=== PATIENT | male | born 1965 | race Caucasian/White ===

== ENCOUNTER 2019-08-15 11:52 | Outpatient (NON) | payer OTHER, SELFPAY ==
[2019-08-16 13:21] LABS: SARS-CoV-2 RNA PCR Negative
== END 2019-08-15 11:53 ==
PROVIDERS: PCP Family Medicine; Visit Provider Family Medicine
DX: R50.9 Fever, unspecified (principal); R51 Headache; M79.10 Myalgia, unspecified site; Z20.828 Contact with and (suspected) exposure to other viral communicable diseases
CPT/HCPCS: 87635; C9803; U0003

== ENCOUNTER 2019-08-19 12:10 | Outpatient (CLI) | payer OTHER, SELFPAY ==
--- NOTE | ~2019-08-19 | XR_ITS ---
EXAMINATION: XR chest 2V DATE: 08/19/2019 12:32 INDICATION: Shortness of breath TECHNIQUE: Frontal and lateral views of the chest are obtained COMPARISON: None available FINDINGS: The lungs are free of acute opacities. There is no pleural effusion or pneumothorax. The ca rdiomediastinal silhouette is normal. There is mild thoracic spondylosis. IMPRESSION: 1. No acute cardiopulmonary abnormality. Reviewed, dictated and finalized at location A.
== END 2019-08-19 12:11 | disposition home or self-care (01) ==
PROVIDERS: PCP Family Medicine; Visit Provider Physician Assistant
DX: R06.02 Shortness of breath (principal)
CPT/HCPCS: 71046

== ENCOUNTER 2019-08-25 03:40 | Emergency (ER) | payer OTHER, SELFPAY ==
--- NOTE | ~2019-08-25 | CT_ITS ---
EXAMINATION: CT abdomen pelvis w con DATE: 08/25/2019 05:29 INDICATION: Right upper quadrant abdominal pain TECHNIQUE: Computed tomography (CT) of the abdomen and pelvis was performed with 100 mL Omnipaque-350 intravenous contrast. Automated exposure control and iterative reconstruction technique were employe d. The dose-length product was 391.67 mGy-cm. COMPARISON: None FINDINGS: Minimal dependent atelectasis in the bilateral lower lobes. Heart size is normal. Atherosclerotic cor onary artery calcifications. No pericardial or pleural effusion. Minimal bilateral gynecomastia. Diff use hepatic steatosis with focal sparing along the gallbladder fossa. Gallbladder, spleen, bilateral adrenal glands and kidneys are normal. 1 cm cystic lesion at the head of the pancreas which appears o therwise normal. Bowels appear normal with large amount of colonic stool. The appendix is not visuali zed. No pericecal inflammatory change to suggest acute appendicitis. No free intraperitoneal gas or f luid. No pathologically enlarged abdominal or pelvic lymphadenopathy. There is calcified atherosclero sis of the aorta and many of the other arteries. Small bilateral fat-containing inguinal hernias. Min imal to mild scattered degenerative skeletal changes. IMPRESSION: 1. No acute intra-abdominal/pelvic process. 2. Diffuse hepatic steatosis. 3. 1 cm cystic lesion at the head of the pancreas. The differential diagnosis includes pseudocyst, in traductal papillary mucinous neoplasm (IPMN), mucinous cystic neoplasm (MCN), and the less common ser ous cystadenoma and neuroendocrine tumor. Correlate for history of pancreatitis. Recommend one-year f ollow-up dressed enhanced CT or more preferably MRI. Reviewed, dictated and finalized at location A. IMPRESSION: 1. No acute intra-abdominal/pelvic process. 2. Diffuse hepatic steatosis. 3. 1 cm cystic lesion at the head of the pancreas. The differential diagnosis i ncludes pseudocyst, intraductal papillary mucinous neoplasm (IPMN), mucinous cy stic neoplasm (MCN), and the less common serous cystadenoma and neuroendocrine tumor. Correlate for history of pancreatitis. Recommend one-year follow-up dres sed enhanced CT or more preferably MRI.
[2019-08-25 03:43] VITALS: BP 167/109; PULSE 92; RESP 20; TEMP 36.3; O2SAT 99
[2019-08-25 04:21] LABS: Add Urine Microscopic? NO; Appearance Urine Clear (Clear); Bilirubin Urine Negative (Negative); Blood Urine Negative (Negative); Color Urine Straw (Yellow); Glucose Urine UA Negative (Negative); Ketones Urine Negative (Negative); Leukocyte Esterase Ur Negative LEU/UL (Negative); Nitrate Urine Negative (Negative); Protein Urine Negative (Negative); Specific Grav Ur 1.013 (1.001-1.035); Urobilinogen Urine Negative mg/dL (<2.0)
[2019-08-25 04:22] LABS: Basophils Absolute Auto 0.1 K/mm3 (0.0-0.1); Basophils Percent Auto 1.2 % (0.2-1.2); Eosinophils Absolute Auto 0.4 K/mm3 (0-0.3); Eosinophils Percent Auto 4.8 % (0-4.4); Hematocrit 43.8 % (42.0-52.0); Hemoglobin 15.8 g/dL (14.0-18.0); Immature Granulocyte Absolute 0.13 K/mm3 (0.00-0.031); Immature Granulocyte Percent A 1.6 % (0-0.5); Lymphocytes Absolute Auto 1.96 K/mm3 (0.9-3.2); Lymphocytes Percent Auto 24.1 % (18.3-44.2); Mean Corpuscular HGB Conc 36.1 g/dl (32-36); Mean Corpuscular Hemoglobin 31.9 pg (26-34); Mean Corpuscular Volume 88.5 fl (80-100); Mean Platelet Volume 9.4 fl (7.4-10.4); Monocytes Absolute Auto 0.7 K/mm3 (0.1-0.6); Monocytes Percent Auto 8.7 % (2.6-8.5); Neutrophils Absolute Auto 4.9 K/mm3 (1.3-6.7); Neutrophils Percent Auto 59.6 % (45.5-73.1); Platelet Count Result 312 k/mm3 (150-375); Red Blood Count 4.95 M/mm3 (4.6-6.20); Red Cell Distribution Width 12.1 % (11.5-14.5); White Blood Count 8.1 K/mm3 (4.5-10.0)
[2019-08-25] MEDS: ONDANSETRON INJ 4 MG/2 ML VIAL IV PUSH (04:23)
[2019-08-25] MEDS: MORPHINE SULFATE 4 MG/ML INJ IV PUSH (04:23)
[2019-08-25 04:39] LABS: Alanine Aminotransferase 55 U/L (4-50); Albumin Level 4.5 g/dL (3.5-5.1); Alkaline Phosphatase 65 U/L (38-126); Aspartate Amino Transferase 29 U/L (17-59); Bilirubin,Total 0.4 mg/dL (0.2-1.3); Blood Urea Nitrogen 19 mg/dL (9-20); Calcium 8.8 mg/dL (8.4-10.2); Carbon Dioxide 29 mmol/L (22-30); Chloride 100 mmol/L (98-107); Estimated Glomerular Filt Rate > 60; Glucose 99 mg/dL (75-110); Lipase 156 U/L (23-300); Potassium 4.2 mmol/L (3.4-5.0); Sodium 136 mmol/L (137-145)
--- NOTE | 2019-08-25 05:11 | ED.ABDPAIN ---
HPI - Abdominal Pain General Chief Complaint: Abdominal Pain Stated Complaint: abd pain Time Seen by Provider: 08/25/19 04:01 History of Present Illness HPI narrative: Patient is a 53-year-old male who presents the ER with right upper quadrant abdominal pain. Patient reports intermittent symptoms over the last couple of weeks. He has been in to see his primary care physician. They did COVID testing which was negative. They then did a x-ray of the thoracic spine which showed some degenerative changes. He reports that the pain radiates into his back under his right scapula. There is mild nausea but no vomiting. No fevers or chills or sweats. It is associated with eating and drinking. No known cholelithiasis. No history of pancreatitis. Related Data Allergies Allergy/AdvReac Type Severity Reaction Status Date / Time carrot Allergy Severe HIVES Verified 08/25/19 03:45 celery Allergy Severe HIVES Verified 08/25/19 03:45 Penicillins Allergy Unknown Unknown Verified 08/25/19 03:45 Pistachio Allergy Severe HIVES Uncoded 08/25/19 03:45 Review of Systems Review of Systems: All systems reviewed & are unremarkable except as noted in HPI and below Constitutional: Constitutional: Denies chills, Denies fever(s) and Denies weakness ENT: Denies nasal congestion and Denies sore throat Cardiovascular: Cardiovascular: Denies chest pain and Denies radiating jaw, neck or arm pain Respiratory: Respiratory: Denies cough and Denies dyspnea Gastrointestinal: Gastrointestinal: Reports abdominal pain, Reports nausea and Denies vomiting Genitourinary: Genitourinary: Denies dysuria and Denies urinary frequency PMFSH Past Medical History Medical History (Updated 08/25/19 @ 06:36 by Braden Rios MD) Anxiety HLD (hyperlipidemia) Hypothyroidism Normal colonoscopy (~2016) Surgical History Surgical History (Updated 08/25/19 @ 05:12 by Braden Rios MD) No pertinent past surgical history Social History Social History Smoking status: Never smoker Second hand tobacco smoke exposure: No Alcohol intake: never Gender identity (if verbalized by the patient): Male Exam Narrative: Exam Narrative: GENERAL: Uncomfortable-appearing, well-nourished, and in mild distress. HEAD: Normocephalic, atraumatic. ENT: Mucous membranes moist. CHEST: Clear to auscultation. No respiratory distress. HEART: Regular rate and rhythm. Normal peripheral pulses. ABDOMEN: Soft, moderate tenderness palpation right upper quadrant with positive Roman's, nondistended. EXTREMITIES: Normal range of motion. No edema. SKIN: Warm, dry, no rash. NEURO: Alert and oriented x3. PSYCH: Normal mood and affect. Course Course Emergency Course: Patient informed of results. Will start on PPI twice daily. Needs follow-up with PCP. Vital Signs Vital signs: Vital Signs Temperature 97.3 F L 08/25/19 03:43 Pulse Rate 92 08/25/19 03:43 Respiratory Rate 20 08/25/19 03:43 Blood Pressure 167/109 H 08/25/19 03:43 Pulse Oximetry 99 08/25/19 03:43 Temperature 97.3 F L 08/25/19 03:43 Pulse Rate 92 08/25/19 03:43 Respiratory Rate 20 08/25/19 03:43 Blood Pressure 167/109 H 08/25/19 03:43 Pulse Oximetry 99 08/25/19 03:43 MDM - Abdominal Pain Lab Data Result diagrams: 08/25/19 04:03 08/25/19 04:03 Labs: Lab Results 08/25/19 08/25/19 08/25/19 Range/Units 04:03 04:03 04:03 WBC 8.1 (4.5-10.0) K/mm3 RBC 4.95 (4.6-6.20) M/mm3 Hgb 15.8 (14.0-18.0) g/dL Hct 43.8 (42.0-52.0) % MCV 88.5 (80-100) fl MCH 31.9 (26-34) pg MCHC 36.1 H (32-36) g/dl RDW 12.1 (11.5-14.5) % Plt Count 312 (150-375) k/mm3 MPV 9.4 (7.4-10.4) fl Immature Gran % (Auto) 1.6 H (0-0.5) % Neut % (Auto) 59.6 (45.5-73.1) % Lymph % (Auto) 24.1 (18.3-44.2) % [place] % (Auto) 8.7 H (2.6-8.5) % Eos % (Auto) 4.8
[2019-08-25 07:10] VITALS: BP 152/98; PULSE 82; RESP 18; O2SAT 98
== END 2019-08-25 07:11 | disposition home or self-care (01) ==
PROVIDERS: Emergency Provider Emergency Medicine; PCP Family Medicine
DX: K27.9 Peptic ulcer, site unspecified, unspecified as acute or chronic, without hemorrhage or perforation (principal); F41.9 Anxiety disorder, unspecified; E78.5 Hyperlipidemia, unspecified
CPT/HCPCS: 36415; 74177; 80053; 81003; 83690; 85025; 96374; 96375; 99284; J2270; J2405; Q9967

== ENCOUNTER 2019-10-25 15:57 | Emergency (ER) | payer OTHER, SELFPAY ==
[2019-10-25 16:09] VITALS: BP 153/92; PULSE 72; RESP 16; TEMP 36.4; O2SAT 99
--- NOTE | 2019-10-25 16:17 | ED.EAR ---
HPI - Ear Problem General Chief complaint: Ear Stated complaint: ear pain Time Seen by Provider: 10/25/19 16:17 Source: RN notes reviewed Mode of arrival: ambulatory Limitations: no limitations History of Present Illness HPI Narrative: 53 year old male who presents to [facility] with complaint of sharp throbbing pain to his right ear for the past 2 days,Patient denies any fevers, sore throat, sinus congestion or drainage, or cough. Patient states that he has been swimming a lot lately and thinks ear pain may be related. He states no pain behind his ear or any noted drainage, some tragal tenderness noted. Patient states that he has not applied any ear drops in his ear or taken any OTC medications. MD Complaint: ear pain Location: right ear Duration: constant Severity: moderate Relieving factors: nothing Exacerbating factors: nothing Context: Reports recent swimming Discharge from ear: Reports no Associated symptoms ear: other (ear pain) Treatment prior to arrival: none Related Data Allergies Allergy/AdvReac Type Severity Reaction Status Date / Time carrot Allergy Severe HIVES Verified 10/25/19 15:59 celery Allergy Severe HIVES Verified 10/25/19 15:59 Penicillins Allergy Unknown Unknown Verified 10/25/19 15:59 Pistachio Allergy Severe HIVES Uncoded 10/25/19 15:59 Review of Systems Review of Systems: Narrative: CONSTITUTIONAL: Denies fever, chills, or sweats. EYES: Denies visual changes, redness, or discharge. ENT: Denies rhinorrhea, congestion, sore throat, positive for right ear pain CARDIOVASCULAR: Denies chest pain, palpitations, or edema. RESPIRATORY: Denies cough or dyspnea. GASTROINTESTINAL: Denies abdominal pain, nausea, vomiting, or diarrhea. GENITOURINARY: Denies dysuria or hematuria. SKIN: Denies rash or itching. MUSCULOSKELETAL: Denies back pain, joint pain, or myalgia. NEUROLOGIC: Denies headache, numbness, or weakness. PSYCHIATRIC: Denies anxiety or depression. All systems reviewed & are unremarkable except as noted in HPI and below PMFSH Past Medical History Medical History (Updated 10/28/19 @ 10:50 by Kady Hoyos NP) Anxiety Cystic mass of pancreas Fracture of right ankle HLD (hyperlipidemia) Hypothyroidism Normal colonoscopy (~2015) Surgical History Surgical History (Updated 10/28/19 @ 10:50 by Kady Hoyos NP) H/O vasectomy History of appendectomy History of surgery on right wrist Social History Social History (Updated 10/28/19 @ 10:50 by Kady Hoyos NP) Smoking status: Never smoker Second hand tobacco smoke exposure: No Alcohol intake: former Living arrangements: with family Gender identity (if verbalized by the patient): Male Comments At time of signature, agree with nursing past medical, surgical, social history. There is no relevant family history pertinent to the presenting complaint Exam Narrative: Exam Narrative: GENERAL: Well-appearing, well-nourished, and in no acute distress. HEAD: Normocephalic, atraumatic. EYES: PERRLA and EOMI. ENT: Nares clear, no rhinorrhea or epistaxis. Mucous membranes moist.Right TM red and bulging with ear canal red and excoriated, tragal tenderness noted. Left TM normal with good light reflex, throat pink with no redness or swelling NECK: Supple.no lymphadenopathy CHEST: Clear to auscultation. No respiratory distress.SAO2 99% on room air. HEART: Regular rate and rhythm. No murmur heard. Normal peripheral pulses. ABDOMEN: Soft, nontender, nondistended, normal active bowel sounds. EXTREMITIES: Normal range of motion. No edema. SKIN: Warm, dry, no rash. NEURO: No focal deficits. Alert and oriented x3. Course Vital Signs Vital signs: Vital Signs Temperature 36.4 C 10/25/19 16:09 Pulse Rate 72 10/25/19 16:09 Respiratory Rate 16 10/25/19 16:09 Blood Pressure 153/92 H 10/25/19 16:09 Pulse Oximetry 99 10/25/19 16:09 Temperature 36.4 C 10/25/19 16:09 Pulse Rate 72 10/25/19 16:09 Respiratory Rate 16
== END 2019-10-25 16:37 | disposition home or self-care (01) ==
PROVIDERS: Emergency Provider Registered Nurse; PCP Family Medicine
DX: H66.91 Otitis media, unspecified, right ear (principal); H60.91 Unspecified otitis externa, right ear; F41.9 Anxiety disorder, unspecified; E78.5 Hyperlipidemia, unspecified; E03.9 Hypothyroidism, unspecified; Z98.52 Vasectomy status
CPT/HCPCS: 99213; G0463

== ENCOUNTER 2022-02-13 12:52 | Observation (INO) | payer BC, SELFPAY ==
[2022-02-13] VITALS (15 sets, daily range): BP systolic 124–213; BP diastolic 77–120; PULSE 60–119; RESP 12–18; TEMP 36.3–36.4; O2SAT 96–99; BMI 23.5
--- NOTE | ~2022-02-13 | CT_ITS ---
EXAMINATION: CT brain wo con DATE: 02/13/2022 15:05 INDICATION: ams . TECHNIQUE: Computed tomography (CT) of the head was performed without intravenous contrast. The mA wa s adjusted according to patient size. Iterative reconstruction technique was employed. The dose-lengt h product was 681.00 mGy-cm. COMPARISON: None FINDINGS: No acute intracranial hemorrhage or extra-axial fluid collection. No hydrocephalus, mass, or herniation. No acute ischemic infarct. Unremarkable dural venous sinus attenuation. No acute osseous abnormality. The aerated spaces are clear. IMPRESSION: No acute intracranial process. Reviewed, dictated and finalized at location K. ISTRY TECHNICAL OFFICER
--- NOTE | ~2022-02-13 | XR_ITS ---
EXAMINATION: XR chest 1V portable Exam Date/Time: 02/13/2022 14:35 SENIOR ABAP DEVELOPER HISTORY: midsternal chest pain, radiates to right arm Comparison: 08/19/2019. RESULT: Lines, tubes, and devices: None. Lungs and pleura: Clear. Cardiomediastinal silhouette: Stable. Other: No acute osseous or upper abdominal finding. IMPRESSION: No acute cardiopulmonary process. Reviewed, dictated and finalized at location K. OR ABAP DEVELOPER
--- NOTE | 2022-02-13 12:54 | ECG_ITS ---
Measurements Intervals [place] Rate: 116 P: 33 WA: 171 QRS: 43 QRSD: 108 T: 18 QT: 339 QTc: 473 Interpretive Statements SINUS TACHYCARDIA POSSIBLE LEFT ATRIAL ENLARGEMENT INCOMPLETE RIGHT BUNDLE BRANCH BLOCK DELAYED PRECORDIAL R/S TRANSITION BASELINE ARTIFACT- I, II, III, AVR ABNORMAL ECG NO PREVIOUS ECG AVAILABLE FOR COMPARISON Electronically Signed On 02-13-2022 14:03:44 [employer] by Tam Loya D.O.
[2022-02-13 13:16] LABS: Basophils Absolute Auto 0.1 K/mm3 (0.0-0.1); Basophils Percent Auto 0.8 % (0.2-1.2); Eosinophils Absolute Auto 0.1 K/mm3 (0-0.3); Eosinophils Percent Auto 0.4 % (0-4.4); Hematocrit 42.1 % (42.0-52.0); Hemoglobin 14.6 g/dL (14.0-18.0); Immature Granulocyte Absolute 0.09 K/mm3 (0.00-0.031); Immature Granulocyte Percent A 0.7 % (0-0.5); Lymphocytes Absolute Auto 1.78 K/mm3 (0.9-3.2); Lymphocytes Percent Auto 14.1 % (18.3-44.2); Mean Corpuscular HGB Conc 34.7 g/dl (32-36); Mean Corpuscular Hemoglobin 31.9 pg (26-34); Mean Corpuscular Volume 91.9 fl (80-100); Mean Platelet Volume 9.6 fl (7.4-10.4); Monocytes Absolute Auto 0.5 K/mm3 (0.1-0.6); Monocytes Percent Auto 4.1 % (2.6-8.5); Neutrophils Absolute Auto 10.1 K/mm3 (1.3-6.7); Neutrophils Percent Auto 79.9 % (45.5-73.1); Platelet Count Result 358 k/mm3 (150-375); Red Blood Count 4.58 M/mm3 (4.6-6.20); Red Cell Distribution Width 12.1 % (11.5-14.5); White Blood Count 12.6 K/mm3 (4.5-10.0)
[2022-02-13 13:26] LABS: Alanine Aminotransferase 30 U/L (6-50); Albumin Level 5.2 g/dL (3.5-5.1); Alkaline Phosphatase 43 U/L (38-126); Anion Gap 17 mmol/L (8-16); Aspartate Amino Transferase 31 U/L (17-59); Bilirubin,Total 0.5 mg/dL (0.2-1.3); Blood Urea Nitrogen 19 mg/dL (9-20); Calcium 8.4 mg/dL (8.4-10.2); Carbon Dioxide 23 mmol/L (22-30); Chloride 95 mmol/L (98-107); Estimated CRCL calculation 95 ml/min; Estimated Glomerular Filt Rate > 60; Ethanol < 10 mg/dL (<10); Glucose 123 mg/dL (65-110); Potassium 3.6 mmol/L (3.4-5.0); Sodium 135 mmol/L (137-145)
[2022-02-13 13:38] LABS: Prothrombin Time 12.7 Seconds (11.1-14.7)
[2022-02-13 13:39] LABS: Partial Thromboplastin Time 27.3 SECONDS (22.3-36.8)
[2022-02-13 13:45] LABS: Appearance Urine Clear (Clear); Bilirubin Urine Negative (Negative); Blood Urine Negative (Negative); Color Urine Yellow (Yellow); Glucose Urine UA Negative (Negative); Ketones Urine Trace mg/dL (Negative); Leukocyte Esterase Ur Negative LEU/UL (Negative); Nitrate Urine Negative (Negative); Protein Urine Trace mg/dL (Negative); Urobilinogen Urine 0.2 mg/dL (<2.0); pH Urine 6.5 (5.0-9.0)
[2022-02-13 13:52] LABS: Mucus Urine Rare /lpf; RBC Urine 0-2 /hpf (0-2); WBC Urine 0-3 /hpf
[2022-02-13 13:55] LABS: Add Urine Microscopic? YES
[2022-02-13 14:05] LABS: Amphetamine Screen Urine Negative (Negative); Barbiturate Screen Urine Negative (Negative); Benzodiazepines Screen Urine Negative (Negative); Cannabinoid Screen Urine Negative (Negative); Cocaine Screen Urine Negative (Negative); Methadone Screen Urine Negative (Negative); Opiate Screen Urine Negative (Negative); Phencyclidine Screen Urine Negative (Negative)
--- NOTE | 2022-02-13 14:22 | ED.GENADULT ---
HPI - General Adult General Chief complaint: Altered Mental Status Stated complaint: chest is hurting, AMS Time Seen by Provider: 02/13/22 14:06 History of Present Illness HPI narrative: Patient is a 56-year-old male with a history of familial hypercholesterolemia, hypertension presenting with confusion and chest pain. Patient was at a football game yesterday with his family and admits that he was drinking for most of the day. On the drive home this morning, he felt increasingly nauseous as well as confused. Patient's states that he was quieter than normal. When they arrived home, patient stated that he felt ill enough that he thought he needed an ambulance which frightened his . Patient complains of severe nausea as well as chest pressure and shortness of breath. States that he is starting to feel better now but he continues to feel nauseated. He denies fevers, headaches, cough, abdominal pain, leg swelling, dysuria, back pain. Related Data Allergies Allergy/AdvReac Type Severity Reaction Status Date / Time carrot Allergy Severe HIVES Verified 02/13/22 13:19 celery Allergy Severe HIVES Verified 02/13/22 13:19 cigarette smoke Allergy Mild Unknown Verified 02/13/22 13:19 mold Allergy Mild Unknown Verified 02/13/22 13:19 Penicillins Allergy Unknown Unknown Verified 02/13/22 13:19 Pistachio Allergy Severe HIVES Uncoded 11/11/20 09:13 fire smoke Allergy Mild Unknown Uncoded 11/11/20 09:13 Review of Systems Review of Systems: All systems reviewed & are unremarkable except as noted in HPI and below PMFSH Past Medical History Medical History (Updated 02/24/22 @ 16:22 by Lisa Nelson MD) Anxiety Cystic mass of pancreas Followed by hepatobiliary at [facility]. Mass not appreciated on most recent MRI. Essential hypertension Familial hypercholesterolemia Fracture of right ankle Hypothyroidism Normal colonoscopy (~2015) Surgical History Surgical History (Updated 02/13/22 @ 23:46 by Darcy Colon PA-C) History of appendectomy History of surgery on right wrist History of vasectomy Family History Family History (Updated 02/13/22 @ 23:46 by Darcy Colon PA-C) Other Heart disease Hypertension Social History Social History (Updated 02/13/22 @ 23:47 by Darcy Colon PA-C) Social History: Surrogate medical decision maker: Nicole Ibrahim, . Code status: Full code. Smoking status: Never smoker Second hand tobacco smoke exposure: No Alcohol intake: current Drinks per week: 8 Substance use: never Substance use type: does not use Lack of Transportation: No Lack of Food: Never True Current Housing: I Have Housing Concerned About Future Housing: No Difficulty Paying Gas/Electric Bills: No Difficulty Paying for Meds: No Currently Unemployed: No Education: Bachelor's Degree Difficulty w/ Childcare or Family Care: No Additional living arrangements comments: The patient lives with his and son in [place]. 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 Spiritual care concerns: No Exam Narrative: GENERAL: Well-appearing, well-nourished, and in no acute distress. HEAD: Normocephalic, atraumatic. EYES: PERRLA and EOMI. ENT: Nares clear, no rhinorrhea or epistaxis. Mucous membranes moist. NECK: Supple. CHEST: Clear to auscultation. No respiratory distress. HEART: Tachycardic, regular rhythm. No murmur heard. Normal peripheral pulses. ABDOMEN: Soft, nontender, nondistended, normal active bowel sounds. EXTREMITIES: Normal range of motion. No edema. SKIN: Warm, dry, no rash. NEURO: No focal deficits. Alert and oriented x3. PSYCH: Normal mood and affect. Course Vital Signs Vital signs: Vital Signs Pulse Rate 119 H 02/13/22 13:02 Respiratory Rate 17 02/13/22 13:02 Blood Pressure 213/119 H 02/13/22 13:02 Pulse Oximetry 99 02/13/22 13:02 Temperature 97.3 F L 02/14/22 11:47 Pulse Rate 71 02/14/22 14:
[2022-02-13] MEDS: ONDANSETRON INJ 4 MG/2 ML VIAL IV PUSH (14:39)
[2022-02-13] MEDS: SODIUM CHLORIDE 0.9% IV 1,000 ML 999 ML IV CONT (14:39)
[2022-02-13] MEDS: FAMOTIDINE 20 MG/2 ML VIAL IV PUSH (14:39)
[2022-02-13 15:14] LABS: Troponin I < 0.012 ng/mL (0.000-0.034)
[2022-02-13 15:31] LABS: Influenza A QL RT-PCR Negative (Negative); Influenza B QL RT-PCR Negative (Negative); SARS-CoV-2 RNA PCR Negative
[2022-02-13] MEDS: METOPROLOL TARTRATE INJ 5 MG/5 ML VIAL IV PUSH (15:40)
[2022-02-13 16:19] LABS: Troponin I < 0.012 ng/mL (0.000-0.034)
--- NOTE | 2022-02-13 19:00 | PM.IMHP ---
H&P: HPI History of Present Illness Date/Time: 02/13/22 19:00 Chief Complaint: Chest pain and confusion. Narrative: This is a very pleasant 56-year-old male with hypertension, familial hypercholesterolemia, and hypertension who presented to the emergency department from home for evaluation of chest pain and confusion. He and his family went to the [employer] [facility] football game yesterday and he admits that he drank more beer than usual as they tail gated for many hours prior to the game. This morning he did not have much of an appetite and he felt generally unwell which he attributed to a mild hangover. His drove them home and throughout the drive he started to feel a bit nauseated and confused though he has difficulties pinpointing exactly how he felt ?it just felt that something was not right.? When they got a bit closer to home he developed nonradiating, mid chest pressure associated with mild shortness of breath in addition to the nausea and he felt it would be best to come in for evaluation. On arrival to the ER he was in sinus tachycardia with rate of 119 and his blood pressure was 213/119. He was given 5 milligrams IV Lopressor x1 with improvement in both. Brain CT and chest x-ray were both unremarkable. His EKG showed sinus tachycardia with delayed precordial R/S transition and an incomplete right bundle branch block. His initial troponin was negative. Pertinent labs include white blood cell count of 12.6, sodium 135, chloride 95. He was given a bolus of IV fluids and famotidine 20 milligrams and he is feeling a bit better at this time. Given his risk factors, he is being admitted for close monitoring and to rule out acute coronary syndrome. At the time my evaluation he is not having any chest discomfort, nausea, or shortness of breath. He does not have any current confusion and denies vertigo, auditory and visual changes, focal weakness, paresthesias, facial droop, dysarthria, and dysphagia. He also denies syncope and near syncope. No pleuritic pain, palpitations, lower extremity edema, or history of venous thromboembolism. He has no known history of cardiac disease. No history of cardiac workup. Review of Systems Review of Systems: Twelve systems were reviewed and are negative except for as per HPI. [facility] Past Medical History Medical History (Updated 02/13/22 @ 23:49 by Darcy Cloon PA-C) Anxiety Cystic mass of pancreas Followed by hepatobiliary at [facility]. Mass not appreciated on most recent MRI. Essential hypertension Familial hypercholesterolemia Fracture of right ankle Hypothyroidism Normal colonoscopy (~2016) Surgical History Surgical History (Updated 02/13/22 @ 23:46 by Darcy Colon PA-C) History of appendectomy History of surgery on right wrist History of vasectomy Family History Family History (Updated 02/13/22 @ 23:46 by Darcy Colon PA-C) Other Heart disease Hypertension Social History Social History (Updated 02/13/22 @ 23:47 by Darcy Colon PA-C) Social History: Surrogate medical decision maker: Nicole Ibrahim, . Code status: Full code. Smoking status: Never smoker Second hand tobacco smoke exposure: No Alcohol intake: current Drinks per week: 8 Substance use: never Substance use type: does not use Has the Lack of Transportation Kept You From Medical Appointments or From Getting Medications?: No Within the Past 12 Months, Were You Worried Whether Your Food Would Run Out Before You Got Money to Buy More?: Never True What is Your Housing Situation Today?: I Have Housing Are You Worried That in the Next 2 Months, You May Not Have Your Own Housing to Live In?: No Do You Have Trouble Paying Your Heating Or Electricity Bill?: No Do You Have Trouble Paying For Medicines?: No Are You Currently Unemployed and Looking for Work?: No Highest Level of Education Completed: Bachelor's Degree Do You Have Trouble With Childcare or the Care of a Fam
--- NOTE | 2022-02-13 21:08 | ADMGEN ---
This patient, Nikolay Ibrahim, was admitted to IMU Room 200-01. Patient/family oriented to hospital policies and general routines including ID bracelet, bed and alarms, visiting hours, pain management, procedures, bathroom and other care routines, personal items, smoking policy, room service/diet, and visiting hours. Information on how to activate the Rapid Response Team has been discussed. Patient/Family are encouraged to report perceived risks to care and to ask questions if they do not understand what they are told or what they should do.
[2022-02-14] VITALS (10 sets, daily range): BP systolic 119–155; BP diastolic 69–89; PULSE 59–78; RESP 12–16; TEMP 36.2–36.6; O2SAT 99–100
[2022-02-14] MEDS: ACETAMINOPHEN 500 MG TABLET 1000 MG PO (04:38)
[2022-02-14 04:54] LABS: Hematocrit 38.5 % (42.0-52.0); Hemoglobin 13.1 g/dL (14.0-18.0); Mean Corpuscular Hemoglobin 31.2 pg (26-34); Mean Corpuscular Volume 91.7 fl (80-100); Mean Platelet Volume 9.8 fl (7.4-10.4); Platelet Count Result 269 k/mm3 (150-375); Red Cell Distribution Width 12.2 % (11.5-14.5); White Blood Count 7.4 K/mm3 (4.5-10.0)
[2022-02-14 05:07] LABS: Anion Gap 11 mmol/L (8-16); Blood Urea Nitrogen 17 mg/dL (9-20); Calcium 8.3 mg/dL (8.4-10.2); Carbon Dioxide 28 mmol/L (22-30); Chloride 101 mmol/L (98-107); Estimated CRCL calculation 87 ml/min; Estimated Glomerular Filt Rate > 60; Glucose 98 mg/dL (65-110); Magnesium 2.1 mg/dL (1.6-2.3); Sodium 140 mmol/L (137-145)
[2022-02-14] MEDS: LEVOTHYROXINE SODIUM 25 MCG TABLET PO (06:02)
[2022-02-14 06:44] LABS: Free T4 Free Thyroxine Reflex 0.76 ng/dL (0.78-2.19)
[2022-02-14] MEDS: lisinopriL 10 MG TABLET PO (08:45)
[2022-02-14] MEDS: ACETAMINOPHEN 325 MG TABLET 650 MG PO (10:45)
--- NOTE | 2022-02-14 14:06 | PM.CNCAR ---
Assessment and Plan Assessment and plan (1) Chest pain: Code(s): R07.9 - Chest pain, unspecified Status: Acute Plan This is a 56-year-old man who was feeling poorly on Monday yesterday following a day of significant detailed a alliance party and alcohol drinking for a good deal of Monday. He he was having a variety of symptoms including some chest pain as mentioned above. He has ruled out for evidence of acute coronary syndrome. Normally this gentleman is active fit and he exercises regularly with no symptoms that are suspicious for angina. I believe he is stable enough to be discharged acute coronary syndrome has been ruled out. Due to his lack of other symptomatology at this point I do not think he needs to stay in the hospital for an ischemia workup. Luis Garcia MD [facility] History of Present Illness History of Present Illness Consult date/time: 02/14/22 14:06 Consult reason: chest pain Reason For Visit: chest pain Narrative: This is a 56-year-old man I am seeing this afternoon at the request of the hospitalist he was admitted yesterday with a variety of complaints Um on which was some chest pain. The patient is not known to have any cardiac problems before this. He says that he is an active gentleman that exercises regularly 3 or 4 times per week on stair stepper machines and other types of aerobic activity like this for his fitness. He does not have any history of exertional anginal-type chest pain. He began to feel unwell yesterday at his home. He was describing the sense of almost feeling like he had a hangover from drinking heavily the day before and noticed that his blood pressure was rather high in excess of 200 mmHg. He states for a couple of times he is found to be disoriented I he was having some dull central chest discomfort that was nonradiating and not associated with any diaphoresis or dyspnea. Because of the symptoms and the very high blood pressure he came to the emergency room for evaluation. His electrocardiogram shows sinus tachycardia but with no ST segment deviation of ischemia. His troponin levels were normal x3 sets. This gentleman as mentioned above is in a very good state of aerobic fitness he exercises regularly as a matter of his habit and does not describe anything that sounds like angina. On Monday of this past weekend before he was admitted he was attending the [employer] football game on Monday and was meeting with a lot of friends and admits to drinking beer much more than is his usual habit for most of the day at a large detailed a alliance party/reunion. He was attributing his symptoms initially to recovering from that unusually heavy alcohol intake on Monday. He feels fine now and does not have any complaints. Review of Systems Constitutional: Constitutional: Reports no additional constitutional complaints Eyes: Eyes: Reports no additional eye complaints ENT: Reports system reviewed and no additional complaints, except as documented Cardiovascular: Cardiovascular: Reports no additional cardiovascular complaints Respiratory: Respiratory: Reports no additional respiratory complaints Gastrointestinal: Gastrointestinal: Reports no additional gastrointestinal complaints Musculoskeletal: Musculoskeletal: Reports no additional musculoskeletal complaints Integumentary/Breasts: Skin/Breast: Reports system reviewed and no additional complaints, except as docu Neurologic: Reports system reviewed and no additional complaints, except as documented Endocrine: Endocrine: Reports no additional endocrine complaints Hematologic/Lymphatic: Hematologic/Lymphatic: Reports no additional hematologic/lymphatic complaints Allergic/Immunologic: Allergic/Immunologic: Reports no additional allergic/immunologic complaints [facility] Past Medical History Medical History (Updated 02/13/22 @ 23:49 by Darcy Colon PA-C) Anxiety Cystic mass of pancreas Followed by hepatobiliary at [facility].
--- NOTE | 2022-02-14 15:17 | PM.DS ---
DS: Admitting Diagnosis Discharge Date 02/14/2022 Admitting Diagnosis chest pain DS: Summary Hospital Course Reason for hospitalization: chest pain Hospital Course: This is a 56-year-old man who was admitted yesterday with chest pain.? The patient is not known to have any cardiac problems before this.? He says that he is an active gentleman that exercises regularly 3 or 4 times per week on stair stepper machines and other types of aerobic activity like this for his fitness.? He does not have any history of exertional anginal-type chest pain.? He began to feel unwell yesterday at his home.? He was describing the sense of almost feeling like he had a hangover from drinking heavily the day before and noticed that his blood pressure was rather high in excess of 200 mmHg.? He states for a couple of times he is found to be disoriented. he was having some dull central chest discomfort that was nonradiating and not associated with any diaphoresis or dyspnea.? Because of the symptoms and the very high blood pressure he came to the emergency room for evaluation.? His electrocardiogram shows sinus tachycardia but with no ST segment deviation of ischemia.? His troponin levels were normal x3 sets.? He feels fine now and does not have any complaints. cardiology was consulted. per their evaluation patient is stable to be discharged home without any further cardiac intervention at this time. patient is being discharged home Time Spent with Patient Time attestation: Total time spent providing and/or coordinating discharge services: Exam Const: General: comfortable and no acute distress Other: Well-developed well-nourished healthy-looking gentleman in no distress of any kind HENMT: Mouth: Yes moist mucous membranes Eyes: Sclera: sclerae normal Pupils: Equal, round and reactive pupils present Neck: Neck: supple and no JVD Other: Normal carotid pulses bilaterally no audible bruits Resp: Effort & Inspection: normal respiratory effort Auscultation: clear to auscultation bilaterally Cardio: Rate: regular rate Rhythm: regular rhythm Other: PMI is of normal location and activity first and second heart sounds normal no gallop no murmur GI: GI Palp: Yes Soft to palpation Auscultation: normal bowel sounds Skin: General skin exam: normal color Neuro: Other: Alert and oriented, normal cognition Extrem: Other: No edema, excellent distal pulses DS: Data Data Completed and Pending Labs on day of discharge: Labs from last 24 hours 02/14/22 02/14/22 02/14/22 04:14 04:14 04:14 WBC RBC Hgb Hct MCV MCH MCHC RDW Plt Count MPV Sodium 140 Potassium 4.0 Chloride 101 Carbon Dioxide 28 Anion Gap 11 BUN 17 Creatinine 0.80 Estim Creat Clear Calc 87 Estimated GFR > 60 Glucose 98 Calcium 8.3 L Magnesium 2.1 Troponin I TSH (Reflex) 4.310 Free T4 0.76 L Influenza A (RT-PCR) Influenza B (RT-PCR) SARS-CoV-2 RNA (RT-PCR) 02/14/22 02/13/22 02/13/22 04:14 15:54 14:41 WBC 7.4 RBC 4.20 L Hgb 13.1 L Hct 38.5 L MCV 91.7 MCH 31.2 MCHC 34.0 RDW 12.2 Plt Count 269 MPV 9.8 Sodium Potassium Chloride Carbon Dioxide Anion Gap BUN Creatinine Estim Creat Clear Calc Estimated GFR Glucose Calcium Magnesium Troponin I < 0.012 TSH (Reflex) Free T4 Influenza A (RT-PCR) Negative Influenza B (RT-PCR) Negative SARS-CoV-2 RNA (RT-PCR) Negative Discharge Plan Discharge Consulting providers: Edi Bullock Discharging Clinician: Juan Carlos Quispe Anticipated Discharge Date/Time: 02/14/22 15:20 Patient Disposition: Home, Self-Care Activity: august shower Diet: heart healthy Patient Instructions: Antibiotic Form, Chest Pain (DC) Stand Alone Forms: General Discharge Information Follow-up/Referrals: Dedra Doty MD [Primary Care [facility]
--- NOTE | 2022-02-14 23:56 | ECHO_ITS ---
Patient Info Name: Nikolay Ibrahim Age: 56 years : 1965 Gender: Male Ht: 68 in Wt: 154 lbs BSA: 1.84 m2 HR: 64 bpm BP: 155 / 89 mmHg Heart Rhythm: Sinus Rhythm Technical Quality: Fair Exam Date: 02/14/2022 9:55 AM Exam Location: [facility] Pulmonary Patient Status: Outpatient Admit Date: 02/13/2022 Staff Ordering Physician: Darcy Colon PA-C Fabrication Welder: Cori Haywood RDCS Attending Provider: Juan Carlos Quispe MD Referring Physician: Isaiah COFFMAN; Exam Type: CA echo doppler color flow Study Info Indications - HTN, HLD R07.9 - Chest pain, unspecified Complete two-dimensional, color flow and Doppler transthoracic echocardiogram is performed. Summary 1. Complete two-dimensional, color flow and Doppler transthoracic echocardiogram is performed. 2. Normal left ventricular size and systolic function, no ischemic wall motion abnormalities. 3. Left atrial size at the upper limits of normal. 4. Mild sclerosis of the aortic valve with no functional stenosis. Left Ventricle Left ventricular chamber dimension is normal. Left ventricular systolic function is hyperdynamic, estimated at >70%. The left ventricular diastolic function is normal. Right Ventricle Right ventricular chamber dimension is normal. Left Atria Left atrial chamber dimension is mildly enlarged. Right Atria Right atrial chamber dimension is normal. Aortic Valve The aortic valve is trileaflet. There is mild aortic valve sclerosis. Pulmonic Valve The pulmonic valve is normal. Mitral Valve The mitral valve has normal leaflets. Tricuspid Valve The tricuspid valve leaflets are normal. Pericardium/Pleural The pericardium appears normal. Aorta The aortic root size at the sinus of Valsalva is normal. Left Ventricular Outflow Tract Name Value Normal LVOT 2D LVOT Diameter 2.0 cm LVOT Doppler LVOT Peak Gradient 8 mmHg LVOT Mean Gradient 4 mmHg LVOT VTI 29 cm LVOT VTI/AV VTI Ratio 0.9 LVOT Stroke Volume 88 ml LVOT CO 5.5 l/min LVOT CI 3.0 l/min/m2 Pulmonic Valve Name Value Normal RVOT Doppler RVOT Peak Gradient 1 mmHg PV Doppler PV Peak Gradient 5 mmHg Mitral Valve Name Value Normal MV Doppler MV Decel [place] 617 cm/s2 MV PHT
== END 2022-02-14 15:56 | disposition home or self-care (01) ==
LOC: ANHED 14:06 → ANHIMU 19:48
PROVIDERS: Emergency Medicine; Physician Assistant; Admitting Provider Internal Medicine; Emergency Provider Emergency Medicine; PCP Family Medicine; Visit Provider Hospitalist
DX: R07.9 Chest pain, unspecified (principal); R41.0 Disorientation, unspecified; E78.01 Familial hypercholesterolemia; I10 Essential (primary) hypertension; E03.9 Hypothyroidism, unspecified; R11.0 Nausea; R06.02 Shortness of breath; F41.9 Anxiety disorder, unspecified; E78.5 Hyperlipidemia, unspecified; R94.31 Abnormal electrocardiogram [ECG] [EKG]; Z20.822 Contact with and (suspected) exposure to COVID-19; R00.0 Tachycardia, unspecified; Z79.899 Other long term (current) drug therapy
CPT/HCPCS: 36415; 70450; 71045; 80048; 80053; 80307; 81001; 83735; 84439; 84443; 84484; 85025; 85027; 85610; 85730; 87636; 93005; 93306; 96361; 96374; 96375; 99285; A9270; G0378; J2405; J7030

== ENCOUNTER 2022-07-18 14:08 | Outpatient (CLI) | payer BC, SELFPAY ==
--- NOTE | ~2022-07-18 | XR_ITS ---
EXAM: XR foot RT min 3V DATE: 07/18/2022 14:24 HISTORY: M79.671 - Pain in right foot . COMPARISON: None available. FINDINGS: Normal mineralization. No fracture or dislocation. No lytic or blastic lesion. Mild hallux valgus. Mild joint space narrowing at the first MTP joint. Well marginated erosion at the medial cor ner of the proximal aspect of the right first proximal phalanx. Soft tissue swelling about the first MTP joint. IMPRESSION: Radiographic findings at the first MTP joint may represent gout, in the appropriate clini jeanne and laboratory context. Septic arthritis should also be considered in the differential of monoart icular arthritis. Reviewed, dictated and finalized at [facility]. IMPRESSION: Radiographic findings at the first MTP joint may represent gout, in the appropriate clinical and laboratory context. Septic arthritis should also be considered in the differential of monoarticular arthritis.
== END 2022-07-18 14:09 ==
LOC: MICIMG 14:10
PROVIDERS: PCP Family Medicine; Visit Provider Family Medicine
DX: M79.671 Pain in right foot (principal)
CPT/HCPCS: 73630

== ENCOUNTER 2023-05-07 09:19 | Observation (INO) | payer BC, SELFPAY ==
[2023-05-07] VITALS (16 sets, daily range): BP systolic 124–156; BP diastolic 77–97; PULSE 58–85; RESP 12–17; TEMP 36.2–36.8; O2SAT 92–100
--- NOTE | ~2023-05-07 | MR_ITS ---
EXAMINATION: MR brain/brain stem wo/w con DATE: 05/07/2023 15:13 INDICATION: dizziness, vertigo TECHNIQUE: Magnetic resonance imaging (MRI) of the brain and brainstem was performed without and with 15 mL MultiHance intravenous contrast. Sequences included sagittal and axial T1-weighted SE, axial d iffusion-weighted FS EPI ASSET, axial T2*-weighted GRE, axial T2-weighted FLAIR Propeller, and axial T2-weighted Propeller. Postcontrast axial and coronal T1-weighted SE was obtained. Apparent diffusion coefficient (ADC) maps were created. COMPARISON: CT brain 04/29/2023 FINDINGS: No abnormal restricted diffusion to suggest acute ischemic infarct. No MRI evidence of hemorrhage or extra-axial collection. No suspicious foci of susceptibility to suggest prior intraparenchymal hemorr trino. Scattered foci of white matter hyperintensity, likely representing mild small vessel ischemic d isease. No evidence of advanced or lobar predominant parenchymal volume loss. The basilar cisterns ar e patent. Flow voids are preserved. Minimal mucosal thickening in the bilateral inferior maxillary an d ethmoid sinuses, the remaining paranasal sinuses and mastoids are within normal limits. Globes and orbital contents are within normal limits. IMPRESSION: No acute intracranial process. Reviewed, dictated and finalized at location K. ING FACILITATOR
--- NOTE | ~2023-05-07 | CT_ITS ---
EXAMINATION: CTA brain carotid DATE: 05/08/2023 10:46 INDICATION: Vertigo. TECHNIQUE: Computed tomographic angiography (CTA) of the head was performed without and with 100 mL O mnipaque-350 intravenous contrast. CTA of the neck was performed with intravenous contrast. Automated exposure control and iterative reconstruction technique were employed. The dose-length product was 1 905.95 mGy-cm. Maximum intensity projection and volume rendered 3D-reconstructions were created by evelin yang technologist on a separate workstation. COMPARISON: Head CT 05/07/2023, brain MRI 05/07/2023 FINDINGS: HEAD CTA: There is no intracranial hemorrhage, acute infarction, or abnormal intracranial mass lesion . The ventricles are normal in size. The orbits are normal. There is mild mucosal thickening in the p aranasal sinuses. The mastoid air cells are normal. The vertebral arteries are codominant. There is n o significant stenosis of basilar artery or the posterior cerebral arteries. Right posterior communic ating artery and is normal. A left posterior communicating artery is not identified. There is no sign ificant stenosis of the intracranial internal carotid arteries or anterior or middle cerebral arterie s. Anterior communicating artery is normal. There is no aneurysm. NECK CTA: There are no pathologically enlarged lymph nodes. The vertebral arteries are codominant. Th ere is plaque in the proximal internal carotid arteries. There is 13% stenosis of the proximal right internal carotid artery relative to normal distal artery lumen diameter (NASCET criteria). There is 0 % stenosis of the proximal left internal carotid artery relative to normal distal artery lumen diamet er. There is mild cervical spondylosis. IMPRESSION: 1. Normal brain. No aneurysm or significant intracranial arterial stenosis. 2. 13% stenosis of the proximal right internal carotid artery relative to normal distal artery lumen diameter (NASCET criteria). 3. 0% stenosis of the proximal left internal carotid artery relative to normal distal artery lumen di ameter. Reviewed, dictated and finalized at location A. AINABLE LANDSCAPE ARCHITECT IMPRESSION: 1. Normal brain. No aneurysm or significant intracranial arterial stenosis. 2. 13% stenosis of the proximal right internal carotid artery relative to karen l distal artery lumen diameter (NASCET criteria). 3. 0% stenosis of the proximal left internal carotid artery relative to normal distal artery lumen diameter.
--- NOTE | ~2023-05-07 | CT_ITS ---
EXAMINATION: CT BRAIN W/O DATE: 05/07/2023 10:24 INDICATION: Vertigo TECHNIQUE: Computed tomography (CT) of the head was performed without intravenous contrast. The dose- length product was 605.33 mGy-cm. Automated exposure control and iterative reconstruction technique w ere employed. COMPARISON: CT dated 02/13/2022 FINDINGS: Normal brain parenchymal volume for age. Normal starr-white differentiation. No acute intrac ranial hemorrhage, infarction, mass or mass effect. There are scattered mild periventricular and subc ortical white matter changes, most likely related to small vessel ischemic disease (microangiopathy). No ventriculomegaly or midline shift. Midline sagittal images demonstrate a normal corpus callosum, c raniovertebral junction and sella turcica. Basilar cisterns are patent. Paranasal sinuses and mastoids are pneumatized. No depressed skull fractures. IMPRESSION: 1. No acute intracranial abnormality. Reviewed, dictated and finalized at location A. ATCHER CLERK
--- NOTE | 2023-05-07 09:28 | ECG_ITS ---
Measurements Intervals [place] Rate: 58 P: 35 [place]: 186 QRS: 55 QRSD: 110 T: 56 QT: 439 QTc: 432 Interpretive Statements SINUS BRADYCARDIA BORDERLINE ECG COMPARED TO ECG 02/13/2022 13:02:10 SINUS BRADYCARDIA NOW PRESENT Electronically Signed On 05-07-2023 11:30:04 PRIMER POWDER BLENDER WET by Tam Loya D.O.
[2023-05-07] MEDS: METOCLOPRAMIDE HCL INJ 10 MG/2 ML VIAL IV PUSH (09:29)
--- NOTE | 2023-05-07 09:58 | ED.DIZZY ---
HPI - Dizziness General Chief Complaint: Dizziness Stated Complaint: dizzy, n/v, headache, lightheadedness Time Seen by Provider: 05/07/23 09:43 History of Present Illness HPI Narrative: 57-year-old male presents to the emergency department for evaluation of acute onset vertigo this morning. Patient states when he woke up this morning he did not have dizziness but the dizziness worsened throughout the course of the morning. Patient describes dizziness with a spinning sensation. Patient does have associated nausea and vomiting. Patient denies any associated chest pain or shortness of breath. Related Data Allergies Allergy/AdvReac Type Severity Reaction Status Date / Time carrot Allergy Severe HIVES Verified 08/12/22 09:35 celery Allergy Severe HIVES Verified 08/12/22 09:35 cigarette smoke Allergy Mild Unknown Verified 08/12/22 09:35 mold Allergy Mild Unknown Verified 08/12/22 09:35 Penicillins Allergy Unknown Unknown Verified 08/12/22 09:35 Pistachio Allergy Severe HIVES Uncoded 07/18/22 13:30 fire smoke Allergy Mild Unknown Uncoded 07/18/22 13:30 Review of Systems Review of Systems: All systems reviewed & are unremarkable except as noted in HPI and below PMFSH Past Medical History Medical History Anxiety Cystic mass of pancreas Followed by hepatobiliary at [facility]. Mass not appreciated on most recent MRI. Essential hypertension Familial hypercholesterolemia Fracture of right ankle Hypothyroidism Normal colonoscopy (~2015) Surgical History Surgical History History of appendectomy History of surgery on right wrist History of vasectomy Family History Family History Other Heart disease Hypertension Social History Social History Social History: Surrogate medical decision maker: Nicole Ibrahim, . Code status: Full code. Smoking status: Never smoker Second hand tobacco smoke exposure: No Alcohol intake: current Drinks per week: 8 Substance use: never Substance use type: does not use Lack of Transportation: No Lack of Food: Never True Current Housing: I Have Housing Concerned About Future Housing: No Difficulty Paying Gas/Electric Bills: No Difficulty Paying for Meds: No Currently Unemployed: No Education: Bachelor's Degree Difficulty w/ Childcare or Family Care: No Living arrangements: with family Additional living arrangements comments: The patient lives with his and son in [place]. 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 Gender identity (if verbalized by the patient): Male Spiritual care concerns: No Exam Narrative: APPEARANCE: Well appearing, no pain, no distress, well-nourished. HEAD: normocephalic, atraumatic. EYES: Left-sided nystagmus NOSE: Normal no drainage EARS:TMS clear with good light reflex. THROAT: Pharynx clear, no exudate. NECK: Supple. No adenopathy, no masses. RESPIRATORY: Airway patent, respirations nonlabored. Clear to auscultation bilaterally, no rales, rhonchi, wheezing. CARDIOVASCULAR: Regular rate and rhythm without murmurs rubs or gallops. ABDOMINAL: Soft, nontender, nondistended, normal bowel sounds MUSCULOSKELETAL: Moves all extremities. Strength/ROM intact, No edema, No calf tenderness. NEURO: Alert. Cranial nerves II through XII intact. Grossly SKIN: Warm, dry. Normal Color Course Course Emergency Course: 57-year-old male presented to the ED for evaluation of vertigo. Patient did feel improved with meclizine treatment in the ED. patient is afebrile with no leukocytosis and a stable hemoglobin no significant abnormalities on his CMP head CT was negative. While patient did feel improved lying in the bed he did not ambulate due to
[2023-05-07] MEDS: ONDANSETRON INJ 4 MG/2 ML VIAL IV PUSH (10:06)
[2023-05-07] MEDS: SODIUM CHLORIDE 0.9% IV 1,000 ML 999 ML IV CONT (10:06)
[2023-05-07] MEDS: MECLIZINE HCL 25 MG TABLET PO (10:06)
[2023-05-07 10:20] LABS: Basophils Absolute Auto 0.1 K/mm3 (0.0-0.1); Eosinophils Absolute Auto 0.2 K/mm3 (0-0.3); Eosinophils Percent Auto 2.8 % (0-4.4); Hematocrit 37.9 % (42.0-52.0); Immature Granulocyte Absolute 0.06 K/mm3 (0.00-0.031); Immature Granulocyte Percent A 0.8 % (0-0.5); Lymphocytes Absolute Auto 1.25 K/mm3 (0.9-3.2); Lymphocytes Percent Auto 17.4 % (18.3-44.2); Mean Corpuscular HGB Conc 34.3 g/dl (32-36); Mean Corpuscular Hemoglobin 31.7 pg (26-34); Mean Corpuscular Volume 92.4 fl (80-100); Mean Platelet Volume 9.5 fl (7.4-10.4); Monocytes Absolute Auto 0.4 K/mm3 (0.1-0.6); Monocytes Percent Auto 5.7 % (2.6-8.5); Neutrophils Absolute Auto 5.2 K/mm3 (1.3-6.7); Neutrophils Percent Auto 72.3 % (45.5-73.1); Platelet Count Result 234 k/mm3 (150-375); Red Cell Distribution Width 12.2 % (11.5-14.5); White Blood Count 7.2 K/mm3 (4.5-10.0)
[2023-05-07 10:33] LABS: Alanine Aminotransferase 37 U/L (6-50); Albumin Level 4.1 g/dL (3.5-5.1); Alkaline Phosphatase 36 U/L (38-126); Anion Gap 10 mmol/L (8-16); Aspartate Amino Transferase 27 U/L (17-59); Bilirubin,Total 0.3 mg/dL (0.2-1.3); Blood Urea Nitrogen 21 mg/dL (9-20); Calcium 9.1 mg/dL (8.4-10.2); Carbon Dioxide 22 mmol/L (22-30); Chloride 105 mmol/L (98-107); Estimated Glomerular Filt Rate > 60; Glucose 145 mg/dL (65-110); Potassium 3.7 mmol/L (3.4-5.0); Sodium 137 mmol/L (137-145)
[2023-05-07] MEDS: diazePAM (*CRX) 5 MG TABLET PO (11:53)
--- NOTE | 2023-05-07 13:14 | PM.IMHP ---
H&P: HPI History of Present Illness Date/Time: 05/07/23 13:14 Chief Complaint: dizziness Narrative: This is a 57-year-old male patient who reports he was at home drinking a cup of coffee about an hour after waking up when he suddenly had sensation of dizziness with the room spinning worsened when he ambulates or opens his eyes. Also worsens when he turns his head. No prior episode of similar sensation. He reports that once he got to the hospital and settled he vomited several times. Patient has a past history of hypertension hyperlipidemia and hypothyroidism. He takes lisinopril metoprolol levothyroxine and fenofibrate at home. Patient denies any past history of stroke. He does not have any lower extremity ataxia but he does have a slightly positive Romberg on evaluation. Patient admitted for MRI and CVA workup with the likelihood vertigo as his final diagnosis. Review of Systems Review of Systems: All systems reviewed & are unremarkable except as noted in HPI and below PMFSH Past Medical History Medical History Anxiety Cystic mass of pancreas Followed by hepatobiliary at [facility]. Mass not appreciated on most recent MRI. Essential hypertension Familial hypercholesterolemia Fracture of right ankle Hypothyroidism Normal colonoscopy (~2015) Surgical History Surgical History History of appendectomy History of surgery on right wrist History of vasectomy Family History Family History Other Heart disease Hypertension Social History Social History Social History: Surrogate medical decision maker: Nicole Ibrahim, . Code status: Full code. Smoking status: Never smoker Second hand tobacco smoke exposure: No Alcohol intake: current Drinks per week: 8 Substance use: never Substance use type: does not use Lack of Transportation: No Lack of Food: Never True Current Housing: I Have Housing Concerned About Future Housing: No Difficulty Paying Gas/Electric Bills: No Difficulty Paying for Meds: No Currently Unemployed: No Education: Bachelor's Degree Difficulty w/ Childcare or Family Care: No Living arrangements: with family Additional living arrangements comments: The patient lives with his and son in [place]. 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 Gender identity (if verbalized by the patient): Male Spiritual care concerns: No Meds Home Medications and Allergies Home Medications Medication Instructions Recorded Confirmed Type alprazolam 0.25 mg tablet 0.25 mg PO BID PRN anxiety during 12/23/21 07/18/22 Rx flying #30 tabs sildenafil (pulm.hypertension) 20 20 mg PO .COMPLEX #60 tabs 07/24/22 Rx mg tablet colchicine 0.6 mg tablet 0.6 mg PO BID #20 tabs 08/31/22 Rx diclofenac sodium 50 mg 50 mg PO BID #40 tabs 08/31/22 Rx tablet,delayed release metoprolol succinate 25 mg 25 mg PO DAILY #30 tabs 10/17/22 Rx tablet,extended release 24 hr levothyroxine 25 mcg tablet 25 mcg PO DAILY #90 tabs 12/14/22 Rx fenofibrate micronized 200 mg 200 mg PO DAILY #30 caps 04/07/23 Rx capsule lisinopril 10 mg tablet 10 mg PO DAILY #30 tabs 04/27/23 Rx Allergies Allergy/AdvReac Type Severity Reaction Status Date / Time carrot Allergy Severe HIVES Verified 08/12/22 09:35 celery Allergy Severe HIVES Verified 08/12/22 09:35 cigarette smoke Allergy Mild Unknown Verified 08/12/22 09:35 mold Allergy Mild Unknown Verified 08/12/22 09:35 Penicillins Allergy Unknown Unknown Verified 08/12/22 09:35 Pistachio Allergy Severe HIVES Uncoded 07/18/22 13:30 fire smoke Allergy Mild Unknown Uncoded 07/18/22 13:30 Vital Signs Vital Signs - 24 hr 05/07/23 09:35 05/07/23 0
[2023-05-07] MEDS: ASPIRIN 81 MG CHEWABLE TABLET 324 MG PO (17:55)
[2023-05-07] MEDS: MECLIZINE HCL 12.5 MG TABLET PO (17:55)
[2023-05-07] MEDS: METOPROLOL SUCCINATE EXT REL 25 MG TABCR PO (20:21)
[2023-05-08] VITALS: PULSE 76
--- NOTE | 2023-05-08 | ECHO_ITS ---
Patient Info Name: Nikolay Ibrahim Age: 57 years : 1965 Gender: Male Ht: 68 in Wt: 165 lbs BSA: 1.90 m2 HR: 78 bpm BP: 134 / 90 mmHg Technical Quality: Fair Exam Date: 05/08/2023 11:37 AM Exam Location: Echo Lab Exam Room: [facility] Patient Status: Inpatient Admit Date: 05/07/2023 Staff Ordering Physician: William Ayon APRN Chore Tender: Guera Conley RDCS Attending Provider: Milla Ling Referring Physician: Gabo FOOTE; Exam Type: CA echo doppler w bubble study Study Info Indications - vertigo possible cva Complete two-dimensional, color flow and Doppler transthoracic echocardiogram is performed with agitated saline. Contrast/Agitated Saline Contrast/Ag. Saline: Agitated Saline Amount: 20.00 ml Administered By: Clau Merrill RDCS Existing IV Access: Yes IV Access Condition: patent with no signs of infiltration Summary 1. Left ventricular chamber dimension is normal. 2. Left ventricular systolic function is normal, estimated at 65-70%. 3. The left ventricular diastolic function is normal. 4. Left atrial chamber dimension is mildly enlarged. 5. There is moderate aortic valve sclerosis. 6. There is trace tricuspid valve regurgitation. 7. No pulmonary hypertension, estimated pulmonary arterial systolic pressure is 21 mmHg. Left Ventricle Tissue doppler E/e' is not performed. Left ventricular chamber dimension is normal. Left ventricular systolic function is normal, estimated at 65-70%. The left ventricular diastolic function is normal. Right Ventricle Right ventricular chamber dimension is normal. Right ventricular systolic function is normal. Left Atria Left atrial chamber dimension is mildly enlarged. Right Atria Right atrial chamber dimension is normal. Atrial Septum Agitated saline injection with and without valsalva maneuver opacified right side cardiac chambers without shunt to left kit cardiac chambers. Intact interatrial septum visualized by 2D and agitated saline imaging. Aortic Valve The aortic valve is trileaflet. There is moderate aortic valve sclerosis. There is no aortic valve stenosis. There is no aortic valve regurgitation. Pulmonic Valve There is no pulmonic regurgitation. Mitral Valve There is no mitral valve stenosis. There is no mitral valve regurgitation. Tricuspid Valve There is trace tricuspid valve regurgitation. No pulmonary hypertension, estimated pulmonary arterial systolic pressure is 21 mmHg. Pericardium/Pleural There is no pericardial effusion. Inferior Vena Cava Normal inferior vena cava with >50% collapse upon inspiration consistent with normal right atrial pressure, 5 mmHg. Aorta The aortic root size at the sinus of Valsalva is normal. Left Ventricular Outflow Tract Name Value Normal LVOT 2D LVOT Diameter 2.0 cm LVOT Doppler LVOT Peak Gradient 6 mmHg LVOT Mean Gradient 4 mmHg LVOT VTI 27 cm LVOT VTI/AV VTI Ratio 0.9 LVOT Stroke Volume 83 ml LVOT CO 17.9 l/min
[2023-05-08] MEDS: MECLIZINE HCL 12.5 MG TABLET PO (00:03)
[2023-05-08 04:00] VITALS: PULSE 62
[2023-05-08 05:29] VITALS: BP 134/90; PULSE 72; RESP 16; TEMP 36.2; O2SAT 97
[2023-05-08] MEDS: LEVOTHYROXINE SODIUM 25 MCG TABLET PO (05:36)
[2023-05-08 06:45] LABS: Basophils Absolute Auto 0.1 K/mm3 (0.0-0.1); Eosinophils Absolute Auto 0.3 K/mm3 (0-0.3); Eosinophils Percent Auto 3.3 % (0-4.4); Hematocrit 36.7 % (42.0-52.0); Hemoglobin 12.6 g/dL (14.0-18.0); Immature Granulocyte Absolute 0.04 K/mm3 (0.00-0.031); Immature Granulocyte Percent A 0.5 % (0-0.5); Lymphocytes Absolute Auto 1.86 K/mm3 (0.9-3.2); Lymphocytes Percent Auto 24.2 % (18.3-44.2); Mean Corpuscular HGB Conc 34.3 g/dl (32-36); Mean Corpuscular Hemoglobin 31.5 pg (26-34); Mean Corpuscular Volume 91.8 fl (80-100); Mean Platelet Volume 9.9 fl (7.4-10.4); Monocytes Absolute Auto 0.5 K/mm3 (0.1-0.6); Monocytes Percent Auto 6.5 % (2.6-8.5); Neutrophils Percent Auto 64.5 % (45.5-73.1); Platelet Count Result 254 k/mm3 (150-375); Red Cell Distribution Width 12.2 % (11.5-14.5); White Blood Count 7.7 K/mm3 (4.5-10.0)
[2023-05-08 06:55] LABS: Blood Urea Nitrogen 15 mg/dL (9-20)
[2023-05-08 06:56] LABS: Alanine Aminotransferase 31 U/L (6-50); Albumin Level 3.9 g/dL (3.5-5.1); Alkaline Phosphatase 32 U/L (38-126); Anion Gap 8 mmol/L (8-16); Aspartate Amino Transferase 23 U/L (17-59); Bilirubin,Total 0.4 mg/dL (0.2-1.3); Calcium 8.9 mg/dL (8.4-10.2); Carbon Dioxide 25 mmol/L (22-30); Chloride 106 mmol/L (98-107); Cholesterol 189 mg/dL (0-200); Estimated Glomerular Filt Rate > 60; Glucose 102 mg/dL (65-110); Potassium 3.9 mmol/L (3.4-5.0); Sodium 139 mmol/L (137-145)
[2023-05-08 07:06] LABS: LDL Cholesterol Direct 67 mg/dL
[2023-05-08 07:35] LABS: Triglycerides 621 mg/dL (<150)
[2023-05-08 08:01] VITALS: PULSE 65; RESP 16; O2SAT 97
[2023-05-08] MEDS: FENOFIBRATE 160 MG TABLET PO (08:53)
[2023-05-08] MEDS: ROSUVASTATIN 20 MG TABLET PO (08:53)
[2023-05-08] MEDS: ASPIRIN 81 MG ENTERIC TABLET PO (08:53)
[2023-05-08] MEDS: lisinopriL 10 MG TABLET PO (08:54)
[2023-05-08 12:03] VITALS: PULSE 76
--- NOTE | 2023-05-08 12:25 | PM.IMPN ---
Progress Note: A&P Assessment and Plan (1) Dizziness: Code(s): R42 - Dizziness and giddiness Status: Acute Assessment and Plan: MRI normal CT normal CTA brain and neck normal ECHO pending PT eval for BPV exercises pending Monitor labs and VS NIH 0. Suspicion Vertigo and no neuro deficit. Continue meclizine (2) Essential hypertension: Code(s): I10 - Essential (primary) hypertension Status: Chronic Assessment and Plan: Continue home meds Montior (3) Hypothyroidism: Qualifiers: Hypothyroidism type: unspecified Qualified Code(s): E03.9 - Hypothyroidism, unspecified Code(s): E03.9 - Hypothyroidism, unspecified Status: Chronic Assessment and Plan: Continue home meds (4) HLD (hyperlipidemia): Code(s): E78.5 - Hyperlipidemia, unspecified Status: Chronic Assessment and Plan: Total cholesterol is 189 with LDL of 67, HDL not performed secondary to Triglycerides of 621. Heart healthy diet Continue Fenofibrate and Crestor. Time Spent With Patient Time with patient: 15 - 25 minutes Subjective Date/time seen: 05/08/23 1130 Interval history: THis 57 year old male pt is examined at the bedside after being admitted to the hospital with Vertigo. His CT in ER is normal as is his MRI. He was admitted for further evaluation. He reports that his vertigo this AM is improved, but still present. He had CTA Head and neck that showed normal brain and no significant Internal artery stenosis. He is awaiting PT eval for BPV treatments and an ECHO to be performed today. He will be cleared for Discharge after his ECHO returns. Review of Systems Review of Systems: All systems reviewed & are unremarkable except as noted in HPI and below Exam Narrative: APPEARANCE: Well appearing, no pain, no distress, well-nourished. HEAD: normocephalic, atraumatic. EYES: Left-sided nystagmus NOSE: Normal no drainage THROAT: Pharynx clear, no exudate. NECK: Supple. No adenopathy, no masses. RESPIRATORY: Airway patent, respirations nonlabored. Clear to auscultation bilaterally, no rales, rhonchi, wheezing. CARDIOVASCULAR: Regular rate and rhythm without murmurs rubs or gallops. ABDOMINAL: Soft, nontender, nondistended, normal bowel sounds MUSCULOSKELETAL: Moves all extremities. Strength/ROM intact, No edema, No calf tenderness. NEURO: Awake alert and oriented, NIH stroke scale 0 but slightly positive Romberg SKIN: Warm, dry. Normal Color Objective Data Vital Signs Vital Signs: Vital Signs - 24 hr 05/07/23 12:31 05/07/23 13:00 05/07/23 13:31 Temperature 97.8 F 98.0 F Pulse Rate 76 73 73 Respiratory Rate 14 12 14 Blood Pressure 134/87 138/77 124/77 Pulse Oximetry 98 99 99 Oxygen Delivery 05/07/23 14:00 05/07/23 16:50 05/07/23 17:01 Temperature 97.8 F Pulse Rate 72 72 74 Respiratory Rate 12 14 13 Blood Pressure 156/95 H 137/87 141/97 H Pulse Oximetry 97 95 97 Oxygen Delivery 05/07/23 17:31 05/07/23 18:00 05/07/23 19:12 Temperature 97.8 F 97.8 F 97.2 F L Pulse Rate 71 81 85 Respiratory Rate 13 14 16 Blood Pressure 140/78 151/85 H 139/83 Pulse Oximetry 96 97 99 Oxygen Delivery 05/07/23 20:21 05/07/23 20:26 05/08/23 05:29 Temperature 97.2 F L 97.1 F L Pulse Rate 84 77 72 Respiratory Rate 17 16 Blood Pressure 144/85 H 134/90 Pulse Oximetry 98 97 Oxygen Delivery 05/08/23 00:00 05/08/23 04:00 05/08/23 08:01 Temperature Pulse Rate 76 62 65 Respiratory Rate Blood Pressure Pulse Oximetry Oxygen Delivery 05/08/23 08:01 Temperature Pulse Rate 65 Respiratory Rate 16 Blood Pressure Pulse Oximetry 97 Oxygen Delivery Room Air Intake/Output Intake/Output: Intake & Output 05/05/23 05/06/23 05/07/23 05/08/23 23:59 23:59 23:59 23:59 Intake Total 1000 240 Balance 1000 240 Meds/Results Medications: Active Medications Generic Name Dose Route Start Last Admin
[2023-05-08 14:00] VITALS: BP 129/69; PULSE 73; RESP 16; TEMP 35.8; O2SAT 98
--- NOTE | 2023-05-08 14:06 | PM.DS ---
DS: Admitting Diagnosis Discharge Date 05/08/23 Admitting Diagnosis Dizziness DS: Discharge Diagnosis Discharge Diagnosis (1) Dizziness: Code(s): R42 - Dizziness and giddiness Status: Acute Assessment and Plan: MRI normal CT normal CTA brain and neck normal ECHO pending PT eval for BPV exercises pending Monitor labs and VS NIH 0. Suspicion Vertigo and no neuro deficit. Continue meclizine 05/08/23: Normal MRI, CT, CTA, and ECHO. Suspect BPV. Will treat with Meclizine at home and have follow up with PCP. (2) Essential hypertension: Code(s): I10 - Essential (primary) hypertension Status: Chronic Assessment and Plan: Continue home meds Montior (3) Hypothyroidism: Qualifiers: Hypothyroidism type: unspecified Qualified Code(s): E03.9 - Hypothyroidism, unspecified Code(s): E03.9 - Hypothyroidism, unspecified Status: Chronic Assessment and Plan: Continue home meds (4) HLD (hyperlipidemia): Code(s): E78.5 - Hyperlipidemia, unspecified Status: Chronic Assessment and Plan: Total cholesterol is 189 with LDL of 67, HDL not performed secondary to Triglycerides of 621. Heart healthy diet Continue Fenofibrate and Crestor. DS: Summary Hospital Course Reason for hospitalization: Dizziness Hospital Course: This is a 57-year-old male patient who reports he was at home drinking a cup of coffee about an hour after waking up yesterday when he suddenly had sensation of dizziness with the room spinning worsened when he ambulates or opens his eyes.? Also worsened when he turns his head.? No prior episode of similar sensation.? He reports that once he got to the hospital and settled he vomited several times.? Patient has a past history of hypertension hyperlipidemia and hypothyroidism.? He takes lisinopril metoprolol levothyroxine and fenofibrate at home.? Patient denies any past history of stroke.? He does not have any lower extremity ataxia but he does have a slightly positive Romberg on evaluation.? MRI, CT brain, CTA Brain and neck and ECHO are all without acute findings. Pt has improvement of his sx's overall and will be continued on Meclizine at home. His Triglycerides are noted to be very high and he will follow up with his PCP about this. Status at Discharge Cognitive/behavioral status at discharge: At baseline Functional status at discharge: independent ambulation Overall status at discharge: patient is back to baseline Time Spent with Patient Time attestation: Total time spent providing and/or coordinating discharge services: Time spent: Greater than 30 minutes Specific discharge activities: Discharge and follow up. Exam Narrative: APPEARANCE: Well appearing, no pain, no distress, well-nourished. HEAD: normocephalic, atraumatic. EYES: Left-sided nystagmus NOSE: Normal no drainage THROAT: Pharynx clear, no exudate. NECK: Supple. No adenopathy, no masses. RESPIRATORY: Airway patent, respirations nonlabored. Clear to auscultation bilaterally, no rales, rhonchi, wheezing. CARDIOVASCULAR: Regular rate and rhythm without murmurs rubs or gallops. ABDOMINAL: Soft, nontender, nondistended, normal bowel sounds MUSCULOSKELETAL: Moves all extremities. Strength/ROM intact, No edema, No calf tenderness. NEURO: Awake alert and oriented, NIH stroke scale 0 but slightly positive Romberg SKIN: Warm, dry. Normal Color DS: Data Data Completed and Pending Completed studies during hospitalization: ITS Impressions Head CT 05/07/23 10:28 IMPRESSION: 1. No acute intracranial abnormality. Brain MRI 05/07/23 16:19 IMPRESSION: No acute intracranial process. Head/Neck CTA 05/08/23 11:21 IMPRESSION: 1. Normal brain. No aneurysm or significant intracranial arterial stenosis. 2. 13% stenosis of the proximal right internal carotid artery relative to normal distal artery lumen diameter (NASCET criteria). 3. 0% stenosis of the
== END 2023-05-08 15:15 | disposition home or self-care (01) ==
LOC: ANHED 09:43 → ANH3MEDSUR 14:33
PROVIDERS: Nurse Practitioner; Admitting Provider General Practice; Emergency Provider Emergency Medicine; PCP Family Medicine; Visit Provider Nurse Practitioner Adult Health
DX: R42 Dizziness and giddiness (principal); I10 Essential (primary) hypertension; E03.9 Hypothyroidism, unspecified; R00.1 Bradycardia, unspecified; E78.5 Hyperlipidemia, unspecified; F41.9 Anxiety disorder, unspecified; I35.8 Other nonrheumatic aortic valve disorders; F10.90 Alcohol use, unspecified, uncomplicated; Z79.899 Other long term (current) drug therapy; Z82.49 Family history of ischemic heart disease and other diseases of the circulatory system
CPT/HCPCS: 36415; 70450; 70496; 70498; 70553; 80053; 80061; 83735; 84443; 85025; 93005; 93306; 96361; 96374; 96375; 97161; 99285; A9270; A9577; G0378; J2405; J2765; J7030; Q9967

== ENCOUNTER 2023-09-06 10:36 | Outpatient (CLI) | payer BC, SELFPAY ==
--- NOTE | ~2023-09-06 | US_ITS ---
Abdominal Sonogram: Real-time sonographic imaging of the abdomen was performed. Clinical History: Abdominal pain Findings: The liver appears echogenic, with no evidence of mass lesion or bile duct dilatation. Main portal vein demonstrates normal direction of flow. The spleen is normal in size without evidence of focal lesion. The gallbladder is well distended, and appears normal with no evidence of gallstone or wall thickening. The common bile duct measures 5 mm. The visualized pancreas, aorta, and IVC are un remarkable. The right kidney measures 11.8 cm in length and the left kidney measures 11.2 cm. There is no hydronephrosis or renal calculus. Impression: Diffuse fatty infiltration of liver. Reviewed, dictated and finalized at location M. Impression: Diffuse fatty infiltration of liver.
== END 2023-09-06 10:37 ==
PROVIDERS: PCP Family Medicine; Visit Provider Family Medicine
DX: K76.0 Fatty (change of) liver, not elsewhere classified (principal)
CPT/HCPCS: 76700

== ENCOUNTER 2024-04-11 09:08 | Inpatient (IN) | payer BC, SELFPAY ==
[2024-04-11] VITALS (8 sets, daily range): BP systolic 136–156; BP diastolic 72–93; PULSE 81–104; RESP 16–20; TEMP 36.6–37.7; O2SAT 95–99; BMI 26.6
--- NOTE | ~2024-04-11 | US_ITS ---
Limited ABDOMINAL ULTRASOUND (Doppler ultrasound interrogation techniques used as needed for this exa m.) Ordering provider: Jenelle Rose MD History: . acute pancreatitis; eval gallbladder . Comparison: None. FINDINGS: PANCREAS: Not well demonstrated. PORTAL VEIN: Hepatopedal flow demonstrated. LIVER: Normal size and increased echotexture suggestive of fat infiltration. No focal hepatic lesions or perihepatic fluid collections are identified. BILIARY DUCTS: No intra or extrahepatic biliary dilation. Common bile duct measures 4 mm in diameter which is normal for patient's age. GALLBLADDER: Normal. No stones, sludge, gallbladder wall thickening or pericholecystic fluid. Negati ve sonographic Roman's sign. Aorta: Normal. Proximal aorta measures 2.1 cm. IVC: Normal. FREE FLUID: None visualized within the upper abdomen. IMPRESSION: Fat infiltration of the liver. Otherwise, limited abdominal ultrasound. Reviewed, dictated and finalized at location A. [employer]
--- NOTE | ~2024-04-11 | CT_ITS ---
CT abdomen wo/w con Ordering provider: Theodore Barrios History: 58 years Male with . necrotizing pancreatitis. pancreatic protocol . Comparison: April 11, 2024 Technique: CT abdomen with and without IV and without oral contrast. Automated exposure control and i terative reconstruction technique were employed. The dose-length product was 1095.72 mGy-cm. 100 mL O mnipaque 350 was given IV. Findings: VISUALIZED LOWER CHEST: Left basilar atelectasis versus pneumonia with minimal pleural effusion. Depe ndent atelectatic changes in the right lung base with subsegmental atelectasis. UPPER ABDOMINAL ORGANS: Liver: Fat infiltration. Hepatomegaly. Gallbladder: Normal. Spleen: Normal. Stomach/duodenum: Normal. Pancreas: Hypodensity is seen in the tail of the pancreas with no enhancement suggestive of necrotizi ng pancreatitis. Surrounding fat stranding with fluid anterior to the Gerota fascia is noted. Nonopac ification of the splenic vein is noted with filling defect seen in the portal vein possibility of thr ombus is highly suggestive. Adrenals: Normal. Kidneys: Normal. BOWEL AND MESENTERY: Colon: No evidence of diverticulitis. Small Bowel: Normal. No obstruction. Peritoneum/mesentery: No free air or free fluid. No mesenteric lymphadenopathy. RETROPERITONEUM: Mild atheromatous disease of the abdominal aorta. No retroperitoneal lymphadenopat hy. MUSCULOSKELETAL: Superficial soft tissues: The superficial soft tissues are normal. Bones: Age appropriate degenerative changes of the spine. IMPRESSION: 1. Necrotizing pancreatitis involving the tail of the pancreas. 2. 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 3. Fat infiltration of the liver with hepatomegaly. 4. Left basilar atelectasis versus pneumonia with minimal effusion. Reviewed, dictated and finalized at location A. [employer]
--- NOTE | ~2024-04-11 | MR_ITS ---
EXAMINATION: MR MRCP wo/w con/w 3D wo ind DATE: 04/12/2024 13:17 INDICATION: Pancreatic mass. TECHNIQUE: Magnetic resonance imaging (MRI) of the abdomen was performed without and with 17 mL Multi Shawn intravenous contrast. Sequences included coronal T2-weighted FS FSE, coronal T2-weighted FSE, a xial T1-weighted LAVA, coronal FS FIESTA, axial dual-echo T1-weighted SPGR, coronal lava-FLEX, sagitt al T2-weighted FSE, axial T2-weighted FSE, and axial DWI. Thick-slab T2-weighted FSE images were obta ined for magnetic resonance cholangiopancreatography (MRCP). Maximum intensity projection 3-D reconst ructions of the volumetric data were created by the technologist. Postcontrast sequences included cor onal LAVA-flex and time course of axial T1-weighted LAVA. COMPARISON: CT abdomen and pelvis 04/11/2024 FINDINGS: ABDOMEN MRI: There is a small left pleural effusion. There is dependent atelectasis bilaterally. Ther e is diffuse hepatic steatosis. The gallbladder and spleen are normal. There is hypoenhancement in th e tail of the pancreas with surrounding fat stranding, consistent with acute necrotic pancreatitis. T he adrenal glands and kidneys are normal. There is trace ascites. ABDOMEN MRCP: The common duct is normal and measures 3 mm. No choledocholithiasis. IMPRESSION: 1. Acute necrotic pancreatitis. 2. Diffuse hepatic steatosis. 3. Small left pleural effusion. Reviewed, dictated and finalized at location A. [employer] ENGINE[employer]
--- NOTE | ~2024-04-11 | CT_ITS ---
CLINICAL INDICATION: Constipation with diffuse abdominal pain COMPARISON: 08/25/2019. TECHNIQUE: Multiple contiguous axial images of the abdomen and pelvis were performed following the ad ministration of with 100 mL Omnipaque-350 intravenous contrast The dose-length product (DLP) was 458.16 mGy-cm. Automated exposure control and iterative reconstruction technique were employed. FINDINGS/OBSERVATIONS: Visualized lower thorax: Bibasilar atelectasis, left greater than right. The heart is of normal size, without pericardial effusion. Small hiatal hernia is present. Liver: The liver demonstrates diffuse fatty infiltration and is enlarged measuring 23 cm in longitudinal dim ension. Gallbladder and biliary system: The gallbladder is only minimally distended, and otherwise unremarkable. Pancreas: An indeterminate focus of decreased attenuation is identified within the tail of the pancreas measuri ng 25 x 29 x 32 mm. Peripancreatic fluid is also noted extending into the lesser sac as well as withi n a perihepatic splenic position. The free fluid extends to the splenic flexure of the colon as well as in the retrogastric position. The previously described 1 cm focus of decreased attenuation within the head of the pancreas is not a ppreciated on today's examination. Spleen: The spleen enhances homogeneously and is not enlarged measuring 10 cm in longitudinal dimension. Kidneys: The bilateral kidneys enhance symmetrically without hydronephrosis or renal calculi. Adrenal glands: Unremarkable. Gastrointestinal tract: Fecal stasis within the colon. Appendix: Surgically absent. Vasculature: Unremarkable. No aneurysmal dilatation or significant stenosis. Lymph nodes: No pathologically enlarged or morphologically suspicious lymph nodes within the retroperitoneum or at the root of the mesentery. Pelvic structures: The bladder is distended, and otherwise unremarkable. The prostate gland is not enlarged. Free fluid within the pelvis, never a normal finding in a male patient. Body wall and musculoskeletal: No significant degenerative disease within the lower thoracic or lumbosacral spine. IMPRESSION: Findings which in the appropriate clinical scenario suggest the presence of acute pancreatitis for wh ich follow-up to resolution is recommended as a malignancy may have a similar appearance. Fatty infiltration of an enlarged liver Trace free fluid within the pelvis, never a normal finding in a male patient. Reviewed, dictated and finalized at location A. [employer] IMPRESSION: Findings which in the appropriate clinical scenario suggest the presence of acu te pancreatitis for which follow-up to resolution is recommended as a malignanc y may have a similar appearance. Fatty infiltration of an enlarged liver Trace free fluid within the pelvis, never a normal finding in a male patient.
--- NOTE | 2024-04-11 12:35 | ED.ABDPAIN ---
HPI - Abdominal Pain General Chief Complaint: Abdominal Pain <Korin Morrison PA-C - Last Filed: 04/12/24 18:46> Stated Complaint: ABD PAIN, NO BM, FEVER LAST NIGHT <Korin Morrison PA-C - Last Filed: 04/12/24 18:46> Time Seen by Provider: 04/11/24 13:21 <Korin Morrison PA-C - Last Filed: 04/12/24 18:46> Focused HPI: 58 y/o M presents to the emergency department for diffuse abdominal pain for the past 2 days. Patient has not had a bowel movement in 5 days. Denies history of similar events. No prior abdominal surgeries. Reports nausea, no vomiting. States he had a fever of 100 this morning. He went to urgent care and was advised to come to the ED. Denies cough or congestion. States his abdomen is more distended than normal. GENERAL: Well-appearing, well-nourished, and in no acute distress. HEAD: Normocephalic, atraumatic. CHEST: Clear to auscultation. ?No respiratory distress. HEART: Regular rate and rhythm.? NEURO: ?Alert and oriented x3. Patient screened in triage and initial orders placed.? ?Additional care and disposition to be based upon?diagnostic testing and treatment. <Korin Morrison PA-C - Last Filed: 04/12/24 18:46> History of Present Illness HPI narrative: Agree with the above with the following additions/corrections: There had been an issue with his gallbladder/liver in 2019 for which he was referred to Dr Messina, hepatobiliary specialist at [facility]. He had testing done including 2 f/u MRIs and was released. No BM for 5 days. Temp 100. Took ibuprofen at home. Drinks approximately 3-4 glasses of wine/week. No nausea; some dry heaving. <Jenelle Rose MD - Last Filed: 04/14/24 17:45> Related Data Allergies/Adverse Reactions: Allergies Allergy/AdvReac Type Severity Reaction Status Date / Time carrot Allergy Severe HIVES Verified 04/11/24 09:10 celery Allergy Severe HIVES Verified 04/11/24 09:10 cigarette smoke Allergy Mild Unknown Verified 04/11/24 09:10 mold Allergy Mild Unknown Verified 04/11/24 09:10 Penicillins Allergy Unknown Unknown Verified 04/11/24 09:10 Pistachio Allergy Severe HIVES Uncoded 04/11/24 09:10 fire smoke Allergy Mild Unknown Uncoded 04/11/24 09:10 <Korin Morrison PA-C - Last Filed: 04/12/24 18:46> FORMERLY [facility] Past Medical History Medical History: Medical History Familial hypercholesterolemia Essential hypertension Fracture of right ankle Cystic mass of pancreas Followed by hepatobiliary at [facility]. Mass not appreciated on most recent MRI. Normal colonoscopy (~2015) Hypothyroidism Anxiety <AMEYA Chisholm Last Filed: 04/12/24 18:46> Surgical History Surgical History: Surgical History History of vasectomy History of surgery on right wrist History of appendectomy <Korin Morrison PA-C - Last Filed: 04/12/24 18:46> Family History Family History: Family History Other Heart disease Hypertension <Korin Morrison PA-C - Last Filed: 04/12/24 18:46> Social History Social History: Social History Social History: Surrogate medical decision maker: Nicole Ibrahim, . Code status: Full code. Smoking status: Never smoker Second hand tobacco smoke exposure: No Alcohol intake: current Drinks per week: 1 Substance use: never Substance use type: does not use Do You Feel Safe in your Home?: Yes Lack of Transportation: No Lack of Food: Never True Current Housing: I Have Housing Concerned About Future Housing: No Difficulty Paying Gas/Electric Bills: No Difficulty Paying for Meds: No Currently Unemployed: No Education: Bachelor's Degree Difficulty w/ Childcare or Family Care: No Living arrangements: with family Additional living arrangements comments: The patient lives with his and son in [place]. 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 Gender identity (if verbalized by the patient): Male Spiritual care concerns: No <Korin Morrison PA-C - Last Filed: 04/12/24 18:46> Exam Narrative: GENERAL: Well-appearing, well-nourished, and in no acute distress. HEAD: Normocephalic, atraumatic. EYES: Non injected, non icteric ENT: Nares clear, no rhinorrhea or epistaxis. NECK: Supple. CHEST: Speaking in full sentences. No respiratory distress. HEART: Regular rate and rhythm. . ABDOMEN: Distended but soft. Diffusely tender. EXTREMITIES: Normal range of motion. No lower extremity edema. SKIN: Warm, dry, no rash. NEURO: No focal deficits. Alert and oriented x3. PSYCH: Normal mood and affect. <Jenelle Rose MD - Last Filed: 04/14/24 17:45> Course Vital Signs Vital signs: Vital Signs Temperature 97.9 F 04/11/24 10:01 Pulse Rate 81 04/11/24 10:01 Respiratory Rate 16 04/11/24 10:01 Blood Pressure 142/81 H 04/11/24 10:01 Pulse Oximetry 99 04/11/24 10:01 Oxygen Delivery Room Air 04/11/24 10:01 Temperature 98.4 F 04/14/24 14:00 Pulse Rate 78 04/14/24 14:00 Respiratory Rate 18 04/14/24 14:00 Blood Pressure 148/74 H 04/14/24 14:00 Pulse Oximetry 98 04/14/24 14:00 Oxygen Delivery Room Air 04/14/24 08:00 <Korin Morrison PA-C - Last Filed: 04/12/24 18:46> Vital Signs Temperature 97.9 F 04/11/24 10:01 Pulse Rate 81 04/11/24 10:01 Respiratory Rate 16 04/11/24 10:01 Blood Pressure 142/81 H 04/11/24 10:01 Pulse Oximetry 99 04/11/24 10:01 Oxygen Delivery Room Air 04/11/24 10:01 Temperature 98.4 F 04/14/24 14:00 Pulse Rate 78 04/14/24 14:00 Respiratory Rate 18 04/14/24 14:00 Blood Pressure 148/74 H 04/14/24 14:00 Pulse Oximetry 98 04/14/24 14:00 Oxygen Delivery Room Air 04/14/24 08:00 <Jenelle Rose MD - Last Filed: 04/14/24 17:45> MDM - Abdominal Pain MDM Narrative Medical decision making narrative: Mike presents with no BM x5 days and generalized abdominal pain. In the emergency department he is afebrile with acceptable vital signs. He is distended and with tenderness of exam. Leukocytosis, ALT elevation, and hyponatremia. Lipase is just slightly greater than 3 times the upper limit of normal and CT imaging is concerning for acute pancreatitis (versus other etiologies as documented) . Discussed with radiologist Dr Kraus and we reviewed the images and discussed the unusual features. Location of inflammation is not typically where expected and the free fluid is not ascites. Not necrotizing pancreatitis. Will admit for pain control and IV fluids as well as bowel rest. Discussed with investigation division captain hospitalist CELIA that his presentation is not classic/straight forward pancreatitis , or at least has the potential to not be, although reasonable to treat as such at present. <Jenelle Rose MD - Last Filed: 04/14/24 17:45> Lab Data Result diagrams: 04/14/24 07:52 04/14/24 07:52 <Korin Morrison PA-C - Last Filed: 04/12/24 18:46> Labs: Lab Results 04/11/24 04/11/24 04/11/24 Range/Units 13:06 14:19 16:15 WBC 14.8 H (4.5-10.0) K/mm3 RBC 4.34 L (4.6-6.20) M/mm3 Hgb 14.1 (14.0-18.0) g/dL Hct 39.6 L (42.0-52.0) % MCV 91.2 (80-100) fl MCH 32.5 (26-34) pg MCHC 35.6 (32-36) g/dl RDW 12.8 (11.5-14.5) % Plt Count 190 (150-375) k/mm3 MPV 9.4 (7.4-10.4) fl Immature Gran % (Auto) 0.3 (0-0.5) % Neut % (Auto) 87.7 H (45.5-73.1) % Lymph % (Auto) 4.8 L (18.3-44.2) % [place] % (Auto) 6.8 (2.6-8.5) % Eos % (Auto) 0.1 (0-4.4) % Baso % (Auto) 0.3 (0.2-1.2) % Lymph # (Auto) 0.71 L (0.9-3.2) K/mm3 [place] # (Auto) 1.0 H (0.1-0.6) K/mm3 Eos # (Auto) 0.0 (0-0.3) K/mm3 Baso # (Auto) 0.0 (0.0-0.1) K/mm3 Abs Immat Gran (auto) 0.05 H (0.00-0.031) K/mm3 Absolute Neuts (auto) 13.0 H (1.3-6.7) K/mm3 Absolute Nucleated RBC 0.000 (0.0-0.012) K/mm3 Nucleated RBC % 0.0 (0.0-0.2) % ESR 51 H (0-20) mm/hr Sodium 131 L (137-145) mmol/L Potassium 3.8 (3.4-5.0) mmol/L Chloride 98 (98-107) mmol/L Carbon Dioxide 26 (22-30) mmol/L Anion Gap 7 (4-12) mmol/L BUN 12 (9-20) mg/dL Creatinine 0.90 (0.7-1.3) mg/dL Estim Creat Clear Calc 76 ml/min Estimated GFR > 60 (59 - ) Glucose 123 H (65-110) mg/dL Calcium 8.8 (8.4-10.2) mg/dL Magnesium (1.6-2.3) mg/dL Total Bilirubin 1.0 (0.2-1.3) mg/dL AST 37 (17-59) U/L ALT 60 H (6-50) U/L Alkaline Phosphatase 42 (38-126) U/L Lactate Dehydrogenase (120-246) U/L C-Reactive Protein 24.5 H (<1.0) mg/dL Total Protein 8.0 (6.3-8.2) g/dL Albumin 4.2 (3.5-5.1) g/dL Lipase 971 H (23-300) U/L TSH 3.200 (0.465-4.680) uIU/mL Urine Color Yellow (Yellow) Urine Appearance Clear (Clear) Urine pH 6.0 (5.0-9.0) Ur Specific [place] 1.040 H (1.001-1.035) Urine Protein Trace (Negative) mg/dL Urine Glucose (UA) Negative (Negative) mg/dL Urine Ketones Negative (Negative) mg/dL Ur Blood (Man) Negative (Negative) Urine Nitrate Negative (Negative) Urine Bilirubin Negative (Negative) Urine Urobilinogen 1.0 (<2.0) mg/dL Leukocyte Esterase Rfl Negative (Negative) ANA/UL Urine RBC 0-2 (0-2) /hpf Urine WBC 0-5 (0-3) /hpf Ur Squamous Epith Cells None seen (Few) /hpf Urine Bacteria None seen /hpf Urine Casts 0-2 04/12/24 04/12/24 04/12/24 Range/Units 07:40 07:44 07:45 WBC 11.9 H (4.5-10.0) K/mm3 RBC 3.88 L (4.6-6.20) M/mm3 Hgb 12.5 L (14.0-18.0) g/dL Hct 36.3 L (42.0-52.0) % MCV 93.6 (80-100) fl MCH 32.2 (26-34) pg MCHC 34.4 (32-36) g/dl RDW 13.2 (11.5-14.5) % Plt Count 165 (150-375) k/mm3 MPV 9.5 (7.4-10.4) fl Immature Gran % (Auto) 0.8 H (0-0.5) % Neut % (Auto) 85.8 H (45.5-73.1) % Lymph % (Auto) 4.6 L (18.3-44.2) % [place] % (Auto) 8.3 (2.6-8.5) % Eos % (Auto) 0.2 (0-4.4) % Baso % (Auto) 0.3 (0.2-1.2) % Lymph # (Auto) 0.54 L (0.9-3.2) K/mm3 [place] # (Auto) 1.0 H (0.1-0.6) K/mm3 Eos # (Auto) 0.0 (0-0.3) K/mm3 Baso # (Auto) 0.0 (0.0-0.1) K/mm3 Abs Immat Gran (auto) 0.10 H (0.00-0.031) K/mm3 Absolute Neuts (auto) 10.2 H (1.3-6.7) K/mm3 Absolute Nucleated RBC 0.000 (0.0-0.012) K/mm3 Nucleated RBC % 0.0 (0.0-0.2) % ESR (0-20) mm/hr Sodium 137 (137-145) mmol/L Potassium 3.4 (3.4-5.0) mmol/L Chloride 105 (98-107) mmol/L Carbon Dioxide 24 (22-30) mmol/L Anion Gap 8 (4-12) mmol/L BUN 11 (9-20) mg/dL Creatinine 0.90 (0.7-1.3) mg/dL Estim Creat Clear Calc 76 ml/min Estimated GFR > 60 (59 - ) Glucose 101 (65-110) mg/dL Calcium 8.4 (8.4-10.2) mg/dL Magnesium 1.7 (1.6-2.3) mg/dL Total Bilirubin 0.7 (0.2-1.3) mg/dL AST 25 (17-59) U/L ALT 39 (6-50) U/L Alkaline Phosphatase 43 (38-126) U/L Lactate Dehydrogenase 188 (120-246) U/L C-Reactive Protein (<1.0) mg/dL Total Protein 7.0 (6.3-8.2) g/dL Albumin 3.7 (3.5-5.1) g/dL Lipase (23-300) U/L TSH (0.465-4.680) uIU/mL Urine Color (Yellow) Urine Appearance (Clear) Urine pH (5.0-9.0) Ur Specific [place] (1.001-1.035) Urine Protein (Negative) mg/dL Urine Glucose (UA) (Negative) mg/dL Urine Ketones (Negative) mg/dL Ur Blood (Man) (Negative) Urine Nitrate (Negative) Urine Bilirubin (Negative) Urine Urobilinogen (<2.0) mg/dL Leukocyte Esterase Rfl (Negative) ANA/UL Urine RBC (0-2) /hpf Urine WBC (0-3) /hpf Ur Squamous Epith Cells (Few) /hpf Urine Bacteria /hpf Urine Casts <Korin Morrison PA-C - Last Filed: 04/12/24 18:46> Lab Results 04/11/24 04/11/24 04/11/24 Range/Units 13:06 14:19 16:15 WBC 14.8 H (4.5-10.0) K/mm3 RBC 4.34 L (4.6-6.20) M/mm3 Hgb 14.1 (14.0-18.0) g/dL Hct 39.6 L (42.0-52.0) % MCV 91.2 (80-100) fl MCH 32.5 (26-34) pg MCHC 35.6 (32-36) g/dl RDW 12.8 (11.5-14.5) % Plt Count 190 (150-375) k/mm3 MPV 9.4 (7.4-10.4) fl Immature Gran % (Auto) 0.3 (0-0.5) % Neut % (Auto) 87.7 H (45.5-73.1) % Lymph % (Auto) 4.8 L (18.3-44.2) % [place] % (Auto) 6.8 (2.6-8.5) % Eos % (Auto) 0.1 (0-4.4) % Baso % (Auto) 0.3 (0.2-1.2) % Lymph # (Auto) 0.71 L (0.9-3.2) K/mm3 [place] # (Auto) 1.0 H (0.1-0.6) K/mm3 Eos # (Auto) 0.0 (0-0.3) K/mm3 Baso # (Auto) 0.0 (0.0-0.1) K/mm3 Abs Immat Gran (auto) 0.05 H (0.00-0.031) K/mm3 Absolute Neuts (auto) 13.0 H (1.3-6.7) K/mm3 Absolute Nucleated RBC 0.000 (0.0-0.012) K/mm3 Nucleated RBC % 0.0 (0.0-0.2) % ESR 51 H (0-20) mm/hr Sodium 131 L (137-145) mmol/L Potassium 3.8 (3.4-5.0) mmol/L Chloride 98 (98-107) mmol/L Carbon Dioxide 26 (22-30) mmol/L Anion Gap 7 (4-12) mmol/L BUN 12 (9-20) mg/dL Creatinine 0.90 (0.7-1.3) mg/dL Estim Creat Clear Calc 76 ml/min Estimated GFR > 60 (59 - ) Glucose 123 H (65-110) mg/dL Calcium 8.8 (8.4-10.2) mg/dL Magnesium (1.6-2.3) mg/dL Total Bilirubin 1.0 (0.2-1.3) mg/dL AST 37 (17-59) U/L ALT 60 H (6-50) U/L Alkaline Phosphatase 42 (38-126) U/L Lactate Dehydrogenase (120-246) U/L C-Reactive Protein 24.5 H (<1.0) mg/dL Total Protein 8.0 (6.3-8.2) g/dL Albumin 4.2 (3.5-5.1) g/dL Lipase 971 H (23-300) U/L TSH 3.200 (0.465-4.680) uIU/mL Urine Color Yellow (Yellow) Urine Appearance Clear (Clear) Urine pH 6.0 (5.0-9.0) Ur Specific [place] 1.040 H (1.001-1.035) Urine Protein Trace (Negative) mg/dL Urine Glucose (UA) Negative (Negative) mg/dL Urine Ketones Negative (Negative) mg/dL Ur Blood (Man) Negative (Negative) Urine Nitrate Negative (Negative) Urine Bilirubin Negative (Negative) Urine Urobilinogen 1.0 (<2.0) mg/dL Leukocyte Esterase Rfl Negative (Negative) ANA/UL Urine RBC 0-2 (0-2) /hpf Urine WBC 0-5 (0-3) /hpf Ur Squamous Epith Cells None seen (Few) /hpf Urine Bacteria None seen /hpf Urine Casts 0-2 04/12/24 04/12/24 04/12/24 Range/Units 07:40 07:44 07:45 WBC 11.9 H (4.5-10.0) K/mm3 RBC 3.88 L (4.6-6.20) M/mm3 Hgb 12.5 L (14.0-18.0) g/dL Hct 36.3 L (42.0-52.0) % MCV 93.6 (80-100) fl MCH 32.2 (26-34) pg MCHC 34.4 (32-36) g/dl RDW 13.2 (11.5-14.5) % Plt Count 165 (150-375) k/mm3 MPV 9.5 (7.4-10.4) fl Immature Gran % (Auto) 0.8 H (0-0.5) % Neut % (Auto) 85.8 H (45.5-73.1) % Lymph % (Auto) 4.6 L (18.3-44.2) % [place] % (Auto) 8.3 (2.6-8.5) % Eos % (Auto) 0.2 (0-4.4) % Baso % (Auto) 0.3 (0.2-1.2) % Lymph # (Auto) 0.54 L (0.9-3.2) K/mm3 [place] # (Auto) 1.0 H (0.1-0.6) K/mm3 Eos # (Auto) 0.0 (0-0.3) K/mm3 Baso # (Auto) 0.0 (0.0-0.1) K/mm3 Abs Immat Gran (auto) 0.10 H (0.00-0.031) K/mm3 Absolute Neuts (auto) 10.2 H (1.3-6.7) K/mm3 Absolute Nucleated RBC 0.000 (0.0-0.012) K/mm3 Nucleated RBC % 0.0 (0.0-0.2) % ESR (0-20) mm/hr Sodium 137 (137-145) mmol/L Potassium 3.4 (3.4-5.0) mmol/L Chloride 105 (98-107) mmol/L Carbon Dioxide 24 (22-30) mmol/L Anion Gap 8 (4-12) mmol/L BUN 11 (9-20) mg/dL Creatinine 0.90 (0.7-1.3) mg/dL Estim Creat Clear Calc 76 ml/min Estimated GFR > 60 (59 - ) Glucose 101 (65-110) mg/dL Calcium 8.4 (8.4-10.2) mg/dL Magnesium 1.7 (1.6-2.3) mg/dL Total Bilirubin 0.7 (0.2-1.3) mg/dL AST 25 (17-59) U/L ALT 39 (6-50) U/L Alkaline Phosphatase 43 (38-126) U/L Lactate Dehydrogenase 188 (120-246) U/L C-Reactive Protein (<1.0) mg/dL Total Protein 7.0 (6.3-8.2) g/dL Albumin 3.7 (3.5-5.1) g/dL Lipase (23-300) U/L TSH (0.465-4.680) uIU/mL Urine Color (Yellow) Urine Appearance (Clear) Urine pH (5.0-9.0) Ur Specific [place] (1.001-1.035) Urine Protein (Negative) mg/dL Urine Glucose (UA) (Negative) mg/dL Urine Ketones (Negative) mg/dL Ur Blood (Man) (Negative) Urine Nitrate (Negative) Urine Bilirubin (Negative) Urine Urobilinogen (<2.0) mg/dL Leukocyte Esterase Rfl (Negative) ANA/UL Urine RBC (0-2) /hpf Urine WBC (0-3) /hpf Ur Squamous Epith Cells (Few) /hpf Urine Bacteria /hpf Urine Casts <Jenelle Rose MD - Last Filed: 04/14/24 17:45> Imaging Data Radiologist's impression: ITS Impressions Abdomen/Pelvis CT 04/11/24 13:41 IMPRESSION: Findings which in the appropriate clinical scenario suggest the presence of acute pancreatitis for which follow-up to resolution is recommended as a malignancy may have a similar appearance. Fatty infiltration of an enlarged liver Trace free fluid within the pelvis, never a normal finding in a male patient. Abdomen Ultrasound 04/11/24 16:45 IMPRESSION: Fat infiltration of the liver. Otherwise, limited abdominal ultrasound. MRCP 04/12/24 13:24 IMPRESSION: 1. Acute necrotic pancreatitis. 2. Diffuse hepatic steatosis. 3. Small left pleural effusion. <Korin Morrison PA-C - Last Filed: 04/12/24 18:46> ITS Impressions Abdomen/Pelvis CT 04/11/24 13:41 IMPRESSION: Findings which in the appropriate clinical scenario suggest the presence of acute pancreatitis for which follow-up to resolution is recommended as a malignancy may have a similar appearance. Fatty infiltration of an enlarged liver Trace free fluid within the pelvis, never a normal finding in a male patient. Abdomen Ultrasound 04/11/24 16:45 IMPRESSION: Fat infiltration of the liver. Otherwise, limited abdominal ultrasound. MRCP 04/12/24 13:24 IMPRESSION: 1. Acute necrotic pancreatitis. 2. Diffuse hepatic steatosis. 3. Small left pleural effusion. <Jenelle Rose MD - Last Filed: 04/14/24 17:45> Discharge Plan Discharge Clinical Impression: Leukocytosis, ALT (SGPT) level raised, Acute hyponatremia, Fatty liver, Enlarged liver Abdominal pain Qualifiers: Abdominal location: generalized Qualified Code(s): R10.84 - Generalized abdominal pain Acute pancreatitis Qualifiers: Pancreatitis type: idiopathic Acute pancreatitis complication: unspecified Qualified Code(s): K85.00 - Idiopathic acute pancreatitis without necrosis or infection <Korin Morrison PA-C - Last Filed: 04/12/24 18:46> Patient Disposition: Still a Patient <Korin Morrison PA-C - Last Filed: 04/12/24 18:46> Condition: Stable <Korin Morrison PA-C - Last Filed: 04/12/24 18:46>
[2024-04-11 13:12] LABS: Basophils Percent Auto 0.3 % (0.2-1.2); Eosinophils Percent Auto 0.1 % (0-4.4); Hematocrit 39.6 % (42.0-52.0); Hemoglobin 14.1 g/dL (14.0-18.0); Immature Granulocyte Absolute 0.05 K/mm3 (0.00-0.031); Immature Granulocyte Percent A 0.3 % (0-0.5); Lymphocytes Absolute Auto 0.71 K/mm3 (0.9-3.2); Lymphocytes Percent Auto 4.8 % (18.3-44.2); Mean Corpuscular HGB Conc 35.6 g/dl (32-36); Mean Corpuscular Hemoglobin 32.5 pg (26-34); Mean Corpuscular Volume 91.2 fl (80-100); Mean Platelet Volume 9.4 fl (7.4-10.4); Monocytes Percent Auto 6.8 % (2.6-8.5); Neutrophils Percent Auto 87.7 % (45.5-73.1); Platelet Count Result 190 k/mm3 (150-375); Red Blood Count 4.34 M/mm3 (4.6-6.20); Red Cell Distribution Width 12.8 % (11.5-14.5); White Blood Count 14.8 K/mm3 (4.5-10.0)
[2024-04-11 13:22] LABS: Alanine Aminotransferase 60 U/L (6-50); Albumin Level 4.2 g/dL (3.5-5.1); Alkaline Phosphatase 42 U/L (38-126); Anion Gap 7 mmol/L (4-12); Aspartate Amino Transferase 37 U/L (17-59); Blood Urea Nitrogen 12 mg/dL (9-20); Calcium 8.8 mg/dL (8.4-10.2); Carbon Dioxide 26 mmol/L (22-30); Chloride 98 mmol/L (98-107); Estimated CRCL calculation 76 ml/min; Estimated Glomerular Filt Rate > 60; Glucose 123 mg/dL (65-110); Lipase 971 U/L (23-300); Potassium 3.8 mmol/L (3.4-5.0); Sodium 131 mmol/L (137-145)
[2024-04-11] MEDS: SODIUM CHLORIDE 0.9% IV 1,000 ML 999 ML IV CONT (14:15)
[2024-04-11] MEDS: MORPHINE SULFATE (*CRX) 4 MG/ML INJ IV PUSH ×3 (14:16→20:55)
[2024-04-11 14:28] LABS: Add Urine Microscopic? YES; Appearance Urine Clear (Clear); Bacteria Urine None Seen /hpf; Bilirubin Urine Negative (Negative); Blood Urine Negative (Negative); Color Urine Yellow (Yellow); Glucose Urine UA Negative (Negative); Ketones Urine Negative (Negative); Leukocyte Esterase Ur Negative LEU/UL (Negative); Nitrate Urine Negative (Negative); Non Pathogenic Casts 0-2; Protein Urine Trace mg/dL (Negative); RBC Urine 0-2 /hpf (0-2); Squamous Epithelial Cell Urine None Seen /hpf (Few); WBC Urine 0-5 /hpf (0-3)
[2024-04-11] MEDS: ONDANSETRON INJ 4 MG/2 ML VIAL IV PUSH (14:28)
--- NOTE | 2024-04-11 15:39 | PM.IMHP ---
H&P: HPI History of Present Illness Date/Time: 04/11/24 15:39 Chief Complaint: abdominal pain Narrative: This is a 58-year-old male with a significant past medical history of high cholesterol, hypertension, peptic ulcer, hypothyroidism, pancreatic mass, anxiety who presented to the hospital today with complaints of abdominal pain and constipation. Patient reports that back in August of [address] of his abdomen pelvis which showed a 1 cm cystic lesion at the head of the pancreas which was not seen on today's films. He had workup at [facility] with Dr. Messina for this cystic lesion. He had 2 MRIs done and was given a clean bill of health as well last MRI did not show the mass. He denies any chills, diarrhea, chest pain, or shortness of breath. He endorses low grade temp, nausea, vomiting/ dry heaving, abdominal pain, constipation x5 days. Workup in the hospital included an abdomen/pelvis CT which shown acute pancreatitis with indeterminate focus of decreased attenuation in the tail of the pancreas measuring 25 x 29 x 32 mm with germaine pancreatic fluid extending into the lesser sac as well as within of perihepatic splenic position and extends into the splenic flexure of the colon, fatty infiltration of the liver, trace free fluid within the pelvis. Initial labs showed a white blood cell count of 14.8, sodium 131, ALT 60, lipase 971. UA was obtained and showed and urine specific gravity of 1.040, otherwise negative. Patient was given 1 L of normal saline, Zofran, and morphine while in the ED. He is being admitted in the setting for further treatment of his symptoms. Review of Systems Review of Systems: All systems reviewed & are unremarkable except as noted in HPI and below Constitutional: Constitutional: Reports as per HPI and Reports no additional constitutional complaints Eyes: Eyes: Reports as per HPI and Reports no additional eye complaints ENT: Reports system reviewed and no additional complaints, except as documented and Reports as per HPI Cardiovascular: Cardiovascular: Reports as per HPI and Reports no additional cardiovascular complaints Respiratory: Respiratory: Reports as per HPI and Reports no additional respiratory complaints Gastrointestinal: Gastrointestinal: Reports as per HPI and Reports no additional gastrointestinal complaints Genitourinary: Genitourinary: Reports no additional male genitourinary complaints and Reports as per HPI Musculoskeletal: Musculoskeletal: Reports no additional musculoskeletal complaints and Reports as per HPI Integumentary/Breasts: Skin/Breast: Reports system reviewed and no additional complaints, except as docu and Reports as per HPI Neurologic: Reports system reviewed and no additional complaints, except as documented and Reports as per HPI Psychiatric: Psychiatric: Reports no additional psychiatric complaints and Reports as per HPI [facility] Past Medical History Medical History Familial hypercholesterolemia Essential hypertension Fracture of right ankle Cystic mass of pancreas Followed by hepatobiliary at [facility]. Mass not appreciated on most recent MRI. Normal colonoscopy (~2015) Hypothyroidism Anxiety Surgical History Surgical History History of vasectomy History of surgery on right wrist History of appendectomy Family History Family History Other Heart disease Hypertension Social History Social History Social History: Surrogate medical decision maker: Nicole Ibrahim, . Code status: Full code. Smoking status: Never smoker Second hand tobacco smoke exposure: No Alcohol intake: current Drinks per week: 1 Substance use: never Substance use type: does not use Do You Feel Safe in your Home?: Yes Lack of Transportation: No Lack of Food: Never True Current Housing: I Have Housing Concerned About Future Housing: No Difficulty Paying Gas/Electric Bills: No Difficulty Paying for Meds: No Currently Unemployed: No Education: Bachelor's Degree Difficulty w/ Childcare or Family Care: No Living arrangements: with family Additional living arrangements comments: The patient lives with his and son in [place]. 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 Gender identity (if verbalized by the patient): Male Spiritual care concerns: No Meds Home Medications and Allergies Home Medications ?Medication ?Instructions ?Recorded ?Confirmed ?Type alprazolam 0.25 mg tablet 0.25 mg PO BID PRN anxiety during 12/23/21 04/11/24 Rx flying #30 tabs sildenafil (pulm.hypertension) 20 20 mg PO .COMPLEX #60 tabs 06/28/23 04/11/24 Rx mg tablet lisinopril 10 mg tablet 10 mg PO DAILY #30 tabs 11/13/23 04/11/24 Rx metoprolol succinate 25 mg 25 mg PO DAILY #30 tabs 01/09/24 04/11/24 Rx tablet,extended release 24 hr albuterol sulfate 90 mcg/actuation 1 inh inhalation Q4H PRN shortness 02/29/24 04/11/24 Rx aerosol inhaler of breath or wheezing #8.5 grams tamsulosin 0.4 mg capsule (Flomax) 0.4 mg PO QHS #30 caps 02/29/24 04/11/24 Rx allopurinol 300 mg tablet 300 mg PO DAILY #90 tabs 03/05/24 04/11/24 Rx colchicine 0.6 mg tablet 0.6 mg PO BID #20 tabs 03/05/24 04/11/24 Rx diclofenac sodium 50 mg 50 mg PO BID #40 tabs 03/05/24 04/11/24 Rx tablet,delayed release fenofibrate micronized 200 mg 200 mg PO DAILY #30 caps 04/06/24 04/11/24 Rx capsule levothyroxine 25 mcg tablet 25 mcg PO DAILY #90 tabs 04/08/24 04/11/24 Rx Allergies Allergy/AdvReac Type Severity Reaction Status Date / Time carrot Allergy Severe HIVES Verified 04/11/24 09:10 celery Allergy Severe HIVES Verified 04/11/24 09:10 cigarette smoke Allergy Mild Unknown Verified 04/11/24 09:10 mold Allergy Mild Unknown Verified 04/11/24 09:10 Penicillins Allergy Unknown Unknown Verified 04/11/24 09:10 Pistachio Allergy Severe HIVES Uncoded 04/11/24 09:10 fire smoke Allergy Mild Unknown Uncoded 04/11/24 09:10 Vital Signs Vital Signs - 24 hr 04/11/24 10:01 04/11/24 14:13 Temperature 97.9 F Pulse Rate 81 99 Respiratory Rate 16 16 Blood Pressure 142/81 H 156/93 H Pulse Oximetry 99 99 Oxygen Delivery Room Air Exam Narrative: General: In no acute distress, well nourished Head: atraumatic, no encephalopathy Eyes: PERRLA, sclera clear ENT: moist mucous membranes, nasal passages clear Neck: supple, no JVD, no adenopathy, trachea midline Cardiac: Normal S1 and S2. RRR, No murmur, gallops or friction rubs, peripheral pulses intact. Respiratory: Lungs clear to auscultation, no adventitious lung sounds, currently on room air Gastrointestinal:taunt,distended, tender, hypoactive bowel sounds. Reported nausea and dry heaving overnight, reports abdominal spasms/cramping with sharp pain that is intermittent in nature. :voiding without difficulty. Extremities: moves all extremities well, no edema, good ROM, strength 5/5 Skin: clean, dry, intact. No wounds or lesions. Neuro: Alert and oriented x4, cranial nerves intact, no neuro deficits. Psych: normal mood, normal affect, interactive H&P: Results Labs Labs: Short CBC 04/11/24 Range/Units 13:06 WBC 14.8 H (4.5-10.0) K/mm3 Hgb 14.1 (14.0-18.0) g/dL Hct 39.6 L (42.0-52.0) % Plt Count 190 (150-375) k/mm3 BMP 04/11/24 13:06 Sodium 131 L Potassium 3.8 Chloride 98 Carbon Dioxide 26 BUN 12 Creatinine 0.90 Glucose 123 H Calcium 8.8 Liver Function 04/11/24 Range/Units 13:06 Total Bilirubin 1.0 (0.2-1.3) mg/dL AST 37 (17-59) U/L ALT 60 H (6-50) U/L Alkaline Phosphatase 42 (38-126) U/L Albumin 4.2 (3.5-5.1) g/dL Urine 04/11/24 Range/Units 14:19 Urine Color Yellow (Yellow) Urine Appearance Clear (Clear) Urine pH 6.0 (5.0-9.0) Ur Specific [place] 1.040 H (1.001-1.035) Urine Protein Trace (Negative) mg/dL Urine Glucose (UA) Negative (Negative) mg/dL Imaging Abdomen/ pelvis CT: Radiologist's impression: CLINICAL INDICATION: Constipation with diffuse abdominal pain COMPARISON: 08/25/2019. TECHNIQUE: Multiple contiguous axial images of the abdomen and pelvis were performed following the administration of with 100 mL Omnipaque-350 intravenous contrast The dose-length product (DLP) was 458.16 mGy-cm. Automated exposure control and iterative reconstruction technique were employed. FINDINGS/OBSERVATIONS: Visualized lower thorax: Bibasilar atelectasis, left greater than right. The heart is of normal size, without pericardial effusion. Small hiatal hernia is present. Liver: The liver demonstrates diffuse fatty infiltration and is enlarged measuring 23 cm in longitudinal dimension. Gallbladder and biliary system: The gallbladder is only minimally distended, and otherwise unremarkable. Pancreas: An indeterminate focus of decreased attenuation is identified within the tail of the pancreas measuring 25 x 29 x 32 mm. Peripancreatic fluid is also noted extending into the lesser sac as well as within a perihepatic splenic position. The free fluid extends to the splenic flexure of the colon as well as in the retrogastric position. The previously described 1 cm focus of decreased attenuation within the head of the pancreas is not appreciated on today's examination. Spleen: The spleen enhances homogeneously and is not enlarged measuring 10 cm in longitudinal dimension. Kidneys: The bilateral kidneys enhance symmetrically without hydronephrosis or renal calculi. Adrenal glands: Unremarkable. Gastrointestinal tract: Fecal stasis within the colon. Appendix: Surgically absent. Vasculature: Unremarkable. No aneurysmal dilatation or significant stenosis. Lymph nodes: No pathologically enlarged or morphologically suspicious lymph nodes within the retroperitoneum or at the root of the mesentery. Pelvic structures: The bladder is distended, and otherwise unremarkable. The prostate gland is not enlarged. Free fluid within the pelvis, never a normal finding in a male patient. Body wall and musculoskeletal: No significant degenerative disease within the lower thoracic or lumbosacral spine. IMPRESSION: Findings which in the appropriate clinical scenario suggest the presence of acute pancreatitis for which follow-up to resolution is recommended as a malignancy may have a similar appearance. Fatty infiltration of an enlarged liver Trace free fluid within the pelvis, never a normal finding in a male patient. Reviewed, dictated and finalized at location A. [facility] Please be advised this is a medical document. It is intended for [id number] communication. It is written in medical language and may contain unfamiliar abbreviations or verbiage. Medical documents are intended to carry relevant information, facts as evident, and the clinical opinion of the practitioner at the time of the encounter. This report may have been done utilizing a voice recognition system. Attempts have been made to correct errors. However, there may be uncorrected grammatical, spelling, and recognition errors present. The file time of this note does not necessarily represent the time the patient was seen. Dictated By: Itzel Kraus MD 04/11/24 1341 Signed By: <Electronically signed by Itzel Kraus MD in OV> 04/11/24 1358 Assessment and Plan Assessment and plan (1) Acute pancreatitis: Code(s): K85.90 - Acute pancreatitis without necrosis or infection, unspecified Status: Acute Assessment and Plan: CT of the abdomen and pelvis showed acute pancreatitis and indeterminate focus of decreased attenuation identified within the [place] pancreas measuring 25 x 29 x 32 mm with peripancreatic fluid noted extending in the lesser sac as well as within a perihepatic splenic position extending into the splenic flexure. Previous history 1 cm cystic lesion on the head of the pancreas which was not fluid on today's CT of the abdomen and pelvis was worked up at [facility] by Hepatobiliary service. He had 2 MRI's with the last MRI negative for mass. Continue pain control Continue nausea control NPO for bowel rest tonight, then advance to Clear liquids Lipase 971, white blood cell count 14.8, reported low grade temp at home Will cover with Cipro and Flagyl for now for possibility of necrotizing pancreatitis however this was extensively reviewed by the ER physician and radiologist who feel it is less likely Blood cultures ordered US of the abdomen shown fat infiltration of the liver otherwise normal ultrasound. MRI of the abdomen with and without contrast to assess pancreas for abscess versus mass/malignancy (2) Fatty liver: Code(s): K76.0 - Fatty (change of) liver, not elsewhere classified Status: Acute Assessment and Plan: CT of the abdomen and pelvis showing fatty liver disease (3) Hypothyroidism: Qualifiers: Hypothyroidism type: unspecified Qualified Code(s): E03.9 - Hypothyroidism, unspecified Code(s): E03.9 - Hypothyroidism, unspecified Status: Chronic Assessment and Plan: Continue Synthroid Will check TSH (4) Essential hypertension: Code(s): I10 - Essential (primary) hypertension Status: Chronic Assessment and Plan: Blood pressures ranging 132/82 to 156/93 Continue lisinopril and metoprolol (5) Anxiety: Code(s): F41.9 - Anxiety disorder, unspecified Status: Acute Assessment and Plan: Continue alprazolam (6) Constipation: Code(s): K59.00 - Constipation, unspecified Status: Acute Assessment and Plan: Patient states he has not had a bowel movement in 5 days and presents with 2 days worth of abdominal pain and distension. Will give do clock suppository now Start Colace 100 mg b.i.d. Dulcolax tablet 5 mg daily p.r.n. Milk of Mag p.r.n. Quality VTE Prophylaxis VTE prophylaxis: pharmacologic ordered Hospitalist [facility] Advance Care Plan I have confirmed that the patient's Advanced Care Plan is present, code status is documented, or surrogate decision maker is listed in patient medical record.: Yes Medication Reconciliation I have utilized all available resources to obtain, update and review the patients current medications (includes all prescriptions, OTC, herbals, cannabis, and nutritional supplements).: Yes
[2024-04-11 16:49] LABS: CRP 24.5 mg/dL (<1.0)
[2024-04-11 17:03] LABS: Erythrocyte Sedimentation Rate 51 mm/hr (0-20)
[2024-04-11] MEDS: SODIUM CHLORIDE 0.9% IV 1,000 ML 100 ML IV CONT (17:04)
[2024-04-11] MEDS: metroNIDAZOLE 500 MG/ISO 100ML 500 MG/100 ML BAG 100 MG IVPB (17:04)
--- NOTE | 2024-04-11 17:23 | PC.NURSE ---
Report attempted to room 322-2.
[2024-04-11] MEDS: DOCUSATE SODIUM 100 MG CAPSULE PO (17:59)
[2024-04-11] MEDS: BISACODYL 10 MG SUPPOSITORY RECTAL (17:59)
[2024-04-11] MEDS: CIPROFLOXACIN 400 MG/D5W 200ML 200 ML 200 MG IVPB (18:04)
--- NOTE | 2024-04-11 18:12 | PC.NURSE ---
received pt at 1755. in JUN pt had cipro due at 1615. this nurse called to ed to inquire if med was given and previous nurse stated she did not give this med. med was administered by this rn late due to it not being administered in ED when it was ordered for. this rn called to pharmacy to verify if it was ok and pharmacy instructed this nurse to give med late as it was not given in ED.
--- NOTE | 2024-04-11 18:29 | ADMGEN ---
This patient, Nikolay Ibrahim, was admitted to [facility] Surg Room 322-02. Patient/family oriented to hospital policies and general routines including ID bracelet, bed and alarms, visiting hours, pain management, procedures, bathroom and other care routines, personal items, smoking policy, room service/diet, and visiting hours. Information on how to activate the Rapid Response Team has been discussed. Patient/Family are encouraged to report perceived risks to care and to ask questions if they do not understand what they are told or what they should do.
[2024-04-11] MEDS: ACETAMINOPHEN 325 MG TABLET 650 MG PO (21:52)
[2024-04-12] MEDS: CIPROFLOXACIN 400 MG/D5W 200ML 200 ML 200 MG IVPB ×3 (01:20→18:34)
[2024-04-12] MEDS: MORPHINE SULFATE (*CRX) 4 MG/ML INJ IV PUSH (01:28)
[2024-04-12] MEDS: SODIUM CHLORIDE 0.9% IV 1,000 ML 100 ML IV CONT ×2 (05:37→18:34)
[2024-04-12 06:00] VITALS: BP 153/80; PULSE 110; RESP 16; TEMP 37.5; O2SAT 97
[2024-04-12 07:51] LABS: Basophils Percent Auto 0.3 % (0.2-1.2); Eosinophils Percent Auto 0.2 % (0-4.4); Hematocrit 36.3 % (42.0-52.0); Hemoglobin 12.5 g/dL (14.0-18.0); Immature Granulocyte Percent A 0.8 % (0-0.5); Lymphocytes Absolute Auto 0.54 K/mm3 (0.9-3.2); Lymphocytes Percent Auto 4.6 % (18.3-44.2); Mean Corpuscular HGB Conc 34.4 g/dl (32-36); Mean Corpuscular Hemoglobin 32.2 pg (26-34); Mean Corpuscular Volume 93.6 fl (80-100); Mean Platelet Volume 9.5 fl (7.4-10.4); Monocytes Percent Auto 8.3 % (2.6-8.5); Neutrophils Absolute Auto 10.2 K/mm3 (1.3-6.7); Neutrophils Percent Auto 85.8 % (45.5-73.1); Platelet Count Result 165 k/mm3 (150-375); Red Blood Count 3.88 M/mm3 (4.6-6.20); Red Cell Distribution Width 13.2 % (11.5-14.5); White Blood Count 11.9 K/mm3 (4.5-10.0)
[2024-04-12 08:51] LABS: Alanine Aminotransferase 39 U/L (6-50); Albumin Level 3.7 g/dL (3.5-5.1); Alkaline Phosphatase 43 U/L (38-126); Anion Gap 8 mmol/L (4-12); Aspartate Amino Transferase 25 U/L (17-59); Bilirubin,Total 0.7 mg/dL (0.2-1.3); Blood Urea Nitrogen 11 mg/dL (9-20); Calcium 8.4 mg/dL (8.4-10.2); Carbon Dioxide 24 mmol/L (22-30); Chloride 105 mmol/L (98-107); Estimated CRCL calculation 76 ml/min; Estimated Glomerular Filt Rate > 60; Glucose 101 mg/dL (65-110); Magnesium 1.7 mg/dL (1.6-2.3); Potassium 3.4 mmol/L (3.4-5.0); Sodium 137 mmol/L (137-145)
[2024-04-12] MEDS: allopurinoL 300 MG TABLET PO (10:26)
[2024-04-12] MEDS: lisinopriL 10 MG TABLET PO (10:26)
[2024-04-12] MEDS: DOCUSATE SODIUM 100 MG CAPSULE PO ×2 (10:28→16:48)
[2024-04-12] MEDS: COLCHICINE 0.6 MG TABLET PO ×2 (10:29→17:18)
[2024-04-12] MEDS: FENOFIBRATE NANOCRYSTALLIZED 145 MG TABLET PO (10:30)
[2024-04-12] MEDS: ENOXAPARIN 40 MG/0.4 ML SYRINGE SUB-Q (10:30)
[2024-04-12] MEDS: HYDROcodone/acetaminophen (*CRX) 5-325 MG TABLET 1 TAB PO ×3 (10:36→20:35)
[2024-04-12 11:19] VITALS: PULSE 100
[2024-04-12] MEDS: METOPROLOL SUCCINATE EXT REL 25 MG TABCR PO (11:19)
[2024-04-12] MEDS: LEVOTHYROXINE SODIUM 25 MCG TABLET PO (11:19)
--- NOTE | 2024-04-12 11:23 | P.PNIM_ITS ---
Progress Note: A&P Assessment and Plan (1) Acute pancreatitis: Code(s): K85.90 - Acute pancreatitis without necrosis or infection, unspecified Status: Acute Assessment and Plan: Likely secondary to alcohol use * CT of the abdomen and pelvis showed acute pancreatitis and indeterminate focus of decreased attenuation identified within the [place] pancreas measuring 25 x 29 x 32 mm with peripancreatic fluid noted extending in the lesser sac as well as within a perihepatic splenic position extending into the splenic flexure. * Previous history 1 cm cystic lesion on the head of the pancreas which was not fluid on today's CT of the abdomen and pelvis was worked up at [facility] by Hepatobiliary service. He had 2 MRI's with the last MRI negative for mass. * Continue pain control * Continue nausea control * NPO for bowel rest tonight, then advance to Clear liquids * Lipase 971, white blood cell count 14.8, reported low grade temp at home * Will cover with Cipro and Flagyl for now for possibility of necrotizing pancreatitis however this was extensively reviewed by the ER physician and radiologist who feel it is less likely * Blood cultures ordered * US of the abdomen shown fat infiltration of the liver otherwise normal ultrasound. * MRI of the abdomen with and without contrast to assess pancreas for abscess versus mass/malignancy 1/3 * Advance to clear liquid diet as tolerated * MRCP acute necrotic pancreatitis, diffuse steatosis, small left pleural effusion * Continue Cipro and Flagyl * Blood cultures showing no growth to date * GI consulted * Spoke with Radiologist and Dr. Hargrove who both feel it is safe to keep here and continue to treat with antibiotics. * He will need hepatobiliary follow up at discharge. (2) Fatty liver: Code(s): K76.0 - Fatty (change of) liver, not elsewhere classified Status: Acute Assessment and Plan: * CT of the abdomen and pelvis showing fatty liver disease * MRCP shown diffuse hepatic steatosis (3) Hypothyroidism: Qualifiers: Hypothyroidism type: unspecified Qualified Code(s): E03.9 - Hypothyroidism, unspecified Code(s): E03.9 - Hypothyroidism, unspecified Status: Chronic Assessment and Plan: * Continue Synthroid * Will check TSH 1/3 * TSH 3.20 (4) Essential hypertension: Code(s): I10 - Essential (primary) hypertension Status: Chronic Assessment and Plan: * Blood pressures ranging 132/82 to 156/93 * Continue lisinopril and metoprolol (5) Anxiety: Code(s): F41.9 - Anxiety disorder, unspecified Status: Acute Assessment and Plan: * Continue alprazolam (6) Constipation: Code(s): K59.00 - Constipation, unspecified Status: Acute Assessment and Plan: Patient states he has not had a bowel movement in 5 days and presents with 2 days worth of abdominal pain and distension. * Will give Dulcolax suppository now * Start Colace 100 mg b.i.d. * Dulcolax tablet 5 mg daily p.r.n. * Milk of Mag p.r.n. 04/12 * Will give dose of Mag citrate today * Slightly distended, passing gas now, 6 days without BM Time Spent With Patient Time with patient: Greater than 35 minutes Subjective Date/time seen: 04/12/24 11:23 Interval history: Interval history: This is a 58-year-old male with a significant past medical history of high cholesterol, hypertension, peptic ulcer, hypothyroidism, pancreatic mass, anxiety who presented to the hospital today with complaints of abdominal pain and constipation. Patient reports that back in August of [address] of his abdomen pelvis which showed a 1 cm cystic lesion at the head of the pancreas which was not seen on today's films. He had workup at [facility] with Dr. Messina for this cystic lesion. He had 2 MRIs done and was given a clean bill of health as well last MRI did not show the mass. He denies any chills, diarrhea, chest pain, or shortness of breath. He endorses low grade temp, nausea, vomiting/ dry heaving, abdominal pain, constipation x5 days. Workup in the hospital included an abdomen/pelvis CT which shown acute pancreatitis with indeterminate focus of decreased attenuation in the tail of the pancreas measuring 25 x 29 x 32 mm with germaine pancreatic fluid extending into the lesser sac as well as within of perihepatic splenic position and extends into the splenic flexure of the colon, fatty infiltration of the liver, trace free fluid within the pelvis. Initial labs showed a white blood cell count of 14.8, sodium 131, ALT 60, lipase 971. UA was obtained and showed and urine specific gravity of 1.040, otherwise negative. Patient was given 1 L of normal saline, Zofran, and morphine while in the ED. He is being admitted in the setting for further treatment of his symptoms. 04/12: MRCP acute necrotic pancreatitis, diffuse hepatic steatosis, small left pleural effusion. Subjective: Patient denies any new complaints today. Labs and imaging reviewed. Review of Systems Review of Systems: All systems reviewed & are unremarkable except as noted in HPI and below Constitutional: Constitutional: Reports as per HPI and Reports no additional constitutional complaints Eyes: Eyes: Reports as per HPI and Reports no additional eye complaints ENT: Reports system reviewed and no additional complaints, except as documented and Reports as per HPI Cardiovascular: Cardiovascular: Reports as per HPI and Reports no additional cardiovascular complaints Respiratory: Respiratory: Reports as per HPI and Reports no additional respiratory complaints Gastrointestinal: Gastrointestinal: Reports as per HPI and Reports no additional gastrointestinal complaints Genitourinary: Genitourinary: Reports no additional male genitourinary complaints and Reports as per HPI Musculoskeletal: Musculoskeletal: Reports no additional musculoskeletal complaints and Reports as per HPI Integumentary/Breasts: Skin/Breast: Reports system reviewed and no additional complaints, except as docu and Reports as per HPI Neurologic: Reports system reviewed and no additional complaints, except as documented and Reports as per HPI Psychiatric: Psychiatric: Reports no additional psychiatric complaints and Reports as per HPI Exam Narrative: General: In no acute distress, well nourished Cardiac: Normal S1 and S2. RRR, No murmur, gallops or friction rubs, peripheral pulses intact. Respiratory: Lungs clear to auscultation, no adventitious lung sounds, currently on room air Gastrointestinal:taunt,distended, tender, hypoactive bowel sounds. Denies nausea and vomiting, reports abdominal spasms/cramping :voiding without difficulty. Neuro: Alert and oriented x4 Objective Data Vital Signs Vital Signs: Vital Signs - 24 hr 04/11/24 14:13 04/11/24 15:50 04/11/24 16:54 Temperature Pulse Rate 99 86 99 Respiratory Rate 16 16 16 Blood Pressure 156/93 H 148/82 H 136/72 Pulse Oximetry 99 95 98 Oxygen Delivery 04/11/24 18:00 04/11/24 18:36 04/11/24 21:37 Temperature 98.4 F 99.8 F H Pulse Rate 104 H 103 H Respiratory Rate 18 20 Blood Pressure 151/84 H 146/79 H Pulse Oximetry 97 96 Oxygen Delivery Room Air 04/11/24 21:52 04/11/24 22:50 04/12/24 06:00 Temperature 99.8 F H 99.5 F 99.5 F Pulse Rate 110 H Respiratory Rate 16 Blood Pressure 153/80 H Pulse Oximetry 97 Oxygen Delivery 04/12/24 11:19 Temperature Pulse Rate 100 Respiratory Rate Blood Pressure Pulse Oximetry Oxygen Delivery Intake/Output Intake/Output: Intake & Output 04/09/24 04/10/24 04/11/24 04/12/24 23:59 23:59 23:59 23:59 Intake Total 1000 1200 Output Total 1000 Balance 0 1200 Meds/Results Medications: Active Medications Generic Name Dose Route Start Last Admin Trade Name Freq PRN Reason Stop Dose Admin Acetaminophen 650 mg 04/11/24 15:59 04/11/24 21:52 Acetaminophen 325 Mg Tablet PO 650 mg Q4H PRN Administration Mild Pain (1-3) or Fever Hydrocodone Bitart/Acetaminophen 1 tab 04/11/24 15:53 04/12/24 10:36 Hydrocodone/Acetaminophen (*Crx) 5-325 Mg Tablet PO 1 tab Q4H PRN Administration Moderate Pain (4-6) Albuterol 1 puff 04/11/24 22:43 Albuterol Sulfate (*Sp) Aerosol 1 Puff INHALATION Q4HRT PRN shortness of breath or wheezing Allopurinol 300 mg 04/12/24 09:00 04/12/24 10:26 Allopurinol 300 Mg Tablet PO 300 mg DAILY GENNARO Administration Alprazolam 0.25 mg 04/11/24 15:59 Alprazolam (*Crx) 0.25 Mg Tablet PO BID PRN Anxiety Bisacodyl 5 mg 04/11/24 15:53 Bisacodyl 5 Mg Tablet Ec PO DAILY PRN Constipation Colchicine 0.6 mg 04/12/24 09:00 04/12/24 10:29 Colchicine 0.6 Mg Tablet PO 0.6 mg BID GENNARO Administration Docusate Sodium 100 mg 04/11/24 17:00 04/12/24 10:28 Docusate Sodium 100 Mg Capsule PO 100 mg BID GENNARO Administration Enoxaparin Sodium 40 mg 04/12/24 09:00 04/12/24 10:30 Enoxaparin 40 Mg/0.4 Ml Syringe SUB-Q 40 mg DAILY GENNARO Administration Fenofibrate 145 mg 04/12/24 09:00 04/12/24 10:30 Fenofibrate Nanocrystallized 145 Mg Tablet PO 05/12/24 08:59 145 mg DAILY GENNARO Administration Sodium Chloride 1,000 mls @ 100 mls/hr 04/11/24 15:55 04/12/24 05:37 Normal Saline Iv IV CONT 100 mls/hr .Q10H GENNARO Administration Ciprofloxacin/Dextrose 200 mls @ 200 mls/hr 04/12/24 02:00 04/12/24 10:22 Cipro 400 Mg/D5w 200 Ml IVPB 200 mls/hr Q8H GENNARO Administration Levothyroxine Sodium 25 mcg 04/12/24 06:30 04/12/24 11:19 Levothyroxine Sodium 25 Mcg Tablet PO 25 mcg DAILY@0630 GENNARO Administration Lisinopril 10 mg 04/12/24 09:00 04/12/24 10:26 Lisinopril 10 Mg Tablet PO 10 mg DAILY GENNARO Administration Magnesium Hydroxide 30 ml 04/11/24 15:53 Magnesium Hydroxide Susp 30 Ml Udc PO DAILY PRN Constipation Metoprolol Succinate 25 mg 04/12/24 09:00 04/12/24 11:19 Metoprolol Succinate Ext Rel 25 Mg Tabcr PO 25 mg QAM GENNARO Administration Metoprolol Succinate 25 mg 04/12/24 09:00 Metoprolol Succinate Ext Rel 25 Mg Tabcr PO HS GENNARO Morphine Sulfate 2 mg 04/11/24 15:53 Morphine Sulfate (*Crx) 2 Mg/Ml Inj IV PUSH Q4H PRN Pain Rated 7-10 Morphine Sulfate 4 mg 04/11/24 15:59 04/12/24 01:28 Morphine Sulfate (*Crx) 4 Mg/Ml Inj IV PUSH 4 mg Q2H PRN Administration Pain Rated 7-10 Ondansetron HCl 4 mg 04/11/24 15:59 Ondansetron Inj 4 Mg/2 Ml Vial IV PUSH Q4H PRN Nausea Radiology Results: ITS Impressions Abdomen/Pelvis CT 04/11/24 13:41 IMPRESSION: Findings which in the appropriate clinical scenario suggest the presence of acute pancreatitis for which follow-up to resolution is recommended as a malignancy may have a similar appearance. Fatty infiltration of an enlarged liver Trace free fluid within the pelvis, never a normal finding in a male patient. Abdomen Ultrasound 04/11/24 16:45 IMPRESSION: Fat infiltration of the liver. Otherwise, limited abdominal ultrasound. Labs Labs: Laboratory Results - last 24 hr 04/11/24 04/11/24 04/11/24 13:06 14:19 16:15 WBC 14.8 H RBC 4.34 L Hgb 14.1 Hct 39.6 L MCV 91.2 MCH 32.5 MCHC 35.6 RDW 12.8 Plt Count 190 MPV 9.4 Immature Gran % (Auto) 0.3 Neut % (Auto) 87.7 H Lymph % (Auto) 4.8 L [place] % (Auto) 6.8 Eos % (Auto) 0.1 Baso % (Auto) 0.3 Lymph # (Auto) 0.71 L [place] # (Auto) 1.0 H Eos # (Auto) 0.0 Baso # (Auto) 0.0 Abs Immat Gran (auto) 0.05 H Absolute Neuts (auto) 13.0 H Absolute Nucleated RBC 0.000 Nucleated RBC % 0.0 ESR 51 H Sodium 131 L Potassium 3.8 Chloride 98 Carbon Dioxide 26 Anion Gap 7 BUN 12 Creatinine 0.90 Estim Creat Clear Calc 76 Estimated GFR > 60 Glucose 123 H Calcium 8.8 Magnesium Total Bilirubin 1.0 AST 37 ALT 60 H Alkaline Phosphatase 42 C-Reactive Protein 24.5 H Total Protein 8.0 Albumin 4.2 Lipase 971 H TSH 3.200 Urine Color Yellow Urine Appearance Clear Urine pH 6.0 Ur Specific [place] 1.040 H Urine Protein Trace Urine Glucose (UA) Negative Urine Ketones Negative Ur Blood (Man) Negative Urine Nitrate Negative Urine Bilirubin Negative Urine Urobilinogen 1.0 Leukocyte Esterase Rfl Negative Urine RBC 0-2 Urine WBC 0-5 Ur Squamous Epith Cells None seen Urine Bacteria None seen Urine Casts 0-2 04/12/24 04/12/24 07:44 07:45 WBC 11.9 H RBC 3.88 L Hgb 12.5 L Hct 36.3 L MCV 93.6 MCH 32.2 MCHC 34.4 RDW 13.2 Plt Count 165 MPV 9.5 Immature Gran % (Auto) 0.8 H Neut % (Auto) 85.8 H Lymph % (Auto) 4.6 L [place] % (Auto) 8.3 Eos % (Auto) 0.2 Baso % (Auto) 0.3 Lymph # (Auto) 0.54 L [place] # (Auto) 1.0 H Eos # (Auto) 0.0 Baso # (Auto) 0.0 Abs Immat Gran (auto) 0.10 H Absolute Neuts (auto) 10.2 H Absolute Nucleated RBC 0.000 Nucleated RBC % 0.0 ESR Sodium 137 Potassium 3.4 Chloride 105 Carbon Dioxide 24 Anion Gap 8 BUN 11 Creatinine 0.90 Estim Creat Clear Calc 76 Estimated GFR > 60 Glucose 101 Calcium 8.4 Magnesium 1.7 Total Bilirubin 0.7 AST 25 ALT 39 Alkaline Phosphatase 43 C-Reactive Protein Total Protein 7.0 Albumin 3.7 Lipase TSH Urine Color Urine Appearance Urine pH Ur Specific [place] Urine Protein Urine Glucose (UA) Urine Ketones Ur Blood (Man) Urine Nitrate Urine Bilirubin Urine Urobilinogen Leukocyte Esterase Rfl Urine RBC Urine WBC Ur Squamous Epith Cells Urine Bacteria Urine Casts Quality VTE Prophylaxis VTE prophylaxis: pharmacologic ordered
[2024-04-12 14:00] VITALS: BP 138/73; PULSE 96; RESP 20; TEMP 37.7; O2SAT 97
--- NOTE | 2024-04-12 15:57 | P.CONGI_ITS ---
Assessment and Plan Assessment and plan (1) Cystic mass of pancreas: Code(s): K86.2 - Cyst of pancreas <Vani Dumont APRN - Last Filed: 04/12/24 17:06> Status: Acute <Vani Dumont APRN - Last Filed: 04/12/24 17:06> (2) Acute pancreatitis: Qualifiers: Acute pancreatitis complication: unspecified Pancreatitis type: idiopathic Qualified Code(s): K85.00 - Idiopathic acute pancreatitis without necrosis or infection <Vani Dumont [employer] - Last Filed: 04/12/24 17:06> Code(s): K85.90 - Acute pancreatitis without necrosis or infection, unspecified <Vani Dumont [employer] - Last Filed: 04/12/24 17:06> Status: Acute <Vani Dumont APRN - Last Filed: 04/12/24 17:06> (3) Abdominal pain: Qualifiers: Abdominal location: generalized Qualified Code(s): R10.84 - Generalized abdominal pain <Vani Dumont APRN - Last Filed: 04/12/24 17:06> Code(s): R10.9 - Unspecified abdominal pain <Vani Dumont APRN - Last Filed: 04/12/24 17:06> Status: Acute <Vani Dumont APRN - Last Filed: 04/12/24 17:06> Assessment and Plan: 1. Acute necrotic pancreatitis/elevate lipase /generalized abdominal pain /bloating: Patient presented with complaints of abdominal pain and constipation. CT showed an indeterminate focus of decreased attenuation is identified within the tail of the pancreas measuring 25 x 29 x 32 mm. Peripancreatic fluid is also noted extending into the lesser sac as well as within a perihepatic splenic position. The free fluid extends to the splenic flexure of the colon as well as in the retrogastric position.The previously described 1 cm focus of decreased attenuation within the head of the pancreas is not appreciated on today's examination. Ultrasound showed Fat infiltration of the liver. Otherwise, limited abdominal ultrasound. MRCP showed that there is hypoenhancement in the tail of the pancreas with surrounding fat stranding, consistent with acute necrotic pancreatitis.Previous history 1 cm cystic lesion on the head of the pancreas which was not fluid on today's CT of the abdomen and pelvis was worked up at [facility] by Hepatobiliary service. He had 2 MRI's with the last MRI negative for mass. patient admits to a history of heavy alcohol use in his 30s and 40s but states that over the past 5 years he only has a glass of wine a few times nightly. He states that he had a half a bottle of wine on [place] prior to onset of symptoms. Lipase on admission 971, CRP 24.5, normal LFT's, WBC's 12, Hgb 13, Hct 40, platelets 165, BUN 11, creatinine 0.90. patient states that he had his initial episode of pancreatitis in 2019. patient admits to generalized abdominal pain since April 10 that he describes as a bloating or tightness in his abdomen that is not confined to his upper abdomen. Over the past few months he has been having more frequent reflux and has been taking Prilosec 4-5 times per week which he states helps. He had been experiencing dry heaves prior to admission but denies any nausea, vomiting or dry heaves since admission. He complains of abdominal bloating /distention and has not had a bowel movement in a few days since he has been restricting his p.o. intake. Patients temperature has been between 99.5-99.9 since admission. * recommend transfer where Hepatobiliary /pancreatic surgeon is available, if plan is to keep patient here then consult general surgery to have them onboard (request per Dr. Barrios) * Strict intake and output monitoring * Patient was already on clear liquid diet when seen and tolerating well * Aggressive hydration, LR 1.5 ml/kg/hr * Check lactate * consider repeat imaging/CT in 48 hours * patient on Cipro/Flagyl, ok to continue * continue supportive care with pain management and antiemetics * Patient will need to follow up with hepatobiliary outpatient Thank you very much for allowing me to share in the care of this patient. This report may have been done utilizing a voice recognition system. Attempts have been made to correct errors. However, there may be uncorrected grammatical, spelling, and recognition errors present. <Vani Dumont, MARGO - Last Filed: 04/12/24 17:06> GI Consult Note Consult date/time: 04/12/24 15:57 <Vani Dumont APRN - Last Filed: 04/12/24 17:06> Reason for consult: Acute necrotic pancreatitis <Vani Dumont APRN - Last Filed: 04/12/24 17:06> HPI: This is a 58-year-old male with history of HTN, HLD, pancreatic cyst cyst, appendectomy, vasectomy, hypothyroidism, and history of peptic ulcer. He presented to the emergency room yesterday with complaints of abdominal pain and constipation. GI has been consulted for acute necrotic pancreatitis. Patient admits to acute onset of generalized abdominal pain since April 10. Patient states that on April 11 the pain had gotten worse so he went to a [facility] Urgent Care and [facility] and was advised to proceed to the hospital for evaluation. prior history of pancreatic cyst /mass and pancreatitis in 2019 and had previously seen hepatobiliary at [facility] (Dr. Messina ). Per patient he had an EUS performed by Dr. Tomas and was cleared after repeat imaging at 2 year follow-up showed no pancreatic mass. Patient complains of generalized abdominal bloating and a tightness sensation that has been occurring for the past few days. Over the past few months he has been having more frequent episodes of reflux and taking Prilosec as needed 4-5 times per week which he states does help with reflux. Patient typically has a formed non urgent bowel movement once daily but has went a couple days without a bowel movement due to decreased p.o. intake. Admits to dry heaves on Monday night but denies any nausea or vomiting since admission. Denies odynophagia, dysphagia, regurgitation, early satiety, unexplained weight loss, appetite loss, diarrhea, hematochezia, or melena. Patient uses ibuprofen as needed a few times weekly. Patient will have 1 glass of wine a few times per month but states that he was a heavier drinker in his 30s and 40s. He denies any tobacco or marijuana use. Family history negative for CRC or IBD. ENDOSCOPY HISTORY: EGD: Bx results: COLONOSCOPY: Bx results: LABS AND STOOL STUDIES: Labs 04/12/2023: WBC 12, Hgb 13, Hct 36, MCV 94, platelets 165. Sodium 137, potassium 3.4, BUN 11, creatinine 0.90, GFR > 60, calcium 8.4, magnesium 1.7. Total bilirubin 0.7, AST 25, ALT 39, alkaline phosphatase 43 , albumin 3.7. CRP 24.5, lipase 971, TSH 3.200 IMAGING: MRCP 04/12/2024 FINDINGS: ABDOMEN MRI: There is a small left pleural effusion. There is dependent atelectasis bilaterally. There is diffuse hepatic steatosis. The gallbladder and spleen are normal. There is hypoenhancement in the tail of the pancreas with surrounding fat stranding, consistent with acute necrotic pancreatitis. The adrenal glands and kidneys are normal. There is trace ascites. ABDOMEN MRCP: The common duct is normal and measures 3 mm. No choledocholithiasis. IMPRESSION: 1. Acute necrotic pancreatitis. 2. Diffuse hepatic steatosis. 3. Small left pleural effusion. Abdominal Ultrasound 04/11/2023 FINDINGS: PANCREAS: Not well demonstrated. PORTAL VEIN: Hepatopedal flow demonstrated. LIVER: Normal size and increased echotexture suggestive of fat infiltration. No focal hepatic lesions or perihepatic fluid collections are identified. BILIARY DUCTS: No intra or extrahepatic biliary dilation. Common bile duct measures 4 mm in diameter which is normal for patient's age. GALLBLADDER: Normal. No stones, sludge, gallbladder wall thickening or pericholecystic fluid. Negative sonographic Roman's sign. Aorta: Normal. Proximal aorta measures 2.1 cm. IVC: Normal. FREE FLUID: None visualized within the upper abdomen. IMPRESSION: Fat infiltration of the liver. Otherwise, limited abdominal ultrasound. CT abd/pelvis w/contrast 04/11/2023 IMPRESSION: Findings which in the appropriate clinical scenario suggest the presence of acute pancreatitis for which follow-up to resolution is recommended as a malignancy may have a similar appearance. Fatty infiltration of an enlarged liver Trace free fluid within the pelvis, never a normal finding in a male patient. Abdominal ultrasound 09/06/2023 Impression: Diffuse fatty infiltration of liver. CT abd/pelvis 08/25/2019 IMPRESSION: 1. No acute intra-abdominal/pelvic process. 2. Diffuse hepatic steatosis. 3. 1 cm cystic lesion at the head of the pancreas. The differential diagnosis includes pseudocyst, intraductal papillary mucinous neoplasm (IPMN), mucinous cystic neoplasm (MCN), and the less common serous cystadenoma and neuroendocrine tumor. Correlate for history of pancreatitis. Recommend one-year follow-up dressed enhanced CT or more preferably MRI. <Vani Dumont APRN - Last Filed: 04/12/24 17:06> Review of Systems 2 Constitutional: Constitutional: Reports as per HPI <Vani Dumont APRN - Last Filed: 04/12/24 17:06> ENT: Reports as per HPI <Vani Dumont APRN - Last Filed: 04/12/24 17:06> Cardiovascular: Cardiovascular: Reports as per HPI, Denies chest pain and Denies dyspnea <Vani Dumont APRN - Last Filed: 04/12/24 17:06> Respiratory: Respiratory: Denies cough and Denies dyspnea <Vani Dumont APRN - Last Filed: 04/12/24 17:06> Gastrointestinal: Gastrointestinal: Reports as per HPI <Vani Dumont APRN - Last Filed: 04/12/24 17:06> Musculoskeletal: Musculoskeletal: Reports as per HPI <Vani Dumont APRN - Last Filed: 04/12/24 17:06> Integumentary/Breasts: Skin/Breast: Reports as per HPI <Vani Dumont APRN - Last Filed: 04/12/24 17:06> Psychiatric: Psychiatric: Reports as per HPI <Vani Dumont APRN - Last Filed: 04/12/24 17:06> Endocrine: Endocrine: Reports no additional endocrine complaints <Vani Dumont APRN - Last Filed: 04/12/24 17:06> Hematologic/Lymphatic: Hematologic/Lymphatic: Reports no additional hematologic/lymphatic complaints <Vani Dumont APRN - Last Filed: 04/12/24 17:06> [facility] Past Medical History Medical History: Medical History Familial hypercholesterolemia Essential hypertension Fracture of right ankle Cystic mass of pancreas Followed by hepatobiliary at [facility]. Mass not appreciated on most recent MRI. Normal colonoscopy (~2016) Hypothyroidism Anxiety <Vani Dumont APRN - Last Filed: 04/12/24 17:06> Surgical History Surgical History: Surgical History History of vasectomy History of surgery on right wrist History of appendectomy <Vani Dumont APRN - Last Filed: 04/12/24 17:06> Family History Family History: Family History Other Heart disease Hypertension <Vani Dumont APRN - Last Filed: 04/12/24 17:06> Social History Social History: Social History Social History: Surrogate medical decision maker: Nicole Ibrahim, . Code status: Full code. Smoking status: Never smoker Second hand tobacco smoke exposure: No Alcohol intake: current Drinks per week: 1 Substance use: never Substance use type: does not use Do You Feel Safe in your Home?: Yes Lack of Transportation: No Lack of Food: Never True Current Housing: I Have Housing Concerned About Future Housing: No Difficulty Paying Gas/Electric Bills: No Difficulty Paying for Meds: No Currently Unemployed: No Education: Bachelor's Degree Difficulty w/ Childcare or Family Care: No Living arrangements: with family Additional living arrangements comments: The patient lives with his and son in [place]. 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 Gender identity (if verbalized by the patient): Male Spiritual care concerns: No <Vani Dumont APRN - Last Filed: 04/12/24 17:06> Meds Home Medications and Allergies Home medications: Home Medications ?Medication ?Instructions ?Recorded ?Confirmed ?Type alprazolam 0.25 mg tablet 0.25 mg PO BID PRN anxiety during 12/23/21 04/11/24 Rx flying #30 tabs sildenafil (pulm.hypertension) 20 20 mg PO .COMPLEX #60 tabs 06/28/23 04/11/24 Rx mg tablet lisinopril 10 mg tablet 10 mg PO DAILY #30 tabs 11/13/23 04/11/24 Rx metoprolol succinate 25 mg 25 mg PO DAILY #30 tabs 01/09/24 04/11/24 Rx tablet,extended release 24 hr albuterol sulfate 90 mcg/actuation 1 inh inhalation Q4H PRN shortness 02/29/24 04/11/24 Rx aerosol inhaler of breath or wheezing #8.5 grams tamsulosin 0.4 mg capsule (Flomax) 0.4 mg PO QHS #30 caps 02/29/24 04/11/24 Rx allopurinol 300 mg tablet 300 mg PO DAILY #90 tabs 03/05/24 04/11/24 Rx colchicine 0.6 mg tablet 0.6 mg PO BID #20 tabs 03/05/24 04/11/24 Rx diclofenac sodium 50 mg 50 mg PO BID #40 tabs 03/05/24 04/11/24 Rx tablet,delayed release fenofibrate micronized 200 mg 200 mg PO DAILY #30 caps 04/06/24 04/11/24 Rx capsule levothyroxine 25 mcg tablet 25 mcg PO DAILY #90 tabs 04/08/24 04/11/24 Rx <Vani Dumont, [employer] - Last Filed: 04/12/24 17:06> Allergies/Adverse reactions: Allergies Allergy/AdvReac Type Severity Reaction Status Date / Time carrot Allergy Severe HIVES Verified 04/11/24 09:10 celery Allergy Severe HIVES Verified 04/11/24 09:10 cigarette smoke Allergy Mild Unknown Verified 04/11/24 09:10 mold Allergy Mild Unknown Verified 04/11/24 09:10 Penicillins Allergy Unknown Unknown Verified 04/11/24 09:10 Pistachio Allergy Severe HIVES Uncoded 04/11/24 09:10 fire smoke Allergy Mild Unknown Uncoded 04/11/24 09:10 <Vani Dumont, [employer] - Last Filed: 04/12/24 17:06> Vital Signs Vital Signs - 24 hr 04/11/24 16:54 04/11/24 18:00 04/11/24 18:36 Temperature 98.4 F Pulse Rate 99 104 H Respiratory Rate 16 18 Blood Pressure 136/72 151/84 H Pulse Oximetry 98 97 Oxygen Delivery Room Air 04/11/24 21:37 04/11/24 21:52 04/11/24 22:50 Temperature 99.8 F H 99.8 F H 99.5 F Pulse Rate 103 H Respiratory Rate 20 Blood Pressure 146/79 H Pulse Oximetry 96 Oxygen Delivery 04/12/24 06:00 04/12/24 10:28 04/12/24 11:19 Temperature 99.5 F Pulse Rate 110 H 100 Respiratory Rate 16 Blood Pressure 153/80 H Pulse Oximetry 97 Oxygen Delivery Room Air <Vani Dumont APRN - Last Filed: 04/12/24 17:06> Exam 2 Const: General: cooperative, healthy appearing, comfortable, no acute distress and well developed <Vani Dumont APRN - Last Filed: 04/12/24 17:06> Orientation/consciousness: oriented to person, oriented to place, oriented to time and patient oriented x3 <Vani Dumont APRN - Last Filed: 04/12/24 17:06> HENMT: Head: normal to inspection, normocephalic and atraumatic <Vani Dumont APRN - Last Filed: 04/12/24 17:06> Mouth: Yes Normal oral and palatal mucosa present and Yes moist mucous membranes <Vani Dumont APRN - Last Filed: 04/12/24 17:06> Eyes: General: appearance normal, both eyes and all related structures < Vani Dumont APRN - Last Filed: 04/12/24 17:06> Conjunctivae: conjunctivae normal <Vani Dumont APRN - Last Filed: 04/12/24 17:06> Sclera: sclerae normal <Vani Dumont APRN - Last Filed: 04/12/24 17:06> Pupils: Equal, round and reactive pupils present <Vani Dumont APRN - Last Filed: 04/12/24 17:06> Neck: Neck: normal visual inspection <Vani Dumont APRN - Last Filed: 04/12/24 17:06> Chest: Chest palpation & inspection: normal inspection of the chest < Vani Dumont APRN - Last Filed: 04/12/24 17:06> Resp: Effort & Inspection: normal respiratory effort and able to speak in complete sentences <Vani Dumont APRN - Last Filed: 04/12/24 17:06> Auscultation: clear to auscultation bilaterally <Vani Villarrealankita [employer] - Last Filed: 04/12/24 17:06> Cardio: Jugular venous distension: no JVD <Vani Villarrealelizabethjignesh [facility] Last Filed: 04/12/24 17:06> Rate: regular rate <Vani Villarrealankita [employer] - Last Filed: 04/12/24 17:06> Rhythm: regular rhythm <Vani Dumont [employer] - Last Filed: 04/12/24 17:06> Heart sounds: S1 normal heart sound present and S2 normal heart sound present <Vani Villarrealankita [employer] - Last Filed: 04/12/24 17:06> GI: Inspection: normal to inspection <Vani Gonzalezjignesh [facility] Last Filed: 04/12/24 17:06> GI Palp: Yes Firmness to palpation present (GI), Yes Tenderness to palpation present (GI), No Guarding due to palpation present (GI) and Yes No hepatosplenomegaly present <Vani Villarrealankita [facility] Last Filed: 04/12/24 17:06> Auscultation: normal bowel sounds <Vani Villarrealankita [employer] - Last Filed: 04/12/24 17:06> Rectal Exam: deferred <Vani Villarrealankita [facility] Last Filed: 04/12/24 17:06> Other: large firm abdomen <Vani Villarrealankita [facility] Last Filed: 04/12/24 17:06> Skin: General skin exam: normal color and no rashes or lesions noted < Vani Villarrealankita [facility] Last Filed: 04/12/24 17:06> Neuro: General: oriented to person, oriented to place, oriented to time and patient oriented x3 <Vani VillarrealRONNY lucianoN - Last Filed: 04/12/24 17:06> Cranial nerves: Yes Equal, round and reactive pupils present <Vani Fountain RONNY DumontN - Last Filed: 04/12/24 17:06> Speech: normal speech <Vani Dumont APRN - Last Filed: 04/12/24 17:06> Extrem: General: normal to inspection and no clubbing, cyanosis or edema < Vani Dumont APRN - Last Filed: 04/12/24 17:06> Psych: Appearance: grossly normal and well kempt <Vaniloni Dumont APRN - Last Filed: 04/12/24 17:06> Affect: normal affect <Vani Dumont APRN - Last Filed: 04/12/24 17:06> Results Labs CBC & Chem 7: 04/12/24 07:45 04/12/24 07:44 <Vaniloni Dumont APRN - Last Filed: 04/12/24 17:06> Labs: Short CBC 04/12/24 Range/Units 07:45 WBC 11.9 H (4.5-10.0) K/mm3 Hgb 12.5 L (14.0-18.0) g/dL Hct 36.3 L (42.0-52.0) % Plt Count 165 (150-375) k/mm3 BMP 04/12/24 07:44 Sodium 137 Potassium 3.4 Chloride 105 Carbon Dioxide 24 BUN 11 Creatinine 0.90 Glucose 101 Calcium 8.4 Liver Function 04/12/24 Range/Units 07:44 Total Bilirubin 0.7 (0.2-1.3) mg/dL AST 25 (17-59) U/L ALT 39 (6-50) U/L Alkaline Phosphatase 43 (38-126) U/L Albumin 3.7 (3.5-5.1) g/dL <Vaniloni Dumont APRN - Last Filed: 04/12/24 17:06> Attestation Supervising Provider Attestation Patient seen and examined patient does not appear to be toxic. 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 Patient was also given the option of Whipple surgery at that time. Then afterwards he did not follow-up with that patient is still drinking alcohol according to him he drank little more on April 05. They imaging here does not show any clear-cut lesion in the head of the pancreas I advised the patient to continue with the strict NPO status for now, IV hydration. Continue with complete pancreatic rest. Patient's abdomen is mildly distended with hypoactive bowel sounds. Closely monitor intake and output pancreatic necrosis has been discussed in detail with the patient advised the patient that there is a risk of damage to the pancreas including pancreatic atrophy. Option of transferring the patient to the pancreatic Center was also given. Will recheck the labs in the morning I would also advise patient to have repeat imaging in 48 to 72 hours. Advised the patient that he needs to stop drinking totally. Patient does understand that we do not have a pancreatic surgery facility in this hospital. I also advised the patient that he needs to follow with the oncologists to keep an eye on the neuroendocrine tumor which was noted in the head of the pancreas. Of Advised the patient that he will need a repeat endoscopic ultrasound in 2 months to evaluate the head of the pancreas and he needs to establish his care back with the [facility] Continue with the conservative management <Theodore Barrios MD - Last Filed: 04/12/24 19:55>
[2024-04-12] MEDS: MAGNESIUM CITRATE 300 ML BTL 150 ML PO (16:47)
[2024-04-12 16:49] LABS: Lactate Dehydrogenase 188 U/L (120-246)
[2024-04-12 18:38] VITALS: TEMP 37.2
[2024-04-12 22:00] VITALS: BP 159/84; PULSE 90; RESP 16; TEMP 37.9; O2SAT 98
[2024-04-13] MEDS: CIPROFLOXACIN 400 MG/D5W 200ML 200 ML 200 MG IVPB ×3 (01:47→19:40)
[2024-04-13] MEDS: HYDROcodone/acetaminophen (*CRX) 5-325 MG TABLET 1 TAB PO ×3 (01:59→17:43)
[2024-04-13] MEDS: LEVOTHYROXINE SODIUM 25 MCG TABLET PO (05:31)
[2024-04-13] MEDS: SODIUM CHLORIDE 0.9% IV 1,000 ML 100 ML IV CONT ×2 (05:31→21:59)
[2024-04-13 06:00] VITALS: BP 155/91; PULSE 82; RESP 18; TEMP 36.9; O2SAT 98
[2024-04-13 07:56] LABS: Basophils Absolute Auto 0.1 K/mm3 (0.0-0.1); Basophils Percent Auto 0.6 % (0.2-1.2); Eosinophils Absolute Auto 0.2 K/mm3 (0-0.3); Eosinophils Percent Auto 2.1 % (0-4.4); Hematocrit 31.2 % (42.0-52.0); Hemoglobin 10.8 g/dL (14.0-18.0); Immature Granulocyte Absolute 0.06 K/mm3 (0.00-0.031); Immature Granulocyte Percent A 0.7 % (0-0.5); Lymphocytes Absolute Auto 0.89 K/mm3 (0.9-3.2); Lymphocytes Percent Auto 11.1 % (18.3-44.2); Mean Corpuscular HGB Conc 34.6 g/dl (32-36); Mean Corpuscular Hemoglobin 32.6 pg (26-34); Mean Corpuscular Volume 94.3 fl (80-100); Mean Platelet Volume 10.2 fl (7.4-10.4); Monocytes Absolute Auto 0.7 K/mm3 (0.1-0.6); Monocytes Percent Auto 8.7 % (2.6-8.5); Neutrophils Absolute Auto 6.2 K/mm3 (1.3-6.7); Neutrophils Percent Auto 76.8 % (45.5-73.1); Platelet Count Result 162 k/mm3 (150-375); Red Blood Count 3.31 M/mm3 (4.6-6.20); Red Cell Distribution Width 12.9 % (11.5-14.5)
[2024-04-13 08:07] LABS: Alanine Aminotransferase 42 U/L (6-50); Albumin Level 3.2 g/dL (3.5-5.1); Alkaline Phosphatase 52 U/L (38-126); Anion Gap 3 mmol/L (4-12); Aspartate Amino Transferase 28 U/L (17-59); Bilirubin,Total 0.5 mg/dL (0.2-1.3); Blood Urea Nitrogen 11 mg/dL (9-20); Carbon Dioxide 26 mmol/L (22-30); Chloride 105 mmol/L (98-107); Estimated CRCL calculation 85 ml/min; Estimated Glomerular Filt Rate > 60; Glucose 97 mg/dL (65-110); Potassium 3.1 mmol/L (3.4-5.0); Sodium 134 mmol/L (137-145)
[2024-04-13] MEDS: COLCHICINE 0.6 MG TABLET PO ×2 (10:38→17:43)
[2024-04-13] MEDS: FENOFIBRATE NANOCRYSTALLIZED 145 MG TABLET PO (10:38)
[2024-04-13] MEDS: lisinopriL 10 MG TABLET PO (10:38)
[2024-04-13 10:39] VITALS: PULSE 82
[2024-04-13] MEDS: DOCUSATE SODIUM 100 MG CAPSULE PO (10:39)
[2024-04-13] MEDS: METOPROLOL SUCCINATE EXT REL 25 MG TABCR PO (10:39)
[2024-04-13] MEDS: allopurinoL 300 MG TABLET PO (10:39)
[2024-04-13] MEDS: ENOXAPARIN 40 MG/0.4 ML SYRINGE SUB-Q (10:40)
--- NOTE | 2024-04-13 11:05 | P.CONGS_ITS ---
Assessment and Plan Assessment and plan (1) Acute necrotizing pancreatitis: Code(s): K85.91 - Acute pancreatitis with uninfected necrosis, unspecified Status: Acute Assessment and Plan: clinically seems to be improving, continue serial exams and labs, plan for repeat imaging early next week, if any deterioration or signs of worsening will need transfer to hepatobiliary surgeon at a tertiary care center History of Present Illness Consult details Consult date: 04/13/24 Reason for consult: abdominal pain Requesting physician: Theodore Barrios MD Narrative: The patient is a 58-year-old male that presented to the hospital complaining of upper abdominal pain, abdominal distension, nausea. Workup, including imaging, significant for acute necrotizing pancreatitis. The patient reports that he did some drinking on [place] and subsequently had this episode the following day. The patient reports she had a severe episode of pancreatitis back in 2019. Currently the patient has been admitted and reports that he is feeling better. He reports that his pain is improved and the distention seems to be resolving. He is tolerating a clear liquid diet at this time. Review of Systems 2 Review of Systems: All systems reviewed & are unremarkable except as noted in HPI and below PMFSH Past Medical History Medical History Familial hypercholesterolemia Essential hypertension Fracture of right ankle Cystic mass of pancreas Followed by hepatobiliary at [facility]. Mass not appreciated on most recent MRI. Normal colonoscopy (~2015) Hypothyroidism Anxiety Surgical History Surgical History History of vasectomy History of surgery on right wrist History of appendectomy Family History Family History Other Heart disease Hypertension Social History Social History Social History: Surrogate medical decision maker: Nicole Ibrahim, . Code status: Full code. Smoking status: Never smoker Second hand tobacco smoke exposure: No Alcohol intake: current Drinks per week: 1 Substance use: never Substance use type: does not use Do You Feel Safe in your Home?: Yes Lack of Transportation: No Lack of Food: Never True Current Housing: I Have Housing Concerned About Future Housing: No Difficulty Paying Gas/Electric Bills: No Difficulty Paying for Meds: No Currently Unemployed: No Education: Bachelor's Degree Difficulty w/ Childcare or Family Care: No Living arrangements: with family Additional living arrangements comments: The patient lives with his and son in [place]. 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 Gender identity (if verbalized by the patient): Male Spiritual care concerns: No Meds Home Medications and Allergies Home Medications ?Medication ?Instructions ?Recorded ?Confirmed ?Type alprazolam 0.25 mg tablet 0.25 mg PO BID PRN anxiety during 12/23/21 04/11/24 Rx flying #30 tabs sildenafil (pulm.hypertension) 20 20 mg PO .COMPLEX #60 tabs 06/28/23 04/11/24 Rx mg tablet lisinopril 10 mg tablet 10 mg PO DAILY #30 tabs 11/13/23 04/11/24 Rx metoprolol succinate 25 mg 25 mg PO DAILY #30 tabs 01/09/24 04/11/24 Rx tablet,extended release 24 hr albuterol sulfate 90 mcg/actuation 1 inh inhalation Q4H PRN shortness 02/29/24 04/11/24 Rx aerosol inhaler of breath or wheezing #8.5 grams tamsulosin 0.4 mg capsule (Flomax) 0.4 mg PO QHS #30 caps 02/29/24 04/11/24 Rx allopurinol 300 mg tablet 300 mg PO DAILY #90 tabs 03/05/24 04/11/24 Rx colchicine 0.6 mg tablet 0.6 mg PO BID #20 tabs 03/05/24 04/11/24 Rx diclofenac sodium 50 mg 50 mg PO BID #40 tabs 03/05/24 04/11/24 Rx tablet,delayed release fenofibrate micronized 200 mg 200 mg PO DAILY #30 caps 04/06/24 04/11/24 Rx capsule levothyroxine 25 mcg tablet 25 mcg PO DAILY #90 tabs 04/08/24 04/11/24 Rx Allergies Allergy/AdvReac Type Severity Reaction Status Date / Time carrot Allergy Severe HIVES Verified 04/11/24 09:10 celery Allergy Severe HIVES Verified 04/11/24 09:10 cigarette smoke Allergy Mild Unknown Verified 04/11/24 09:10 mold Allergy Mild Unknown Verified 04/11/24 09:10 Penicillins Allergy Unknown Unknown Verified 04/11/24 09:10 Pistachio Allergy Severe HIVES Uncoded 04/11/24 09:10 fire smoke Allergy Mild Unknown Uncoded 04/11/24 09:10 Vital Signs Vital Signs - 24 hr 04/12/24 11:19 04/12/24 14:00 04/12/24 18:38 Temperature 37.7 C H 37.2 C Pulse Rate 100 96 Respiratory Rate 20 Blood Pressure 138/73 Pulse Oximetry 97 04/12/24 22:00 04/13/24 06:00 04/13/24 10:39 Temperature 37.9 C H 36.9 C Pulse Rate 90 82 82 Respiratory Rate 16 18 Blood Pressure 159/84 H 155/91 H Pulse Oximetry 98 98 Exam 2 Const: General: cooperative, comfortable and no acute distress HENMT: Head: normal to inspection, normocephalic and atraumatic Eyes: General: appearance normal, both eyes and all related structures Neck: Neck: normal visual inspection Resp: Auscultation: clear to auscultation bilaterally Cardio: Rate: regular rate Rhythm: regular rhythm GI: Inspection: normal to inspection and distended GI Palp: Yes abdominal tenderness, Yes Soft to palpation, Yes Tenderness to palpation present (GI), No Guarding due to palpation present (GI) and No Rigid due to palpation Skin: General skin exam: normal color and no rashes or lesions noted Neuro: General: patient oriented x3 and CN's II-XI intact bilaterally Extrem: General: normal to inspection and full ROM Results Labs 04/13/24 07:10 04/13/24 07:10 Labs: Abnormal lab results 04/13/24 Range/Units 07:10 RBC 3.31 L (4.6-6.20) M/mm3 Hgb 10.8 L (14.0-18.0) g/dL Hct 31.2 L (42.0-52.0) % Immature Gran % (Auto) 0.7 H (0-0.5) % Neut % (Auto) 76.8 H (45.5-73.1) % Lymph % (Auto) 11.1 L (18.3-44.2) % [place] % (Auto) 8.7 H (2.6-8.5) % Lymph # (Auto) 0.89 L (0.9-3.2) K/mm3 [place] # (Auto) 0.7 H (0.1-0.6) K/mm3 Abs Immat Gran (auto) 0.06 H (0.00-0.031) K/mm3 Sodium 134 L (137-145) mmol/L Potassium 3.1 L (3.4-5.0) mmol/L Anion Gap 3 L (4-12) mmol/L Calcium 8.0 L (8.4-10.2) mg/dL Total Protein 6.0 L (6.3-8.2) g/dL Albumin 3.2 L (3.5-5.1) g/dL Diabetes panel 04/13/24 Range/Units 07:10 Sodium 134 L (137-145) mmol/L Potassium 3.1 L (3.4-5.0) mmol/L Chloride 105 (98-107) mmol/L Carbon Dioxide 26 (22-30) mmol/L BUN 11 (9-20) mg/dL Creatinine 0.80 (0.7-1.3) mg/dL Glucose 97 (65-110) mg/dL Calcium 8.0 L (8.4-10.2) mg/dL AST 28 (17-59) U/L ALT 42 (6-50) U/L Alkaline Phosphatase 52 (38-126) U/L Total Protein 6.0 L (6.3-8.2) g/dL Albumin 3.2 L (3.5-5.1) g/dL Calcium panel 04/13/24 Range/Units 07:10 Calcium 8.0 L (8.4-10.2) mg/dL Albumin 3.2 L (3.5-5.1) g/dL Pituitary panel 04/13/24 Range/Units 07:10 Sodium 134 L (137-145) mmol/L Potassium 3.1 L (3.4-5.0) mmol/L Chloride 105 (98-107) mmol/L Carbon Dioxide 26 (22-30) mmol/L BUN 11 (9-20) mg/dL Creatinine 0.80 (0.7-1.3) mg/dL Glucose 97 (65-110) mg/dL Calcium 8.0 L (8.4-10.2) mg/dL Adrenal panel 04/13/24 Range/Units 07:10 Sodium 134 L (137-145) mmol/L Potassium 3.1 L (3.4-5.0) mmol/L Chloride 105 (98-107) mmol/L Carbon Dioxide 26 (22-30) mmol/L BUN 11 (9-20) mg/dL Creatinine 0.80 (0.7-1.3) mg/dL Glucose 97 (65-110) mg/dL Calcium 8.0 L (8.4-10.2) mg/dL Total Bilirubin 0.5 (0.2-1.3) mg/dL AST 28 (17-59) U/L ALT 42 (6-50) U/L Alkaline Phosphatase 52 (38-126) U/L Total Protein 6.0 L (6.3-8.2) g/dL Albumin 3.2 L (3.5-5.1) g/dL All other labs normal. Imaging Abdomen CT scan report/results: report reviewed and image reviewed Abdominal ultrasound report/results: report reviewed Additional studies: MRCP reviewed
--- NOTE | 2024-04-13 11:19 | P.PNIM_ITS ---
Progress Note: A&P Assessment and Plan (1) Acute pancreatitis: Qualifiers: Acute pancreatitis complication: unspecified Pancreatitis type: idiopathic Qualified Code(s): K85.00 - Idiopathic acute pancreatitis without necrosis or infection Code(s): K85.90 - Acute pancreatitis without necrosis or infection, unspecified Status: Acute Assessment and Plan: Likely secondary to alcohol use * CT of the abdomen and pelvis showed acute pancreatitis and indeterminate focus of decreased attenuation identified within the [place] pancreas measuring 25 x 29 x 32 mm with peripancreatic fluid noted extending in the lesser sac as well as within a perihepatic splenic position extending into the splenic flexure. * Previous history 1 cm cystic lesion on the head of the pancreas which was not fluid on today's CT of the abdomen and pelvis was worked up at [facility] by Hepatobiliary service. He had 2 MRI's with the last MRI negative for mass. * Continue pain control * Continue nausea control * NPO for bowel rest tonight, then advance to Clear liquids * Lipase 971, white blood cell count 14.8, reported low grade temp at home * Will cover with Cipro and Flagyl for now for possibility of necrotizing pancreatitis however this was extensively reviewed by the ER physician and radiologist who feel it is less likely * Blood cultures ordered * US of the abdomen shown fat infiltration of the liver otherwise normal ultrasound. * MRI of the abdomen with and without contrast to assess pancreas for abscess versus mass/malignancy 04/12 * Advance to clear liquid diet as tolerated * MRCP acute necrotic pancreatitis, diffuse steatosis, small left pleural effusion * Continue Cipro and Flagyl * Blood cultures showing no growth to date * GI consulted * Spoke with Radiologist and Dr. Hargrove who both feel it is safe to keep here and continue to treat with antibiotics. * He will need hepatobiliary follow up at discharge. 04/13/24: * clear liquid diet * plan for CT abdomen on Monday per GI * overall improving continue with IV hydration * patient will need to follow up with his hepatic biliary at [facility] post discharge * encouraged immediate alcohol cessation * will continue to replenish electrolyte (2) Fatty liver: Code(s): K76.0 - Fatty (change of) liver, not elsewhere classified Status: Acute Assessment and Plan: * CT of the abdomen and pelvis showing fatty liver disease * MRCP shown diffuse hepatic steatosis (3) Hypothyroidism: Qualifiers: Hypothyroidism type: unspecified Qualified Code(s): E03.9 - Hypothyroidism, unspecified Code(s): E03.9 - Hypothyroidism, unspecified Status: Chronic Assessment and Plan: * Continue Synthroid * Will check TSH 04/12 * TSH 3.20 (4) Essential hypertension: Code(s): I10 - Essential (primary) hypertension Status: Chronic Assessment and Plan: * Blood pressures ranging 132/82 to 156/93 * Continue lisinopril and metoprolol (5) Anxiety: Code(s): F41.9 - Anxiety disorder, unspecified Status: Acute Assessment and Plan: * Continue alprazolam (6) Constipation: Code(s): K59.00 - Constipation, unspecified Status: Acute Assessment and Plan: Patient states he has not had a bowel movement in 5 days and presents with 2 days worth of abdominal pain and distension. * Will give Dulcolax suppository now * Start Colace 100 mg b.i.d. * Dulcolax tablet 5 mg daily p.r.n. * Milk of Mag p.r.n. 04/12 * Will give dose of Mag citrate today * Slightly distended, passing gas now, 6 days without BM 04/13/24 * added lactulose Plan Code status: Full code per patient DVT prophylaxis: Lovenox Stress ulcer prophylaxis: PT/OT notes: ambulatory Disposition: patient continues admission for necrotizing pancreatitis improving with IV antibiotics patient is ambulatory and plan will be to return home medically stable previous provider has spoken with General surgery, radiology patient improving likely does not need a transfer unless he worsens plan can be for follow-up outpatient with hepatobiliary currently wait list is over 10 days For a transfer. will continue with clear liquid diet and plan for CT scan on Monday for improvement Time Spent With Patient Time with patient: 15 - 25 minutes Subjective Date/time seen: 04/13/24 11:19 Interval history: Patient is a 50-year-old male who is admitted for treatment of necrotizing pancreatitis currently responding well to IV antibiotics and IV fluids on a clear liquid diet surgery and GI are following 04/13/2024: Assumed Care patient with no new complaints reports small bowel movements x2 last night, ABD still sore with some cramping but improved. Patient was able to tolerate liquids will continue with this diet until follow-up CT scan on Monday. Review of Systems Review of Systems: All systems reviewed & are unremarkable except as noted in HPI and below Exam Narrative: General: In no acute distress, well nourished Cardiac: Normal S1 and S2. RRR, No murmur, gallops or friction rubs, peripheral pulses intact. Respiratory: Lungs clear to auscultation, no adventitious lung sounds, currently on room air Gastrointestinal:taunt,distended, tender, hypoactive bowel sounds. Denies nausea and vomiting, reports abdominal spasms/cramping :voiding without difficulty. Neuro: Alert and oriented x4 Objective Data Vital Signs Vital Signs: Vital Signs - 24 hr 04/12/24 14:00 04/12/24 18:38 04/12/24 22:00 Temperature 99.9 F H 99.0 F 100.3 F H Pulse Rate 96 90 Respiratory Rate 20 16 Blood Pressure 138/73 159/84 H Pulse Oximetry 97 98 04/13/24 06:00 04/13/24 10:39 Temperature 98.4 F Pulse Rate 82 82 Respiratory Rate 18 Blood Pressure 155/91 H Pulse Oximetry 98 Intake/Output Intake/Output: Intake & Output 04/10/24 04/11/24 04/12/24 04/13/24 23:59 23:59 23:59 23:59 Intake Total 1000 2600 1840 Output Total 1000 Balance 0 2600 1840 Meds/Results Medications: Active Medications Generic Name Dose Route Start Last Admin Trade Name Freq PRN Reason Stop Dose Admin Acetaminophen 650 mg 04/11/24 15:59 04/11/24 21:52 Acetaminophen 325 Mg Tablet PO 650 mg Q4H PRN Administration Mild Pain (1-3) or Fever Hydrocodone Bitart/Acetaminophen 1 tab 04/11/24 15:53 04/13/24 10:39 Hydrocodone/Acetaminophen (*Crx) 5-325 Mg Tablet PO 1 tab Q4H PRN Administration Moderate Pain (4-6) Albuterol 1 puff 04/11/24 22:43 Albuterol Sulfate (*Sp) Aerosol 1 Puff INHALATION Q4HRT PRN shortness of breath or wheezing Allopurinol 300 mg 04/12/24 09:00 04/13/24 10:39 Allopurinol 300 Mg Tablet PO 300 mg DAILY GENNARO Administration Alprazolam 0.25 mg 04/11/24 15:59 Alprazolam (*Crx) 0.25 Mg Tablet PO BID PRN Anxiety Bisacodyl 5 mg 04/11/24 15:53 Bisacodyl 5 Mg Tablet Ec PO DAILY PRN Constipation Colchicine 0.6 mg 04/12/24 09:00 04/13/24 10:38 Colchicine 0.6 Mg Tablet PO 0.6 mg BID GENNARO Administration Docusate Sodium 100 mg 04/11/24 17:00 04/13/24 10:39 Docusate Sodium 100 Mg Capsule PO 100 mg BID GENNARO Administration Enoxaparin Sodium 40 mg 04/12/24 09:00 04/13/24 10:40 Enoxaparin 40 Mg/0.4 Ml Syringe SUB-Q 40 mg DAILY GENNARO Administration Fenofibrate 145 mg 04/12/24 09:00 04/13/24 10:38 Fenofibrate Nanocrystallized 145 Mg Tablet PO 05/12/24 08:59 145 mg DAILY GENNARO Administration Sodium Chloride 1,000 mls @ 100 mls/hr 04/11/24 15:55 04/13/24 05:31 Normal Saline Iv IV CONT 100 mls/hr .Q10H GENNARO Administration Ciprofloxacin/Dextrose 200 mls @ 200 mls/hr 04/12/24 02:00 04/13/24 10:41 Cipro 400 Mg/D5w 200 Ml IVPB 200 mls/hr Q8H GENNARO Administration Potassium Chloride 40 meq/ 520 mls @ 130 mls/hr 04/13/24 11:18 Sodium Chloride IVPB 04/13/24 15:17 ONCE ONE Levothyroxine Sodium 25 mcg 04/12/24 06:30 04/13/24 05:31 Levothyroxine Sodium 25 Mcg Tablet PO 25 mcg DAILY@0630 GENNARO Administration Lisinopril 10 mg 04/12/24 09:00 04/13/24 10:38 Lisinopril 10 Mg Tablet PO 10 mg DAILY GENNARO Administration Magnesium Hydroxide 30 ml 04/11/24 15:53 Magnesium Hydroxide Susp 30 Ml Udc PO DAILY PRN Constipation Metoprolol Succinate 25 mg 04/12/24 09:00 04/13/24 10:39 Metoprolol Succinate Ext Rel 25 Mg Tabcr PO 25 mg QAM GENNARO Administration Morphine Sulfate 2 mg 04/11/24 15:53 Morphine Sulfate (*Crx) 2 Mg/Ml Inj IV PUSH Q4H PRN Pain Rated 7-10 Morphine Sulfate 4 mg 04/11/24 15:59 04/12/24 01:28 Morphine Sulfate (*Crx) 4 Mg/Ml Inj IV PUSH 4 mg Q2H PRN Administration Pain Rated 7-10 Ondansetron HCl 4 mg 04/11/24 15:59 Ondansetron Inj 4 Mg/2 Ml Vial IV PUSH Q4H PRN Nausea Radiology Results: ITS Impressions Abdomen/Pelvis CT 04/11/24 13:41 IMPRESSION: Findings which in the appropriate clinical scenario suggest the presence of acute pancreatitis for which follow-up to resolution is recommended as a malignancy may have a similar appearance. Fatty infiltration of an enlarged liver Trace free fluid within the pelvis, never a normal finding in a male patient. Abdomen Ultrasound 04/11/24 16:45 IMPRESSION: Fat infiltration of the liver. Otherwise, limited abdominal ultrasound. MRCP 04/12/24 13:24 IMPRESSION: 1. Acute necrotic pancreatitis. 2. Diffuse hepatic steatosis. 3. Small left pleural effusion. Labs Labs: Laboratory Results - last 24 hr 04/12/24 04/13/24 07:40 07:10 WBC 8.0 RBC 3.31 L Hgb 10.8 L Hct 31.2 L MCV 94.3 MCH 32.6 MCHC 34.6 RDW 12.9 Plt Count 162 MPV 10.2 Immature Gran % (Auto) 0.7 H Neut % (Auto) 76.8 H Lymph % (Auto) 11.1 L [place] % (Auto) 8.7 H Eos % (Auto) 2.1 Baso % (Auto) 0.6 Lymph # (Auto) 0.89 L [place] # (Auto) 0.7 H Eos # (Auto) 0.2 Baso # (Auto) 0.1 Abs Immat Gran (auto) 0.06 H Absolute Neuts (auto) 6.2 Absolute Nucleated RBC 0.000 Nucleated RBC % 0.0 Sodium 134 L Potassium 3.1 L Chloride 105 Carbon Dioxide 26 Anion Gap 3 L BUN 11 Creatinine 0.80 Estim Creat Clear Calc 85 Estimated GFR > 60 Glucose 97 Calcium 8.0 L Total Bilirubin 0.5 AST 28 ALT 42 Alkaline Phosphatase 52 Lactate Dehydrogenase 188 Total Protein 6.0 L Albumin 3.2 L Quality VTE Prophylaxis VTE prophylaxis: pharmacologic ordered -Patient's previous records reviewed on admission -ER notes reviewed in detail on admission -discussed all findings and current treatment plan with patient/Family/POA -Consultations reviewed for recommendations -Patient's disposition for safe discharge discussed with telehealth case manager Dictation performed by [employer] direct speech recognition software, therefore shot peening operator variants and typographical errors may occur. Hospitalist MIPS Advance Care Plan I have confirmed that the patient's Advanced Care Plan is present, code status is documented, or surrogate decision maker is listed in patient medical record.: Yes Medication Reconciliation I have utilized all available resources to obtain, update and review the patients current medications (includes all prescriptions, OTC, herbals, cannabis, and nutritional supplements).: Yes The patient is not eligible for med reconciliation; the patient is in a emergent medical situation where delaying treatment would jeopardize the patients health.: No
--- NOTE | 2024-04-13 13:39 | P.PNGI_ITS ---
Progress Note: A&P Assessment and Plan (1) Acute necrotizing pancreatitis: Code(s): K85.91 - Acute pancreatitis with uninfected necrosis, unspecified Status: Acute (2) Enlarged liver: Code(s): R16.0 - Hepatomegaly, not elsewhere classified Status: Acute (3) Acute pancreatitis: Qualifiers: Acute pancreatitis complication: unspecified Pancreatitis type: idiopathic Qualified Code(s): K85.00 - Idiopathic acute pancreatitis without necrosis or infection Code(s): K85.90 - Acute pancreatitis without necrosis or infection, unspecified Status: Acute (4) Hypokalemia: Code(s): E87.6 - Hypokalemia Status: Acute Plan overall patient is clinically improving continue with the IV fluids and hydration correction of electrolytes as per medicine team advised patient that he needs to stop alcohol as he can from alcoholic related complications pancreatic necrosis was discussed will repeat the CT scan with contrast on Monday patient appetite is still poor bowel sounds are slightly hypoactive would recommend patient to be either NPO but according to him he has been drinking some fluids I advised the patient that he should stay maximum on the clear liquids and give it some more time for the pancreatitis to get better will check a CRP tomorrow regular GI team will assume patient care morning encouraged patient to follow-up as outpatient for 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 patient has been followed by [facility] in the past Subjective Date/time seen: 04/13/24 13:39 Interval history: patient is being seen for necrotizing pancreatitis sec to alcohol use and 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 patient is feeling better according to him he had few bowel movements yesterday and his abdominal distention is improved are denies any fever or chills denies any nausea vomiting Review of Systems Constitutional: Constitutional: Denies chills, Denies fatigue, Denies fever(s), Denies headache(s), Denies malaise, Denies weight gain and Denies we ight loss Eyes: Eyes: Denies change in vision ENT: Denies dizziness, Denies headache(s) and Reports other (No change in hearing) Cardiovascular: Cardiovascular: Denies chest pain, Denies dyspnea and Reports other (denies palpitations, denies orthopnea) Respiratory: Respiratory: Denies cough, Denies dyspnea and Reports other (denies sputum production, denies hemoptysis) Gastrointestinal: Gastrointestinal: Reports as per HPI Genitourinary: Genitourinary: Denies hematuria, Denies dysuria and Denies urinary incontinence Musculoskeletal: Musculoskeletal: Reports other (denies extremity edema, denies myalgia) Integumentary/Breasts: Skin/Breast: Denies new lesions and Denies rash Neurologic: Denies dizziness, Denies headache(s) and Denies seizure-like activity Endocrine: Endocrine: Denies fatigue Hematologic/Lymphatic: Hematologic/Lymphatic: Denies easy bleeding and Denies easy bruising Exam Const: General: cooperative; No acute distress Orientation/consciousness: patient oriented x3 HENMT: Head: normal to inspection Neck: Neck: supple Resp: Auscultation: clear to auscultation bilaterally Cardio: Rate: regular rate Rhythm: regular rhythm GI: GI Palp: Yes Soft to palpation, No Tenderness to palpation present (GI) and No Palpable mass present Auscultation: normal bowel sounds Rectal Exam: deferred Other: abdomen is mildly distended but soft and nontender Skin: General skin exam: no rashes or lesions noted Neuro: General: patient oriented x3 Extrem: General: no edema Objective Data Vital Signs Vital Signs: Vital Signs - 24 hr 04/12/24 14:00 04/12/24 18:38 04/12/24 22:00 Temperature 99.9 F H 99.0 F 100.3 F H Pulse Rate 96 90 Respiratory Rate 20 16 Blood Pressure 138/73 159/84 H Pulse Oximetry 97 98 Oxygen Delivery 04/13/24 06:00 04/13/24 10:35 04/13/24 10:39 Temperature 98.4 F Pulse Rate 82 82 Respiratory Rate 18 Blood Pressure 155/91 H Pulse Oximetry 98 Oxygen Delivery Room Air Intake/Output Intake/Output: Intake & Output 04/10/24 04/11/24 04/12/24 04/13/24 23:59 23:59 23:59 23:59 Intake Total 1000 2600 1840 Output Total 1000 Balance 0 2600 1840 Meds/Results Medications: Active Medications Generic Name Dose Route Start Last Admin Trade Name Freq PRN Reason Stop Dose Admin Acetaminophen 650 mg 04/11/24 15:59 04/11/24 21:52 Acetaminophen 325 Mg Tablet PO 650 mg Q4H PRN Administration Mild Pain (1-3) or Fever Hydrocodone Bitart/Acetaminophen 1 tab 04/11/24 15:53 04/13/24 10:39 Hydrocodone/Acetaminophen (*Crx) 5-325 Mg Tablet PO 1 tab Q4H PRN Administration Moderate Pain (4-6) Albuterol 1 puff 04/11/24 22:43 Albuterol Sulfate (*Sp) Aerosol 1 Puff INHALATION Q4HRT PRN shortness of breath or wheezing Allopurinol 300 mg 04/12/24 09:00 04/13/24 10:39 Allopurinol 300 Mg Tablet PO 300 mg DAILY GENNARO Administration Alprazolam 0.25 mg 04/11/24 15:59 Alprazolam (*Crx) 0.25 Mg Tablet PO BID PRN Anxiety Bisacodyl 5 mg 04/11/24 15:53 Bisacodyl 5 Mg Tablet Ec PO DAILY PRN Constipation Colchicine 0.6 mg 04/12/24 09:00 04/13/24 10:38 Colchicine 0.6 Mg Tablet PO 0.6 mg BID GENNARO Administration Docusate Sodium 100 mg 04/11/24 17:00 04/13/24 10:39 Docusate Sodium 100 Mg Capsule PO 100 mg BID GENNARO Administration Enoxaparin Sodium 40 mg 04/12/24 09:00 04/13/24 10:40 Enoxaparin 40 Mg/0.4 Ml Syringe SUB-Q 40 mg DAILY GENNARO Administration Fenofibrate 145 mg 04/12/24 09:00 04/13/24 10:38 Fenofibrate Nanocrystallized 145 Mg Tablet PO 05/12/24 08:59 145 mg DAILY GENNARO Administration Sodium Chloride 1,000 mls @ 100 mls/hr 04/11/24 15:55 04/13/24 05:31 Normal Saline Iv IV CONT 100 mls/hr .Q10H GENNARO Administration Ciprofloxacin/Dextrose 200 mls @ 200 mls/hr 04/12/24 02:00 04/13/24 10:41 Cipro 400 Mg/D5w 200 Ml IVPB 200 mls/hr Q8H GENNARO Administration Potassium Chloride 40 meq/ 520 mls @ 130 mls/hr 04/13/24 11:18 Sodium Chloride IVPB 04/13/24 15:17 ONCE ONE Lactulose 20 gm 04/13/24 12:00 Lactulose 20 Gm/30 Ml Udc PO Q6HR GENNARO Levothyroxine Sodium 25 mcg 04/12/24 06:30 04/13/24 05:31 Levothyroxine Sodium 25 Mcg Tablet PO 25 mcg DAILY@0630 GENNARO Administration Lisinopril 10 mg 04/12/24 09:00 04/13/24 10:38 Lisinopril 10 Mg Tablet PO 10 mg DAILY GENNARO Administration Magnesium Hydroxide 30 ml 04/11/24 15:53 Magnesium Hydroxide Susp 30 Ml Udc PO DAILY PRN Constipation Metoprolol Succinate 25 mg 04/12/24 09:00 04/13/24 10:39 Metoprolol Succinate Ext Rel 25 Mg Tabcr PO 25 mg QAM GENNARO Administration Morphine Sulfate 2 mg 04/11/24 15:53 Morphine Sulfate (*Crx) 2 Mg/Ml Inj IV PUSH Q4H PRN Pain Rated 7-10 Morphine Sulfate 4 mg 04/11/24 15:59 04/12/24 01:28 Morphine Sulfate (*Crx) 4 Mg/Ml Inj IV PUSH 4 mg Q2H PRN Administration Pain Rated 7-10 Ondansetron HCl 4 mg 04/11/24 15:59 Ondansetron Inj 4 Mg/2 Ml Vial IV PUSH Q4H PRN Nausea Radiology Results: ITS Impressions Abdomen/Pelvis CT 04/11/24 13:41 IMPRESSION: Findings which in the appropriate clinical scenario suggest the presence of acute pancreatitis for which follow-up to resolution is recommended as a malignancy may have a similar appearance. Fatty infiltration of an enlarged liver Trace free fluid within the pelvis, never a normal finding in a male patient. Abdomen Ultrasound 04/11/24 16:45 IMPRESSION: Fat infiltration of the liver. Otherwise, limited abdominal ultrasound. MRCP 04/12/24 13:24 IMPRESSION: 1. Acute necrotic pancreatitis. 2. Diffuse hepatic steatosis. 3. Small left pleural effusion. Labs Labs: Laboratory Results - last 24 hr 04/12/24 04/13/24 07:40 07:10 WBC 8.0 RBC 3.31 L Hgb 10.8 L Hct 31.2 L MCV 94.3 MCH 32.6 MCHC 34.6 RDW 12.9 Plt Count 162 MPV 10.2 Immature Gran % (Auto) 0.7 H Neut % (Auto) 76.8 H Lymph % (Auto) 11.1 L [place] % (Auto) 8.7 H Eos % (Auto) 2.1 Baso % (Auto) 0.6 Lymph # (Auto) 0.89 L [place] # (Auto) 0.7 H Eos # (Auto) 0.2 Baso # (Auto) 0.1 Abs Immat Gran (auto) 0.06 H Absolute Neuts (auto) 6.2 Absolute Nucleated RBC 0.000 Nucleated RBC % 0.0 Sodium 134 L Potassium 3.1 L Chloride 105 Carbon Dioxide 26 Anion Gap 3 L BUN 11 Creatinine 0.80 Estim Creat Clear Calc 85 Estimated GFR > 60 Glucose 97 Calcium 8.0 L Total Bilirubin 0.5 AST 28 ALT 42 Alkaline Phosphatase 52 Lactate Dehydrogenase 188 Total Protein 6.0 L Albumin 3.2 L
[2024-04-13 14:07] VITALS: BP 149/85; PULSE 78; RESP 17; TEMP 36.4; O2SAT 99
[2024-04-13] MEDS: POTASSIUM CHLORIDE INJ 40 MEQ in SODIUM CHLORIDE 0.9% IV 500 ML 130 MEQ IVPB (14:14)
[2024-04-13] MEDS: LACTULOSE 20 GM/30 ML UDC PO (14:15)
[2024-04-13 17:40] VITALS: TEMP 37.7
[2024-04-13 20:11] VITALS: BP 148/90; PULSE 79; RESP 16; TEMP 37.4; O2SAT 98
[2024-04-13 20:25] VITALS: PULSE 79; RESP 16; O2SAT 98
[2024-04-14] MEDS: ONDANSETRON INJ 4 MG/2 ML VIAL IV PUSH (01:48)
[2024-04-14] MEDS: MORPHINE SULFATE (*CRX) 4 MG/ML INJ IV PUSH (01:48)
[2024-04-14] MEDS: CIPROFLOXACIN 400 MG/D5W 200ML 200 ML 200 MG IVPB (02:34)
[2024-04-14 05:20] VITALS: BP 160/87; PULSE 85; RESP 16; TEMP 36.6; O2SAT 98
[2024-04-14] MEDS: LEVOTHYROXINE SODIUM 25 MCG TABLET PO (06:00)
--- NOTE | 2024-04-14 08:27 | P.PNIM_ITS ---
Progress Note: A&P Assessment and Plan (1) Acute pancreatitis: Qualifiers: Acute pancreatitis complication: unspecified Pancreatitis type: idiopathic Qualified Code(s): K85.00 - Idiopathic acute pancreatitis without necrosis or infection Code(s): K85.90 - Acute pancreatitis without necrosis or infection, unspecified Status: Acute Assessment and Plan: Likely secondary to alcohol use * CT of the abdomen and pelvis showed acute pancreatitis and indeterminate focus of decreased attenuation identified within the [place] pancreas measuring 25 x 29 x 32 mm with peripancreatic fluid noted extending in the lesser sac as well as within a perihepatic splenic position extending into the splenic flexure. * Previous history 1 cm cystic lesion on the head of the pancreas which was not fluid on today's CT of the abdomen and pelvis was worked up at [facility] by Hepatobiliary service. He had 2 MRI's with the last MRI negative for mass. * Continue pain control * Continue nausea control * NPO for bowel rest tonight, then advance to Clear liquids * Lipase 971, white blood cell count 14.8, reported low grade temp at home * Will cover with Cipro and Flagyl for now for possibility of necrotizing pancreatitis however this was extensively reviewed by the ER physician and radiologist who feel it is less likely * Blood cultures ordered * US of the abdomen shown fat infiltration of the liver otherwise normal ultrasound. * MRI of the abdomen with and without contrast to assess pancreas for abscess versus mass/malignancy 04/12 * Advance to clear liquid diet as tolerated * MRCP acute necrotic pancreatitis, diffuse steatosis, small left pleural effusion * Continue Cipro and Flagyl * Blood cultures showing no growth to date * GI consulted * Spoke with Radiologist and Dr. Hargrove who both feel it is safe to keep here and continue to treat with antibiotics. * He will need hepatobiliary follow up at discharge. 04/13/24: * clear liquid diet * plan for CT abdomen on Monday per GI * overall improving continue with IV hydration * patient will need to follow up with his hepatic biliary at [facility] post discharge * encouraged immediate alcohol cessation * will continue to replenish electrolyte 04/14/24: * Continue with current treatment CT Monday * Strict Clear liquid (2) Fatty liver: Code(s): K76.0 - Fatty (change of) liver, not elsewhere classified Status: Acute Assessment and Plan: * CT of the abdomen and pelvis showing fatty liver disease * MRCP shown diffuse hepatic steatosis (3) Hypothyroidism: Qualifiers: Hypothyroidism type: unspecified Qualified Code(s): E03.9 - Hypothyroidism, unspecified Code(s): E03.9 - Hypothyroidism, unspecified Status: Chronic Assessment and Plan: * Continue Synthroid * Will check TSH 04/12 * TSH 3.20 (4) Essential hypertension: Code(s): I10 - Essential (primary) hypertension Status: Chronic Assessment and Plan: * Blood pressures ranging 132/82 to 156/93 * Continue lisinopril and metoprolol (5) Anxiety: Code(s): F41.9 - Anxiety disorder, unspecified Status: Acute Assessment and Plan: * Continue alprazolam (6) Constipation: Code(s): K59.00 - Constipation, unspecified Status: Acute Assessment and Plan: Patient states he has not had a bowel movement in 5 days and presents with 2 days worth of abdominal pain and distension. * Will give Dulcolax suppository now * Start Colace 100 mg b.i.d. * Dulcolax tablet 5 mg daily p.r.n. * Milk of Mag p.r.n. 04/12 * Will give dose of Mag citrate today * Slightly distended, passing gas now, 6 days without BM 04/13/24 * added lactulose 04/14/2024: * BM 04/13 Plan Code status: Full code per patient DVT prophylaxis: Lovenox Stress ulcer prophylaxis: PT/OT notes: ambulatory Disposition: patient continues admission for necrotizing pancreatitis improving with IV antibiotics patient is ambulatory and plan will be to return home medically stable previous provider has spoken with General surgery, radiology patient improving likely does not need a transfer unless he worsens plan can be for follow-up outpatient with hepatobiliary currently wait list is over 10 days For a transfer. will continue with clear liquid diet and plan for CT scan on Monday for improvement Time Spent With Patient Time with patient: 15 - 25 minutes Subjective Date/time seen: 04/14/24 08:27 Interval history: Patient is a 50-year-old male who is admitted for treatment of necrotizing pancreatitis currently responding well to IV antibiotics and IV fluids on a clear liquid diet surgery and GI are following 04/14/2024: Assumed Care Patient reported difficulty sleeping last night secondary to to anxiety about his diagnosis and situation. HE is aware he will need to stop drinking recommended AA support groups. Patient with mild tenderness to ABD but overall benign ABD exam. States he is tolerating clears. Denies any CP, SOB, N/V and is having BM's. Review of Systems Review of Systems: All systems reviewed & are unremarkable except as noted in HPI and below Exam Narrative: General: In no acute distress, well nourished Cardiac: Normal S1 and S2. RRR, No murmur, gallops or friction rubs, peripheral pulses intact. Respiratory: Lungs clear to auscultation, no adventitious lung sounds, currently on room air Gastrointestinal:taunt,distended, tender, hypoactive bowel sounds. Denies nausea and vomiting, reports abdominal spasms/cramping :voiding without difficulty. Neuro: Alert and oriented x4 Objective Data Vital Signs Vital Signs: Vital Signs - 24 hr 04/13/24 10:35 04/13/24 10:39 04/13/24 14:07 Temperature 97.5 F L Pulse Rate 82 78 Respiratory Rate 17 Blood Pressure 149/85 H Pulse Oximetry 99 Oxygen Delivery Room Air 04/13/24 17:40 04/13/24 20:11 04/13/24 20:25 Temperature 99.9 F H 99.3 F Pulse Rate 79 79 Respiratory Rate 16 16 Blood Pressure 148/90 H Pulse Oximetry 98 98 Oxygen Delivery Room Air 04/14/24 05:20 Temperature 97.9 F Pulse Rate 85 Respiratory Rate 16 Blood Pressure 160/87 H Pulse Oximetry 98 Oxygen Delivery Intake/Output Intake/Output: Intake & Output 04/11/24 04/12/24 04/13/24 04/14/24 23:59 23:59 23:59 23:59 Intake Total 1000 2600 3760 750 Output Total 1000 1500 Balance 0 2600 3760 -750 Meds/Results Medications: Active Medications Generic Name Dose Route Start Last Admin Trade Name Freq PRN Reason Stop Dose Admin Acetaminophen 650 mg 04/11/24 15:59 04/11/24 21:52 Acetaminophen 325 Mg Tablet PO 650 mg Q4H PRN Administration Mild Pain (1-3) or Fever Hydrocodone Bitart/Acetaminophen 1 tab 04/11/24 15:53 04/13/24 17:43 Hydrocodone/Acetaminophen (*Crx) 5-325 Mg Tablet PO 1 tab Q4H PRN Administration Moderate Pain (4-6) Albuterol 1 puff 04/11/24 22:43 Albuterol Sulfate (*Sp) Aerosol 1 Puff INHALATION Q4HRT PRN shortness of breath or wheezing Allopurinol 300 mg 04/12/24 09:00 04/13/24 10:39 Allopurinol 300 Mg Tablet PO 300 mg DAILY GENNARO Administration Alprazolam 0.25 mg 04/11/24 15:59 Alprazolam (*Crx) 0.25 Mg Tablet PO BID PRN Anxiety Bisacodyl 5 mg 04/11/24 15:53 Bisacodyl 5 Mg Tablet Ec PO DAILY PRN Constipation Colchicine 0.6 mg 04/12/24 09:00 04/13/24 17:43 Colchicine 0.6 Mg Tablet PO 0.6 mg BID GENNARO Administration Docusate Sodium 100 mg 04/11/24 17:00 04/13/24 17:44 Docusate Sodium 100 Mg Capsule PO Not Given BID GENNARO Enoxaparin Sodium 40 mg 04/12/24 09:00 04/13/24 10:40 Enoxaparin 40 Mg/0.4 Ml Syringe SUB-Q 40 mg DAILY GENNARO Administration Fenofibrate 145 mg 04/12/24 09:00 04/13/24 10:38 Fenofibrate Nanocrystallized 145 Mg Tablet PO 05/12/24 08:59 145 mg DAILY GENNARO Administration Sodium Chloride 1,000 mls @ 100 mls/hr 04/11/24 15:55 04/13/24 21:59 Normal Saline Iv IV CONT 100 mls/hr .Q10H GENNARO Administration Ciprofloxacin/Dextrose 200 mls @ 200 mls/hr 04/12/24 02:00 04/14/24 03:34 Cipro 400 Mg/D5w 200 Ml IVPB Infused Q8H GENNARO Infusion Lactulose 20 gm 04/13/24 12:00 04/14/24 06:00 Lactulose 20 Gm/30 Ml Udc PO Not Given Q6HR GENNARO Levothyroxine Sodium 25 mcg 04/12/24 06:30 04/14/24 06:00 Levothyroxine Sodium 25 Mcg Tablet PO 25 mcg DAILY@0630 GENNARO Administration Lisinopril 10 mg 04/12/24 09:00 04/13/24 10:38 Lisinopril 10 Mg Tablet PO 10 mg DAILY GENNARO Administration Magnesium Hydroxide 30 ml 04/11/24 15:53 Magnesium Hydroxide Susp 30 Ml Udc PO DAILY PRN Constipation Metoprolol Succinate 25 mg 04/12/24 09:00 04/13/24 10:39 Metoprolol Succinate Ext Rel 25 Mg Tabcr PO 25 mg QAM GENNARO Administration Morphine Sulfate 2 mg 04/11/24 15:53 Morphine Sulfate (*Crx) 2 Mg/Ml Inj IV PUSH Q4H PRN Pain Rated 7-10 Morphine Sulfate 4 mg 04/11/24 15:59 04/14/24 01:48 Morphine Sulfate (*Crx) 4 Mg/Ml Inj IV PUSH 4 mg Q2H PRN Administration Pain Rated 7-10 Ondansetron HCl 4 mg 04/11/24 15:59 04/14/24 01:48 Ondansetron Inj 4 Mg/2 Ml Vial IV PUSH 4 mg Q4H PRN Administration Nausea Radiology Results: ITS Impressions Abdomen/Pelvis CT 04/11/24 13:41 IMPRESSION: Findings which in the appropriate clinical scenario suggest the presence of acute pancreatitis for which follow-up to resolution is recommended as a malignancy may have a similar appearance. Fatty infiltration of an enlarged liver Trace free fluid within the pelvis, never a normal finding in a male patient. Abdomen Ultrasound 04/11/24 16:45 IMPRESSION: Fat infiltration of the liver. Otherwise, limited abdominal ultrasound. MRCP 04/12/24 13:24 IMPRESSION: 1. Acute necrotic pancreatitis. 2. Diffuse hepatic steatosis. 3. Small left pleural effusion. Quality VTE Prophylaxis VTE prophylaxis: pharmacologic ordered -Patient's previous records reviewed on admission -ER notes reviewed in detail on admission -discussed all findings and current treatment plan with patient/Family/POA -Consultations reviewed for recommendations -Patient's disposition for safe discharge discussed with manager of case management Dictation performed by [employer] direct speech recognition software, therefore neurological surgeon variants and typographical errors may occur. Hospitalist MIPS Advance Care Plan I have confirmed that the patient's Advanced Care Plan is present, code status is documented, or surrogate decision maker is listed in patient medical record.: Yes Medication Reconciliation I have utilized all available resources to obtain, update and review the patients current medications (includes all prescriptions, OTC, herbals, cannabis, and nutritional supplements).: Yes The patient is not eligible for med reconciliation; the patient is in a emergent medical situation where delaying treatment would jeopardize the patients health.: No
[2024-04-14 08:30] LABS: Basophils Absolute Auto 0.1 K/mm3 (0.0-0.1); Basophils Percent Auto 0.7 % (0.2-1.2); Eosinophils Absolute Auto 0.3 K/mm3 (0-0.3); Eosinophils Percent Auto 3.7 % (0-4.4); Hematocrit 33.8 % (42.0-52.0); Hemoglobin 11.7 g/dL (14.0-18.0); Immature Granulocyte Absolute 0.06 K/mm3 (0.00-0.031); Immature Granulocyte Percent A 0.8 % (0-0.5); Lymphocytes Absolute Auto 0.88 K/mm3 (0.9-3.2); Lymphocytes Percent Auto 11.8 % (18.3-44.2); Mean Corpuscular HGB Conc 34.6 g/dl (32-36); Mean Corpuscular Hemoglobin 32.1 pg (26-34); Mean Corpuscular Volume 92.9 fl (80-100); Mean Platelet Volume 9.9 fl (7.4-10.4); Monocytes Absolute Auto 0.8 K/mm3 (0.1-0.6); Neutrophils Absolute Auto 5.5 K/mm3 (1.3-6.7); Platelet Count Result 224 k/mm3 (150-375); Red Blood Count 3.64 M/mm3 (4.6-6.20); Red Cell Distribution Width 12.6 % (11.5-14.5); White Blood Count 7.5 K/mm3 (4.5-10.0)
[2024-04-14 08:47] LABS: Alanine Aminotransferase 38 U/L (6-50); Albumin Level 3.4 g/dL (3.5-5.1); Alkaline Phosphatase 59 U/L (38-126); Anion Gap 4 mmol/L (4-12); Aspartate Amino Transferase 22 U/L (17-59); Bilirubin,Total 0.4 mg/dL (0.2-1.3); Blood Urea Nitrogen 11 mg/dL (9-20); Calcium 8.5 mg/dL (8.4-10.2); Carbon Dioxide 26 mmol/L (22-30); Chloride 105 mmol/L (98-107); Estimated CRCL calculation 85 ml/min; Estimated Glomerular Filt Rate > 60; Glucose 99 mg/dL (65-110); Potassium 3.6 mmol/L (3.4-5.0); Sodium 135 mmol/L (137-145)
[2024-04-14] MEDS: SODIUM CHLORIDE 0.9% IV 1,000 ML 100 ML IV CONT ×2 (09:24→22:52)
[2024-04-14 09:25] VITALS: PULSE 75
[2024-04-14] MEDS: DOCUSATE SODIUM 100 MG CAPSULE PO ×2 (09:25→16:57)
[2024-04-14] MEDS: ENOXAPARIN 40 MG/0.4 ML SYRINGE SUB-Q (09:25)
[2024-04-14] MEDS: lisinopriL 10 MG TABLET PO (09:25)
[2024-04-14] MEDS: FENOFIBRATE NANOCRYSTALLIZED 145 MG TABLET PO (09:25)
[2024-04-14] MEDS: METOPROLOL SUCCINATE EXT REL 25 MG TABCR PO (09:25)
[2024-04-14] MEDS: COLCHICINE 0.6 MG TABLET PO ×2 (09:25→16:56)
[2024-04-14] MEDS: allopurinoL 300 MG TABLET PO (09:25)
[2024-04-14] MEDS: CIPROFLOXACIN 400 MG/D5W 200ML 200 ML 100 MG IVPB ×2 (09:28→16:56)
[2024-04-14 09:49] LABS: CRP 15.8 mg/dL (<1.0)
--- NOTE | 2024-04-14 12:11 | PM.PNGS ---
Progress Note: A&P Assessment and Plan (1) Acute necrotizing pancreatitis: Code(s): K85.91 - Acute pancreatitis with uninfected necrosis, unspecified Status: Acute Assessment and Plan: exam benign, labs largely unremarkable, bryn clears, will repeat imaging tomorrow to assess pancreas Subjective Subjective Date/Time Seen: 04/14/24 12:11 Interval history: feels good this am, had episode of pain and nausea overnight, bryn clears Review of Systems Review of Systems: All systems reviewed & are unremarkable except as noted in HPI and below Exam Const: General: cooperative, comfortable and no acute distress Cardio: Rate: regular rate Rhythm: regular rhythm GI: Inspection: normal to inspection and non-distended GI Palp: No abdominal tenderness and Yes Soft to palpation Objective Data Vital Signs Vital Signs: Vital Signs - 24 hr 04/13/24 14:07 04/13/24 17:40 04/13/24 20:11 Temperature 36.4 C L 37.7 C H 37.4 C Pulse Rate 78 79 Respiratory Rate 17 16 Blood Pressure 149/85 H 148/90 H Pulse Oximetry 99 98 Oxygen Delivery 04/13/24 20:25 04/14/24 05:20 04/14/24 09:25 Temperature 36.6 C Pulse Rate 79 85 75 Respiratory Rate 16 16 Blood Pressure 160/87 H Pulse Oximetry 98 98 Oxygen Delivery Room Air Intake/Output Intake/Output: Intake & Output 04/11/24 04/12/24 04/13/24 04/14/24 23:59 23:59 23:59 23:59 Intake Total 1000 2600 3760 1750 Output Total 1000 1500 Balance 0 2600 3760 250 Meds/Results Medications: Active Medications Generic Name Dose Route Start Last Admin Trade Name Freq PRN Reason Stop Dose Admin Acetaminophen 650 mg 04/11/24 15:59 04/11/24 21:52 Acetaminophen 325 Mg Tablet PO 650 mg Q4H PRN Administration Mild Pain (1-3) or Fever Hydrocodone Bitart/Acetaminophen 1 tab 04/11/24 15:53 04/13/24 17:43 Hydrocodone/Acetaminophen (*Crx) 5-325 Mg Tablet PO 1 tab Q4H PRN Administration Moderate Pain (4-6) Albuterol 1 puff 04/11/24 22:43 Albuterol Sulfate (*Sp) Aerosol 1 Puff INHALATION Q4HRT PRN shortness of breath or wheezing Allopurinol 300 mg 04/12/24 09:00 04/14/24 09:25 Allopurinol 300 Mg Tablet PO 300 mg DAILY GENNARO Administration Alprazolam 0.25 mg 04/11/24 15:59 Alprazolam (*Crx) 0.25 Mg Tablet PO BID PRN Anxiety Bisacodyl 5 mg 04/11/24 15:53 Bisacodyl 5 Mg Tablet Ec PO DAILY PRN Constipation Colchicine 0.6 mg 04/12/24 09:00 04/14/24 09:25 Colchicine 0.6 Mg Tablet PO 0.6 mg BID GENNARO Administration Docusate Sodium 100 mg 04/11/24 17:00 04/14/24 09:25 Docusate Sodium 100 Mg Capsule PO 100 mg BID GENNARO Administration Enoxaparin Sodium 40 mg 04/12/24 09:00 04/14/24 09:25 Enoxaparin 40 Mg/0.4 Ml Syringe SUB-Q 40 mg DAILY GENNARO Administration Fenofibrate 145 mg 04/12/24 09:00 04/14/24 09:25 Fenofibrate Nanocrystallized 145 Mg Tablet PO 05/12/24 08:59 145 mg DAILY EGNNARO Administration Sodium Chloride 1,000 mls @ 100 mls/hr 04/11/24 15:55 04/14/24 09:24 Normal Saline Iv IV CONT 100 mls/hr .Q10H GENNARO Administration Ciprofloxacin/Dextrose 200 mls @ 200 mls/hr 04/12/24 02:00 04/14/24 09:28 Cipro 400 Mg/D5w 200 Ml IVPB 100 mls/hr Q8H GENNARO Administration Lactulose 20 gm 04/13/24 12:00 04/14/24 06:00 Lactulose 20 Gm/30 Ml Udc PO Not Given Q6HR GENNARO Levothyroxine Sodium 25 mcg 04/12/24 06:30 04/14/24 06:00 Levothyroxine Sodium 25 Mcg Tablet PO 25 mcg DAILY@0630 GENNARO Administration Lisinopril 10 mg 04/12/24 09:00 04/14/24 09:25 Lisinopril 10 Mg Tablet PO 10 mg DAILY GENNARO Administration Magnesium Hydroxide 30 ml 04/11/24 15:53 Magnesium Hydroxide Susp 30 Ml Udc PO DAILY PRN Constipation Metoprolol Succinate 25 mg 04/12/24 09:00 04/14/24 09:25 Metoprolol Succinate Ext Rel 25 Mg Tabcr PO 25 mg QAM GENNARO Administration Morphine Sulfate 2 mg 04/11/24 15:53 Morphine Sulfate (*Crx) 2 Mg/Ml Inj IV PUSH Q4H PRN Pain Rated 7-10 Morphine Sulfate 4 mg 04/11/24 15:59 04/14/24 01:48 Morphine Sulfate (*Crx) 4 Mg/Ml Inj IV PUSH 4 mg Q2H PRN Administration Pain Rated 7-10 Ondansetron HCl 4 mg 04/11/24 15:59 04/14/24 01:48 Ondansetron Inj 4 Mg/2 Ml Vial IV PUSH 4 mg Q4H PRN Administration Nausea Radiology Results: ITS Impressions Abdomen/Pelvis CT 04/11/24 13:41 IMPRESSION: Findings which in the appropriate clinical scenario suggest the presence of acute pancreatitis for which follow-up to resolution is recommended as a malignancy may have a similar appearance. Fatty infiltration of an enlarged liver Trace free fluid within the pelvis, never a normal finding in a male patient. Abdomen Ultrasound 04/11/24 16:45 IMPRESSION: Fat infiltration of the liver. Otherwise, limited abdominal ultrasound. MRCP 04/12/24 13:24 IMPRESSION: 1. Acute necrotic pancreatitis. 2. Diffuse hepatic steatosis. 3. Small left pleural effusion. Labs Labs: Laboratory Results - last 24 hr 04/14/24 07:52 WBC 7.5 RBC 3.64 L Hgb 11.7 L Hct 33.8 L MCV 92.9 MCH 32.1 MCHC 34.6 RDW 12.6 Plt Count 224 MPV 9.9 Immature Gran % (Auto) 0.8 H Neut % (Auto) 73.0 Lymph % (Auto) 11.8 L [place] % (Auto) 10.0 H Eos % (Auto) 3.7 Baso % (Auto) 0.7 Lymph # (Auto) 0.88 L [place] # (Auto) 0.8 H Eos # (Auto) 0.3 Baso # (Auto) 0.1 Abs Immat Gran (auto) 0.06 H Absolute Neuts (auto) 5.5 Absolute Nucleated RBC 0.000 Nucleated RBC % 0.0 Sodium 135 L Potassium 3.6 Chloride 105 Carbon Dioxide 26 Anion Gap 4 BUN 11 Creatinine 0.80 Estim Creat Clear Calc 85 Estimated GFR > 60 Glucose 99 Calcium 8.5 Total Bilirubin 0.4 AST 22 ALT 38 Alkaline Phosphatase 59 C-Reactive Protein 15.8 H Total Protein 7.0 Albumin 3.4 L
[2024-04-14 14:00] VITALS: BP 148/74; PULSE 78; RESP 18; TEMP 36.9; O2SAT 98
--- NOTE | 2024-04-14 14:43 | WPDGIPROGNO ---
Progress Note: A&P Assessment and Plan (1) Acute necrotizing pancreatitis: Code(s): K85.91 - Acute pancreatitis with uninfected necrosis, unspecified Status: Acute (2) Acute pancreatitis: Qualifiers: Acute pancreatitis complication: unspecified Pancreatitis type: idiopathic Qualified Code(s): K85.00 - Idiopathic acute pancreatitis without necrosis or infection Code(s): K85.90 - Acute pancreatitis without necrosis or infection, unspecified Status: Acute (3) Abdominal pain: Qualifiers: Abdominal location: generalized Qualified Code(s): R10.84 - Generalized abdominal pain Code(s): R10.9 - Unspecified abdominal pain Status: Acute Plan Patient has been seen for pancreatitis secondary to alcohol use MRI showed pancreatic necrosis leukocytosis getting better CRP is improving patient's abdomen is more benign on examination patient is also having some bowel movements. Encourage patient to stop alcohol Advise the patient that filled with CT pancreatic protocol tomorrow for evaluation I also advised the patient to follow with [facility] as outpatient for his neuroendocrine tumor of the pancreas Regular GI team will assume patient care tomorrow Patient is tolerating the clear liquids Subjective Date/time seen: 04/14/24 14:43 Interval history: Patient is doing well feeling better last night had some abdominal pain and nausea but according to him after taking the nausea medicine got better lab workup from today was reviewed patient also having some bowel movements Review of Systems Constitutional: Constitutional: Denies chills, Denies fatigue, Denies fever(s), Denies headache(s), Denies malaise, Denies weight gain and Denies weight loss Eyes: Eyes: Denies change in vision ENT: Denies dizziness, Denies headache(s) and Reports other (No change in hearing) Cardiovascular: Cardiovascular: Denies chest pain, Denies dyspnea and Reports other (denies palpitations, denies orthopnea) Respiratory: Respiratory: Denies cough, Denies dyspnea and Reports other (denies sputum production, denies hemoptysis) Gastrointestinal: Gastrointestinal: Reports as per HPI Genitourinary: Genitourinary: Denies hematuria, Denies dysuria and Denies urinary incontinence Musculoskeletal: Musculoskeletal: Reports other (denies extremity edema, denies myalgia) Integumentary/Breasts: Skin/Breast: Denies new lesions and Denies rash Neurologic: Denies dizziness, Denies headache(s) and Denies seizure-like activity Endocrine: Endocrine: Denies fatigue Hematologic/Lymphatic: Hematologic/Lymphatic: Denies easy bleeding and Denies easy bruising Exam Const: General: cooperative; No acute distress Orientation/consciousness: patient oriented x3 HENMT: Head: normal to inspection Neck: Neck: supple Resp: Auscultation: clear to auscultation bilaterally Cardio: Rate: regular rate Rhythm: regular rhythm GI: Inspection: non-distended GI Palp: Yes Soft to palpation, No Tenderness to palpation present (GI) and No Palpable mass present Auscultation: normal bowel sounds Rectal Exam: deferred Skin: General skin exam: no rashes or lesions noted Neuro: General: patient oriented x3 Extrem: General: no edema Objective Data Vital Signs Vital Signs: Vital Signs - 24 hr 04/13/24 17:40 04/13/24 20:11 04/13/24 20:25 Temperature 99.9 F H 99.3 F Pulse Rate 79 79 Respiratory Rate 16 16 Blood Pressure 148/90 H Pulse Oximetry 98 98 Oxygen Delivery Room Air 04/14/24 05:20 04/14/24 08:00 04/14/24 09:25 Temperature 97.9 F Pulse Rate 85 75 Respiratory Rate 16 Blood Pressure 160/87 H Pulse Oximetry 98 Oxygen Delivery Room Air 04/14/24 14:00 Temperature 98.4 F Pulse Rate 78 Respiratory Rate 18 Blood Pressure 148/74 H Pulse Oximetry 98 Oxygen Delivery Intake/Output Intake/Output: Intake & Output 04/11/24 04/12/24 04/13/24 04/14/24 23:59 23:59 23:59 23:59 Intake Total 1000 2600 3760 2540 Output Total 1000 1500 Balance 0 2600 3760 1040 Meds/Results Medications: Active Medications Generic Name Dose Route Start Last Admin Trade Name Freq PRN Reason Stop Dose Admin Acetaminophen 650 mg 04/11/24 15:59 04/11/24 21:52 Acetaminophen 325 Mg Tablet PO 650 mg Q4H PRN Administration Mild Pain (1-3) or Fever Hydrocodone Bitart/Acetaminophen 1 tab 04/11/24 15:53 04/13/24 17:43 Hydrocodone/Acetaminophen (*Crx) 5-325 Mg Tablet PO 1 tab Q4H PRN Administration Moderate Pain (4-6) Albuterol 1 puff 04/11/24 22:43 Albuterol Sulfate (*Sp) Aerosol 1 Puff INHALATION Q4HRT PRN shortness of breath or wheezing Allopurinol 300 mg 04/12/24 09:00 04/14/24 09:25 Allopurinol 300 Mg Tablet PO 300 mg DAILY GENNARO Administration Alprazolam 0.25 mg 04/11/24 15:59 Alprazolam (*Crx) 0.25 Mg Tablet PO BID PRN Anxiety Bisacodyl 5 mg 04/11/24 15:53 Bisacodyl 5 Mg Tablet Ec PO DAILY PRN Constipation Colchicine 0.6 mg 04/12/24 09:00 04/14/24 09:25 Colchicine 0.6 Mg Tablet PO 0.6 mg BID GENNARO Administration Docusate Sodium 100 mg 04/11/24 17:00 04/14/24 09:25 Docusate Sodium 100 Mg Capsule PO 100 mg BID GENNARO Administration Enoxaparin Sodium 40 mg 04/12/24 09:00 04/14/24 09:25 Enoxaparin 40 Mg/0.4 Ml Syringe SUB-Q 40 mg DAILY GENNARO Administration Fenofibrate 145 mg 04/12/24 09:00 04/14/24 09:25 Fenofibrate Nanocrystallized 145 Mg Tablet PO 05/12/24 08:59 145 mg DAILY GENNARO Administration Sodium Chloride 1,000 mls @ 100 mls/hr 04/11/24 15:55 04/14/24 09:24 Normal Saline Iv IV CONT 100 mls/hr .Q10H GENNARO Administration Ciprofloxacin/Dextrose 200 mls @ 200 mls/hr 04/12/24 02:00 04/14/24 09:28 Cipro 400 Mg/D5w 200 Ml IVPB 100 mls/hr Q8H GENNARO Administration Lactulose 20 gm 04/13/24 12:00 04/14/24 06:00 Lactulose 20 Gm/30 Ml Udc PO Not Given Q6HR GENNARO Levothyroxine Sodium 25 mcg 04/12/24 06:30 04/14/24 06:00 Levothyroxine Sodium 25 Mcg Tablet PO 25 mcg DAILY@0630 GENNARO Administration Lisinopril 10 mg 04/12/24 09:00 04/14/24 09:25 Lisinopril 10 Mg Tablet PO 10 mg DAILY GENNARO Administration Magnesium Hydroxide 30 ml 04/11/24 15:53 Magnesium Hydroxide Susp 30 Ml Udc PO DAILY PRN Constipation Metoprolol Succinate 25 mg 04/12/24 09:00 04/14/24 09:25 Metoprolol Succinate Ext Rel 25 Mg Tabcr PO 25 mg QAM GENNARO Administration Morphine Sulfate 2 mg 04/11/24 15:53 Morphine Sulfate (*Crx) 2 Mg/Ml Inj IV PUSH Q4H PRN Pain Rated 7-10 Morphine Sulfate 4 mg 04/11/24 15:59 04/14/24 01:48 Morphine Sulfate (*Crx) 4 Mg/Ml Inj IV PUSH 4 mg Q2H PRN Administration Pain Rated 7-10 Ondansetron HCl 4 mg 04/11/24 15:59 04/14/24 01:48 Ondansetron Inj 4 Mg/2 Ml Vial IV PUSH 4 mg Q4H PRN Administration Nausea Radiology Results: ITS Impressions Abdomen/Pelvis CT 04/11/24 13:41 IMPRESSION: Findings which in the appropriate clinical scenario suggest the presence of acute pancreatitis for which follow-up to resolution is recommended as a malignancy may have a similar appearance. Fatty infiltration of an enlarged liver Trace free fluid within the pelvis, never a normal finding in a male patient. Abdomen Ultrasound 04/11/24 16:45 IMPRESSION: Fat infiltration of the liver. Otherwise, limited abdominal ultrasound. MRCP 04/12/24 13:24 IMPRESSION: 1. Acute necrotic pancreatitis. 2. Diffuse hepatic steatosis. 3. Small left pleural effusion. Labs Labs: Laboratory Results - last 24 hr 04/14/24 07:52 WBC 7.5 RBC 3.64 L Hgb 11.7 L Hct 33.8 L MCV 92.9 MCH 32.1 MCHC 34.6 RDW 12.6 Plt Count 224 MPV 9.9 Immature Gran % (Auto) 0.8 H Neut % (Auto) 73.0 Lymph % (Auto) 11.8 L [place] % (Auto) 10.0 H Eos % (Auto) 3.7 Baso % (Auto) 0.7 Lymph # (Auto) 0.88 L [place] # (Auto) 0.8 H Eos # (Auto) 0.3 Baso # (Auto) 0.1 Abs Immat Gran (auto) 0.06 H Absolute Neuts (auto) 5.5 Absolute Nucleated RBC 0.000 Nucleated RBC % 0.0 Sodium 135 L Potassium 3.6 Chloride 105 Carbon Dioxide 26 Anion Gap 4 BUN 11 Creatinine 0.80 Estim Creat Clear Calc 85 Estimated GFR > 60 Glucose 99 Calcium 8.5 Total Bilirubin 0.4 AST 22 ALT 38 Alkaline Phosphatase 59 C-Reactive Protein 15.8 H Total Protein 7.0 Albumin 3.4 L
[2024-04-14 20:05] VITALS: PULSE 78; RESP 18; O2SAT 98
[2024-04-14 22:00] VITALS: BP 158/93; PULSE 77; RESP 20; TEMP 36.4; O2SAT 98
[2024-04-15] MEDS: CIPROFLOXACIN 400 MG/D5W 200ML 200 ML 100 MG IVPB (02:03)
[2024-04-15 06:00] VITALS: BP 156/91; PULSE 73; RESP 20; TEMP 36.6; O2SAT 98
[2024-04-15] MEDS: LEVOTHYROXINE SODIUM 25 MCG TABLET PO (06:00)
--- NOTE | 2024-04-15 09:00 | PM.PNGS ---
Progress Note: A&P Assessment and Plan (1) Acute necrotizing pancreatitis: Code(s): K85.91 - Acute pancreatitis with uninfected necrosis, unspecified Status: Acute Assessment and Plan: exam benign, repeat CT today Subjective Subjective Date/Time Seen: 04/15/24 09:00 Interval history: feels better today, no c/o, bryn clears Review of Systems Review of Systems: All systems reviewed & are unremarkable except as noted in HPI and below Exam Const: General: cooperative, comfortable and no acute distress Resp: Auscultation: clear to auscultation bilaterally Cardio: Rate: regular rate Rhythm: regular rhythm GI: Inspection: normal to inspection and distended GI Palp: Yes abdominal tenderness and Yes Soft to palpation Objective Data Vital Signs Vital Signs: Vital Signs - 24 hr 04/14/24 09:25 04/14/24 14:00 04/14/24 20:05 Temperature 36.9 C Pulse Rate 75 78 78 Respiratory Rate 18 18 Blood Pressure 148/74 H Pulse Oximetry 98 98 Oxygen Delivery Room Air 04/14/24 22:00 04/15/24 06:00 Temperature 36.4 C 36.6 C Pulse Rate 77 73 Respiratory Rate 20 20 Blood Pressure 158/93 H 156/91 H Pulse Oximetry 98 98 Oxygen Delivery Intake/Output Intake/Output: Intake & Output 04/12/24 04/13/24 04/14/24 04/15/24 23:59 23:59 23:59 23:59 Intake Total 2600 3760 4240 0 Output Total 1500 2600 Balance 2600 3760 2740 -2600 Meds/Results Medications: Active Medications Generic Name Dose Route Start Last Admin Trade Name Freq PRN Reason Stop Dose Admin Acetaminophen 650 mg 04/11/24 15:59 04/11/24 21:52 Acetaminophen 325 Mg Tablet PO 650 mg Q4H PRN Administration Mild Pain (1-3) or Fever Hydrocodone Bitart/Acetaminophen 1 tab 04/11/24 15:53 04/13/24 17:43 Hydrocodone/Acetaminophen (*Crx) 5-325 Mg Tablet PO 1 tab Q4H PRN Administration Moderate Pain (4-6) Albuterol 1 puff 04/11/24 22:43 Albuterol Sulfate (*Sp) Aerosol 1 Puff INHALATION Q4HRT PRN shortness of breath or wheezing Allopurinol 300 mg 04/12/24 09:00 04/14/24 09:25 Allopurinol 300 Mg Tablet PO 300 mg DAILY GENNARO Administration Alprazolam 0.25 mg 04/11/24 15:59 Alprazolam (*Crx) 0.25 Mg Tablet PO BID PRN Anxiety Bisacodyl 5 mg 04/11/24 15:53 Bisacodyl 5 Mg Tablet Ec PO DAILY PRN Constipation Colchicine 0.6 mg 04/12/24 09:00 04/14/24 16:56 Colchicine 0.6 Mg Tablet PO 0.6 mg BID GENNARO Administration Docusate Sodium 100 mg 04/11/24 17:00 04/14/24 16:57 Docusate Sodium 100 Mg Capsule PO 100 mg BID GENNARO Administration Enoxaparin Sodium 40 mg 04/12/24 09:00 04/14/24 09:25 Enoxaparin 40 Mg/0.4 Ml Syringe SUB-Q 40 mg DAILY GENNRAO Administration Fenofibrate 145 mg 04/12/24 09:00 04/14/24 09:25 Fenofibrate Nanocrystallized 145 Mg Tablet PO 05/12/24 08:59 145 mg DAILY GENNARO Administration Sodium Chloride 1,000 mls @ 100 mls/hr 04/11/24 15:55 04/14/24 22:52 Normal Saline Iv IV CONT 100 mls/hr .Q10H GENNARO Administration Ciprofloxacin/Dextrose 200 mls @ 200 mls/hr 04/12/24 02:00 04/15/24 02:03 Cipro 400 Mg/D5w 200 Ml IVPB 200 mls/hr Q8H GENNARO Infusion Levothyroxine Sodium 25 mcg 04/12/24 06:30 04/15/24 06:00 Levothyroxine Sodium 25 Mcg Tablet PO 25 mcg DAILY@0630 GENNARO Administration Lisinopril 10 mg 04/12/24 09:00 04/14/24 09:25 Lisinopril 10 Mg Tablet PO 10 mg DAILY GENNARO Administration Magnesium Hydroxide 30 ml 04/11/24 15:53 Magnesium Hydroxide Susp 30 Ml Udc PO DAILY PRN Constipation Metoprolol Succinate 25 mg 04/12/24 09:00 04/14/24 09:25 Metoprolol Succinate Ext Rel 25 Mg Tabcr PO 25 mg QAM GENNARO Administration Morphine Sulfate 2 mg 04/11/24 15:53 Morphine Sulfate (*Crx) 2 Mg/Ml Inj IV PUSH Q4H PRN Pain Rated 7-10 Morphine Sulfate 4 mg 04/11/24 15:59 04/14/24 01:48 Morphine Sulfate (*Crx) 4 Mg/Ml Inj IV PUSH 4 mg Q2H PRN Administration Pain Rated 7-10 Ondansetron HCl 4 mg 04/11/24 15:59 04/14/24 01:48 Ondansetron Inj 4 Mg/2 Ml Vial IV PUSH 4 mg Q4H PRN Administration Nausea Radiology Results: ITS Impressions Abdomen/Pelvis CT 04/11/24 13:41 IMPRESSION: Findings which in the appropriate clinical scenario suggest the presence of acute pancreatitis for which follow-up to resolution is recommended as a malignancy may have a similar appearance. Fatty infiltration of an enlarged liver Trace free fluid within the pelvis, never a normal finding in a male patient. Abdomen Ultrasound 04/11/24 16:45 IMPRESSION: Fat infiltration of the liver. Otherwise, limited abdominal ultrasound. MRCP 04/12/24 13:24 IMPRESSION: 1. Acute necrotic pancreatitis. 2. Diffuse hepatic steatosis. 3. Small left pleural effusion. Labs Labs: Laboratory Results - last 24 hr 04/14/24 07:52 C-Reactive Protein 15.8 H
[2024-04-15] MEDS: FENOFIBRATE NANOCRYSTALLIZED 145 MG TABLET PO (10:19)
[2024-04-15] MEDS: COLCHICINE 0.6 MG TABLET PO ×2 (10:19→15:30)
[2024-04-15] MEDS: lisinopriL 10 MG TABLET PO (10:19)
[2024-04-15] MEDS: METOPROLOL SUCCINATE EXT REL 25 MG TABCR PO (10:19)
[2024-04-15] MEDS: ENOXAPARIN 40 MG/0.4 ML SYRINGE SUB-Q (10:20)
[2024-04-15] MEDS: allopurinoL 300 MG TABLET PO (10:20)
[2024-04-15] MEDS: CIPROFLOXACIN 400 MG/D5W 200ML 200 ML 200 MG IVPB (10:30)
[2024-04-15 10:48] LABS: Basophils Absolute Auto 0.1 K/mm3 (0.0-0.1); Basophils Percent Auto 0.9 % (0.2-1.2); Eosinophils Absolute Auto 0.3 K/mm3 (0-0.3); Eosinophils Percent Auto 3.6 % (0-4.4); Hematocrit 35.3 % (42.0-52.0); Hemoglobin 12.3 g/dL (14.0-18.0); Immature Granulocyte Absolute 0.12 K/mm3 (0.00-0.031); Immature Granulocyte Percent A 1.5 % (0-0.5); Lymphocytes Absolute Auto 1.07 K/mm3 (0.9-3.2); Lymphocytes Percent Auto 13.6 % (18.3-44.2); Mean Corpuscular HGB Conc 34.8 g/dl (32-36); Mean Corpuscular Hemoglobin 31.9 pg (26-34); Mean Corpuscular Volume 91.7 fl (80-100); Mean Platelet Volume 9.7 fl (7.4-10.4); Monocytes Absolute Auto 0.8 K/mm3 (0.1-0.6); Monocytes Percent Auto 9.8 % (2.6-8.5); Neutrophils Absolute Auto 5.6 K/mm3 (1.3-6.7); Neutrophils Percent Auto 70.6 % (45.5-73.1); Platelet Count Result 313 k/mm3 (150-375); Red Blood Count 3.85 M/mm3 (4.6-6.20); Red Cell Distribution Width 12.6 % (11.5-14.5); White Blood Count 7.9 K/mm3 (4.5-10.0)
[2024-04-15 11:06] LABS: Alanine Aminotransferase 49 U/L (6-50); Albumin Level 3.6 g/dL (3.5-5.1); Alkaline Phosphatase 69 U/L (38-126); Anion Gap 10 mmol/L (4-12); Aspartate Amino Transferase 46 U/L (17-59); Bilirubin,Total 0.5 mg/dL (0.2-1.3); Blood Urea Nitrogen 11 mg/dL (9-20); Calcium 8.8 mg/dL (8.4-10.2); Carbon Dioxide 22 mmol/L (22-30); Chloride 102 mmol/L (98-107); Estimated CRCL calculation 98 ml/min; Estimated Glomerular Filt Rate > 60; Glucose 116 mg/dL (65-110); Potassium 3.2 mmol/L (3.4-5.0); Sodium 134 mmol/L (137-145)
[2024-04-15 14:00] VITALS: BP 116/72; PULSE 67; RESP 18; TEMP 36.6; O2SAT 99
--- NOTE | 2024-04-15 14:40 | P.PNIM_ITS ---
Progress Note: A&P Assessment and Plan (1) Acute pancreatitis: Qualifiers: Acute pancreatitis complication: unspecified Pancreatitis type: idiopathic Qualified Code(s): K85.00 - Idiopathic acute pancreatitis without necrosis or infection Code(s): K85.90 - Acute pancreatitis without necrosis or infection, unspecified Status: Acute Assessment and Plan: Likely secondary to alcohol use * CT of the abdomen and pelvis showed acute pancreatitis and indeterminate focus of decreased attenuation identified within the [place] pancreas measuring 25 x 29 x 32 mm with peripancreatic fluid noted extending in the lesser sac as well as within a perihepatic splenic position extending into the splenic flexure. * Previous history 1 cm cystic lesion on the head of the pancreas which was not fluid on today's CT of the abdomen and pelvis was worked up at [facility] by Hepatobiliary service. He had 2 MRI's with the last MRI negative for mass. * Continue pain control * Continue nausea control * NPO for bowel rest tonight, then advance to Clear liquids * Lipase 971, white blood cell count 14.8, reported low grade temp at home * Will cover with Cipro and Flagyl for now for possibility of necrotizing pancreatitis however this was extensively reviewed by the ER physician and radiologist who feel it is less likely * Blood cultures ordered * US of the abdomen shown fat infiltration of the liver otherwise normal ultrasound. * MRI of the abdomen with and without contrast to assess pancreas for abscess versus mass/malignancy 04/12 * Advance to clear liquid diet as tolerated * MRCP acute necrotic pancreatitis, diffuse steatosis, small left pleural effusion * Continue Cipro and Flagyl * Blood cultures showing no growth to date * GI consulted * Spoke with Radiologist and Dr. Hargrove who both feel it is safe to keep here and continue to treat with antibiotics. * He will need hepatobiliary follow up at discharge. 04/13/24: * clear liquid diet * plan for CT abdomen on Monday per GI * overall improving continue with IV hydration * patient will need to follow up with his hepatic biliary at [facility] post discharge * encouraged immediate alcohol cessation * will continue to replenish electrolyte 04/14/24: * Continue with current treatment CT Monday * Strict Clear liquid 04/15/24: * Continue clears. * pt does have some mild upper pain residual * Will be following with Dr. Messina at [facility] upon discharge. * CT today re-demonstrates necrotic tail of pancreas. * Awaiting GI recommendations for diet advancement today. * Changing IV abx to oral Cipro. (2) Fatty liver: Code(s): K76.0 - Fatty (change of) liver, not elsewhere classified Status: Acute Assessment and Plan: * CT of the abdomen and pelvis showing fatty liver disease * MRCP shown diffuse hepatic steatosis 04/15/24: * See Above (3) Hypothyroidism: Qualifiers: Hypothyroidism type: unspecified Qualified Code(s): E03.9 - Hypothyroidism, unspecified Code(s): E03.9 - Hypothyroidism, unspecified Status: Chronic Assessment and Plan: * Continue Synthroid * Will check TSH 04/12 * TSH 3.20 (4) Essential hypertension: Code(s): I10 - Essential (primary) hypertension Status: Chronic Assessment and Plan: * Blood pressures ranging 132/82 to 156/93 * Continue lisinopril and metoprolol (5) Anxiety: Code(s): F41.9 - Anxiety disorder, unspecified Status: Acute Assessment and Plan: * Continue alprazolam (6) Constipation: Code(s): K59.00 - Constipation, unspecified Status: Acute Assessment and Plan: Patient states he has not had a bowel movement in 5 days and presents with 2 days worth of abdominal pain and distension. * Will give Dulcolax suppository now * Start Colace 100 mg b.i.d. * Dulcolax tablet 5 mg daily p.r.n. * Milk of Mag p.r.n. 04/12 * Will give dose of Mag citrate today * Slightly distended, passing gas now, 6 days without BM 04/13/24 * added lactulose 04/14/2024: * BM 04/13 Plan Code status: Full code per patient DVT prophylaxis: Lovenox Stress ulcer prophylaxis: PT/OT notes: ambulatory Disposition: patient continues admission for necrotizing pancreatitis improving with IV antibiotics patient is ambulatory and plan will be to return home medically stable previous provider has spoken with General surgery, radiology patient improving likely does not need a transfer unless he worsens plan can be for follow-up outpatient with hepatobiliary currently wait list is over 10 days For a transfer. Awaiting further GI recommendations. Time Spent With Patient Time with patient: 15 - 25 minutes Subjective Date/time seen: 04/15/24 14:40 Interval history: Pt examined at the bedside. 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 He indicates that he will be following up with Dr. Messina, Hepatobiliary specialist at [facility] upon discharge for continued management as pt has hx of neuroendocrine tumor on Pancreas. He continues to endorse some mild upper abdominal pain but has been tolerating clear liquid diet. He is being followed by both General Surgery as well as GI services. We are awaiting GI to see him for today. Pt will likely need his diet advanced prior to discharge. Review of Systems Review of Systems: All systems reviewed & are unremarkable except as noted in HPI and below Exam Narrative: General: In no acute distress, well nourished Cardiac: Normal S1 and S2. RRR, No murmur, gallops or friction rubs, peripheral pulses intact. Respiratory: Lungs clear to auscultation, no adventitious lung sounds, currently on room air Gastrointestinal:taunt,distended, tender, hypoactive bowel sounds. Denies nausea and vomiting, reports abdominal spasms/cramping :voiding without difficulty. Neuro: Alert and oriented x4 Objective Data Vital Signs Vital Signs: Vital Signs - 24 hr 04/14/24 20:05 04/14/24 22:00 04/15/24 06:00 Temperature 97.6 F 97.8 F Pulse Rate 78 77 73 Respiratory Rate 18 20 20 Blood Pressure 158/93 H 156/91 H Pulse Oximetry 98 98 98 Oxygen Delivery Room Air Intake/Output Intake/Output: Intake & Output 04/12/24 04/13/24 04/14/24 04/15/24 23:59 23:59 23:59 23:59 Intake Total 2600 3760 4240 200 Output Total 1500 2600 Balance 2600 3760 2740 -2400 Meds/Results Medications: Active Medications Generic Name Dose Route Start Last Admin Trade Name Freq PRN Reason Stop Dose Admin Acetaminophen 650 mg 04/11/24 15:59 04/11/24 21:52 Acetaminophen 325 Mg Tablet PO 650 mg Q4H PRN Administration Mild Pain (1-3) or Fever Hydrocodone Bitart/Acetaminophen 1 tab 04/11/24 15:53 04/13/24 17:43 Hydrocodone/Acetaminophen (*Crx) 5-325 Mg Tablet PO 1 tab Q4H PRN Administration Moderate Pain (4-6) Albuterol 1 puff 04/11/24 22:43 Albuterol Sulfate (*Sp) Aerosol 1 Puff INHALATION Q4HRT PRN shortness of breath or wheezing Allopurinol 300 mg 04/12/24 09:00 04/15/24 10:20 Allopurinol 300 Mg Tablet PO 300 mg DAILY GENNARO Administration Alprazolam 0.25 mg 04/11/24 15:59 Alprazolam (*Crx) 0.25 Mg Tablet PO BID PRN Anxiety Bisacodyl 5 mg 04/11/24 15:53 Bisacodyl 5 Mg Tablet Ec PO DAILY PRN Constipation Ciprofloxacin 750 mg 04/15/24 21:00 Ciprofloxacin 250 Mg Tablet PO Q12HR GENNARO Colchicine 0.6 mg 04/12/24 09:00 04/15/24 10:19 Colchicine 0.6 Mg Tablet PO 0.6 mg BID GENNARO Administration Docusate Sodium 100 mg 04/11/24 17:00 04/15/24 10:40 Docusate Sodium 100 Mg Capsule PO Not Given BID GENNARO Enoxaparin Sodium 40 mg 04/12/24 09:00 04/15/24 10:20 Enoxaparin 40 Mg/0.4 Ml Syringe SUB-Q 40 mg DAILY GENNARO Administration Fenofibrate 145 mg 04/12/24 09:00 04/15/24 10:19 Fenofibrate Nanocrystallized 145 Mg Tablet PO 05/12/24 08:59 145 mg DAILY GENNARO Administration Sodium Chloride 1,000 mls @ 100 mls/hr 04/11/24 15:55 04/14/24 22:52 Normal Saline Iv IV CONT 100 mls/hr .Q10H GENNARO Administration Levothyroxine Sodium 25 mcg 04/12/24 06:30 04/15/24 06:00 Levothyroxine Sodium 25 Mcg Tablet PO 25 mcg DAILY@0630 GENNARO Administration Lisinopril 10 mg 04/12/24 09:00 04/15/24 10:19 Lisinopril 10 Mg Tablet PO 10 mg DAILY GENNARO Administration Magnesium Hydroxide 30 ml 04/11/24 15:53 Magnesium Hydroxide Susp 30 Ml Udc PO DAILY PRN Constipation Metoprolol Succinate 25 mg 04/12/24 09:00 04/15/24 10:19 Metoprolol Succinate Ext Rel 25 Mg Tabcr PO 25 mg QAM GENNARO Administration Morphine Sulfate 2 mg 04/11/24 15:53 Morphine Sulfate (*Crx) 2 Mg/Ml Inj IV PUSH Q4H PRN Pain Rated 7-10 Morphine Sulfate 4 mg 04/11/24 15:59 04/14/24 01:48 Morphine Sulfate (*Crx) 4 Mg/Ml Inj IV PUSH 4 mg Q2H PRN Administration Pain Rated 7-10 Ondansetron HCl 4 mg 04/11/24 15:59 04/14/24 01:48 Ondansetron Inj 4 Mg/2 Ml Vial IV PUSH 4 mg Q4H PRN Administration Nausea Radiology Results: ITS Impressions Abdomen/Pelvis CT 04/11/24 13:41 IMPRESSION: Findings which in the appropriate clinical scenario suggest the presence of acute pancreatitis for which follow-up to resolution is recommended as a malignancy may have a similar appearance. Fatty infiltration of an enlarged liver Trace free fluid within the pelvis, never a normal finding in a male patient. Abdomen Ultrasound 04/11/24 16:45 IMPRESSION: Fat infiltration of the liver. Otherwise, limited abdominal ultrasound. MRCP 04/12/24 13:24 IMPRESSION: 1. Acute necrotic pancreatitis. 2. Diffuse hepatic steatosis. 3. Small left pleural effusion. Abdomen CT 04/15/24 09:20 IMPRESSION: 1. Necrotizing pancreatitis involving the tail of the pancreas. 2. 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 3. Fat infiltration of the liver with hepatomegaly. 4. Left basilar atelectasis versus pneumonia with minimal effusion. Labs Labs: Laboratory Results - last 24 hr 04/15/24 10:02 WBC 7.9 RBC 3.85 L Hgb 12.3 L Hct 35.3 L MCV 91.7 MCH 31.9 MCHC 34.8 RDW 12.6 Plt Count 313 MPV 9.7 Immature Gran % (Auto) 1.5 H Neut % (Auto) 70.6 Lymph % (Auto) 13.6 L [place] % (Auto) 9.8 H Eos % (Auto) 3.6 Baso % (Auto) 0.9 Lymph # (Auto) 1.07 [place] # (Auto) 0.8 H Eos # (Auto) 0.3 Baso # (Auto) 0.1 Abs Immat Gran (auto) 0.12 H Absolute Neuts (auto) 5.6 Absolute Nucleated RBC 0.000 Nucleated RBC % 0.0 Sodium 134 L Potassium 3.2 L Chloride 102 Carbon Dioxide 22 Anion Gap 10 BUN 11 Creatinine 0.68 L Estim Creat Clear Calc 98 Estimated GFR > 60 Glucose 116 H Calcium 8.8 Total Bilirubin 0.5 AST 46 ALT 49 Alkaline Phosphatase 69 Total Protein 7.0 Albumin 3.6 Quality VTE Prophylaxis VTE prophylaxis: pharmacologic ordered
[2024-04-15] MEDS: ALPRAZolam (*CRX) 0.25 MG TABLET PO (15:30)
[2024-04-15] MEDS: SODIUM CHLORIDE 0.9% IV 1,000 ML 100 ML IV CONT (15:30)
[2024-04-15] MEDS: HYDROcodone/acetaminophen (*CRX) 5-325 MG TABLET 1 TAB PO (15:34)
[2024-04-15 21:24] VITALS: BP 147/74; PULSE 71; RESP 14; TEMP 36.5; O2SAT 99
[2024-04-15] MEDS: CIPROFLOXACIN 250 MG TABLET 750 MG PO (21:50)
[2024-04-15] MEDS: ACETAMINOPHEN 325 MG TABLET 650 MG PO (21:55)
[2024-04-16] MEDS: SODIUM CHLORIDE 0.9% IV 1,000 ML 100 ML IV CONT ×2 (04:13→15:38)
[2024-04-16] MEDS: HYDROcodone/acetaminophen (*CRX) 5-325 MG TABLET 1 TAB PO ×2 (04:52→20:16)
[2024-04-16] MEDS: LEVOTHYROXINE SODIUM 25 MCG TABLET PO (05:47)
[2024-04-16 06:00] VITALS: BP 152/79; PULSE 67; RESP 14; TEMP 36.8; O2SAT 97
[2024-04-16 07:03] LABS: Basophils Absolute Auto 0.1 K/mm3 (0.0-0.1); Basophils Percent Auto 1.3 % (0.2-1.2); Eosinophils Absolute Auto 0.3 K/mm3 (0-0.3); Eosinophils Percent Auto 5.2 % (0-4.4); Hematocrit 32.3 % (42.0-52.0); Hemoglobin 11.3 g/dL (14.0-18.0); Immature Granulocyte Percent A 3.2 % (0-0.5); Lymphocytes Absolute Auto 1.03 K/mm3 (0.9-3.2); Lymphocytes Percent Auto 16.3 % (18.3-44.2); Mean Corpuscular Hemoglobin 31.8 pg (26-34); Mean Platelet Volume 9.5 fl (7.4-10.4); Monocytes Absolute Auto 0.7 K/mm3 (0.1-0.6); Monocytes Percent Auto 11.6 % (2.6-8.5); Neutrophils Absolute Auto 3.9 K/mm3 (1.3-6.7); Neutrophils Percent Auto 62.4 % (45.5-73.1); Platelet Count Result 253 k/mm3 (150-375); Red Blood Count 3.55 M/mm3 (4.6-6.20); Red Cell Distribution Width 12.4 % (11.5-14.5); White Blood Count 6.3 K/mm3 (4.5-10.0)
[2024-04-16 07:12] LABS: Alanine Aminotransferase 60 U/L (6-50); Albumin Level 3.1 g/dL (3.5-5.1); Alkaline Phosphatase 66 U/L (38-126); Anion Gap 5 mmol/L (4-12); Aspartate Amino Transferase 52 U/L (17-59); Bilirubin,Total 0.4 mg/dL (0.2-1.3); Blood Urea Nitrogen 11 mg/dL (9-20); Calcium 8.2 mg/dL (8.4-10.2); Carbon Dioxide 25 mmol/L (22-30); Chloride 107 mmol/L (98-107); Estimated CRCL calculation 106 ml/min; Estimated Glomerular Filt Rate > 60; Glucose 100 mg/dL (65-110); Potassium 3.4 mmol/L (3.4-5.0); Sodium 137 mmol/L (137-145)
[2024-04-16 07:16] LABS: CRP 5.5 mg/dL (<1.0); Lipase 115 U/L (23-300)
[2024-04-16 08:27] VITALS: PULSE 71
[2024-04-16] MEDS: allopurinoL 300 MG TABLET PO (08:27)
[2024-04-16] MEDS: METOPROLOL SUCCINATE EXT REL 25 MG TABCR PO (08:27)
[2024-04-16] MEDS: lisinopriL 10 MG TABLET PO (08:27)
[2024-04-16] MEDS: CIPROFLOXACIN 250 MG TABLET 750 MG PO ×2 (08:27→20:15)
[2024-04-16] MEDS: COLCHICINE 0.6 MG TABLET PO ×2 (08:27→16:45)
[2024-04-16] MEDS: FENOFIBRATE NANOCRYSTALLIZED 145 MG TABLET PO (08:28)
[2024-04-16] MEDS: ENOXAPARIN 40 MG/0.4 ML SYRINGE SUB-Q (08:28)
--- NOTE | 2024-04-16 10:43 | P.PNIM_ITS ---
Progress Note: A&P Assessment and Plan (1) Acute pancreatitis: Qualifiers: Acute pancreatitis complication: unspecified Pancreatitis type: idiopathic Qualified Code(s): K85.00 - Idiopathic acute pancreatitis without necrosis or infection Code(s): K85.90 - Acute pancreatitis without necrosis or infection, unspecified Status: Acute Assessment and Plan: Likely secondary to alcohol use * CT of the abdomen and pelvis showed acute pancreatitis and indeterminate focus of decreased attenuation identified within the [place] pancreas measuring 25 x 29 x 32 mm with peripancreatic fluid noted extending in the lesser sac as well as within a perihepatic splenic position extending into the splenic flexure. * Previous history 1 cm cystic lesion on the head of the pancreas which was not fluid on today's CT of the abdomen and pelvis was worked up at [facility] by Hepatobiliary service. He had 2 MRI's with the last MRI negative for mass. * Continue pain control * Continue nausea control * NPO for bowel rest tonight, then advance to Clear liquids * Lipase 971, white blood cell count 14.8, reported low grade temp at home * Will cover with Cipro and Flagyl for now for possibility of necrotizing pancreatitis however this was extensively reviewed by the ER physician and radiologist who feel it is less likely * Blood cultures ordered * US of the abdomen shown fat infiltration of the liver otherwise normal ultrasound. * MRI of the abdomen with and without contrast to assess pancreas for abscess versus mass/malignancy 04/12 * Advance to clear liquid diet as tolerated * MRCP acute necrotic pancreatitis, diffuse steatosis, small left pleural effusion * Continue Cipro and Flagyl * Blood cultures showing no growth to date * GI consulted * Spoke with Radiologist and Dr. Hargrove who both feel it is safe to keep here and continue to treat with antibiotics. * He will need hepatobiliary follow up at discharge. 04/13/24: * clear liquid diet * plan for CT abdomen on Monday per GI * overall improving continue with IV hydration * patient will need to follow up with his hepatic biliary at [facility] post discharge * encouraged immediate alcohol cessation * will continue to replenish electrolyte 04/14/24: * Continue with current treatment CT Monday * Strict Clear liquid 04/15/24: * Continue clears. * pt does have some mild upper pain residual * Will be following with Dr. Messina at [facility] upon discharge. * CT today re-demonstrates necrotic tail of pancreas. * Awaiting GI recommendations for diet advancement today. * Changing IV abx to oral Cipro. 04/16/24: * repeat CT of the abdomen and pelvis showed necrotizing pancreatitis involving the tail of the pancreas, thrombosis in the portal vein and splenic vein, fat infiltration of the liver with hepatomegaly, left basilar atelectasis versus pneumonia * Eliquis started per DVT protocol * Lipase 115 * WBC 6.3 * General surgery and GI following * Diet advanced to regular diet today, if doing well...could likely discharge tomorrow morning. (2) Fatty liver: Code(s): K76.0 - Fatty (change of) liver, not elsewhere classified Status: Acute Assessment and Plan: * CT of the abdomen and pelvis showing fatty liver disease * MRCP shown diffuse hepatic steatosis 04/15/24: * See Above (3) Hypothyroidism: Qualifiers: Hypothyroidism type: unspecified Qualified Code(s): E03.9 - Hypothyroidism, unspecified Code(s): E03.9 - Hypothyroidism, unspecified Status: Chronic Assessment and Plan: * Continue Synthroid * Will check TSH 04/12 * TSH 3.20 (4) Essential hypertension: Code(s): I10 - Essential (primary) hypertension Status: Chronic Assessment and Plan: * Blood pressures ranging 132/82 to 156/93 * Continue lisinopril and metoprolol (5) Anxiety: Code(s): F41.9 - Anxiety disorder, unspecified Status: Acute Assessment and Plan: * Continue alprazolam (6) Constipation: Code(s): K59.00 - Constipation, unspecified Status: Acute Assessment and Plan: Patient states he has not had a bowel movement in 5 days and presents with 2 days worth of abdominal pain and distension. * Will give Dulcolax suppository now * Start Colace 100 mg b.i.d. * Dulcolax tablet 5 mg daily p.r.n. * Milk of Mag p.r.n. 04/12 * Will give dose of Mag citrate today * Slightly distended, passing gas now, 6 days without BM 04/13/24 * added lactulose 04/14/2024: * BM 04/1304/16/24: * Noted BM today Plan Code status: Full code per patient DVT prophylaxis: Lovenox Stress ulcer prophylaxis: PT/OT notes: ambulatory Disposition: patient continues admission for necrotizing pancreatitis improving with IV antibiotics patient is ambulatory and plan will be to return home medically stable previous provider has spoken with General surgery, radiology patient improving likely does not need a transfer unless he worsens plan can be for follow-up outpatient with hepatobiliary currently wait list is over 10 days For a transfer. Awaiting further GI recommendations. Subjective Date/time seen: 04/16/24 10:43 Interval history: Interval history: This is a 58-year-old male with a significant past medical history of high cholesterol, hypertension, peptic ulcer, hypothyroidism, pancreatic mass, anxiety who presented to the hospital today with complaints of abdominal pain and constipation. Patient reports that back in August of [address] of his abdomen pelvis which showed a 1 cm cystic lesion at the head of the pancreas which was not seen on today's films. He had workup at [facility] with Dr. Messina for this cystic lesion. He had 2 MRIs done and was given a clean bill of health as well last MRI did not show the mass. He denies any chills, diarrhea, chest pain, or shortness of breath. He endorses low grade temp, nausea, vomiting/ dry heaving, abdominal pain, constipation x5 days. Workup in the hospital included an abdomen/pelvis CT which shown acute pancre atitis with indeterminate focus of decreased attenuation in the tail of the pancreas measuring 25 x 29 x 32 mm with germaine pancreatic fluid extending into the lesser sac as well as within of perihepatic splenic position and extends into the splenic flexure of the colon, fatty infiltration of the liver, trace free fluid within the pelvis. Initial labs showed a white blood cell count of 14.8, sodium 131, ALT 60, lipase 971. UA was obtained and showed and urine specific gravity of 1.040, otherwise negative. Patient was given 1 L of normal saline, Zofran, and morphine while in the ED. He is being admitted in the setting for further treatment of his symptoms. 1/3: MRCP acute necrotic pancreatitis, diffuse hepatic steatosis, small left pleural effusion. Subjective: Patient denies any new complaints today. He states this morning he was feeling weak but now states that he feels better since starting regular food. He states that his abdomen is less distended and that he continues to have bowel movements. He also states that his pain is well controlled. Labs and imaging reviewed. Review of Systems Review of Systems: All systems reviewed & are unremarkable except as noted in HPI and below Constitutional: Constitutional: Reports as per HPI and Reports no additional constitutional complaints Eyes: Eyes: Reports as per HPI and Reports no additional eye complaints ENT: Reports system reviewed and no additional complaints, except as documented and Reports as per HPI Cardiovascular: Cardiovascular: Reports as per HPI and Reports no additional cardiovascular complaints Respiratory: Respiratory: Reports as per HPI and Reports no additional respiratory complaints Gastrointestinal: Gastrointestinal: Reports as per HPI and Reports no additional gastrointestinal complaints Genitourinary: Genitourinary: Reports no additional male genitourinary complaints and Reports as per HPI Musculoskeletal: Musculoskeletal: Reports no additional musculoskeletal complaints and Reports as per HPI Integumentary/Breasts: Skin/Breast: Reports system reviewed and no additional complaints, except as docu and Reports as per HPI Neurologic: Reports system reviewed and no additional complaints, except as documented and Reports as per HPI Psychiatric: Psychiatric: Reports no additional psychiatric complaints and Reports as per HPI Exam Narrative: General: In no acute distress, well nourished Cardiac: Normal S1 and S2. RRR, No murmur, gallops or friction rubs, peripheral pulses intact. Respiratory: Lungs clear to auscultation, no adventitious lung sounds, currently on room air Gastrointestinal:non distended, soft, non tender, normoactive bowel sounds. Reporting BM today :voiding without difficulty. Neuro: Alert and oriented x4 Objective Data Vital Signs Vital Signs: Vital Signs - 24 hr 04/15/24 14:00 04/15/24 20:00 04/15/24 21:24 Temperature 97.8 F 97.7 F Pulse Rate 67 71 Respiratory Rate 18 14 Blood Pressure 116/72 147/74 H Pulse Oximetry 99 99 Oxygen Delivery Room Air 04/16/24 06:00 04/16/24 08:27 Temperature 98.3 F Pulse Rate 67 71 Respiratory Rate 14 Blood Pressure 152/79 H Pulse Oximetry 97 Oxygen Delivery Intake/Output Intake/Output: Intake & Output 04/13/24 04/14/24 04/15/24 04/16/24 23:59 23:59 23:59 23:59 Intake Total 3760 4240 1440 2350 Output Total 1500 2600 1150 Balance 3760 2740 -1160 1200 Meds/Results Medications: Active Medications Generic Name Dose Route Start Last Admin Trade Name Freq PRN Reason Stop Dose Admin Acetaminophen 650 mg 04/11/24 15:59 04/15/24 21:55 Acetaminophen 325 Mg Tablet PO 650 mg Q4H PRN Administration Mild Pain (1-3) or Fever Hydrocodone Bitart/Acetaminophen 1 tab 04/11/24 15:53 04/16/24 04:52 Hydrocodone/Acetaminophen (*Crx) 5-325 Mg Tablet PO 1 tab Q4H PRN Administration Moderate Pain (4-6) Albuterol 1 puff 04/11/24 22:43 Albuterol Sulfate (*Sp) Aerosol 1 Puff INHALATION Q4HRT PRN shortness of breath or wheezing Allopurinol 300 mg 04/12/24 09:00 04/16/24 08:27 Allopurinol 300 Mg Tablet PO 300 mg DAILY GENNARO Administration Alprazolam 0.25 mg 04/11/24 15:59 04/15/24 15:30 Alprazolam (*Crx) 0.25 Mg Tablet PO 0.25 mg BID PRN Administration Anxiety Bisacodyl 5 mg 04/11/24 15:53 Bisacodyl 5 Mg Tablet Ec PO DAILY PRN Constipation Ciprofloxacin 750 mg 04/15/24 21:00 04/16/24 08:27 Ciprofloxacin 250 Mg Tablet PO 750 mg Q12HR GENNARO Administration Colchicine 0.6 mg 04/12/24 09:00 04/16/24 08:27 Colchicine 0.6 Mg Tablet PO 0.6 mg BID GENNARO Administration Docusate Sodium 100 mg 04/11/24 17:00 04/16/24 08:28 Docusate Sodium 100 Mg Capsule PO Not Given BID GENNARO Enoxaparin Sodium 40 mg 04/12/24 09:00 04/16/24 08:28 Enoxaparin 40 Mg/0.4 Ml Syringe SUB-Q 40 mg DAILY GENNARO Administration Fenofibrate 145 mg 04/12/24 09:00 04/16/24 08:28 Fenofibrate Nanocrystallized 145 Mg Tablet PO 05/12/24 08:59 145 mg DAILY GENNARO Administration Sodium Chloride 1,000 mls @ 100 mls/hr 04/11/24 15:55 04/16/24 04:13 Normal Saline Iv IV CONT 100 mls/hr .Q10H GENNARO Administration Levothyroxine Sodium 25 mcg 04/12/24 06:30 04/16/24 05:47 Levothyroxine Sodium 25 Mcg Tablet PO 25 mcg DAILY@0630 GENNARO Administration Lisinopril 10 mg 04/12/24 09:00 04/16/24 08:27 Lisinopril 10 Mg Tablet PO 10 mg DAILY GENNARO Administration Magnesium Hydroxide 30 ml 04/11/24 15:53 Magnesium Hydroxide Susp 30 Ml Udc PO DAILY PRN Constipation Metoprolol Succinate 25 mg 04/12/24 09:00 04/16/24 08:27 Metoprolol Succinate Ext Rel 25 Mg Tabcr PO 25 mg QAM GENNARO Administration Morphine Sulfate 2 mg 04/11/24 15:53 Morphine Sulfate (*Crx) 2 Mg/Ml Inj IV PUSH Q4H PRN Pain Rated 7-10 Morphine Sulfate 4 mg 04/11/24 15:59 04/14/24 01:48 Morphine Sulfate (*Crx) 4 Mg/Ml Inj IV PUSH 4 mg Q2H PRN Administration Pain Rated 7-10 Ondansetron HCl 4 mg 04/11/24 15:59 04/14/24 01:48 Ondansetron Inj 4 Mg/2 Ml Vial IV PUSH 4 mg Q4H PRN Administration Nausea Radiology Results: ITS Impressions Abdomen/Pelvis CT 04/11/24 13:41 IMPRESSION: Findings which in the appropriate clinical scenario suggest the presence of acute pancreatitis for which follow-up to resolution is recommended as a malignancy may have a similar appearance. Fatty infiltration of an enlarged liver Trace free fluid within the pelvis, never a normal finding in a male patient. Abdomen Ultrasound 04/11/24 16:45 IMPRESSION: Fat infiltration of the liver. Otherwise, limited abdominal ultrasound. MRCP 04/12/24 13:24 IMPRESSION: 1. Acute necrotic pancreatitis. 2. Diffuse hepatic steatosis. 3. Small left pleural effusion. Abdomen CT 04/15/24 09:20 IMPRESSION: 1. Necrotizing pancreatitis involving the tail of the pancreas. 2. 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 3. Fat infiltration of the liver with hepatomegaly. 4. Left basilar atelectasis versus pneumonia with minimal effusion. Labs Labs: Laboratory Results - last 24 hr 04/15/24 04/16/24 10:02 06:33 WBC 7.9 6.3 RBC 3.85 L 3.55 L Hgb 12.3 L 11.3 L Hct 35.3 L 32.3 L MCV 91.7 91.0 MCH 31.9 31.8 MCHC 34.8 35.0 RDW 12.6 12.4 Plt Count 313 253 MPV 9.7 9.5 Immature Gran % (Auto) 1.5 H 3.2 H Neut % (Auto) 70.6 62.4 Lymph % (Auto) 13.6 L 16.3 L [place] % (Auto) 9.8 H 11.6 H Eos % (Auto) 3.6 5.2 H Baso % (Auto) 0.9 1.3 H Lymph # (Auto) 1.07 1.03 [place] # (Auto) 0.8 H 0.7 H Eos # (Auto) 0.3 0.3 Baso # (Auto) 0.1 0.1 Abs Immat Gran (auto) 0.12 H 0.20 H Absolute Neuts (auto) 5.6 3.9 Absolute Nucleated RBC 0.000 0.000 Nucleated RBC % 0.0 0.0 Sodium 134 L 137 Potassium 3.2 L 3.4 Chloride 102 107 Carbon Dioxide 22 25 Anion Gap 10 5 BUN 11 11 Creatinine 0.68 L 0.63 L Estim Creat Clear Calc 98 106 Estimated GFR > 60 > 60 Glucose 116 H 100 Calcium 8.8 8.2 L Total Bilirubin 0.5 0.4 AST 46 52 ALT 49 60 H Alkaline Phosphatase 69 66 C-Reactive Protein 5.5 H Total Protein 7.0 6.0 L Albumin 3.6 3.1 L Lipase 115 Quality VTE Prophylaxis VTE prophylaxis: pharmacologic ordered
--- NOTE | 2024-04-16 11:48 | P.PNGS_ITS ---
Progress Note: A&P Assessment and Plan (1) Acute necrotizing pancreatitis: Code(s): K85.91 - Acute pancreatitis with uninfected necrosis, unspecified Status: Acute Assessment and Plan: Exam benign. Repeat CT without significant changes, showing necrotizing pancreatitis of tail. No new fluid collections. Okay to advance diet as tolerated. Will add supplements. Encouraged patient to get up and ambulate today. Recommended also f/u with Hepatobiliary eventually once discharged. (2) Splenic vein thrombosis: Code(s): I82.890 - Acute embolism and thrombosis of other specified veins Status: Acute Assessment and Plan: CT suggests probable splenic vein and portal vein thrombosis. Agree with anticoagulation, management per Hospitalist. F/u with Hepatobiliary after discharge. (3) Portal vein thrombosis: Code(s): I81 - Portal vein thrombosis Status: Acute Assessment and Plan: See plan above. Plan I have discussed the patient's case and plan of care with Dr. Marrufo. Subjective Subjective Date/Time Seen: 04/16/24 11:48 Patient reports: no new complaints, feels better, tolerating liquids well, flatus and bowel movement Interval history: Chart reviewed. Patient denies abdominal pain, nausea, or vomiting. He reports feeling much better over the past two days. He feels tired today with generalized weakness. No other complaints at this time. Exam Const: General: comfortable and no acute distress Orientation/consciousness: patient oriented x3 GI: Inspection: non-distended GI Palp: Yes Soft to palpation, No Tenderness to palpation present (GI), No Guarding due to palpation present (GI) and No Rebound tenderness present Auscultation: normal bowel sounds Objective Data Vital Signs Vital Signs: Vital Signs - 24 hr 04/15/24 14:00 04/15/24 20:00 04/15/24 21:24 Temperature 97.8 F 97.7 F Pulse Rate 67 71 Respiratory Rate 18 14 Blood Pressure 116/72 147/74 H Pulse Oximetry 99 99 Oxygen Delivery Room Air 04/16/24 06:00 04/16/24 08:00 04/16/24 08:27 Temperature 98.3 F Pulse Rate 67 71 Respiratory Rate 14 Blood Pressure 152/79 H Pulse Oximetry 97 Oxygen Delivery Room Air Intake/Output Intake/Output: Intake & Output 01/04/25 01/05/25 01/06/25 01/07/25 23:59 23:59 23:59 23:59 Intake Total 3760 4240 1440 2350 Output Total 1500 2600 1150 Balance 3760 2740 -1160 1200 Meds/Results Medications: Active Medications Generic Name Dose Route Start Last Admin Trade Name Freq PRN Reason Stop Dose Admin Acetaminophen 650 mg 04/11/24 15:59 04/15/24 21:55 Acetaminophen 325 Mg Tablet PO 650 mg Q4H PRN Administration Mild Pain (1-3) or Fever Hydrocodone Bitart/Acetaminophen 1 tab 04/11/24 15:53 04/16/24 04:52 Hydrocodone/Acetaminophen (*Crx) 5-325 Mg Tablet PO 1 tab Q4H PRN Administration Moderate Pain (4-6) Albuterol 1 puff 04/11/24 22:43 Albuterol Sulfate (*Sp) Aerosol 1 Puff INHALATION Q4HRT PRN shortness of breath or wheezing Allopurinol 300 mg 04/12/24 09:00 04/16/24 08:27 Allopurinol 300 Mg Tablet PO 300 mg DAILY GENNARO Administration Alprazolam 0.25 mg 04/11/24 15:59 04/15/24 15:30 Alprazolam (*Crx) 0.25 Mg Tablet PO 0.25 mg BID PRN Administration Anxiety Apixaban 10 mg 04/16/24 21:00 Apixaban 5 Mg Tablet PO 04/23/24 09:01 Q12HR GENNARO Apixaban 5 mg 04/23/24 21:00 Apixaban 5 Mg Tablet PO Q12HR GENNARO Bisacodyl 5 mg 04/11/24 15:53 Bisacodyl 5 Mg Tablet Ec PO DAILY PRN Constipation Ciprofloxacin 750 mg 04/15/24 21:00 04/16/24 08:27 Ciprofloxacin 250 Mg Tablet PO 750 mg Q12HR GENNARO Administration Colchicine 0.6 mg 04/12/24 09:00 04/16/24 08:27 Colchicine 0.6 Mg Tablet PO 0.6 mg BID GENNARO Administration Docusate Sodium 100 mg 04/11/24 17:00 04/16/24 08:28 Docusate Sodium 100 Mg Capsule PO Not Given BID GENNARO Fenofibrate 145 mg 04/12/24 09:00 04/16/24 08:28 Fenofibrate Nanocrystallized 145 Mg Tablet PO 05/12/24 08:59 145 mg DAILY GENNARO Administration Sodium Chloride 1,000 mls @ 100 mls/hr 04/11/24 15:55 04/16/24 04:13 Normal Saline Iv IV CONT 100 mls/hr .Q10H GENNARO Administration Levothyroxine Sodium 25 mcg 04/12/24 06:30 04/16/24 05:47 Levothyroxine Sodium 25 Mcg Tablet PO 25 mcg DAILY@0630 GENNARO Administration Lisinopril 10 mg 04/12/24 09:00 04/16/24 08:27 Lisinopril 10 Mg Tablet PO 10 mg DAILY GENNARO Administration Magnesium Hydroxide 30 ml 04/11/24 15:53 Magnesium Hydroxide Susp 30 Ml Udc PO DAILY PRN Constipation Metoprolol Succinate 25 mg 04/12/24 09:00 04/16/24 08:27 Metoprolol Succinate Ext Rel 25 Mg Tabcr PO 25 mg QAM GENNARO Administration Morphine Sulfate 2 mg 04/11/24 15:53 Morphine Sulfate (*Crx) 2 Mg/Ml Inj IV PUSH Q4H PRN Pain Rated 7-10 Morphine Sulfate 4 mg 04/11/24 15:59 04/14/24 01:48 Morphine Sulfate (*Crx) 4 Mg/Ml Inj IV PUSH 4 mg Q2H PRN Administration Pain Rated 7-10 Ondansetron HCl 4 mg 04/11/24 15:59 04/14/24 01:48 Ondansetron Inj 4 Mg/2 Ml Vial IV PUSH 4 mg Q4H PRN Administration Nausea Radiology Results: ITS Impressions Abdomen/Pelvis CT 04/11/24 13:41 IMPRESSION: Findings which in the appropriate clinical scenario suggest the presence of acute pancreatitis for which follow-up to resolution is recommended as a malignancy may have a similar appearance. Fatty infiltration of an enlarged liver Trace free fluid within the pelvis, never a normal finding in a male patient. Abdomen Ultrasound 04/11/24 16:45 IMPRESSION: Fat infiltration of the liver. Otherwise, limited abdominal ultrasound. MRCP 04/12/24 13:24 IMPRESSION: 1. Acute necrotic pancreatitis. 2. Diffuse hepatic steatosis. 3. Small left pleural effusion. Abdomen CT 04/15/24 09:20 IMPRESSION: 1. Necrotizing pancreatitis involving the tail of the pancreas. 2. 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 3. Fat infiltration of the liver with hepatomegaly. 4. Left basilar atelectasis versus pneumonia with minimal effusion. Labs Labs: Laboratory Results - last 24 hr 04/16/24 06:33 WBC 6.3 RBC 3.55 L Hgb 11.3 L Hct 32.3 L MCV 91.0 MCH 31.8 MCHC 35.0 RDW 12.4 Plt Count 253 MPV 9.5 Immature Gran % (Auto) 3.2 H Neut % (Auto) 62.4 Lymph % (Auto) 16.3 L [place] % (Auto) 11.6 H Eos % (Auto) 5.2 H Baso % (Auto) 1.3 H Lymph # (Auto) 1.03 [place] # (Auto) 0.7 H Eos # (Auto) 0.3 Baso # (Auto) 0.1 Abs Immat Gran (auto) 0.20 H Absolute Neuts (auto) 3.9 Absolute Nucleated RBC 0.000 Nucleated RBC % 0.0 Sodium 137 Potassium 3.4 Chloride 107 Carbon Dioxide 25 Anion Gap 5 BUN 11 Creatinine 0.63 L Estim Creat Clear Calc 106 Estimated GFR > 60 Glucose 100 Calcium 8.2 L Total Bilirubin 0.4 AST 52 ALT 60 H Alkaline Phosphatase 66 C-Reactive Protein 5.5 H Total Protein 6.0 L Albumin 3.1 L Lipase 115
[2024-04-16 14:00] VITALS: BP 147/91; PULSE 74; RESP 17; TEMP 36.3; O2SAT 100
[2024-04-16] MEDS: metroNIDAZOLE 500 MG TABLET PO ×2 (14:45→21:12)
[2024-04-16] MEDS: ACETAMINOPHEN 325 MG TABLET 650 MG PO (14:45)
--- NOTE | 2024-04-16 17:30 | WPDGIPROGNO ---
Progress Note: A&P Assessment and Plan (1) Acute necrotizing pancreatitis: Code(s): K85.91 - Acute pancreatitis with uninfected necrosis, unspecified Status: Acute Assessment and Plan: The patient has resolving acute necrotizing pancreatitis, and limited to the tail of the pancreas. His CRP came down from 15.8 on 04/14 to 5.5 today. The patient has been a binge drinker in the past, however over the [place] holidays he had some binge drinking episodes, probably triggering this attack. I sustained a long conversation regarding the importance of being completely abstinent from alcohol in his particular case and he is agreeable. In addition, he should eat a healthier diet, with minimal or no red meat or fried foods. Plan - He can safely be discharged tomorrow, ideally with an appointment set up with the dietitian. 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 He has already an incoming appointment at that institution for follow-up of this lesion and the current episode of pancreatitis as well. Time Spent With Patient Time with patient: 15 - 25 minutes Subjective Date/time seen: 04/16/24 17:30 Interval history: The patient feels well from a GI standpoint, has no abdominal pain and has been tolerating full liquid diet. About to have dinner with low-fat diet. Exam Const: General: comfortable and no acute distress Orientation/consciousness: patient oriented x3 GI: Inspection: non-distended GI Palp: Yes Soft to palpation, No Tenderness to palpation present (GI), No Guarding due to palpation present (GI) and No Rebound tenderness present Auscultation: normal bowel sounds Objective Data Vital Signs Vital Signs: Vital Signs - 24 hr 04/15/24 20:00 04/15/24 21:24 04/16/24 06:00 Temperature 97.7 F 98.3 F Pulse Rate 71 67 Respiratory Rate 14 14 Blood Pressure 147/74 H 152/79 H Pulse Oximetry 99 97 Oxygen Delivery Room Air 04/16/24 08:00 04/16/24 08:27 04/16/24 14:00 Temperature 97.4 F L Pulse Rate 71 74 Respiratory Rate 17 Blood Pressure 147/91 H Pulse Oximetry 100 Oxygen Delivery Room Air Intake/Output Intake/Output: Intake & Output 04/13/24 04/14/24 04/15/24/07/25 23:59 23:59 23:59 23:59 Intake Total 3760 4240 1440 3890 Output Total 1500 2600 1150 Balance 3760 2740 -1160 2740 Meds/Results Medications: Active Medications Generic Name Dose Route Start Last Admin Trade Name Freq PRN Reason Stop Dose Admin Acetaminophen 650 mg 04/11/24 15:59 04/16/24 14:45 Acetaminophen 325 Mg Tablet PO 650 mg Q4H PRN Administration Mild Pain (1-3) or Fever Hydrocodone Bitart/Acetaminophen 1 tab 04/11/24 15:53 04/16/24 04:52 Hydrocodone/Acetaminophen (*Crx) 5-325 Mg Tablet PO 1 tab Q4H PRN Administration Moderate Pain (4-6) Albuterol 1 puff 04/11/24 22:43 Albuterol Sulfate (*Sp) Aerosol 1 Puff INHALATION Q4HRT PRN shortness of breath or wheezing Allopurinol 300 mg 04/12/24 09:00 04/16/24 08:27 Allopurinol 300 Mg Tablet PO 300 mg DAILY GENNARO Administration Alprazolam 0.25 mg 04/11/24 15:59 04/15/24 15:30 Alprazolam (*Crx) 0.25 Mg Tablet PO 0.25 mg BID PRN Administration Anxiety Apixaban 10 mg 04/16/24 21:00 Apixaban 5 Mg Tablet PO 04/23/24 09:01 Q12HR GENNARO Apixaban 5 mg 04/23/24 21:00 Apixaban 5 Mg Tablet PO Q12HR GENNARO Bisacodyl 5 mg 04/11/24 15:53 Bisacodyl 5 Mg Tablet Ec PO DAILY PRN Constipation Ciprofloxacin 750 mg 04/15/24 21:00 04/16/24 08:27 Ciprofloxacin 250 Mg Tablet PO 04/21/24 23:59 750 mg Q12HR GENNARO Administration Colchicine 0.6 mg 04/12/24 09:00 04/16/24 16:45 Colchicine 0.6 Mg Tablet PO 0.6 mg BID GENNARO Administration Docusate Sodium 100 mg 04/11/24 17:00 04/16/24 16:45 Docusate Sodium 100 Mg Capsule PO Not Given BID GENNARO Fenofibrate 145 mg 04/12/24 09:00 04/16/24 08:28 Fenofibrate Nanocrystallized 145 Mg Tablet PO 05/12/24 08:59 145 mg DAILY GENNARO Administration Sodium Chloride 1,000 mls @ 100 mls/hr 04/11/24 15:55 04/16/24 15:38 Normal Saline Iv IV CONT 100 mls/hr .Q10H GENNARO Administration Levothyroxine Sodium 25 mcg 04/12/24 06:30 04/16/24 05:47 Levothyroxine Sodium 25 Mcg Tablet PO 25 mcg DAILY@0630 GENNARO Administration Lisinopril 10 mg 04/12/24 09:00 04/16/24 08:27 Lisinopril 10 Mg Tablet PO 10 mg DAILY GENNARO Administration Magnesium Hydroxide 30 ml 04/11/24 15:53 Magnesium Hydroxide Susp 30 Ml Udc PO DAILY PRN Constipation Metoprolol Succinate 25 mg 04/12/24 09:00 04/16/24 08:27 Metoprolol Succinate Ext Rel 25 Mg Tabcr PO 25 mg QAM GENNARO Administration Metronidazole 500 mg 04/16/24 14:00 04/16/24 14:45 Metronidazole 500 Mg Tablet PO 04/21/24 22:01 500 mg Q8HR GENNARO Administration Morphine Sulfate 2 mg 04/11/24 15:53 Morphine Sulfate (*Crx) 2 Mg/Ml Inj IV PUSH Q4H PRN Pain Rated 7-10 Morphine Sulfate 4 mg 04/11/24 15:59 04/14/24 01:48 Morphine Sulfate (*Crx) 4 Mg/Ml Inj IV PUSH 4 mg Q2H PRN Administration Pain Rated 7-10 Ondansetron HCl 4 mg 04/11/24 15:59 04/14/24 01:48 Ondansetron Inj 4 Mg/2 Ml Vial IV PUSH 4 mg Q4H PRN Administration Nausea Radiology Results: ITS Impressions Abdomen/Pelvis CT 04/11/24 13:41 IMPRESSION: Findings which in the appropriate clinical scenario suggest the presence of acute pancreatitis for which follow-up to resolution is recommended as a malignancy may have a similar appearance. Fatty infiltration of an enlarged liver Trace free fluid within the pelvis, never a normal finding in a male patient. Abdomen Ultrasound 04/11/24 16:45 IMPRESSION: Fat infiltration of the liver. Otherwise, limited abdominal ultrasound. MRCP 04/12/24 13:24 IMPRESSION: 1. Acute necrotic pancreatitis. 2. Diffuse hepatic steatosis. 3. Small left pleural effusion. Abdomen CT 04/15/24 09:20 IMPRESSION: 1. Necrotizing pancreatitis involving the tail of the pancreas. 2. 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 3. Fat infiltration of the liver with hepatomegaly. 4. Left basilar atelectasis versus pneumonia with minimal effusion. Labs Labs: Laboratory Results - last 24 hr 04/16/24 06:33 WBC 6.3 RBC 3.55 L Hgb 11.3 L Hct 32.3 L MCV 91.0 MCH 31.8 MCHC 35.0 RDW 12.4 Plt Count 253 MPV 9.5 Immature Gran % (Auto) 3.2 H Neut % (Auto) 62.4 Lymph % (Auto) 16.3 L [place] % (Auto) 11.6 H Eos % (Auto) 5.2 H Baso % (Auto) 1.3 H Lymph # (Auto) 1.03 [place] # (Auto) 0.7 H Eos # (Auto) 0.3 Baso # (Auto) 0.1 Abs Immat Gran (auto) 0.20 H Absolute Neuts (auto) 3.9 Absolute Nucleated RBC 0.000 Nucleated RBC % 0.0 Sodium 137 Potassium 3.4 Chloride 107 Carbon Dioxide 25 Anion Gap 5 BUN 11 Creatinine 0.63 L Estim Creat Clear Calc 106 Estimated GFR > 60 Glucose 100 Calcium 8.2 L Total Bilirubin 0.4 AST 52 ALT 60 H Alkaline Phosphatase 66 C-Reactive Protein 5.5 H Total Protein 6.0 L Albumin 3.1 L Lipase 115
[2024-04-16] MEDS: APIXABAN 5 MG TABLET 10 MG PO (20:15)
[2024-04-16 20:32] VITALS: BP 140/80; PULSE 70; RESP 16; TEMP 36.1; O2SAT 96
[2024-04-17] MEDS: HYDROcodone/acetaminophen (*CRX) 5-325 MG TABLET 1 TAB PO (02:35)
[2024-04-17] MEDS: SODIUM CHLORIDE 0.9% IV 1,000 ML 100 ML IV CONT (04:03)
[2024-04-17] MEDS: ACETAMINOPHEN 325 MG TABLET 650 MG PO (05:23)
[2024-04-17] MEDS: metroNIDAZOLE 500 MG TABLET PO (05:23)
[2024-04-17] MEDS: LEVOTHYROXINE SODIUM 25 MCG TABLET PO (05:23)
[2024-04-17 05:24] VITALS: BP 138/85; PULSE 71; RESP 16; TEMP 36.2; O2SAT 97
[2024-04-17 06:54] LABS: Basophils Absolute Auto 0.1 K/mm3 (0.0-0.1); Basophils Percent Auto 1.3 % (0.2-1.2); Eosinophils Absolute Auto 0.3 K/mm3 (0-0.3); Eosinophils Percent Auto 4.9 % (0-4.4); Hematocrit 32.6 % (42.0-52.0); Hemoglobin 11.2 g/dL (14.0-18.0); Immature Granulocyte Absolute 0.32 K/mm3 (0.00-0.031); Immature Granulocyte Percent A 4.7 % (0-0.5); Lymphocytes Absolute Auto 1.22 K/mm3 (0.9-3.2); Lymphocytes Percent Auto 18.1 % (18.3-44.2); Mean Corpuscular HGB Conc 34.4 g/dl (32-36); Mean Corpuscular Hemoglobin 31.8 pg (26-34); Mean Corpuscular Volume 92.6 fl (80-100); Mean Platelet Volume 9.6 fl (7.4-10.4); Monocytes Absolute Auto 0.6 K/mm3 (0.1-0.6); Neutrophils Absolute Auto 4.2 K/mm3 (1.3-6.7); Platelet Count Result 271 k/mm3 (150-375); Red Blood Count 3.52 M/mm3 (4.6-6.20); Red Cell Distribution Width 12.4 % (11.5-14.5); White Blood Count 6.8 K/mm3 (4.5-10.0)
[2024-04-17 07:07] LABS: Alanine Aminotransferase 57 U/L (6-50); Albumin Level 3.2 g/dL (3.5-5.1); Alkaline Phosphatase 68 U/L (38-126); Anion Gap 6 mmol/L (4-12); Aspartate Amino Transferase 32 U/L (17-59); Bilirubin,Total 0.4 mg/dL (0.2-1.3); Blood Urea Nitrogen 12 mg/dL (9-20); Calcium 8.1 mg/dL (8.4-10.2); Carbon Dioxide 22 mmol/L (22-30); Chloride 107 mmol/L (98-107); Estimated CRCL calculation 95 ml/min; Estimated Glomerular Filt Rate > 60; Glucose 99 mg/dL (65-110); Potassium 3.4 mmol/L (3.4-5.0); Sodium 135 mmol/L (137-145)
[2024-04-17 08:20] VITALS: PULSE 91
[2024-04-17] MEDS: COLCHICINE 0.6 MG TABLET PO (08:20)
[2024-04-17] MEDS: CIPROFLOXACIN 250 MG TABLET 750 MG PO (08:20)
[2024-04-17] MEDS: FENOFIBRATE NANOCRYSTALLIZED 145 MG TABLET PO (08:20)
[2024-04-17] MEDS: lisinopriL 10 MG TABLET PO (08:20)
[2024-04-17] MEDS: METOPROLOL SUCCINATE EXT REL 25 MG TABCR PO (08:20)
[2024-04-17] MEDS: APIXABAN 5 MG TABLET 10 MG PO (08:20)
[2024-04-17] MEDS: allopurinoL 300 MG TABLET PO (08:20)
--- NOTE | 2024-04-17 08:35 | P.DS_ITS ---
DS: Admitting Diagnosis Discharge Date 04/17/24 Admitting Diagnosis Acute pancreatitis Fatty liver disease hypothyroidism Hypertension Anxiety Constipation DS: Discharge Diagnosis Discharge Diagnosis (1) Acute pancreatitis: Qualifiers: Acute pancreatitis complication: unspecified Pancreatitis type: idiopathic Qualified Code(s): K85.00 - Idiopathic acute pancreatitis without necrosis or infection Code(s): K85.90 - Acute pancreatitis without necrosis or infection, unspecified Status: Acute (2) Fatty liver: Code(s): K76.0 - Fatty (change of) liver, not elsewhere classified Status: Acute (3) Hypothyroidism: Qualifiers: Hypothyroidism type: unspecified Qualified Code(s): E03.9 - Hypothyroidism, unspecified Code(s): E03.9 - Hypothyroidism, unspecified Status: Chronic (4) Essential hypertension: Code(s): I10 - Essential (primary) hypertension Status: Chronic (5) Anxiety: Code(s): F41.9 - Anxiety disorder, unspecified Status: Acute (6) Constipation: Code(s): K59.00 - Constipation, unspecified Status: Acute DS: Summary Hospital Course Reason for hospitalization: Acute pancreatitis Fatty liver disease hypothyroidism Hypertension Anxiety Constipation Hospital Course: This is a 58-year-old male with a significant past medical history of high cholesterol, hypertension, peptic ulcer, hypothyroidism, pancreatic mass, anxie ty who presented to the hospital today with complaints of abdominal pain and constipation. Patient reports that back in August of [address] of his abdomen pelvis which showed a 1 cm cystic lesion at the head of the pancreas which was not seen on today's films. He had workup at [facility] with Dr. Messina for this cystic lesion. He had 2 MRIs done and was given a clean bill of health as well last MRI did not show the mass. He denies any chills, diarrhea, chest pain, or shortness of breath. He endorses low grade temp, nausea, vomiting/ dry heaving, abdominal pain, constipation x5 days. Workup in the hospital included an abdomen/pelvis CT which shown acute pancreatitis with indeterminate focus of decreased attenuation in the tail of the pancreas measuring 25 x 29 x 32 mm with germaine pancreatic fluid extending into the lesser sac as well as within of perihepatic splenic position and extends into the splenic flexure of the colon, fatty infiltration of the liver, trace fr ee fluid within the pelvis. Initial labs showed a white blood cell count of 14.8, sodium 131, ALT 60, lipase 971. UA was obtained and showed and urine specific gravity of 1.040, otherwise negative. Patient was given 1 L of normal saline, Zofran, and morphine while in the ED. He is being admitted in the setting for further treatment of his symptoms. 04/12: MRCP acute necrotic pancreatitis, diffuse hepatic steatosis, small left pleural effusion. Patient tolerating increase in diet, pain is well controlled, he continues on Cipro, Flagyl, and Eliquis. He is stable for discharge today with follow up with [facility] for his acute necrotizing pancreatitis. Final diagnosis: Acute necrotizing pancreatitis, portal vein thrombosis, splenic thrombus, fatty liver disease Status at Discharge Cognitive/behavioral status at discharge: Alert and oriented x4 Functional status at discharge: independent ambulation Overall status at discharge: patient is progressing back to baseline Time Spent with Patient Time attestation: Total time spent providing and/or coordinating discharge services: Time spent: Greater than 30 minutes Exam Narrative: General: In no acute distress, well nourished Cardiac: Normal S1 and S2. RRR, No murmur, gallops or friction rubs, peripheral pulses intact. Respiratory: Lungs clear to auscultation, no adventitious lung sounds, currently on room air Gastrointestinal:non distended, soft, non tender, normoactive bowel sounds. Reporting BM today :voiding without difficulty. Neuro: Alert and oriented x4 DS: Data Data Completed and Pending Completed studies during hospitalization: Abdomen/pelvis CT Abdomen ultrasound MRCP Abdomen CT Pending studies at discharge: None Labs on day of discharge: Labs from last 24 hours 04/17/24 06:20 WBC 6.8 RBC 3.52 L Hgb 11.2 L Hct 32.6 L MCV 92.6 MCH 31.8 MCHC 34.4 RDW 12.4 Plt Count 271 MPV 9.6 Immature Gran % (Auto) 4.7 H Neut % (Auto) 62.0 Lymph % (Auto) 18.1 L [place] % (Auto) 9.0 H Eos % (Auto) 4.9 H Baso % (Auto) 1.3 H Lymph # (Auto) 1.22 [place] # (Auto) 0.6 Eos # (Auto) 0.3 Baso # (Auto) 0.1 Abs Immat Gran (auto) 0.32 H Absolute Neuts (auto) 4.2 Absolute Nucleated RBC 0.000 Nucleated RBC % 0.0 Sodium 135 L Potassium 3.4 Chloride 107 Carbon Dioxide 22 Anion Gap 6 BUN 12 Creatinine 0.71 Estim Creat Clear Calc 95 Estimated GFR > 60 Glucose 99 Calcium 8.1 L Total Bilirubin 0.4 AST 32 ALT 57 H Alkaline Phosphatase 68 Total Protein 6.0 L Albumin 3.2 L Procedures/Treatments: None Discharge Plan Discharge Attending physician on discharge: Tonio Coreas Consulting providers: Eun Marrufo; Rosy Jefferson Discharging Clinician: Rosy Jefferson Anticipated Discharge Date/Time: 04/17/24 08:18 Patient Disposition: Home, Self-Care Activity: as tolerated Diet: as tolerated and low fat Discharge Instructions: * Follow up with [facility] at [place] as soon as possible for your acute necrotizing pancreatitis * follow a low fat diet * Finish all of your antibiotics even if you are feeling better * Abstain from alcohol * You were started on Eliquis for your portal vein and splenic vein thrombus. You will need to take the 10mg dosing for the next 6 days then switch over to the 5 mg dosing. You will likely need another CT of the abdomen/pelvis in a few weeks. Let your hepatobiliary doctor know about your thrombosis. Patient Instructions: Antibiotic Form, Ciprofloxacin (By mouth), Metronidazole (By mouth), Apixaban (By mouth), Pancreatitis (DC), Low Fat Diet (DC), Venous Thromboembolism (DC) Patient Language: Mohawk Stand Alone Forms: General Discharge Information Follow-up/Referrals: Dedra Doty MD [Primary Care Provider] - 1 Week Discharge Medications: New hydrocodone-acetaminophen 5-325 mg Tablet 1 tablet PO Q4H PRN (Reason: Moderate Pain (4-6)) Qty: 20 0RF ciprofloxacin HCl 250 mg Tablet 750 mg PO Q12HR Qty: 12 0RF metronidazole 500 mg Tablet 500 mg PO Q8HR Qty: 14 0RF Eliquis 5 mg Tablet 10 mg PO Q12HR Qty: 12 0RF Eliquis 5 mg Tablet 5 mg PO Q12HR Qty: 30 0RF Continued colchicine 0.6 mg tablet 0.6 mg PO BID Qty: 20 3RF allopurinol 300 mg tablet 300 mg PO DAILY Qty: 90 1RF Rx Instructions: Start after acute gout episode has resolved. albuterol sulfate 90 mcg/actuation HFA aerosol inhaler 1 inh inhalation Q4H PRN (Reason: shortness of breath or wheezing) Qty: 8.5 1RF tamsulosin [Flomax] 0.4 mg capsule 0.4 mg PO QHS Qty: 30 6RF alprazolam 0.25 mg tablet 0.25 mg PO BID PRN (Reason: anxiety during flying ) Qty: 30 0RF sildenafil (pulm.hypertension) 20 mg tablet 20 mg PO .COMPLEX Qty: 60 6RF Rx Instructions: 20 mg orally; Take 5 tab 30 minutes before sexual activity. lisinopril 10 mg tablet 10 mg PO DAILY Qty: 30 5RF metoprolol succinate 25 mg tablet extended release 24 hr 25 mg PO DAILY Qty: 30 6RF Rx Instructions: at HS fenofibrate micronized 200 mg capsule 200 mg PO DAILY Qty: 30 5RF levothyroxine 25 mcg tablet 25 mcg PO DAILY Qty: 90 1RF Held diclofenac sodium 50 mg tablet,delayed release (DR/EC) 50 mg PO BID Qty: 40 3RF Hold Instructions: Resume on 05/15/24. Hold until your primary care doctor says it is safe to resume. This medication along with your Eliquis can increase the risk of gastrointestinal bleeding. Avoid NSAIDS. Rx Instructions: with food Date of admission: 04/12/24 11:02 Primary Care Provider: Dedra Doty Admitting Provider: David Hargrove Attending physician on admission: Milla Ling Condition: Improved Quality VTE Prophylaxis VTE prophylaxis: pharmacologic ordered
--- NOTE | 2024-04-17 10:07 | PM.PNGS ---
Progress Note: A&P Assessment and Plan (1) Acute necrotizing pancreatitis: Code(s): K85.91 - Acute pancreatitis with uninfected necrosis, unspecified Status: Acute Assessment and Plan: exam benign, cont ETOH abstinence, low fat diet, f/u c HBS, ok to dc home from surgery standpoint Subjective Subjective Date/Time Seen: 04/17/24 10:07 Interval history: feels much better, bryn low fat diet Review of Systems Review of Systems: All systems reviewed & are unremarkable except as noted in HPI and below Exam Const: General: cooperative, comfortable and no acute distress Resp: Auscultation: clear to auscultation bilaterally Cardio: Rate: regular rate Rhythm: regular rhythm GI: Inspection: normal to inspection and non-distended GI Palp: No abdominal tenderness, Yes Soft to palpation, No Tenderness to palpation present (GI), No Guarding due to palpation present (GI) and No Rigid due to palpation Objective Data Vital Signs Vital Signs: Vital Signs - 24 hr 04/16/24 14:00 04/16/24 20:00 04/16/24 20:32 Temperature 36.3 C L 36.1 C L Pulse Rate 74 70 Respiratory Rate 17 16 Blood Pressure 147/91 H 140/80 Pulse Oximetry 100 96 Oxygen Delivery Room Air 04/17/24 05:24 04/17/24 08:20 Temperature 36.2 C L Pulse Rate 71 91 Respiratory Rate 16 Blood Pressure 138/85 Pulse Oximetry 97 Oxygen Delivery Intake/Output Intake/Output: Intake & Output 04/14/24 04/15/24 04/16/24 04/17/24 23:59 23:59 23:59 23:59 Intake Total 4240 1440 4890 2300 Output Total 1500 2600 1850 Balance 2740 -1160 3040 2300 Meds/Results Medications: Active Medications Generic Name Dose Route Start Last Admin Trade Name Freq PRN Reason Stop Dose Admin Acetaminophen 650 mg 04/11/24 15:59 04/17/24 05:23 Acetaminophen 325 Mg Tablet PO 650 mg Q4H PRN Administration Mild Pain (1-3) or Fever Hydrocodone Bitart/Acetaminophen 1 tab 04/11/24 15:53 04/17/24 02:35 Hydrocodone/Acetaminophen (*Crx) 5-325 Mg Tablet PO 1 tab Q4H PRN Administration Moderate Pain (4-6) Albuterol 1 puff 04/11/24 22:43 Albuterol Sulfate (*Sp) Aerosol 1 Puff INHALATION Q4HRT PRN shortness of breath or wheezing Allopurinol 300 mg 04/12/24 09:00 04/17/24 08:20 Allopurinol 300 Mg Tablet PO 300 mg DAILY GENNARO Administration Alprazolam 0.25 mg 04/11/24 15:59 04/15/24 15:30 Alprazolam (*Crx) 0.25 Mg Tablet PO 0.25 mg BID PRN Administration Anxiety Apixaban 10 mg 04/16/24 21:00 04/17/24 08:20 Apixaban 5 Mg Tablet PO 04/23/24 09:01 10 mg Q12HR GENNARO Administration Apixaban 5 mg 04/23/24 21:00 Apixaban 5 Mg Tablet PO Q12HR GENNARO Bisacodyl 5 mg 04/11/24 15:53 Bisacodyl 5 Mg Tablet Ec PO DAILY PRN Constipation Ciprofloxacin 750 mg 04/15/24 21:00 04/17/24 08:20 Ciprofloxacin 250 Mg Tablet PO 04/21/24 23:59 750 mg Q12HR GENNARO Administration Colchicine 0.6 mg 04/12/24 09:00 04/17/24 08:20 Colchicine 0.6 Mg Tablet PO 0.6 mg BID GENNARO Administration Docusate Sodium 100 mg 04/11/24 17:00 04/17/24 08:21 Docusate Sodium 100 Mg Capsule PO Not Given BID GENNARO Fenofibrate 145 mg 04/12/24 09:00 04/17/24 08:20 Fenofibrate Nanocrystallized 145 Mg Tablet PO 05/12/24 08:59 145 mg DAILY GENNARO Administration Sodium Chloride 1,000 mls @ 100 mls/hr 04/11/24 15:55 04/17/24 04:03 Normal Saline Iv IV CONT 100 mls/hr .Q10H GENNARO Administration Levothyroxine Sodium 25 mcg 04/12/24 06:30 04/17/24 05:23 Levothyroxine Sodium 25 Mcg Tablet PO 25 mcg DAILY@0630 GENNARO Administration Lisinopril 10 mg 04/12/24 09:00 04/17/24 08:20 Lisinopril 10 Mg Tablet PO 10 mg DAILY GENNARO Administration Magnesium Hydroxide 30 ml 04/11/24 15:53 Magnesium Hydroxide Susp 30 Ml Udc PO DAILY PRN Constipation Metoprolol Succinate 25 mg 04/12/24 09:00 04/17/24 08:20 Metoprolol Succinate Ext Rel 25 Mg Tabcr PO 25 mg QAM GENNARO Administration Metronidazole 500 mg 04/16/24 14:00 04/17/24 05:23 Metronidazole 500 Mg Tablet PO 04/21/24 22:01 500 mg Q8HR GENNARO Administration Morphine Sulfate 2 mg 04/11/24 15:53 Morphine Sulfate (*Crx) 2 Mg/Ml Inj IV PUSH Q4H PRN Pain Rated 7-10 Morphine Sulfate 4 mg 04/11/24 15:59 04/14/24 01:48 Morphine Sulfate (*Crx) 4 Mg/Ml Inj IV PUSH 4 mg Q2H PRN Administration Pain Rated 7-10 Ondansetron HCl 4 mg 04/11/24 15:59 04/14/24 01:48 Ondansetron Inj 4 Mg/2 Ml Vial IV PUSH 4 mg Q4H PRN Administration Nausea Radiology Results: ITS Impressions Abdomen/Pelvis CT 04/11/24 13:41 IMPRESSION: Findings which in the appropriate clinical scenario suggest the presence of acute pancreatitis for which follow-up to resolution is recommended as a malignancy may have a similar appearance. Fatty infiltration of an enlarged liver Trace free fluid within the pelvis, never a normal finding in a male patient. Abdomen Ultrasound 04/11/24 16:45 IMPRESSION: Fat infiltration of the liver. Otherwise, limited abdominal ultrasound. MRCP 04/12/24 13:24 IMPRESSION: 1. Acute necrotic pancreatitis. 2. Diffuse hepatic steatosis. 3. Small left pleural effusion. Abdomen CT 04/15/24 09:20 IMPRESSION: 1. Necrotizing pancreatitis involving the tail of the pancreas. 2. 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 3. Fat infiltration of the liver with hepatomegaly. 4. Left basilar atelectasis versus pneumonia with minimal effusion. Labs Labs: Laboratory Results - last 24 hr 04/17/24 06:20 WBC 6.8 RBC 3.52 L Hgb 11.2 L Hct 32.6 L MCV 92.6 MCH 31.8 MCHC 34.4 RDW 12.4 Plt Count 271 MPV 9.6 Immature Gran % (Auto) 4.7 H Neut % (Auto) 62.0 Lymph % (Auto) 18.1 L [place] % (Auto) 9.0 H Eos % (Auto) 4.9 H Baso % (Auto) 1.3 H Lymph # (Auto) 1.22 [place] # (Auto) 0.6 Eos # (Auto) 0.3 Baso # (Auto) 0.1 Abs Immat Gran (auto) 0.32 H Absolute Neuts (auto) 4.2 Absolute Nucleated RBC 0.000 Nucleated RBC % 0.0 Sodium 135 L Potassium 3.4 Chloride 107 Carbon Dioxide 22 Anion Gap 6 BUN 12 Creatinine 0.71 Estim Creat Clear Calc 95 Estimated GFR > 60 Glucose 99 Calcium 8.1 L Total Bilirubin 0.4 AST 32 ALT 57 H Alkaline Phosphatase 68 Total Protein 6.0 L Albumin 3.2 L
[2024-04-17 10:59] LABS: Phosphorus 2.9 mg/dL (2.5-4.5)
[2024-04-17 11:25] LABS: Influenza A QL RT-PCR Negative (Negative); Influenza B QL RT-PCR Negative (Negative); RSV RNA, RT-PCR Negative (Negative); SARS-CoV-2 RNA PCR Negative (Negative)
--- OUTSIDE RECORDS SUMMARY | 2024-04-18 18:06 | XMS_ITS | Encounter Summary ---
Author Organization [facility] Address [address] [place] [id number] Care Team Providers Care Press Service Reader Name Role Phone Unavailable Primary Care Provider Unavailabl e Encounter Details Date Type Department Care Team (Late st Contact Info) Description 02/11/2020 Lab Requisition [facility] [address] [place] [address] [place] [address] [place] [address] Social History Tobacco Use Types Packs/Day Years Used Date Smoking Tobacco: Never Assessed Sex and Gender Information Value Date Recorded Sex Assigned at Not on file 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
--- OUTSIDE RECORDS SUMMARY | 2024-04-18 18:06 | XMS_ITS | Encounter Summary ---
Author Organization 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
--- OUTSIDE RECORDS SUMMARY | 2024-04-18 18:06 | XMS_ITS | Encounter Summary ---
Author Organization [facility] Address [address] [place] [id number] Care Team Providers Care Road Maker Name Role Phone Unavailable Primary Care Provider Unavailabl e Encounter Details Date Type Department Care Team (Late st Contact Info) Description 02/16/2020 Lab Requisition [facility] Community [facility] [address] [place] [address] [place] [address] [place] [address] Social History Tobacco Use Types Packs/Day Years Used Date Smoking Tobacco: Never Assessed Sex and Gender Information Value Date Recorded Sex Assigned at Not on file 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
--- OUTSIDE RECORDS SUMMARY | 2024-04-18 18:06 | XMS_ITS | Clinical Summary ---
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 Gender Identity Not on file Sexual Orientation Not on file Plan of Treatment Health Maintenance Due Date Last Done Comments Hepatitis C Virus (HCV) Screening 1965 TdaP Immunization 1965 Hepatitis B Immunization (1 of 3 - 19+ 3-dose series) 1984 Colonoscopy 2010 Colorectal Cancer Screening 2010 Cologuard 11/20/2015 Immunochemical Fecal Occult Blood 11/20/2015 Pneumococcal Immunization (5 0+ years) (1 of 1 - PCV) 11/20/2015 Zoster Immunization (1 of 2) 11/20/2015 PSA Discussion 2020 Influenza Immunization (#1) 2023 09/2 08/2019, 01/02/2015 SARS-COV-2 Immunization ( season) 2023 Respiratory Syncytial Virus (RSV) Immunization (Adult) (1 - 1-dose 75+ series) 2040 Meningococcal Immunization (ACWY) Aged Out No longer eligible b ased on patient's age to complete this topic Pneumococcal Immunization Combined Aged Out No longer eligible b ased on patient's age to complete this topic Rotavirus Immunization Aged Out No lo nger eligible based on patient's age to complete this topic
--- OUTSIDE RECORDS SUMMARY | 2024-04-18 18:06 | XMS_ITS | Encounter Summary ---
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
--- OUTSIDE RECORDS SUMMARY | 2024-04-18 18:07 | XMS_ITS | Encounter Summary ---
Author Organization [facility] Healthcare Address [address] [place] [address] Care Team Providers Care International Guest Coordinator Name Role Phone Dedra Doty MD Primary Care Provider Reason for Visit * Reason Comments URI Pt c/o nasal congest ion for several days, got dizzy today at lunch and headache since then. Encounter Details Date Type Department Care Team (Latest Contact Info) Description 03/08/2023 6:00 PM WEIGHT INSPECTOR Office Visit [facility] Medical Group Con[facility]ient Care at [address] [address] Bebe Farah, MARIANN [address] [place] [id number] Acute nasopharyngitis (Primary Dx) Social History Tobacco Use Types Packs/Day Years Used Date Smoking Tobacco: Never Smokeless Tobacco: Never Sex and Gender Information Value Date Recorded Sex Assigned at Not on file Legal Sex Male 8:25 PM WEIGHT INSPECTOR Gender Identity Not on file Sexual Orientation Not on file documented as of this encounter Last Filed Vital Signs Vital Sign Reading Time Taken Comments Blood Pressure 140/86 03/08/2023 5:53 PM WEIGHT INSPECTOR Pulse 72 03/08/2023 5:53 PM WEIGHT INSPECTOR Temperature 36.4 ??C (97.6 ??F) 03/08/2023 5:53 PM CS T Respiratory Rate 22 03/08/2023 5:53 PM WEIGHT INSPECTOR Oxygen Saturation 98% 03/08/2023 5:53 PM WEIGHT INSPECTOR Inhaled Oxygen Concentration - - Weight 75.3 kg (166 lb) 03/08/2023 5:53 PM WEIGHT INSPECTOR Height 172.7 cm (5' 8 ) 03/08/2023 5:53 PM WEIGHT INSPECTOR Body Mass Index 25.24 03/08/2023 5:53 PM WEIGHT INSPECTOR documented in this encounter Patient Instructions * Patient Instructions* Bebe Farah NP - 03/08/2023 6:00 PM WEIGHT INSPECTOR If you have no improvement or worsening of your symptoms, please follow up with your Primary Care Provider, Convenient Care and or Emergency Room. I strive to provide you with EXCELLENT service. You may receive a survey after your visit today. If you cannot rate your experience as EXCELLENT, please let us know how we can improve and better meet your needs. Thank you for choosing [facility]! It was my pleasure to see you today, I hope you feel better soon! Bebe Farah LEAD MACHINIST HT INSPECTOR * Attachments The following attachments cannot be sent through Care Everywhere. * Upper Respiratory Infection (Photo Checker) (Romanian) * Dizziness (AfterCare(R) Instructions(ER/ED)) (Romanian) documented in this encounter Progress Notes * Bebe Farah NP - 03/08/2023 6:00 PM CST Images from the original note were not included. Subjective/Objective Patient ID: Nikolay Ferro is a 57 y.o. male. Chief Complaint URI (Pt c/o nasal congestion for several days, got dizzy today at lunch and headache since then. ) Pt presents to [facility] Care URI This is a new problem. Episode onset: 2 days ago, monday. The problem has been unchanged. There hasbeen no fever. Associated symptoms include congestion and rhinorrhea. Pertinent negatives include no abdominal pain, chest pain, coughing, diarrhea, ear pain, headaches, nausea, neck pain, rash, shortness of breath, sinus pain, sneezing, sore throat, vomiting or wheezing. He has tried antihistaminefor the symptoms. The treatment provided no relief. tested positive for strep last week. Review of Systems Constitutional: Negative for appetite change, chills, diaphoresis, fatigue and fever. HENT: Positive for congestion, postnasal drip and rhinorrhea. Negative for ear discharge, ear pain,sinus pressure, sinus pain, sneezing, sore throat and trouble swallowing. Respiratory: Negative for cough, chest tightness, shortness of breath and wheezing. Cardiovascular: Negative for chest pain. Gastrointestinal: Negative for abdominal pain, diarrhea, nausea and vomiting. Musculoskeletal: Negative for myalgias, neck pain and neck stiffness. Skin: Negative for rash. Neurological: Positive for dizziness (Two episodes of dizziness while at work today, states he was standing in line waiting on his lunch and then once again when he was sitting down eating his lunch.). Negative for facial asymmetry and headaches. Hematological: Negative for adenopathy. Physical Exam Vitals and nursing note reviewed. Constitutional: General: He is awake. He is not in acute distress. Appearance: Normal appearance. HENT: Head: Normocephalic and atraumatic. Right Ear: Ear canal normal. A middle ear effusion is present. Tympanic membrane is not perforated,erythematous, retracted or bulging. Left Ear: Ear canal normal. A middle ear effusion is present. Tympanic membrane is not perforated, erythematous, retracted or bulging. Nose: Congestion and rhinorrhea present. Right Turbinates: Swollen. Left Turbinates: Swollen. Right Sinus: No maxillary sinus tenderness or frontal sinus tenderness. Left Sinus: No maxillary sinus tenderness or frontal sinus tenderness. Mouth/Throat: Lips: [place]. Mouth: Mucous membranes are moist. Tongue: Tongue does not deviate from midline. Pharynx: Uvula midline. No pharyngeal swelling, oropharyngeal exudate, posterior oropharyngeal erythema or uvula swelling. Tonsils: No tonsillar exudate or tonsillar abscesses. Eyes: General: Lids are normal. Pupils: Pupils are equal, round, and reactive to light. Cardiovascular: Rate and Rhythm: Normal rate and regular rhythm. Pulses: Normal pulses. Heart sounds: Normal heart sounds. Pulmonary: Effort: Pulmonary effort is normal. No respiratory distress. Breath sounds: Normal breath sounds. No decreased breath sounds, wheezing, rhonchi or rales. Musculoskeletal: Cervical back: Full passive range of motion without pain, normal range of motion and neck supple. Lymphadenopathy: Cervical: No cervical adenopathy. Skin: General: Skin is warm and dry. Neurological: Mental Status: He is alert and oriented to person, place, and time. Cranial Nerves: Cranial nerves 2-12 are intact. Sensory: Sensation is intact. Motor: Motor function is intact. Coordination: Coordination is intact. Gait: Gait normal. Psychiatric: Behavior: Behavior is cooperative. Vitals: 03/08/23 1753 BP: 140/86 Pulse: 72 Resp: 22 Temp: 36.4 ??C (97.6 ??F) SpO2: 98% Weight: 75.3 kg (166 lb) Height: 172.7 cm (5' 8 ) No results found. Past Medical History: Diagnosis Date Asthma environmental allergy induced Hyperlipidemia Hypertension Hypothyroidism Current Outpatient Medications: albuterol HFA (PROVENTIL HFA,VENTOLIN HFA,PROAIR HFA) 90 mcg/actuation inhaler, INL 1 PUFF PO Q 4 HPRF WHZ OR SOB, Disp: , Rfl: cetirizine (ZyrTEC) 10 mg tablet, , Disp: , Rfl: fenofibrate micronized (LOFIBRA) 200 mg capsule, Take 1 capsule (200 mg total) by mouth daily, Disp: , Rfl: levothyroxine (SYNTHROID) 25 mcg tablet, Take 1 tablet (25 mcg total) by mouth daily, Disp: , Rfl: lisinopriL (PRINIVIL,ZESTRIL) 10 mg tablet, Take 1 tablet (10 mg total) by mouth daily, Disp: , Rfl: metoprolol XL (TOPROL-XL) 25 mg extended release tablet, Take 1 tablet (25 mg total) by mouth nightly, Disp: , Rfl: sildenafiL, pulm.hypertension, (REVATIO) 20 mg tablet, TAKE FIVE TABLETS BY MOUTH 30 MINUTES BEFORESEXUAL ACTIVITY, Disp: , Rfl: Allergies Allergen Reactions Penicillins Social History Tobacco Use Smoking status: Never Smokeless tobacco: Never Substance and Sexual Activity Drug use: Yes Types: Marijuana Comment: gummies purchased this week Sexual activity: Not on file Alcohol Use: Not on file Past Surgical History: Procedure Laterality Date COLONOSCOPY UPPER GASTROINTESTINAL ENDOSCOPY WRIST SURGERY Right Assessment/Plan Diagnoses and all orders for this visit: Acute nasopharyngitis (Primary) - Influenza A/B, RSV, and COVID-19 PCR Nasopharyngeal; Future - POCT rapid strep A - Throat culture Throat; Future Recent Results (from the past 4 hour(s)) POCT rapid strep A Collection Time: 03/08/23 6:21 PM Result Value Ref Range Rapid Strep A, POC Negative Negative -if dizziness persist or worsens at any time or any new symptoms develop follow- up with PCP, or emergency room as needed. -discussed continuing Zyrtec, restarting his Flonase, and taking Coricidin per package directions Patient Education: The main treatment for respiratory infections of any kind is to rest, eat healthy, and drink plentyof fluids. Cold symptoms will likely last anywhere from 7-14 days with symptoms feeling much worse on days 3-5. Antibiotic medications do not cure a cold nor do antibiotic medications help to shortenthe symptoms of viral illness. -You may try: Nasal saline wash, either Neti Pot or Sinus Rinse DAILY or a saline nasal spray 3-4 times a day. Guaifenesin expectorants (Maximum Strength Mucinex, Robitussin, store brand) to loosen secretions. Warm salt water gargles as needed for sore throat. For cough you can use dextromethorphan (Delsym syrup, Robitussin cough capsules or store brand). Dextromethorphan is considered safe for and breast feeding women. You may try decongestants such as Sudafed (purchase at pharmacy) or Sudafed PE for congestion relief. Decongestants can keep you awake at night. Do not use decongestants if you have high blood pressure or if you are . If you have high blood pressure you can take otc Coricidin per package directions -Increase fluid intake: drink 2 liters (2 quarts) of non-caffeinated, non- alcoholic beverages daily, drinking alcohol causes nasal and sinus membranes to swell -Steam inhalation and warm compress to face often help relieve pressure -Avoid allergens and excessively dry heat -Sleep with head of bed elevated to encourage drainage. -Use of a humidifier if environment is heated by dry forced - air system -Avoid smoking, second-hand smoke and air pollutants. -If you are not improving within 2 weeks or worsening at anytime, follow up with your primary care provider, the [facility] Care and or the emergency room. Disposition Treatment plan including expectations, follow up, and return precautions discussed with patient/parent, verbalizes understanding. Medication dosage, use, and potential adverse reactions discussed with patient/parent. Advised to follow up with PCP if symptoms do not resolve as expected or sooner if condition worsens. Signs/symptoms warranting ER evaluation reviewed. Patient and/or guardian was given an opportunity to ask questions, questions answered. Bebe Farah NP This office note has been partially dictated using Socratic software, and as a result portions of the record may have been created with this software. Occasional wrong-word or '[id number]' substitutions may have occurred due to the inherent limitations of voice recognition software. Read the chartcarefully and recognize, using context, where substitutions have occurred. HT INSPECTOR documented in this encounter Plan of Treatment Upcoming Encounters Date Type Department Care Team (Late st Contact Info) Description 04/18/2024 6:04 PM WEIGHT INSPECTOR Hospital Encounter [facility] ([facility]) [address] [place] [address] Arrived 04/18/2024 6:05 PM WEIGHT INSPECTOR Hospital Encounter [facility] ([facility]) [address] [place] [address] Arrived 04/18/2024 6:07 PM WEIGHT INSPECTOR Hospital Encounter [facility] ([facility]) [address] [place] [address] Arrived documented as of this encounter Procedures Procedure Name Priority Date/Time Associated Diagnosis Comments POCT RAPID STREP Routine 03/08/2023 6:21 PM WEIGHT INSPECTOR Acute nasopharyngitis documented in this encounter Results * Throat culture Throat (03/08/2023 6:52 PM WEIGHT INSPECTOR) Report Final Report: No growth of pathogens. MICAH GRAHAM Comment:Testing performed by : [facility], [address] [place]., [address] Throat 03/08/2023 6:52 PM WEIGHT INSPECTOR 03/09/2023 12:35 PM WEIGHT INSPECTOR Narrative MICAH GRAHAM - 03/10/2023 8:09 AM WEIGHT INSPECTOR Testing performed by [facility] Microbiology Laboratory ([phone]). us Bebe Farah NP LAB MICROBIOLOGY - GENERAL MIGUEL HINOJOSA Final Result MICAH GRAHAM [address] Department [place] [address] * Influenza A/B, RSV, and COVID-19 PCR Nasopharyngeal (03/08/2023 6:52 PM WEIGHT INSPECTOR) [facility] COVID-19 RNA Negative Negative [facility] Influenza A RNA Negative Negative [facility] Influenza B RNA Negative Negative [facility] RSV RNA Negative Negative [facility] Comment: Interpretive data: This test is performed using the [employer] Xpert Xpress CoV-2/Flu/RSV plus assay. This is a multiplex, real-time reverse transcriptase PCR assay intended for the qualitative detection of nucleic acid from SARS-CoV-2, influenza A, influenza B, and respiratory syncytial virus. This assay has been reviewed by the FDA for Emergency Use Authorization (EUA). The performance characteristics have been verified by the performing laboratory. Results must be considered in the clinical context, and a negative result does not rule out infection. Interpretive Data last revised 2021. Nasopharyngeal 03/08/2023 6: 52 PM WEIGHT INSPECTOR 03/09/2023 9:39 AM WEIGHT INSPECTOR Narrative [facility] - 03/09/2023 10:41 AM WEIGHT INSPECTOR Is the Patient experiencing symptoms consistent with COVID?->Yes Date of Symptom Onset->03/05/23 Reason for testing?->Symptomatic Is the patient experiencing any symptoms consistent with COVID (eg. Fever, cough, shortness of breath)?->Yes What is the reason for testing?->Symptoms of COVID-19 in low-risk group (Batched) us Bebe Farah NP LAB MICROBIOLOGY - GENERAL [facility] Final Result MICAH GRAHAM [address] Department [place] [address] * POCT rapid strep A (03/08/2023 6:21 PM WEIGHT INSPECTOR) [facility] Rapid Strep A, POC Negative Negative Swab 03/08/2023 6:21 PM WEIGHT INSPECTOR us Ranita Farah CORPORATE INTERN POINT OF CARE TEST ORDERABLES F inal Result documented in this encounter Visit Diagnoses Diagnosis Acute nasopharyngitis- Primary Acute nasopharyngitis (common cold) Acute nasopharyngitis Acute nasopharyngitis (common cold) documented in this encounter Discontinued Medications Medication Sig Discontinue Reason Start Date End Da te levothyroxine (SYNTHROID) 175 mcg tablet daily 03/08/2023 predniSONE (DELTASONE) 10 mg tabletIndications:Poiso n lyssa dermatitis Take 3 tabs days 1 & 2, 2 tabs days 3 & 4, 1 tab days 5-7. 06/19/2022 03/08/2023 triamcinolone (KENALOG) 0.1 % creamIndications:skin rash Apply topically 2 (two) times a day for 7 days Not to face or private areas 06/19/2022 03/08/2023 documented as of this encounter Historical Medications * This list may reflect changes made after this encounter. levothyroxine (SYNTHROID) 25 mcg tablet Take 1 tablet (25 mcg total) by mouth daily 12/14/2022 sildenafiL, pulm.hypertension , (REVATIO) 20 mg tablet TAKE FIVE TABLETS BY MOUTH 30 MINUTES BEFORE SEXUAL ACTIVITY 03/06/2023 added in this encounter Additional Health Concerns Infection Onset Date Last Indicated Resolved Time COVID: Suspected 03/08/2023 03/08/2023 03/09/2023 3:05 AM WEIGHT INSPECTOR documented as of this encounter Care Teams International Guest Coordinator Relationship Specialty Start Date End Date Dedra Doty MD PCP - General 08/03/16 documented as of this encounter
--- OUTSIDE RECORDS SUMMARY | 2024-04-18 18:07 | XMS_ITS | Encounter Summary ---
Author Organization [facility] Healthcare Address [address] [place] [address] Care Team Providers Care Catalyst Unit Operator Name Role Phone Dedra Doty MD Primary Care Provider Reason for Visit * Reason Comments Abdominal Pain Extreme pain 9/10 pa in the whole abdominal pain and tightness, last bowl movement was maybe Monday Fever 100 last night Vomiting Dry heaving Encounter Details Date Type Department Care Team (Late st Contact Info) Description 04/11/2024 8:45 AM JIGMAN Office Visit [facility] Medical Group Convenient Care at [address] [address] Kendra Mendes NP [address] [place] [address] Diffuse abdominal pain (Primary Dx) Social History Tobacco Use Types Packs/Day Years Used Date Smoking Tobacco: Never Smokeless Tobacco: Never Sex and Gender Information Value Date Recorded Sex Assigned at Not on file Legal Sex Male 8:25 PM JIGMAN Gender Identity Not on file Sexual Orientation Not on file documented as of this encounter Last Filed Vital Signs Vital Sign Reading Time Taken Comments Blood Pressure 152/76 04/11/2024 8:26 AM JIGMAN Pulse 81 04/11/2024 8:26 AM JIGMAN Temperature 36.8 ??C (98.3 ??F) 04/11/2024 8:26 AM JIGMAN Respiratory Rate 18 04/11/2024 8:26 AM JIGMAN Oxygen Saturation 98% 04/11/2024 8:26 AM JIGMAN Inhaled Oxygen Concentration - - Weight 79.8 kg (175 lb 14.4 oz) 04/11/2024 8:26 AM JIGMAN Height 172.7 cm (5' 7.99 ) 04/11/2024 8:26 AM CS T Body Mass Index 26.75 04/11/2024 8:26 AM JIGMAN documented in this encounter Patient Instructions * Patient Instructions* Kendra Mendes NP - 04/11/2024 8:45 AM JIGMAN Patient presents patient presents today with complaints of abdominal pain beginning yesterday. Patient was experiencing fever last night. Reports abdominal bloating. Reports no BM x4 days. Patient reports nausea and dry heaving without vomiting. Reports he has urinating without burning however does not believe that he is urinating a normal amount. Denies any previous surgical history to his abdomen. 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 Hospital Encounter [facility] ([facility]) [facility] [place] [address] Arrived documented as of this encounter Visit Diagnoses Diagnosis Diffuse abdominal pain- Primary documented in this encounter Care Teams Catalyst Unit Operator Relationship Specialty Start Date End Date Dedra Doty MD PCP - General 08/03/16 documented as of this encounter
--- OUTSIDE RECORDS SUMMARY | 2024-04-18 18:07 | XMS_ITS | Encounter Summary ---
Author Organization [facility] Medical Group Address [address] [facility] [address] [place] [address] Care Team Providers Care Supplier Relationship Director Name Role Phone Dedra Doty MD Primary Care Provider Encounter Details Date Type Department Care Team (Late st Contact Info) Description 10/16/2022 Telephone [facility] Out[facility] [place] [address] [place] [address] Bebe Farah NP [address] [facility] [address] [place] [address] Social History Tobacco Use Types Packs/Day Years Used Date Smoking Tobacco: Never Smokeless Tobacco: Never Sex and Gender Information Value Date Recorded Sex Assigned at Not on file Legal Sex Male 8:25 PM DECORATOR LIGHTING FIXTURES Gender Identity Not on file Sexual Orientation Not on file documented as of this encounter Miscellaneous Notes * Telephone Encounter - Renetta Bowen - 10/16/2022 8:54 AM CDT PT stated they saw Bebe yesterday. He woke up at 2 am with extreme pain in ear. Took dose 3 of ear drops, wants to know if he can get oral RX for ear infection. And wants to know what he should usefor pain (taking large doses of Advil) documented in this encounter Plan of Treatment Upcoming Encounters Date Type Department Care Team (Late st Contact Info) Description 04/18/2024 6:04 PM DECORATOR LIGHTING FIXTURES Hospital Encounter [facility] ([facility]) [address] [place] [address] Arrived 04/18/2024 6:05 PM DECORATOR LIGHTING FIXTURES Hospital Encounter [facility] ([facility]) [address] [place] [address] Arrived 04/18/2024 6:07 PM [facility] Hospital Encounter [facility] ([facility]) [address] [place] [address] Arrived documented as of this encounter Visit Diagnoses Not on filedocumented in this encounter Care Teams Supplier Relationship Director Relationship Specialty Start Date End Date Dedra Doty MD PCP - General 08/03/16 documented as of this encounter
--- OUTSIDE RECORDS SUMMARY | 2024-04-18 18:07 | XMS_ITS | Referral Summary ---
Author Organization [facility] Address [address] [place] [address] Care Team Providers Care Sheet Sewer Name Role Phone Dedra Doty MD Primary Care Provider Encounters Date Type Department Care Team Description 04/18/2024 6:05 PM PUPIL PERSONNEL SERVICES DIRECTOR Hospital Encounter [facility] ([facility]) [address] [place] [address] Arrived 04/18/2024 6:04 PM PUPIL PERSONNEL SERVICES DIRECTOR Hospital Encounter [facility] ([facility]) [address] [place] [address] Arrived 04/18/2024 6:02 PM PUPIL PERSONNEL SERVICES DIRECTOR Hospital Encounter [facility] ([facility]) [address] [place] [address] Diagnosis unknown 04/18/2024 Telephone [facility] [address] [address] Jose Elias Messina MD Scheduling Appointments 04/16/2024 Telephone [facility] Floor [address] [place] [address] Jose Elias Messina MD 04/11/2024 8:45 AM PUPIL PERSONNEL SERVICES DIRECTOR Office Visit [facility] Care at [address] [address] Kendra Mendes, MARIANN Diffuse abdominal pain (Primary Dx) from Last 3 Months Allergies Active Allergy Reactions Criticality Noted Date Comments Penicillins Medications cetirizine (ZyrTEC) 10 mg tablet Active albuterol HFA (PROVENTIL HFA,VENTOLIN HFA,PROAIR HFA) 90 mcg/actuation inhaler INL 1 PUFF PO Q 4 H PRF WHZ OR SOB 08/19/2019 Active lisinopriL (PRINIVIL,ZESTR IL) 10 mg tablet Take 1 tablet (10 mg total) by mouth daily 02/25/2021 Active fenofibrate micronized (LOFIBRA) 200 mg capsule Take 1 capsule (200 mg total) by mouth daily 09/13/2021 Active metoprolol XL (TOPROL-XL) 25 mg extended release tablet Take 1 tablet (25 mg total) by mouth nightly Active sildenafiL, pulm.hypertensi on, (REVATIO) 20 mg tablet TAKE FIVE TABLETS BY MOUTH 30 MINUTES BEFORE SEXUAL ACTIVITY 03/06/2023 Active levothyroxine (SYNTHROID) 25 mcg tablet Take 1 tablet (25 mcg total) by mouth daily 12/14/2022 Active Active Problems Problem Noted Date Diagnosed Date Dyslipidemia 10/22/2021 Hepatic steatosis 09/27/2021 Assessment & Plan (09/27/2021 11:35 AM CDT): Patient with severe diffuse fatty liver disease noted on imaging (MRCP). Also with RUQ pain and history of pancreatitis with pancreas lesion. Liver tests from 03/18/21 were normal. He also has hypertriglyceridemia and his sister has high cholesterol, so there may be some genetic component for developing fatty when at normal weight/BMI. His RUQ pain may be explained by steatosis pathology but I will obtain a full set of labs to rule out other liver disease pathologies. I will also get a FibroScan to evaluate degree of steatosis and if any fibrosis is present. We have discussed the natural history of non-acoholic fatty liver disease, the risks of progression to cirrhosis, association with hepatocellular carcinoma and potential future need for liver transplantation. We have discussed that in patients with nonalcoholic fatty liver disease the main mortality risks are primarily due to cardiovascular diseases, non-hepatic malignancies or cancers and only thirdly, from complications of liver disease. We recommend weight loss through diet and exercise. We recommend weight loss of 10% of current body weight over a period of a year. However, weight loss is not applicable to him as he is of normal weight and BMI. He should exercise and eat healthy diet for overall good health. His symptoms may also be gallbladder related. RUQ pain worse with alcohol and fatty foods. However, his MRCP from 08/24/21 did not show any abnormality with gallbladder or bile ducts. If liver workup is unremarkable, then I will refer him to specialist who can evaluate as to whether this may be gallbladder related. Recommended he continue to minimize alcohol consumption, start on a low-fat, low-carb diet, and try to exercise in order to improve hepatic steatosis. He understands the plan and is in agreement. BP elevated to 160/103. He says his BP is normal at home. He will discuss with PCP if this occurs again. He is currently asymptomatic. He will return to clinic in 6 months. 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 Blister care discussed with patient. Sunscreen education provided. History of melanoma in situ 08/17/2015 Overview (07/20/2017): Description: NER Patient reassured. ABCDE's and photoprotection were reviewed. Recommend monthly self-skin checks. Recommend MD skin check every 1 years. Allergic contact dermatitis due to plants, excep t food 08/17/2015 Overview (07/20/2017): Description: Likely 2/2 poison lyssa Start Lidex cream, AAA neck and arms BID prn Avoid poison lyssa Skin benign neoplasm 08/17/2015 Overview (07/20/2017): Description: Nevi, Lentigines - Benign Patient reassured. ABCDE's and photoprotection were reviewed. Recommend monthly self-skin checks. Recommend MD skin check every 1 years. Social History Tobacco Use Types Packs/Day Years Used Date Smoking Tobacco: Never Smokeless Tobacco: Never Sex and Gender Information Value Date Recorded Sex Assigned at Not on file Legal Sex Male 8:25 PM PUPIL PERSONNEL SERVICES DIRECTOR Gender Identity Not on file Sexual Orientation Not on file Last Filed Vital Signs Vital Sign Reading Time Taken Comments Blood Pressure 152/76 04/11/2024 8:26 AM PUPIL PERSONNEL SERVICES DIRECTOR Pulse 81 04/11/2024 8:26 AM PUPIL PERSONNEL SERVICES DIRECTOR Temperature 36.8 ??C (98.3 ??F) 04/11/2024 8:26 AM CS T Respiratory Rate 18 04/11/2024 8:26 AM PUPIL PERSONNEL SERVICES DIRECTOR Oxygen Saturation 98% 04/11/2024 8:26 AM PUPIL PERSONNEL SERVICES DIRECTOR Inhaled Oxygen Concentration - - Weight 79.8 kg (175 lb 14.4 oz) 04/11/2024 8:26 AM PUPIL PERSONNEL SERVICES DIRECTOR Height 172.7 cm (5' 7.99 ) 04/11/2024 8:26 AM CS T Body Mass Index 26.75 04/11/2024 8:26 AM PUPIL PERSONNEL SERVICES DIRECTOR Plan of Treatment Upcoming Encounters Date Type Department Care Team (Late st Contact Info) Description 04/18/2024 6:04 PM PUPIL PERSONNEL SERVICES DIRECTOR Hospital Encounter [facility] ([facility]) [address] [place] [address] Arrived 04/18/2024 6:05 PM PUPIL PERSONNEL SERVICES DIRECTOR Hospital Encounter [facility] ([facility]) [address] [place] [address] Arrived Medical Devices Implanted Type Area Heel Attacher Wood Device Identifier Shelf Expiration Date Model / Serial / Lot Plate Plate Right: Wrist Procedures Procedure Name Priority Date/Time Associated Diagnosis Comments CT BODY OUTSIDE REFERENCE Routine 04/18/2024 6:05 PM PUPIL PERSONNEL SERVICES DIRECTOR CT BODY OUTSIDE REFERENCE Routine 04/18/2024 6:04 PM PUPIL PERSONNEL SERVICES DIRECTOR HEPATITIS C ANTIBODY Routine 09/28/2021 11:14 AM CDT Hepatic steatosis from Last 3 Months or Most Recently Relevant to Health Maintenance Results * CT Body Outside Reference (04/18/2024 6:05 PM PUPIL PERSONNEL SERVICES DIRECTOR) Impressions RAD_PACS_[facility]J - 04/18/2024 6:05 PM PUPIL PERSONNEL SERVICES DIRECTOR These images are for Reference purposes only and have not been reviewed by [facility]. ??There will be no report generated by a [facility] Radiologist. Narrative RAD_PACS_BJ - 04/18/2024 6:05 PM PUPIL PERSONNEL SERVICES DIRECTOR EXAMINATION: ??Images For Reference Purposes Only Jose Elias Messina MD IMG CT PROCEDURES Fi nal Result Performing Organization Address [facility] de Phone Number [facility] * CT Body Outside Reference (04/18/2024 6:04 PM PUPIL PERSONNEL SERVICES DIRECTOR) Impressions RAD_PACS_[facility]J - 04/18/2024 6:04 PM PUPIL PERSONNEL SERVICES DIRECTOR These images are for Reference purposes only and have not been reviewed by [facility]. ??There will be no report generated by a [facility] Radiologist. Narrative RAD_PACS_BJ - 04/18/2024 6:04 PM PUPIL PERSONNEL SERVICES DIRECTOR EXAMINATION: ??Images For Reference Purposes Only Jose Elias Messina MD IMG CT PROCEDURES Fi nal Result Performing Organization Address [facility] de Phone Number [facility] * Hepatitis C antibody (09/28/2021 11:14 AM CDT) Hep C Ab Nonreactive Nonreactive [facility] Comment:Antibodies to HCV no t detected. Does NOT exclude the possibility of recent exposure to HCV. Blood 09/28/2021 11:1 4 AM CDT 09/28/2021 11:34 AM CDT Reina Montenegro REMOTE CONTROL ASSEMBLER LAB MICROBIOLOGY - GENER AL ORDERABLES Edited Result - Final Performing Organization Address [facility] de Phone Number [facility] Department [place] [address] from Last 3 Months or Most Recently Relevant to Health Maintenance [place] Advance Directives For more information, please contact: [phone] * Full Code (Latest Code Status on File) Date Activated Date Inactivated Comments 11/07/2019 9:23 AM 11/07/2019 4:18 PM * Full Code Date Activated Date Inactivated Comments 09/09/2019 11:30 AM 09/09/2019 6:35 PM Care Teams Sheet Sewer Relationship Specialty Start Date End Date Dedra Doty MD PCP - General 08/03/16
--- OUTSIDE RECORDS SUMMARY | 2024-04-18 18:07 | XMS_ITS | Clinical Summary ---
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 Encounters Date Type Department Care Team Description 04/18/2024 6:05 PM [facility] Hospital Encounter [facility] ([facility]) [address] [place] [address] Arrived 04/18/2024 6:04 PM [facility] Hospital Encounter [facility] ([facility]) [address] [place] [address] Arrived 04/18/2024 6:02 PM [facility] Hospital Encounter [facility] ([facility]) [address] [place] [address] Diagnosis unknown 04/18/2024 Telephone [facility] Surgery [facility] Floor [address] [place] [address] Jose Elias Messina MD Scheduling Appointments 04/16/2024 Telephone [facility] Floor [address] [place] [address] Jose Elias Messina MD 04/11/2024 8:45 AM ELECTRONIC PREPRESS OPERATOR Office Visit [facility] Care at [address] [address] Kendra Mendes NP Diffuse abdominal pain (Primary Dx) from Last 3 Months Surgical History Surgery Date Site/Laterality Comments WRIST SURGERY Right COLONOSCOPY UPPER GASTROINTESTINAL ENDOSCOPY Medical History Medical History Date Comments Asthma environmental al lergy induced Hypothyroidism Hyperlipidemia Hypertension Family History Medical History Relation Name Comments No Known Problems Father No Known Problems Mother Relation Name Status Comments Father Mother Social History Tobacco Use Types Packs/Day Years Used Date Smoking Tobacco: Never Smokeless Tobacco: Never Sex and Gender Information Value Date Recorded Sex Assigned at Not on file Legal Sex Male 8:25 PM ELECTRONIC PREPRESS OPERATOR Gender Identity Not on file Sexual Orientation Not on file Obstetrics History Last Filed Vital Signs Vital Sign Reading Time Taken Comments Blood Pressure 152/76 04/11/2024 8:26 AM ELECTRONIC PREPRESS OPERATOR Pulse 81 04/11/2024 8:26 AM ELECTRONIC PREPRESS OPERATOR Temperature 36.8 ??C (98.3 ??F) 04/11/2024 8:26 AM CS T Respiratory Rate 18 04/11/2024 8:26 AM ELECTRONIC PREPRESS OPERATOR Oxygen Saturation 98% 04/11/2024 8:26 AM ELECTRONIC PREPRESS OPERATOR Inhaled Oxygen Concentration - - Weight 79.8 kg (175 lb 14.4 oz) 04/11/2024 8:26 AM ELECTRONIC PREPRESS OPERATOR Height 172.7 cm (5' 7.99 ) 04/11/2024 8:26 AM CS T Body Mass Index 26.75 04/11/2024 8:26 AM ELECTRONIC PREPRESS OPERATOR Plan of Treatment Upcoming Encounters Date Type Department Care Team (Late st Contact Info) Description 04/18/2024 6:04 PM ELECTRONIC PREPRESS OPERATOR Hospital Encounter [facility] [address] [place] [address] Arrived 04/18/2024 6:05 PM ELECTRONIC PREPRESS OPERATOR Hospital Encounter [facility]) [address] [place] [address] Arrived Health Maintenance Due Date Last Done Comments Colon Cancer Screening-Colonoscopy 1965 Depression Screening 1965 Prostate Cancer Screening-PSA 1965 Pneumococcal vaccine <65 (1 of 2 - PCV) 11/20/1971 DTaP/Tdap/Td Vaccine (1 - Tdap) 1976 Regular Well Visit/Exam 18-64 11/20/1983 Zoster Vaccine (1 of 2) 11/20/2015 Covid-19 Vaccine ( season) 2023 03/25/2021, 06/04/2020, 05/14/2020 Influenza Vaccine (#1) 2023 , 01/03/2020, 01/02/2015 Hepatitis B Screening Completed 09/28/2021 Hepatitis C Screening Completed 09/28/2021 Medical Devices Implanted Type Area Company Laundry Worker Device Identifier Shelf Expiration Date Model / Serial / Lot Plate Plate Right: Wrist Procedures Procedure Name Priority Date/Time Associated Diagnosis Comments CT BODY OUTSIDE REFERENCE Routine 04/18/2024 6:05 PM ELECTRONIC PREPRESS OPERATOR CT BODY OUTSIDE REFERENCE Routine 04/18/2024 6:04 PM ELECTRONIC PREPRESS OPERATOR HEPATITIS C ANTIBODY Routine 09/28/2021 11:14 AM CDT Hepatic steatosis from Last 3 Months or Most Recently Relevant to Health Maintenance Results * CT Body Outside Reference (04/18/2024 6:05 PM ELECTRONIC PREPRESS OPERATOR) Impressions RAD_PACS_[facility] - 04/18/2024 6:05 PM ELECTRONIC PREPRESS OPERATOR These images are for Reference purposes only and have not been reviewed by [facility] Radiology. ??There will be no report generated by a [facility] Radiologist. Narrative RAD_PACS_BJ - 04/18/2024 6:05 PM ELECTRONIC PREPRESS OPERATOR EXAMINATION: ??Images For Reference Purposes Only Jose Elias Messina MD IMG CT PROCEDURES Fi nal Result [facility] * CT Body Outside Reference (04/18/2024 6:04 PM ELECTRONIC PREPRESS OPERATOR) Impressions RAD_PACS_[facility] - 04/18/2024 6:04 PM ELECTRONIC PREPRESS OPERATOR These images are for Reference purposes only and have not been reviewed by [facility] Radiology. ??There will be no report generated by a [facility] Radiologist. Narrative RAD_PACS_[facility]J - 04/18/2024 6:04 PM ELECTRONIC PREPRESS OPERATOR EXAMINATION: ??Images For Reference Purposes Only Jose Elias Messina MD IMG CT PROCEDURES Fi nal Result [facility] * Hepatitis C antibody (09/28/2021 11:14 AM CDT) Hep C Ab Nonreactive Nonreactive [facility] Comment:Antibodies to HCV no t detected. Does NOT exclude the possibility of recent exposure to HCV. Blood 09/28/2021 11:1 4 AM CDT 09/28/2021 11:34 AM CDT Reina Montenegro NP LAB MICROBIOLOGY - GENER AL ORDERABLES Edited Result - Final [facility] Department [place] [address] from Last 3 Months or Most Recently Relevant to Health Maintenance [place] Advance Directives For more information, please contact: [phone] * Full Code (Latest Code Status on File) Date Activated Date Inactivated Comments 11/07/2019 9:23 AM 11/07/2019 4:18 PM * Full Code Date Activated Date Inactivated Comments 09/09/2019 11:30 AM 09/09/2019 6:35 PM Care Teams Audio Visual Director Relationship Specialty Start Date End Date Dedra Doty MD PCP - General 08/03/16
--- OUTSIDE RECORDS SUMMARY | 2024-04-18 18:07 | XMS_ITS | Encounter Summary ---
Author Organization [facility] Healthcare Address [address] [place] [address] Care Team Providers Care Travel Registered Nurse Icu Name Role Phone Dedra Doty MD Primary Care Provider [phone] Encounter Details Date Type Department Care Team (Latest Contact Info) Description 03/08/2023 6:52 PM ANODIZE MACHINE OPERATOR - 03/08/2023 11:59 PM ANODIZE MACHINE OPERATOR Hospital Encounter [address] [address] Acute nasopharyngitis Discharge Disposition: Discharge to home or self care Social History Tobacco Use Types Packs/Day Years Used Date Smoking Tobacco: Never Smokeless Tobacco: Never Sex and Gender Information Value Date Recorded Sex Assigned at Not on file Legal Sex Male 8:25 PM ANODIZE MACHINE OPERATOR Gender Identity Not on file Sexual Orientation Not on file documented as of this encounter Medications at Time of Discharge albuterol HFA (PROVENTIL HFA,VENTOLIN HFA,PROAIR HFA) 90 mcg/actuation inhaler INL 1 PUFF PO Q 4 H PRF WHZ OR SOB 08/19/2019 cetirizine (ZyrTEC) 10 mg tablet fenofibrate micronized (LOFIBRA) 200 mg capsule Take 1 capsule (200 mg total) by mouth daily 09/13/2021 levothyroxine (SYNTHROID) 25 mcg tablet Take 1 tablet (25 mcg total) by mouth daily 12/14/2022 lisinopriL (PRINIVIL,ZESTRIL ) 10 mg tablet Take 1 tablet (10 mg total) by mouth daily 02/25/2021 metoprolol XL (TOPROL-XL) 25 mg extended release tablet Take 1 tablet (25 mg total) by mouth nightly sildenafiL, pulm.hypertension , (REVATIO) 20 mg tablet TAKE FIVE TABLETS BY MOUTH 30 MINUTES BEFORE SEXUAL ACTIVITY 03/06/2023 documented as of this encounter Discharge Disposition Disposition Code Departure Means Destination Discharge to home or self care documented in this encounter Miscellaneous Notes * Result Encounter Note - Isatu Torres NP - 03/09/2023 10:44 AM ANODIZE MACHINE OPERATOR Please notify patient of negative COVID-19/RSV/FLU test. Patient should rest, stay hydrated, and take OTC medications as needed. Monitor symptoms and if they worsen follow up with primary care doctoror ER if needed. IZE MACHINE OPERATOR * Result Encounter Note - Cassi Acosta MA - 03/08/2023 11:59 PM ANODIZE MACHINE OPERATOR Called patient and informed them of their test negative test results. They had a good understanding. IZE MACHINE OPERATOR documented in this encounter Plan of Treatment Upcoming Encounters Date Type Department Care Team (Late st Contact Info) Description 04/18/2024 6:04 PM ANODIZE MACHINE OPERATOR Hospital Encounter [facility] ([facility]) [address] [place] [address] Arrived 04/18/2024 6:05 PM ANODIZE MACHINE OPERATOR Hospital Encounter [facility] ([facility]) [address] [place] [address] Arrived documented as of this encounter Procedures Procedure Name Priority Date/Time Associated Diagnosis Comments INFLUENZA A/B, RSV, AND COVID-19 PCR Routine 03/08/2023 6:52 PM ANODIZE MACHINE OPERATOR Acute nasopharyngitis THROAT CULTURE Routine 03/08/2023 6:52 PM ANODIZE MACHINE OPERATOR Acute nasopharyngitis documented in this encounter Results * Influenza A/B, RSV, and COVID-19 PCR Nasopharyngeal (03/08/2023 6:52 PM ANODIZE MACHINE OPERATOR) COVID-19 RNA Negative Negative [facility] Influenza A RNA Negative Negative [facility] Influenza B RNA Negative Negative [facility] RSV RNA Negative Negative [facility] Comment: Interpretive data: This test is performed using the [employer] Xpert Xpress CoV-2/Flu/RSV plus assay. This is [...] revised 2021. Nasopharyngeal 03/08/2023 6: 52 PM ANODIZE MACHINE OPERATOR 03/09/2023 9:39 AM ANODIZE MACHINE OPERATOR Narrative [facility] - 03/09/2023 10:41 AM ANODIZE MACHINE OPERATOR Is the Patient experiencing symptoms consistent with COVID?->Yes Date of Symptom Onset->03/05/23 Reason for testing?->Symptomatic Is the patient experiencing any symptoms consistent with COVID (eg. Fever, cough, shortness of breath)?->Yes What is the reason for testing?->Symptoms of COVID-19 in low-risk group (Batched) Bebe Farah NP LAB MICROBIOLOGY - [facility] Final Result [facility] [address] Department [place] [address] * Throat culture Throat (03/08/2023 6:52 PM ANODIZE MACHINE OPERATOR) Report Final Report: No growth of pathogens. [facility]AH Comment:Testing performed by : [facility], [address] [place] [address] Throat 03/08/2023 6:52 PM ANODIZE MACHINE OPERATOR 03/09/2023 12:35 PM ANODIZE MACHINE OPERATOR Narrative [facility] - 03/10/2023 8:09 AM ANODIZE MACHINE OPERATOR Testing performed by [facility] Microbiology Laboratory ([phone]). Bebe Farah NP LAB MICROBIOLOGY - GENERAL [facility] Final Result [facility] [address] Department of Laboratories [place], [place] [id number] documented in this encounter Visit Diagnoses Diagnosis Acute nasopharyngitis Acute nasopharyngitis (common cold) documented in this encounter Additional Health Concerns Infection Onset Date Last Indicated Resolved Time COVID: Suspected 03/08/2023 03/08/2023 03/09/2023 3:05 AM ANODIZE MACHINE OPERATOR documented as of this encounter Care Teams Travel Registered Nurse Icu Relationship Specialty Start Date End Date Dedra Doty MD PCP - General 08/03/16 documented as of this encounter
--- OUTSIDE RECORDS SUMMARY | 2024-04-18 18:07 | XMS_ITS | Encounter Summary ---
Author Organization [facility] Healthcare Address [address] [place] [id number] Care Team Providers Care Supervisor Fertilizer Name Role Phone Dedra Doty MD Primary Care Provider [phone] Reason for Visit * Reason Comments Sore Throat Symptoms started thi s morning Encounter Details Date Type Department Care Team (Late st Contact Info) Description 06/06/2023 6:[address] JUDGE Office Visit [facility] at [address] [phone] Bebe Farah NP [address] [place] [address] [address] [place] [address] COVID-19 (Primary Dx) Social History Tobacco Use Types Packs/Day Years Used Date Smoking Tobacco: Never Smokeless Tobacco: Never Sex and Gender Information Value Date Recorded Sex Assigned at Not on file Legal Sex Male 8:[address]GE Gender Identity Not on file Sexual Orientation Not on file documented as of this encounter Last Filed Vital Signs Vital Sign Reading Time Taken Comments Blood Pressure 115/77 06/06/2023 5:[address] JUDGE Pulse 94 06/06/2023 5:[address] JUDGE Temperature 36.9 ??C (98.5 ??F) 06/06/2023 5:38 PM CS T Respiratory Rate 20 06/06/2023 5:[address] JUDGE Oxygen Saturation 98% 06/06/2023 5:[address] JUDGE Inhaled Oxygen Concentration - - Weight 77.6 kg (171 lb) 06/06/2023 5:[address] JUDGE Height - - Body Mass Index 26 03/08/2023 5:[address] JUDGE documented in this encounter Patient Instructions * Patient Instructions* Bebe Farah, MARIANN - 06/06/2023 6:[address] JUDGE Hold sildenafil for the next 7 days If you have no improvement or worsening of your symptoms, please follow up with your Primary Care Provider, [facility] and or Emergency Room. I strive to provide you with EXCELLENT service. You may receive a survey after your visit today. If you cannot rate your experience as EXCELLENT, please let us know how we can improve and better meet your needs. Thank you for choosing [facility]! It was my pleasure to see you today, I hope you feel better soon! Bebe Farah AUTOMATIC SCREWMAKER Self-care: -You may try: Nasal saline wash, either [...] heated by dry forced - air system DO NOT smoke or vape. Nicotine and other chemicals in cigarettes and cigars can make your symptoms worse. Monitor your symptoms: Seek medical attention right away if your symptoms get worse, such as if you are having difficulty breathing, shortness of breath, new confusion or inability to arouse, or bluish lips or face. If you have a pulse ox monitor at home, monitor your oxygen saturations with this device. If you find your Oxygen Saturation is falling 92% or below please notify your PCP right away or seek medical attention. Or if you experience fever uncontrolled with antipyretics, shortness of breath, chest discomfort, uncontrolled n/v/d If you have a medical emergency, call 911 and notify the EMS personnel that you have or are being evaluated for COVID-19. Put on a facemask before emergency medical services arrive -If you are not improving within 2 weeks or worsening at anytime, follow up with your primary care provider, the [facility] and or the emergency room. If you had symptoms and: Your symptoms are improving You may end isolation after day 5 if: You are fever-free for 24 hours (without the use of fever-reducing medication). Your symptoms are not improving Continue to isolate until: You are fever-free for 24 hours (without the use of fever-reducing medication). Your symptoms are improving. 1 If you had symptoms and had: Moderate illness (you experienced shortness of breath or had difficulty breathing) You need to isolate through day 10. [facility] JUDGE [facility]OR [facility] JUDGE documented in this encounter Ordered Prescriptions Prescription Sig Dispense Quantity Refills Last Filled Start Date End Date nirmatrelvir 300 mg-ritonavir 100 mg (PAXLOVID 300mg-100 mg) tablets,dose pack tablets in a dose packIndications:C OVID-19 Take 300 mg nirmatrelvir (2 x 150 mg tablets) with 100 mg ritonavir (1 x 100 mg tablet) with all three tablets taken together by mouth twice daily for 5 days. 30 tablet 06/06/2023 4 documented in this encounter Progress Notes * Bebe Farah NP - 06/06/2023 6:00 PM CST Images from the original note were not included. Subjective/Objective Patient ID: Nikolay Ferro is a 57 y.o. male. Chief Complaint Sore Throat (Symptoms started this morning /) Pt presents to [facility] Sore Throat This is a new problem. Episode onset: last night. The problem has been gradually worsening. Neitherside of throat is experiencing more pain than the other. The maximum temperature recorded prior to his arrival was 100.4 - 100.9 F. The pain is moderate. Pertinent negatives include no abdominal pain, congestion, coughing, diarrhea, ear discharge, ear pain, headaches, neck pain, shortness of breath, trouble swallowing or vomiting. He has had no exposure to strep or mono. He has tried acetaminophen for the symptoms. The treatment provided moderate relief. Pt is vaccinated for covid Review of Systems Constitutional: Positive for fever. Negative for appetite change, chills, diaphoresis and fatigue. HENT: Positive for sore throat. Negative for congestion, ear discharge, ear pain, postnasal drip, rhinorrhea, sinus pressure, sinus pain, sneezing and trouble swallowing. Respiratory: Negative for cough, chest tightness, shortness of breath and wheezing. Cardiovascular: Negative for chest pain. Gastrointestinal: Negative for abdominal pain, diarrhea, nausea and vomiting. Musculoskeletal: Negative for myalgias, neck pain and neck stiffness. Skin: Negative for rash. Neurological: Negative for dizziness and headaches. Hematological: Negative for adenopathy. Physical Exam Vitals and nursing note reviewed. Constitutional: General: He is awake. He is not in acute distress. Appearance: Normal appearance. HENT: Head: Normocephalic and atraumatic. Right Ear: Tympanic membrane and ear canal normal. Left Ear: Tympanic membrane and ear canal normal. Nose: No congestion or rhinorrhea. Right Sinus: No maxillary sinus tenderness or frontal sinus tenderness. Left Sinus: No maxillary sinus tenderness or frontal sinus tenderness. Mouth/Throat: Lips: [place]. Mouth: Mucous membranes are moist. Tongue: Tongue [...] and oriented to person, place, and time. Gait: Gait normal. Psychiatric: Behavior: Behavior is cooperative. Vitals: 06/06/23 1738 BP: 115/77 Pulse: 94 Resp: 20 Temp: 36.9 ??C (98.5 ??F) TempSrc: Oral SpO2: 98% Weight: 77.6 kg (171 lb) No results found. Past Medical History: Diagnosis Date Asthma environmental allergy induced Hyperlipidemia Hypertension Hypothyroidism Patient Active Problem List Diagnosis Actinic keratosis History of melanoma in situ Allergic contact dermatitis due to plants, except food Skin benign neoplasm Pancreatic cyst Primary pancreatic neuroendocrine tumor Right wrist pain Hepatic steatosis Dyslipidemia Current Outpatient Medications: albuterol HFA (PROVENTIL HFA,VENTOLIN [...] 30 MINUTES BEFORESEXUAL ACTIVITY, Disp: , Rfl: nirmatrelvir 300 mg-ritonavir 100 mg (PAXLOVID 300mg-100 mg) tablets,dose pack tablets in a dose pack, Take 300 mg nirmatrelvir (2 x 150 mg tablets) with 100 mg ritonavir (1 x 100 mg tablet) with allthree tablets taken together by mouth twice daily for 5 days., Disp: 30 tablet, Rfl: 0 Allergies Allergen Reactions Penicillins Social History Tobacco Use Smoking status: Never Smokeless tobacco: Never Substance and Sexual Activity Drug use: Yes Types: Marijuana Comment: gummies purchased this week Sexual activity: Not on file Alcohol Use: Not on file Past Surgical History: Procedure Laterality Date COLONOSCOPY UPPER GASTROINTESTINAL ENDOSCOPY WRIST SURGERY Right Assessment/Plan Diagnoses and all orders for this visit: COVID-19 (Primary) - POCT rapid strep A - POC Influenza A/B, COVID-19 antigen - nirmatrelvir 300 mg-ritonavir 100 mg (PAXLOVID 300mg-100 mg) tablets,dose pack tablets in a dose pack; Take 300 mg nirmatrelvir (2 x 150 mg tablets) with 100 mg ritonavir (1 x 100 mg tablet) with all three tablets taken together by mouth twice daily for 5 days. Recent Results (from the past 4 hour(s)) POC Influenza A/B, COVID-19 antigen Collection Time: 06/06/23 5:47 PM Result Value Ref Range Influenza A Ag, POC Negative Negative Influenza B Ag, POC Negative Negative COVID-19 Ag POC Positive (A) Presumptive Negative, Invalid POCT rapid strep A Collection Time: 06/06/23 5:57 PM Result Value Ref Range Rapid Strep A, POC Negative Negative -discussed Paxlovid with patient, advised patient to read insert from pharmacy prior to taking medication. Patient requesting medication. Patient advised to not take sildenafil while on Paxlovid and for 3 days after finishing it. Patient Education: Self-care: -You may try: Nasal saline wash, either [...] heated by dry forced - air system DO NOT smoke or vape. Nicotine and other chemicals in cigarettes and cigars can make your symptoms worse. Monitor your symptoms: Seek medical attention right away if your symptoms get worse, such as if you are having difficulty breathing, shortness of breath, new confusion or inability to arouse, or bluish lips or face. If you have a pulse ox monitor at home, monitor your oxygen saturations with this device. If you find your Oxygen Saturation is falling 92% or below please notify your PCP right away or seek medical attention. Or if you experience fever uncontrolled with antipyretics, shortness of breath, chest discomfort, uncontrolled n/v/d If you have a medical emergency, call 911 and notify the EMS personnel that you have or are being evaluated for COVID-19. Put on a facemask before emergency medical services arrive -If you are not improving within 2 weeks or worsening at anytime, follow up with your primary care provider, the [facility] and or the emergency room. If you had symptoms and: Your symptoms are improving You may end isolation after day 5 if: You are fever-free for 24 hours (without the use of fever-reducing medication). Your symptoms are not improving Continue to isolate until: You are fever-free for 24 hours (without the use of fever-reducing medication). Your symptoms are improving. 1 If you had symptoms and had: Moderate illness (you experienced shortness of breath or had difficulty breathing) You need to isolate through day 10. Disposition Treatment plan including expectations, follow up, [...] office note has been partially dictated using [employer] Journalist software, and as a result portions of the record may have been created with this software. Occasional wrong-word or '[id number]' substitutions may have occurred due to the inherent limitations of voice recognition software. Read the chartcarefully and recognize, using context, where substitutions have occurred. Cosigned by Eulogio Boyd MD at 06/06/2023 11:[address] JUDGE [address] JUDGE [address] JUDGE documented in this encounter Plan of Treatment Upcoming Encounters Date Type Department Care Team (Late st Contact Info) Description 04/18/2024 6:[address] JUDGE Hospital Encounter [facility] ([facility]) [address] [place] [address] Arrived 04/18/2024 6:[address] JUDGE Hospital Encounter [facility] ([facility]) [address] [place] [id number] Arrived documented as of this encounter Procedures Procedure Name Priority Date/Time Associated Diagnosis Comments POCT RAPID STREP Routine 06/06/2023 5:[address] JUDGE COVID-19 POC INFLUENZA A/B, COVID-19 ANTIGEN Routine 06/06/2023 5:[address] JUDGE COVID-19 documented in this encounter Results * POCT rapid strep A (06/06/2023 5:[address] JUDGE) Rapid Strep A, POC Negative Negative Swab 06/06/2023 5:[address] JUDGE Bebe Farah NP POINT OF CARE TEST ORDERABLES F inal Result * (ABNORMAL) POC Influenza A/B, COVID-19 antigen (06/06/2023 5:[address] JUDGE) Influenza A Ag, POC Negative Negative [facility] Influenza B Ag, POC Negative Negative [facility] COVID-19 Ag POC Positive(A) Presumptive Negative, Invalid [facility] Nasal 06/06/2023 5:[address] JUDGE Bebe Farah BUSINESS INTEGRATION MANAGER POINT OF CARE TEST ORDERABLES F inal Result Performing Organization Address City/State/[facility] Co de Phone Number [facility] [address] documented in this encounter Visit Diagnoses Diagnosis COVID-19- Primary documented in this encounter Additional Health Concerns Infection Onset Date Last Indicated Resolved Time COVID19 06/06/2023 06/06/2023 06/16/2023 3:[address] JUDGE documented as of this encounter Care Teams Supervisor Fertilizer Relationship Specialty Start Date End Date Dedra Doty MD PCP - General 08/03/16 documented as of this encounter
--- OUTSIDE RECORDS SUMMARY | 2024-04-18 18:08 | XMS_ITS | Encounter Summary ---
Author Organization [facility] Address [address] [place] [address] Phone Care Team Providers Care Mattress Spring Encaser Name Role Phone Dedra Doty MD Primary Care Provider [phone] Encounter Details Date Type Department Care Team (Late st Contact Info) Description 10/21/2021 2:00 PM CDT Office Visit [facility] Endocrinology Metabolism and Lipid [address] [facility] 13th [place] [address] [place] [address] Jose Fox MD [address] [place], [place] [id number] Dyslipidemia (Primary Dx) Social History Tobacco Use Types Packs/Day Years Used Date Smoking Tobacco: Never Smokeless Tobacco: Never Sex and Gender Information Value Date Recorded Sex Assigned at Not on file 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 Gender Identity Not on file Sexual Orientation Not on file documented as of this encounter Last Filed Vital Signs Vital Sign Reading Time Taken Comments Blood Pressure 119/79 10/21/2021 1:49 PM CDT Pulse 72 10/21/2021 1:49 PM CDT Temperature 36.8 ??C (98.2 ??F) 10/21/2021 1:49 PM CD T Respiratory Rate - - Oxygen Saturation - - Inhaled Oxygen Concentration - - Weight 69.9 kg (154 lb) 10/21/2021 1:49 PM CDT Height 172.7 cm (5' 8 ) 10/21/2021 1:49 PM CDT Body Mass Index 23.42 10/21/2021 1:49 PM CDT documented in this encounter Patient Instructions * Patient Instructions* Jose Fox MD - 10/21/2021 2:00 PM CDT In general, attempt to engage in aerobic physical activity 3-4 sessions per week, lasting on average 40 minutes per session, and involving moderate to vigorous-intensity activity. Consume a dietary pattern that emphasizes intake of vegetables, fruits and whole grains, legumes, complex carbohydrates and lean proteins such as poultry and fish with polyunsaturated and monounsaturated fats and other non-tropical vegetable oils. Limit intake of sweets, sugar-sweetened beverages and red meats. Dietary plans that emphasize the above include the DASH diet and AHA diet. Aim for consuming no more than 2,400mg of sodium per day. For LDL-cholesterol lowering, aim for a dietary pattern that achieves 5-6% of calories from saturated fats. Avoid trans fat. Avoid tobacco use. Engage in efforts aimed at smoking cessation. Adults with elevated Blood pressure or hypertension should drink no more than 2 and 1 standard drinks per day, respectively. (one standard drink contains 14 grams of pure alcohol - usually 12oz beer,5oz wine, 1.5oz distilled spirits) In cases of emergency, please call 911. documented in this encounter Progress Notes * Avelino Lay MD - 10/21/2021 2:00 PM CDT Endocrine Established Patient Visit Subjective Patient is a 55 y.o. male presenting for consultation requested by Dr. Dedra Doty with chief complaint of dyslipidemia HPI: Mr. Ferro is a pleasant 55yo with a history of HTN, hypothyroidism, fatty liver, pancreatic neuroendocrine tumor and dyslipidemia who presents for follow up management of dyslipidemia. At last visit, dysplipidemia and lifestyle changes were discussed, including strict diet and regular aerobic exercise. Fenofibrate 200 mg was continued at that time. Since then, he visited hepatologywhere a fibroscan was notable for steatosis. Lipid panel on 08/05/21 showed triglycerides 366, LDL direct 89, cholesterol 186, HDL 27. Of note, he follows with Hepatobiliary at [facility] for his recent finding of malignant pancreatic neuroendocrine tumor. At last visit in August 2021, no tumor was seen on MRI/MRCP. Today, patient notes that he is overall doing well without any new issues or complaints. He continues to maintain calorie restrictions by avoiding simple carbs and sugary drinks. Has also completely cut out fast food from his regimen. He goes to the [facility] 4x per week and performs aerobic exercise for about 45 minutes. Also is weight lifting dumbbells on top of that. However, he continues to drink about 6 glasses of wine per week. Endorses chronic, unchanged mild RUQ pain and intermittent diarrhea (1-2x per week). Denies any fevers, chills, SOB, chest pain, nausea, vomiting, or other symptoms. 03/18/2021 Total cholesterol 439mg/dl HDL-c 12mg/dl Triglycerides 2,821mg/dl LDL-c not calculated Normal renal function Normal LFTs TSH 6.49 Free T4 0.95 08/05/21 Total cholesterol 186mg/dl HDL-c 27mg/dl Triglycerides 366mg/dl LDL-c 89mg/dl Patient Active Problem List Diagnosis ??? Actinic keratosis ??? History of melanoma in situ ??? Allergic contact dermatitis due to plants, except food ??? Skin benign neoplasm ??? Pancreatic cyst ??? Primary pancreatic neuroendocrine tumor ??? Right wrist pain ??? Hepatic steatosis Past Medical History: Diagnosis Date ??? Asthma environmental allergy induced ??? Hyperlipidemia ??? Hypothyroidism Past Surgical History: Procedure Laterality Date ??? COLONOSCOPY ??? UPPER GASTROINTESTINAL ENDOSCOPY ??? WRIST SURGERY Right Allergies Allergen Reactions ??? Penicillins Social History Tobacco Use ??? Smoking status: Never Smoker ??? Smokeless tobacco: Never Used Substance Use Topics ??? Alcohol use: Not on file Comment: none in last three wks/ socially prior Family History Problem Relation Age of Onset ??? No Known Problems Mother ??? No Known Problems Father Review of Systems Review of systems per HPI and otherwise all other systems are negative Objective Vitals: Vitals: 10/21/21 1349 BP: 119/79 BP Location: Right arm Patient Position: Sitting Pulse: 72 Temp: 36.8 ??C (98.2 ??F) TempSrc: Temporal Weight: 69.9 kg (154 lb) Height: 172.7 cm (5' 8 ) Body mass index is 23.42 kg/m??. Physical exam: Constitutional: Alert, cooperative, no distress, appears stated age, well developed, well nourished Head: Normocephalic, without obvious abnormality, atraumatic Eyes: Conjunctiva/corneas clear, both eyes, anicteric. PERRL. EOMI. Nose: Nares normal, septum midline, mucosa normal, no drainage or sinus tenderness Throat: Mucous membranes moist Neck: Supple, symmetrical, trachea midline, no adenopathy; Respiratory: Clear to auscultation bilaterally, respirations unlabored Cardiovascular: Regular rate and rhythm, S1 and S2 normal, no murmur, rub or gallop, no edema, pulses 2+ and symmetric to all extremeties Gastro: Soft, non-tender, bowel sounds active, no masses, no organomegaly, non-distended Musculoskeletal: Extremities normal, no cyanosis or edema. Missing nail on right fifth digit. Skin: Skin color, texture, turgor normal, no rashes or striae, lesions or bruising Neurologic: Alert & oriented x 4, CNII-XII grossely intact. Psychiatric: Normal affect and mood Lab/Radiology/Diagnostic Review: I have reviewed the labs and imaging. Problem List Items Addressed This Visit None Assessment/Plan: Mr. Ferro is a pleasant 55yo with a history of HTN, hypothyroidism, fatty liver, pancreatic neuroendocrine tumor and dyslipidemia who presents as a referral for evaluation of dyslipidemia. Dyslipidemia: -Significantly elevated fasting triglyceride with possible clinical pancreatitis episode in 2020, although this was not confirmed with laboratory testing. -Likely multifactorial in nature related to his liver disease, metabolic syndrome and some elementsof diet (alcohol, fast food). There may be some genetic contribution as well, such as familial combined hyperlipidemia. -continued to encourage lifestyle modifications: Severe HTG targets: <5% calories of added sugar, <=20 to 25% calories of total dietary fat, and alcohol abstinence Continue his aerobic exercise (at least 150 minutes of moderate intensity weekly) -continue fenofibrate 200mg -continue follow up with hepatology for steatosis of liver -discussed initiation of statins with patient given borderline ASCVD risk around 9%; pt to considerstarting therapy -follow up in 8 months Avelino Lay MD Internal Medicine PGY-3 Cosigned by Jose Fox MD at 10/22/2021 1:09 PM CDT Associated attestation - Jose Fox MD - 10/22/2021 1:09 PM CDT I have seen and examined the patient. I agree with the findings and plan of care as documented in the resident/fellow's note. My total encounter time on 10/21/2021 was 30 minutes which was spent in the activities documented in the note. This includes time spent prior to the visit and after the visitin direct care of the patient. This time does not include time spent in any separately reportable services. Triglycerides well controlled. 10yr ASCVD risk is intermediate at 9.1%. re- assess in 6-8 months, but at that time is risk remains intermediate, I would favor statin therapy given his history of hypertriglyceridemia, which is likely increasing his risk somewhat. documented in this encounter Plan of Treatment Upcoming Encounters Date Type Department Care Team (Late st Contact Info) Description 04/18/2024 6:04 PM [facility] Hospital Encounter [facility] ([facility]) [address] [place] [address] Arrived 04/18/2024 6:05 PM [facility] Hospital Encounter [facility] ([facility]) [address] [place] [address] Arrived 04/18/2024 6:07 PM [facility] Hospital Encounter [facility] ([facility]) [address] [place] [address] Arrived 04/18/2024 6:07 PM [facility] Hospital Encounter [facility] ([facility]) [address] [place] [address] Arrived documented as of this encounter Visit Diagnoses Diagnosis Dyslipidemia- Primary Other and unspecified hyperlipidemia documented in this encounter Discontinued Medications Medication Sig Discontinue Reason Start Date End Da te azithromycin (ZITHROMAX) 250 mg tablet TAKE 2 TABLETS BY MOUTH ON DAY 1 AND THEN TAKE 1 TABLET BY MOUTH ONCE A DAY ON DAY 2 THROUGH DAY 5 Therapy completed 10/25/2019 10/21/2021 cyclobenzaprine (FLEXERIL) 10 mg tablet TK 1 T PO TID PRN Therapy completed 08/13/2019 10/21/2021 ofloxacin (FLOXIN) 0.3 % otic solution INSTILL 10 DROPS INTO EACH EAR ONCE DAILY FOR 7 DAYS Therapy completed 10/25/2019 10/21/2021 oxyCODONE-acetaminophen (PERCOCET) 5-325 mg per tablet TK 1 TS PO Q 4 TO 6 H PRN P Therapy completed 08/30/2019 10/21/[address] (PROTONIX) 40 mg EC tablet TK 1 T PO BID FOR 14 DAYS Therapy completed 08/25/2019 10/21/2021 traMADoL (ULTRAM) 50 mg tablet TK 1 T PO Q 6 H PRN P Therapy completed 08/19/2019 10/21/2021 fenofibrate (TRICOR) 54 mg tablet TK 1 T PO QD 08/13/2019 10/21/2021 documented as of this encounter Historical Medications * This list may reflect changes made after this encounter. fenofibrate micronized (LOFIBRA) 200 mg capsule Take 1 capsule (200 mg total) by mouth daily 09/13/2021 added in this encounter Care Teams Mattress Spring Encaser Relationship Specialty Start Date End Date Dedra Doty MD PCP - General 08/03/16 documented as of this encounter
--- OUTSIDE RECORDS SUMMARY | 2024-04-18 18:08 | XMS_ITS | Encounter Summary ---
Author Organization [facility] Address [address] [facility] [address] [place] [address] Phone Care Team Providers Care Lab Rn Name Role Phone Dedra Doty MD Primary Care Provider [phone] Encounter Details Date Type Department Care Team (Late st Contact Info) Description 10/07/2022 Documentation [facility] Gastroenterology [facility] 12th [place] [address] [place] [address] Joselin Brand RN Social History Tobacco Use Types Packs/Day Years Used Date Smoking Tobacco: Never Smokeless Tobacco: Never Sex and Gender Information Value Date Recorded Sex Assigned at Not on file Legal Sex Male 8:25 PM SHIP UNLOADER Gender Identity Not on file Sexual Orientation Not on file documented as of this encounter Progress Notes * Joselin Brand RN - 10/07/2022 2:10 PM CDT Pt missed ROV with Reina Montenegro NP yesterday. Letter mailed to pt documented in this encounter Plan of Treatment Upcoming Encounters Date Type Department Care Team (Late Contact Info) Description 04/18/2024 6:04 PM SHIP UNLOADER Hospital Encounter [facility] [place] [facility] ([facility]) [address] [place] [address] Arrived 04/18/2024 6:05 PM SHIP UNLOADER Hospital Encounter [facility] ([facility]) [address] [place] [address] Arrived 04/18/2024 6:07 PM [facility] Hospital Encounter [facility] ([facility]) [address] [place] [address] Arrived 04/18/2024 6:07 PM [facility] Hospital Encounter [facility] ([facility]) [address] [place] [address] Arrived documented as of this encounter Visit Diagnoses Not on filedocumented in this encounter Care Teams Lab Rn Relationship Specialty Start Date End Date Dedra Doty MD PCP - General 08/03/16 documented as of this encounter
--- OUTSIDE RECORDS SUMMARY | 2024-04-18 18:08 | XMS_ITS | Encounter Summary ---
Author Organization [facility] Address [address] [place] [address] Care Team Providers Care Formula Clerk Name Role Phone Dedra Doty MD Primary Care Provider Encounter Details Date Type Department Care Team (Late st Contact Info) Description 02/14/2022 Orders Only [facility] Cardiology [address] [place] [address] Luis Garcia MD [address] [place] [address] Social History Tobacco Use Types Packs/Day Years Used Date Smoking Tobacco: Never Smokeless Tobacco: Never Sex and Gender Information Value Date Recorded Sex Assigned at Not on file Legal Sex Male 8:25 PM MANAGER BUSINESS INFORMATION Gender Identity Not on file Sexual Orientation Not on file documented as of this encounter Plan of Treatment Upcoming Encounters Date Type Department Care Team (Late st Contact Info) Description 04/18/2024 6:04 PM MANAGER BUSINESS INFORMATION Hospital Encounter [facility] ([facility]) [address] [place] [address] Arrived 04/18/2024 6:05 PM MANAGER BUSINESS INFORMATION Hospital Encounter [facility] ([facility]) [address] [place] [address] Arrived 04/18/2024 6:07 PM MANAGER BUSINESS INFORMATION Hospital Encounter [facility] ([facility]) [address] [place] [address] Arrived 04/18/2024 6:07 PM MANAGER BUSINESS INFORMATION Hospital Encounter [facility] ([facility]) [address] [place] [address] Arrived documented as of this encounter Procedures Procedure Name Priority Date/Time Associated Diagnosis Comments CARDIOLOGY DOCUMENT SCAN Routine 02/14/2022 documented in this encounter Results * Cardiology Document Scan (02/14/2022) Anatomical Region Laterality Modality Other us Luis Garcia MD CV CARDIAC SERVICES PROC EDURES Final Result documented in this encounter Visit Diagnoses Not on filedocumented in this encounter Care Teams Formula Clerk Relationship Specialty Start Date End Date Dedra Doty MD PCP - General 08/03/16 documented as of this encounter
--- OUTSIDE RECORDS SUMMARY | 2024-04-18 18:08 | XMS_ITS | Encounter Summary ---
Author Organization [facility] Address [address] [place] [address] Care Team Providers Care Dumbwaiter Operator Name Role Phone Dedra Doty MD Primary Care Provider Encounter Details Date Type Department Care Team (Late st Contact Info) Description 02/14/2022 Orders Only [facility] Cardiology [address] [place] [address] Luis Garcia MD [address] [place] [address] Social History Tobacco Use Types Packs/Day Years Used Date Smoking Tobacco: Never Smokeless Tobacco: Never Sex and Gender Information Value Date Recorded Sex Assigned at Not on file Legal Sex Male 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 Gender Identity Not on file Sexual Orientation Not on file documented as of this encounter Plan of Treatment Upcoming Encounters Date Type Department Care Team (Late st Contact Info) Description 04/18/2024 6:04 PM SOFTWARE 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 Hospital Encounter [facility] ([facility]) [address] [place] [address] Arrived 04/18/2024 6:05 PM SOFTWARE 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 Hospital Encounter [facility] ([facility]) [address] [place] [address] Arrived 04/18/2024 6:07 PM SOFTWARE 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 Hospital Encounter [facility] ([facility]) [address] [place] [address] Arrived 04/18/2024 6:07 PM SOFTWARE 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 Hospital Encounter [facility] ([facility]) [address] [place] [address] Arrived documented as of this encounter Procedures Procedure Name Priority Date/Time Associated Diagnosis Comments CARDIOLOGY DOCUMENT SCAN Routine 02/14/2022 documented in this encounter Results * Cardiology Document Scan (02/14/2022) Anatomical Region Laterality Modality Other us Luis Garcia MD CV CARDIAC SERVICES PROC EDURES Final Result documented in this encounter Visit Diagnoses Not on filedocumented in this encounter Care Teams Dumbwaiter Operator Relationship Specialty Start Date End Date Dedra Doty MD PCP - General 08/03/16 documented as of this encounter
--- OUTSIDE RECORDS SUMMARY | 2024-04-18 18:08 | XMS_ITS | Encounter Summary ---
Author Organization [facility] Address [address] [place] [address] Phone Care Team Providers Care Room Clerk Name Role Phone Dedra Doty MD Primary Care Provider [phone] Encounter Details Date Type Department Care Team (Late st Contact Info) Description 04/15/2022 Orders Only [facility] Gasteroenterology [address] [facility] 12th [place] [address] [place] [address] Reina Montenegro, MARIANN [address] [place] [address] NAFLD (nonalcoholic fatty liver disease) (Primary Dx) Social History Tobacco Use Types Packs/Day Years Used Date Smoking Tobacco: Never Smokeless Tobacco: Never Sex and Gender Information Value Date Recorded Sex Assigned at Not on file Legal Sex Male 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 Gender Identity Not on file Sexual Orientation Not on file documented as of this encounter Plan of Treatment Upcoming Encounters Date Type Department Care Team (Late st Contact Info) Description 04/18/2024 6:04 PM 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 Hospital Encounter [facility] ([facility]) [address] [place] [address] Arrived 04/18/2024 6:05 PM 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 Hospital Encounter [facility] ([facility]) [address] [place] [address] Arrived 04/18/2024 6:07 PM 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 Hospital Encounter [facility] ([facility]) [address] [place] [address] Arrived 04/18/2024 6:07 PM [facility] Hospital Encounter [facility] ([facility]) [address] [place] [address] Arrived documented as of this encounter Visit Diagnoses Diagnosis NAFLD (nonalcoholic fatty liver disease)- Primary documented in this encounter Care Teams Room Clerk Relationship Specialty Start Date End Date Dedra Doty MD PCP - General 08/03/16 documented as of this encounter
--- OUTSIDE RECORDS SUMMARY | 2024-04-18 18:08 | XMS_ITS | Encounter Summary ---
Author Organization [facility] Address [address] [place] [address] Phone Care Team Providers Care Varnish Blender Name Role Phone Dedra Doty MD Primary Care Provider Encounter Details Date Type Department Care Team (Late st Contact Info) Description 03/28/2022 Telephone [facility] Gastroenter[facility] [address]th [place] [address] [place] [phone] Joselin Brand RN Social History Tobacco Use Types Packs/Day Years Used Date Smoking Tobacco: Never Smokeless Tobacco: Never Sex and Gender Information Value Date Recorded Sex Assigned at Not on file Legal Sex Male 8:25 PM CARDIOPULMONARY SUPERVISOR Gender Identity Not on file Sexual Orientation Not on file documented as of this encounter Miscellaneous Notes * Result Encounter Note - Reina Montenegro NP - 04/15/2022 1:00 PM CARDIOPULMONARY SUPERVISOR Liver tests are completely normal. Sent my chart message that we will repeat labs again in 6 moths. IOPULMONARY SUPERVISOR * Telephone Encounter - Joselin Brand RN - 04/13/2022 1:55 PM CST Pt has not completed lab work yet. Sent my chart message yesterday and left voicemail today asking him to complete in next week or so. IOPULMONARY SUPERVISOR * Telephone Encounter - Joselin Brand RN - 03/28/2022 3:31 PM CST Had left message earlier for pt and he called back. He would prefer to push appt out to and get lab work now. Will get HFP either this Monday at [facility] (if lab open) or next week at [facility]. Orders placed for both. Rescheduled appt to 10/06/22 8am with Reina Montenegro NP ----- Message from Reina Montenegro NP sent at 03/28/2022 11:02 AM CARDIOPULMONARY SUPERVISOR ----- Bowen Richardson, Patient has upcoming appt with me on . I am fine with postponing his appt until this summeraround if he is agreeable. I would just like for him to get hepatic [facility] panel at [facility]. If he wants to keep appt for , that's fine too. Thanks! IOPULMONARY SUPERVISOR IOPULMONARY SUPERVISOR documented in this encounter Plan of Treatment Upcoming Encounters Date Type Department Care Team (Late st Contact Info) Description 04/18/2024 6:04 PM CARDIOPULMONARY SUPERVISOR Hospital Encounter [facility] [address] [place] [address] Arrived 04/18/2024 6:05 PM CARDIOPULMONARY SUPERVISOR Hospital Encounter [facility] [address] [place] [address] Arrived 04/18/2024 6:07 PM CARDIOPULMONARY SUPERVISOR Hospital Encounter [facility] [address] [place] [address] Arrived 04/18/2024 6:07 PM CARDIOPULMONARY SUPERVISOR Hospital Encounter [facility]) [address] [place] [address] Arrived documented as of this encounter Procedures Procedure Name Priority Date/Time Associated Diagnosis Comments HEPATIC FUNCTION PANEL Routine 04/13/2022 3:05 PM CARDIOPULMONARY SUPERVISOR Hepatic steatosis documented in this encounter Results * (ABNORMAL) Hepatic function panel (04/13/2022 3:05 PM CARDIOPULMONARY SUPERVISOR) Protein, sr 7.2 6.0 - 8.5 g/dL [facility] - 01 Albumin 4.6 3.8 - 4.9 g/dL [facility] - 01 Bilirubin, Total 0.2 0.0 - 1.2 mg/dL [facility] - 01 Bilirubin, direct <0.10 0.00 - 0.40 mg/dL [facility] - 01 Alk phos 27(L) 44 - 121 IU/L [facility] - 01 AST 21 0 - 40 IU/L [facility] - 01 ALT 35 0 - 44 IU/L [facility] - 01 Blood 04/13/2022 3:05 PM CARDIOPULMONARY SUPERVISOR 04/13/2022 Narrative [facility] - 04/14/2022 8:15 AM CARDIOPULMONARY SUPERVISOR Performed at: ??01 - [facility] [address] ??[id number] Corporate Trainer: Ney Becerra PhD, Phone: ??[phone] Reina Montenegro OCEAN CLAM BOAT CAPTAIN LAB BLOOD ORDERABLES Fin al Result [facility] - 01 documented in this encounter Visit Diagnoses Diagnosis Hepatic steatosis- Primary Other chronic nonalcoholic liver disease documented in this encounter Historical Medications * This list may reflect changes made after this encounter. metoprolol XL (TOPROL-XL) 25 mg extended release tablet Take 1 tablet (25 mg total) by mouth nightly added in this encounter Care Teams Varnish Blender Relationship Specialty Start Date End Date Dedra Doty MD PCP - General 08/03/16 documented as of this encounter
--- OUTSIDE RECORDS SUMMARY | 2024-04-18 18:08 | XMS_ITS | Encounter Summary ---
Author Organization [facility] Address [address] [facility] [address] [place] [id number] Care Team Providers Care Entertainment Usher Name Role Phone Dedra Doty MD Primary Care Provider Reason for Visit * Reason Comments Earache C/o right earache: p resent: x3 days Encounter Details Date Type Department Care Team (Late st Contact Info) Description 10/15/2022 9:15 AM CDT Office Visit [facility] Outpatient Center [address] [phone] Bebe Farah NP [address] [place] [address] [address] [place] [address] Acute swimmer's ear of right side (Primary Dx) Social History Tobacco Use Types Packs/Day Years Used Date Smoking Tobacco: Never Smokeless Tobacco: Never Sex and Gender Information Value Date Recorded Sex Assigned at Not on file Legal Sex Male 8:25 PM DIE EQUIPMENT OPERATOR Gender Identity Not on file Sexual Orientation Not on file documented as of this encounter Last Filed Vital Signs Vital Sign Reading Time Taken Comments Blood Pressure 138/88 10/15/2022 9:14 AM CDT Pulse 58 10/15/2022 9:14 AM CDT Temperature 36.5 ??C (97.7 ??F) 10/15/2022 9:14 AM CD T Respiratory Rate 18 10/15/2022 9:14 AM CDT Oxygen Saturation 100% 10/15/2022 9:14 AM CDT Inhaled Oxygen Concentration - - Weight 75.3 kg (166 lb) 10/15/2022 9:14 AM CDT Height 172.7 cm (5' 8 ) 10/15/2022 9:14 AM CDT Body Mass Index 25.24 10/15/2022 9:14 AM CDT documented in this encounter Patient Instructions * Patient Instructions* Bebe Farah NP - 10/15/2022 9:15 AM CDT Otitis Externa ?? Acetaminophen (Tylenol) or Ibuprofen (Advil, Motrin) for ear pain. You may alternate acetaminophen and ibuprofen every 3-4 hours to manage ear pain. Do not exceed recommended daily maximum dose ofeither product. ?? Position affected ear upwards for 5 minutes after application of ear drops. ?? Apply heat to the area around the ear to relieve pain using a warm washcloth, towel from the dryer, heating pad, hot water bottle. Do not leave heating pad turned on while sleeping. ?? Keep the infected ear dry. USE ear plugs or shower cap for showering. ?? Avoid swimming until infection has resolved. ?? Do not go under water in hot tubs. ?? To prevent future episodes, use over the counter ear products containing a diluted solution of acetic acid or rubbing alcohol after swimming to keep ear canal dry. Apply as directed and gently message to allow penetration. ?? Otitis Externa Follow Up Follow up with the clinic or your primary care provider if symptoms worsen or do not improve withinthe next 48 hours documented in this encounter Ordered Prescriptions Prescription Sig Dispense Quantity Refills Last Filled Start Date End Date ciprofloxacin-dexA METHasone (CIPRODEX) otic suspensionIndicati ons:Acute swimmer's ear of right side Administer 4 drops into the right ear 2 (two) times a day for 7 days 2.8 mL 10/15/2022 3 documented in this encounter Progress Notes * Bebe Farah NP - 10/15/2022 9:15 AM CDT Images from the original note were not included. Subjective/Objective Patient ID: Nikolay Ferro is a 56 y.o. male. Chief Complaint Earache (C/o right earache: present: x3 days /) Pt [facility] Pt states he has swimmers ear, and usually gets it about every other year. Patient states he has a pool and has been swimming a lot over the 11 of October. Patient states usually a [employer] works for his swimmer's ear. Earache There is pain in the right ear. This is a new problem. Episode onset: 3 days ago. The problem occurs constantly. The problem has been gradually worsening. There has been no fever. The pain is moderate. Pertinent negatives include no abdominal pain, coughing, diarrhea, ear discharge, headaches, neckpain, rash, rhinorrhea, sore throat or vomiting. He has tried nothing for the symptoms. Review of Systems Constitutional: Negative for appetite change, chills, diaphoresis, fatigue and fever. HENT: Positive for ear pain (right). Negative for congestion, ear discharge, postnasal drip, rhinorrhea, sinus pressure, sinus pain, sneezing, sore throat and [...] Exam Vitals and nursing note reviewed. Constitutional: Appearance: Normal appearance. He is not ill-appearing. HENT: Head: Normocephalic and atraumatic. Right Ear: Tympanic membrane normal. Left Ear: Tympanic membrane, ear canal and external ear normal. Ears: Comments: Right canal is edematous and erythematous, I am still able to visualize TM which is normal, patient does have pain with movement of pinna and tragus on right. Cardiovascular: Rate and Rhythm: Normal rate and regular rhythm. Pulses: Normal pulses. Heart sounds: Normal heart sounds. Pulmonary: Effort: Pulmonary effort is normal. Breath sounds: Normal breath sounds. Skin: General: Skin is warm and dry. Capillary Refill: Capillary refill takes less than 2 seconds. Neurological: Mental Status: He is alert and oriented to person, place, and time. Vitals: 10/15/22 0914 BP: 138/88 BP Location: Left arm Patient Position: Sitting Pulse: 58 Resp: 18 Temp: 36.5 ??C (97.7 ??F) SpO2: 100% Weight: 75.3 kg (166 lb) Height: 172.7 cm (5' 8 ) No results found. Past Medical History: Diagnosis Date Asthma environmental allergy induced Hyperlipidemia Hypothyroidism Current Outpatient Medications: albuterol HFA (PROVENTIL HFA,VENTOLIN HFA,PROAIR HFA) 90 mcg/actuation inhaler, INL 1 PUFF PO Q 4 HPRF WHZ OR SOB, Disp: , Rfl: cetirizine (ZyrTEC) 10 mg tablet, , Disp: , Rfl: fenofibrate micronized (LOFIBRA) 200 mg capsule, Take 1 capsule (200 mg total) by mouth daily, Disp: , Rfl: levothyroxine (SYNTHROID) 175 mcg tablet, daily , Disp: , Rfl: lisinopriL (PRINIVIL,ZESTRIL) 10 mg tablet, Take 1 tablet (10 mg total) by mouth daily, Disp: , Rfl: metoprolol XL (TOPROL-XL) 25 mg extended release tablet, Take 1 tablet (25 mg total) by mouth nightly, Disp: , Rfl: predniSONE (DELTASONE) 10 mg tablet, Take 3 tabs days 1 & 2, 2 tabs days 3 & 4, 1 tab days 5-7., Disp: 13 tablet, Rfl: 0 triamcinolone (KENALOG) 0.1 % cream, Apply topically 2 (two) times a day for 7 days Not to face or private areas, Disp: 45 g, Rfl: 0 ciprofloxacin-dexAMETHasone (CIPRODEX) otic suspension, Administer 4 drops into the right ear 2 (two) times a day for 7 days, Disp: 2.8 mL, Rfl: 0 Allergies Allergen Reactions Penicillins Social History Tobacco Use Smoking status: Never Smokeless tobacco: Never Substance and Sexual Activity Drug use: Yes Types: Marijuana Comment: gummies purchased this week Sexual activity: None Alcohol Use: Not on file Past Surgical History: Procedure Laterality Date COLONOSCOPY UPPER GASTROINTESTINAL ENDOSCOPY WRIST SURGERY Right Assessment/Plan Diagnoses and all orders for this visit: Acute swimmer's ear of right side (Primary) - ciprofloxacin-dexAMETHasone (CIPRODEX) otic suspension; Administer 4 drops into the right ear 2 (two) times a day for 7 days Patient Education: Otitis Externa ?? Acetaminophen (Tylenol) or Ibuprofen (Advil, Motrin) for ear pain. You may alternate acetaminophen and ibuprofen every 3-4 hours to manage ear pain. Do not exceed recommended daily maximum dose ofeither product. ?? Position affected ear upwards for 5 minutes after application of ear drops. ?? Apply heat to the area around the ear to relieve pain using a warm washcloth, towel from the dryer, heating pad, hot water bottle. Do not leave heating pad turned on while sleeping. ?? Keep the infected ear dry. USE ear plugs or shower cap for showering. ?? Avoid swimming until infection has resolved. ?? Do not go under water in hot tubs. ?? To prevent future episodes, use over the counter ear products containing a diluted solution of acetic acid or rubbing alcohol after swimming to keep ear canal dry. Apply as directed and gently message to allow penetration. ?? Otitis Externa Follow Up Follow up with the clinic or your primary care provider if symptoms worsen or do not improve withinthe next 48 hours Disposition Treatment plan including expectations, follow up, [...] office note has been partially dictated using [employer]lo software, and as a result portions of the record may have been created with this software. Occasional wrong-word or '[id number]' substitutions may have occurred due to the inherent limitations of voice recognition software. Read the chartcarefully and recognize, using context, where substitutions have occurred. documented in this encounter Plan of Treatment Upcoming Encounters Date Type Department Care Team (Late st Contact Info) Description 04/18/2024 6:04 PM [facility] Hospital Encounter [facility]) [address] [place] [address] Arrived 04/18/2024 6:05 PM [facility] Hospital Encounter [facility]) [facility] [place] [address] Arrived 04/18/2024 6:07 PM DIE EQUIPMENT OPERATOR Hospital Encounter [facility]) [address] [place] [address] Arrived documented as of this encounter Visit Diagnoses Diagnosis Acute swimmer's ear of right side- Primary documented in this encounter Care Teams Entertainment Usher Relationship Specialty Start Date End Date Dedra Doty MD PCP - General 08/03/16 documented as of this encounter
--- OUTSIDE RECORDS SUMMARY | 2024-04-18 18:08 | XMS_ITS | Encounter Summary ---
Author Organization [facility] Address [address] [facility] [address] [place] [address] Care Team Providers Care Material Cutter Name Role Phone Dedra Doty MD Primary Care Provider [phone] Reason for Visit * Reason Comments Poison Isa Possible poison isa itching redness on back of neck upper arm and genitalia Encounter Details Date Type Department Care Team (Late st Contact Info) Description 06/19/2022 11:45 AM CDT Office Visit [facility] Outpatient Center [address] [phone] Isatu Torres, MARIANN [address] [place] [id number] Poison isa dermatitis (Primary Dx) Social History Tobacco Use Types Packs/Day Years Used Date Smoking Tobacco: Never Smokeless Tobacco: Never Sex and Gender Information Value Date Recorded Sex Assigned at Not on file 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 Gender Identity Not on file Sexual Orientation Not on file documented as of this encounter Last Filed Vital Signs Vital Sign Reading Time Taken Comments Blood Pressure 119/76 06/19/2022 11:44 AM CDT Pulse 56 06/19/2022 11:44 AM CDT Temperature 36.4 ??C (97.6 ??F) 06/19/2022 11:44 AM C DT Respiratory Rate 14 06/19/2022 11:44 AM CDT Oxygen Saturation 99% 06/19/2022 11:44 AM CDT Inhaled Oxygen Concentration - - Weight 69.9 kg (154 lb) 06/19/2022 11:44 AM CDT Height 172.7 cm (5' 8 ) 06/19/2022 11:44 AM CDT Body Mass Index 23.42 06/19/2022 11:44 AM CDT documented in this encounter Patient Instructions * Patient Instructions* Isatu Torres NP - 06/19/2022 11:45 AM CDT -Please take all medications as prescribed. -Avoid the irritant/plant that started this rash, you will continue to have a reaction as long as you are exposed to it. -Avoid scratching or picking at rash. Doing so puts you at risk for a secondary skin infection. -Staying cool can help decrease the stinging and itching at rash site(s) (Take lukewarm bath or shower, NOT hot) -You may use drol-ivh-prpmupj anti-itch products as needed for comfort (calamine, Benadryl cream) Prevent a poison isa rash in the future: -Wear skin protection -Wash clothing after possible exposure -Bathe your pet: -Reduce exposure to poison isa -Do not burn poison isa plants -If prescribed an oral steroid: STEROID INSTRUCTIONS Take this medication with food, preferably breakfast. If taken too late, this medication can cause sleeplessness. Common side effects include increased blood pressure, increased water and sodium retention, increased weight gain, mood changes, and increased blood sugar. Do not take NSAIDS while taking this medication. This includes aspirin, Aleve, Ibuprofen, Naproxen,Midol, Advil, or any medications containing Ibuprofen or aspirin. TAKE ANTACIDS 2 HOURS APART FROM PREDNISONE Go to the ER or call 911 if you experience new onset fevers, personality changes, chest pain, uncontrollable blood sugars (in diabetics), stomach pain, severe generalized muscle pain, uncontrolled blood pressure, severe headaches, changes in vision, or seizures. GO TO THE EMERGENCY DEPARTMENT WITH ANY DEVELOPMENT OF FEVER, REDNESS, SWELLING, STREAKS COMING FROM THE RASH, OR TENDERNESS AROUND THE RASH * Attachments The following attachments cannot be sent through Care Everywhere. * Poison Isa (Discharge Care) (Thai) documented in this encounter Ordered Prescriptions Prescription Sig Dispense Quantity Refills Last Filled Start Date End Date triamcinolone (KENALOG) 0.1 % creamIndications:s kin rash Apply topically 2 (two) times a day for 7 days Not to face or private areas 45 g 06/19/2022 3 predniSONE (DELTASONE) 10 mg tabletIndications: Poison isa dermatitis Take 3 tabs days 1 & 2, 2 tabs days 3 & 4, 1 tab days 5-7. 13 tablet 06/19/2022 3 documented in this encounter Progress Notes * Isatu Torres, STACK SUPERVISOR - 06/19/2022 11:45 AM CDT Images from the original note were not included. Subjective/Objective Patient ID: Nikolay Ferro is a 56 y.o. male. Chief Complaint Poison Isa (Possible poison isa itching redness on back of neck upper arm and genitalia ) Patient presents to the clinic with reports of rash to his penis, right upper arm, neck, and under his left eye for 5 days. Patient reports that he was recently cleaning off his friends which had phillip wrapped around it. Patient denies vision changes, difficulty breathing, swelling or pain to penis, and drainage from rash. Patient has kept area clean at but not put anything on it. Review of Systems Constitutional: Negative for chills and fever. HENT: Negative for drooling. Respiratory: Negative for cough, chest tightness, shortness of breath and wheezing. Cardiovascular: Negative for chest pain. Gastrointestinal: Negative for diarrhea, nausea and vomiting. Skin: Positive for rash. Negative for color change, pallor and wound. Allergic/Immunologic: Negative for environmental allergies. Physical Exam Vitals reviewed. Constitutional: General: He is not in acute distress. Appearance: He is not ill-appearing. HENT: Nose: Nose normal. Mouth/Throat: Lips: [place]. Mouth: Mucous membranes are moist. Pharynx: No pharyngeal swelling. Eyes: General: Lids are normal. Conjunctiva/sclera: Conjunctivae normal. Pupils: Pupils are equal, round, and reactive to light. Cardiovascular: Rate and Rhythm: Normal rate. Pulmonary: Effort: Pulmonary effort is normal. No respiratory distress. Breath sounds: Normal breath sounds. No decreased breath sounds or wheezing. Genitourinary: Comments: Patient deferred exam to genitals. He did explain location of rash and what it currently looks like. Skin: General: Skin is warm and dry. Comments: To upper right arm, under left eye, on penis, and neck- Linear erythematous vesicles and papules present. No active drainage. Mild erythema surrounding lesions. No warmth or induration to site. No streaking from lesions. Neurological: Mental Status: He is alert. Psychiatric: Mood and Affect: Mood normal. Vitals: 06/19/22 1144 BP: 119/76 BP Location: Left arm Patient Position: Sitting Pulse: 56 Resp: 14 Temp: 36.4 ??C (97.6 ??F) TempSrc: Oral SpO2: 99% Weight: 69.9 kg (154 lb) Height: 172.7 cm (5' 8 ) Assessment/Plan -IM steroid given today due to rash on genitals -discussed starting oral prednisone tomorrow with a taper dose over the next 7 days -topical steroid prescribed for arm and neck, patient aware not to put on face and or genitals -patient will monitor symptoms and if they worsen he will follow-up with primary care doctor, clinic, or in the ER. Diagnoses and all orders for this visit: Poison isa dermatitis (Primary) - methylPREDNISolone sodium succinate (SOLU-medrol) preservative free injection 62.5 mg - predniSONE (DELTASONE) 10 mg tablet; Take 3 tabs days 1 & 2, 2 tabs days 3 & 4, 1 tab days 5-7. - triamcinolone (KENALOG) 0.1 % cream; Apply topically 2 (two) times a day for 7 days Not to face or private areas Patient Education: -Please take all medications as prescribed. -Avoid the irritant/plant that started this rash, you will continue to have a reaction as long as you are exposed to it. -Avoid scratching or picking at rash. Doing so puts you at risk for a secondary skin infection. -Staying cool can help decrease the stinging and itching at rash site(s) (Take lukewarm bath or shower, NOT hot) -You may use jlxw-wpv-npkgkxs anti-itch products as needed for comfort (calamine, Benadryl cream) Prevent a poison isa rash in the future: -Wear skin protection -Wash clothing after possible exposure -Bathe your pet: -Reduce exposure to poison isa -Do not burn poison isa plants -If prescribed an oral steroid: STEROID INSTRUCTIONS Take this medication with food, preferably breakfast. If taken too late, this medication can cause sleeplessness. Common side effects include increased blood pressure, increased water and sodium retention, increased weight gain, mood changes, and increased blood sugar. Do not take NSAIDS while taking this medication. This includes aspirin, Aleve, Ibuprofen, Naproxen,Midol, Advil, or any medications containing Ibuprofen or aspirin. TAKE ANTACIDS 2 HOURS APART FROM PREDNISONE Go to the ER or call 911 if you experience new onset fevers, personality changes, chest pain, uncontrollable blood sugars (in diabetics), stomach pain, severe generalized muscle pain, uncontrolled blood pressure, severe headaches, changes in vision, or seizures. GO TO THE EMERGENCY DEPARTMENT WITH ANY DEVELOPMENT OF FEVER, REDNESS, SWELLING, STREAKS COMING FROM THE RASH, OR TENDERNESS AROUND THE RASH Disposition Treatment plan including expectations, follow up, and return precautions discussed with patient/parent, verbalizes understanding. Medication dosage, use, and potential adverse reactions discussed with patient/parent. Advised to follow up with PCP if symptoms do not resolve as expected or sooner if condition worsens. Signs/symptoms warranting ER evaluation reviewed. Patient and/or guardian was given an opportunity to ask questions, questions answered. Isatu Torres NP 06/19/22 12:05 PM documented in this encounter Plan of Treatment Upcoming Encounters Date Type Department Care Team (Late st Contact Info) Description 04/18/2024 6:04 PM [facility] Hospital Encounter [facility] ([facility]) [address] [place] [address] Arrived 04/18/2024 6:05 PM [facility] Hospital Encounter [facility] ([facility]) [address] [place] [address] Arrived 04/18/2024 6:07 PM [facility] Hospital Encounter [facility] ([facility]) [address] [place] [address] Arrived 04/18/2024 6:07 PM [facility] Hospital Encounter [facility] ([facility]) [address] [place] [address] Arrived documented as of this encounter Visit Diagnoses Diagnosis Poison isa dermatitis- Primary documented in this encounter Orders Medications Ordered That Santiago ht Not Have Been Administered Count Last Ordered Date First Ordered Date methylPREDNISolone sodium wong ccinate (SOLU-medrol) preservative free injection 62.5 mg 1 06/19/2022 documented in this encounter Care Teams Material Cutter Relationship Specialty Start Date End Date Dedra Doty MD PCP - General 08/03/16 documented as of this encounter
--- OUTSIDE RECORDS SUMMARY | 2024-04-18 18:08 | XMS_ITS | Encounter Summary ---
Author Organization [facility] Address [address] [place] [address] Phone Care Team Providers Care Cartographic Designer Name Role Phone Dedra Doty MD Primary Care Provider [phone] Encounter Details Date Type Department Care Team (Late st Contact Info) Description 02/22/2022 Orders Only [facility] Surgery [address] [facility] Floor [address] [place] [address] Jose Elias Messina MD [address] [facility] [address] [place] [address] Primary pancreatic neuroendocrine tumor (Primary Dx) Social History Tobacco Use Types Packs/Day Years Used Date Smoking Tobacco: Never Smokeless Tobacco: Never Sex and Gender Information Value Date Recorded Sex Assigned at Not on file 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 Gender Identity Not on file Sexual Orientation Not on file documented as of this encounter Plan of Treatment Upcoming Encounters Date Type Department Care Team (Late st Contact Info) Description 04/18/2024 6:04 PM LUNCH TRUCK OPERATOR Hospital Encounter [facility] ([facility]) [address] [place] [address] Arrived 04/18/2024 6:05 PM LUNCH TRUCK OPERATOR Hospital Encounter [facility] ([facility]) [address] [place] [address] Arrived 04/18/2024 6:07 PM LUNCH TRUCK OPERATOR Hospital Encounter [facility] ([facility]) [address] [place] [address] Arrived 04/18/2024 6:07 PM LUNCH TRUCK OPERATOR Hospital Encounter [facility] ([facility]) [address] [place] [address] Arrived documented as of this encounter Visit Diagnoses Diagnosis Primary pancreatic neuroendocrine tumor- Primary documented in this encounter Care Teams Cartographic Designer Relationship Specialty Start Date End Date Dedra Doty MD PCP - General 08/03/16 documented as of this encounter
--- OUTSIDE RECORDS SUMMARY | 2024-04-18 18:09 | XMS_ITS | Encounter Summary ---
Author Organization [facility] Address [address] [facility] [address] [place] [address] Phone Care Team Providers Care Seam Sewer Name Role Phone Dedra Doty MD Primary Care Provider [phone] Reason for Referral * MRI/CAT/PET Scan (Routine) - Closed Specialty Diagnoses / Procedures Referred By Contac t Referred To Contact Radiology Diagnoses Primary pancreatic neuroendocrine tumor Procedures MRI Abdomen MRCP W WO Contrast Jose Elias Messina MD Phone: tel: fax: [address] [place] [address] Referral ID Status Reason Start Date Expiration Date Visits Re quested Visits Authorized [id number] Closed 08/23/2021 10/21/2021 1 1 [facility] Encounter Details Date Type Department Care Team (Late st Contact Info) Description 05/03/2021 Orders Only [facility] Surgery [address] [facility] Floor 1 [place] [id number] Jose Elias Messina MD [address] [facility] [address] [place], [place] [phone] Primary pancreatic neuroendocrine tumor (Primary Dx) Social History Tobacco Use Types Packs/Day Years Used Date Smoking Tobacco: Never Smokeless Tobacco: Never Sex and Gender Information Value Date Recorded Sex Assigned at Not on file Legal Sex Male 8:25 PM [facility] Gender Identity Not on file Sexual Orientation Not on file documented as of this encounter Plan of Treatment Upcoming Encounters Date Type Department Care Team (Late st Contact Info) Description 04/18/2024 6:04 PM [facility] Hospital Encounter [facility] ([facility]) [address] [place] [address] Arrived 04/18/2024 6:05 PM [facility] Hospital Encounter [facility] [address] [place] [address] Arrived 04/18/2024 6:07 PM [facility] Hospital Encounter [facility] ([facility]) [address] [place] [address] Arrived 04/18/2024 6:07 PM [facility] Hospital Encounter [facility] ([facility]) [address] [place] [address] Arrived documented as of this encounter Results * MRI Abdomen MRCP W WO Contrast (08/24/2021 3:42 PM CDT) Anatomical Region Laterality Modality Body N/A Magnetic Resonan ce 08/24/2021 4:06 PM CDT Impressions 08/25/2021 11:23 AM CDT 1. ??Unremarkable pancreas. Pancreatic head lesion seen on CT dated 08/25/2019 is not appreciated on today's examination. 2. ??Severe diffuse hepatic steatosis. Dictated by: Mouna Yung M.D. The radiology attending physician has personally reviewed this study, and had reviewed and/or edited this written report and agrees with it. Electronically signed by: Silvestre Cuevas M.D. Narrative 08/25/2021 11:23 AM CDT EXAMINATION: MRI ABDOMEN MRCP W WO CONTRAST HISTORY: 55 year old man with pancreatic head lesion post biopsy dated 09/09/2019 demonstrating malignant neuroendocrine tumor. TECHNIQUE: Magnetic resonance imaging of the abdomen was performed prior to and following the uneventful administration of intravenous Gadolinium contrast. The raw data was processed on the scanner by the technologist for 3 dimensional reconstructions of the intrahepatic ducts, extrahepatics ducts, and pancreatic duct. Protocol: Liver MRCP Contrast: Eovist 16 mL COMPARISON: MRI abdomen dated 06/22/2020. FINDINGS: Liver: Severe diffuse hepatic steatosis. ??No iron deposition. - Bile ducts: No dilatation. - Focal liver lesions: Unchanged small hypervascular lesion within hepatic segment 7. ??Subcentimeter hemangioma in hepatic segment 6. - Vasculature: Conventional hepatic anatomy. ??Portal and hepatic veins are patent. Gallbladder: Normal. Pancreas: Normal. ??Pancreatic head lesion seen on CT dated 08/25/2019 is not appreciated on today's examination. Spleen: Normal. Adrenals: Normal. Kidneys: Normal. ??No hydronephrosis. Other Findings: Visualized lung bases are clear. ??No lymphadenopathy. No bowel obstruction. ??Unchanged intraosseous hemangioma in T12 vertebral body. ??Nonaneurysmal abdominal aorta with atherosclerotic calcifications. ?? Procedure Note Silvestre Cuevas MD - 08/25/2021 EXAMINATION: MRI ABDOMEN MRCP W WO CONTRAST HISTORY: 55 year old man with pancreatic head lesion post biopsy dated 09/09/2019 demonstrating malignant neuroendocrine tumor. TECHNIQUE: Magnetic resonance imaging of the abdomen was performed prior to and following the uneventful administration of intravenous Gadolinium contrast. The raw data was processed on the scanner by the technologist for 3 dimensional reconstructions of the intrahepatic ducts, extrahepatics ducts, and pancreatic duct. Protocol: Liver MRCP Contrast: Eovist 16 mL COMPARISON: MRI abdomen dated 06/22/2020. FINDINGS: Liver: Severe diffuse hepatic steatosis. No iron deposition. - Bile ducts: No dilatation. - Focal liver lesions: Unchanged small hypervascular lesion within hepatic segment 7. Subcentimeter hemangioma in hepatic segment 6. - Vasculature: Conventional hepatic anatomy. Portal and hepatic veins are patent. Gallbladder: Normal. Pancreas: Normal. Pancreatic head lesion seen on CT dated 08/25/2019 is not appreciated on today's examination. Spleen: Normal. Adrenals: Normal. Kidneys: Normal. No hydronephrosis. Other Findings: Visualized lung bases are clear. No lymphadenopathy. No bowel obstruction. Unchanged intraosseous hemangioma in T12 vertebral body. Nonaneurysmal abdominal aorta with atherosclerotic calcifications. IMPRESSION: 1. Unremarkable pancreas. Pancreatic head lesion seen on CT dated 08/25/2019 is not appreciated on today's examination. 2. Severe diffuse hepatic steatosis. Dictated by: Mouna Yung M.D. The radiology attending physician has personally reviewed this study, and had reviewed and/or edited this written report and agrees with it. Electronically signed by: Silvestre Cuevas M.D. Jose Elias Messina MD IMG MRI PROCEDURES F inal Result documented in this encounter Visit Diagnoses Diagnosis Primary pancreatic neuroendocrine tumor- Primary Primary pancreatic neuroendocrine tumor documented in this encounter Care Teams Seam Sewer Relationship Specialty Start Date End Date Dedra Doty MD PCP - General 08/03/16 documented as of this encounter
--- OUTSIDE RECORDS SUMMARY | 2024-04-18 18:09 | XMS_ITS | Encounter Summary ---
Author Organization [facility] Address [address] [facility] [address] [place] [address] Phone Care Team Providers Care Early Childhood Education Specialist Name Role Phone Dedra Doty MD Primary Care Provider Encounter Details Date Type Department Care Team (Latest Contact Info) Description 08/24/2021 3:45 PM CDT Office Visit [facility] Surgery [address] [facility] [address] [place] [id number] Jose Elias Messina MD [address] [facility] [address] [place] [address] Primary pancreatic neuroendocrine tumor (Primary Dx) Social History Tobacco Use Types Packs/Day Years Used Date Smoking Tobacco: Never Smokeless Tobacco: Never Sex and Gender Information Value Date Recorded Sex Assigned at Not on file 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 Gender Identity Not on file Sexual Orientation Not on file documented as of this encounter Last Filed Vital Signs Vital Sign Reading Time Taken Comments Blood Pressure 131/82 08/24/2021 3:46 PM CDT Pulse 78 08/24/2021 3:46 PM CDT Temperature 36.8 ??C (98.2 ??F) 08/24/2021 3:46 PM CD T Respiratory Rate 16 08/24/2021 3:46 PM CDT Oxygen Saturation 98% 08/24/2021 3:46 PM CDT Inhaled Oxygen Concentration - - Weight 71.8 kg (158 lb 3.2 oz) 08/24/2021 3:46 P M CDT Height - - Body Mass Index 24.05 07/08/2021 2:00 PM CDT documented in this encounter Progress Notes * Lio Moore MD - 08/24/2021 3:45 PM CDT FOLLOW-UP VISIT DATE OF VISIT: 08/24/2021 REASON FOR VISIT: Mr. Ibrahim is a 55 y.o. male who presents today for a routine follow-up visit after treatment for pancreatic head neuroendocrine tumor vs lymphoma. Mr. Ibrahim is a 54 year old male with an incidental finding of a 1.0 cm pancreatic lesion that was found on workup for right upper quadrant and epigastric pain. CT imaging showed a 1.0 cm pancreatic head lesion. He underwent an EUS where endosonographically the lesion appeared to be a neuroendocrine tumor and staged at T1N0. The mass was biopsied and showed malignant neoplasm consistent with neuroendocrine tumor or lymphoma. His case was presented at the pancreas multi-disciplinary conferencewhere his imaging was reviewed and showed a single lesion arising anteriorly in the pancreatic headthat is not consistent with the lesion visualized on EUS. Pathology was reviewed showing a very small sample that appeared malignant with some necrosis favoring poorly differentiated neuroendocrine carcinoma. MRCP on 11/04/2019 demonstrated likely a substantial decrease in size of the known pancreatic head mass. A repeat EUS was performed on 11/07/19 also revealed the pancreatic head lesion to be smaller compared to the previous examination (was 9 mm, now 5 mm), consistent with a benign process. MRI performed 06/22/20 demonstrated no discrete pancreatic head lesion and moderate to severe diffusehepatic steatosis. He was last seen in our clinic on 06/22/20, at which time he was doing well overall but complained of mild RUQ discomfort that was most likely explained by his steatosis, as he had no gallstones on MRI and his symptoms were not classic for biliary colic. He was asked to decrease alcohol consumption,start on a low- fat, low-carb diet, and to return to regular exercise in order to decrease his risksof worsening hepatic steatosis. He was also asked to come back in 1 year with a repeat MRCP to evaluate for an interval change in the pancreatic lesion. HISTORY OF PRESENT ILLNESS: Since his last visit, Mr. Ibrahim has been doing well with no specificcomplaints. He has been having normal bowel movements and urination. No fevers or chills. He has dramatically changed his lifestyle and has lost 10 lb and has been working out. His energy level is good. I personally reviewed his MRI with MRCP from 08/24/2021 which demonstrates normal anatomy and no evidence of any pancreatic tumors. His liver remains steatotic which is unchanged from his previous scan. Review of systems is negative except for that stated in the HPI PHYSICAL EXAMINATION: VITAL SIGNS: Weight - pounds, Blood pressure - , Heart rate - bpm, Temperature - ??F. GENERAL: Alert and oriented x 3 in no apparent distress. ABDOMEN: Soft, non-tender, nondistended. 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 This lesion is not present on the scan again from today. PLAN: Continue surveillance and follow-up. I will see Mr. Ibrahim back in 1 year with repeat cross-sectional imaging for continued follow-up. I answered all of Mr. Ibrahim???s questions to his satisfaction. Jose Elias Messina M.D., M.P.H.S. Business Administration Program Chair of Hepatobiliary, Pancreatic, and Gastrointestinal, Surgery CC: Dedra Doty MD Patient Care Team: Dedra Doty MD as PCP - General Dedra Doty MD Cosigned by Jose Elias Messina MD at 08/27/2021 2:23 PM CDT Associated attestation - Jose Elias Messina MD - 08/27/2021 2:23 PM CDT I personally saw and examined this patient on 08/24/2021 and I agree with the resident's assessmentand plan. I personally reviewed his MRI imaging which did not demonstrate any pancreatic lesions. documented in this encounter Plan of Treatment Upcoming Encounters Date Type Department Care Team (Late st Contact Info) Description 04/18/2024 6:04 PM AUDIO VISUAL TECHNICIAN Hospital Encounter [facility] ([facility]) [address] [place] [address] Arrived 04/18/2024 6:05 PM AUDIO VISUAL TECHNICIAN Hospital Encounter [facility] ([facility]) [address] [place] [address] Arrived 04/18/2024 6:07 PM AUDIO VISUAL TECHNICIAN Hospital Encounter [facility] ([facility]) [address] [place] [address] Arrived 04/18/2024 6:07 PM AUDIO VISUAL TECHNICIAN Hospital Encounter [facility] ([facility]) [address] [place] [address] Arrived documented as of this encounter Visit Diagnoses Diagnosis Primary pancreatic neuroendocrine tumor- Primary documented in this encounter Care Teams Early Childhood Education Specialist Relationship Specialty Start Date End Date Dedra Doty MD PCP - General 08/03/16 documented as of this encounter
--- OUTSIDE RECORDS SUMMARY | 2024-04-18 18:09 | XMS_ITS | Encounter Summary ---
Author Organization [facility] Address [address] [place] [address] Phone Care Team Providers Care Hospital Admitting Clerk Name Role Phone Dedra Doty MD Primary Care Provider [phone] Reason for Referral * Consultation (Routine) - Closed Specialty Diagnoses / Procedures Referred By Stephen jones Referred To Contact Gastroenterology Diagnoses NAFLD (nonalcoholic fatty liver disease) Jose Fox MD [address] [place] [address] Phone: tel: fax: [facility] (All Locations) Referral ID Status Reason Start Date Expiration Date V isits Requested Visits Authorized [id number] Closed Specialty Services Required 07/08/2021 08/07/2022 5 5 Question Answer Please select the performing region: [facility] (All Locations) [[id number]] # of visits: 1 Comments Severe diffuse fatty liver disease on imaging. Hypertriglyceridemia with episode of pancreatitis Reason for Visit * Consultation (Routine) - Closed Specialty Diagnoses / Procedures Referred By Stephen jones Referred To Contact Endocrinology Diagnoses Hyperlipidemia, unspecified hyperlipidemia type Samantha Horner PA Phone: tel: fax: [facility] (All Locations) Referral ID Status Reason Start Date Expiration Date V isits Requested Visits Authorized [id number] Closed Specialty Services Required 04/22/2021 05/22/2022 5 5 Encounter Details Date Type Department Care Team (Late st Contact Info) Description 07/08/2021 3:00 PM CDT Office Visit [facility] Endocrinology Metabolism and Lipid [address] [facility] 13[address] [place] [address] [place] [address] Jose Fox MD [address] [place] [address] NAFLD (nonalcoholic fatty liver disease) (Primary Dx); Hyperlipidemia, unspecified hyperlipidemia type Social History Tobacco Use Types Packs/Day Years Used Date Smoking Tobacco: Never Smokeless Tobacco: Never Sex and Gender Information Value Date Recorded Sex Assigned at Not on file Legal Sex 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 Gender Identity Not on file Sexual Orientation Not on file documented as of this encounter Last Filed Vital Signs Vital Sign Reading Time Taken Comments Blood Pressure 135/81 07/08/2021 2:00 PM CDT Pulse 74 07/08/2021 2:00 PM CDT Temperature 36 ??C (96.8 ??F) 07/08/2021 2:00 PM CDT Respiratory Rate - - Oxygen Saturation - - Inhaled Oxygen Concentration - - Weight 74.6 kg (164 lb 6.4 oz) 07/08/2021 2:00 P M CDT Height 172.7 cm (5' 8 ) 07/08/2021 2:00 PM CDT Body Mass Index 25 07/08/2021 2:00 PM CDT documented in this encounter Patient Instructions * Patient Instructions* Jose Fox MD - 07/08/2021 3:00 PM CDT In general, attempt to engage [...] more than 2,400mg of sodium per day. Eliminate simple carbs, yakut fries, fried foods For LDL-cholesterol lowering, aim for a dietary pattern that achieves 5-6% of calories from saturated fats. Avoid trans fat. Avoid tobacco use. Engage in efforts aimed at smoking cessation. Eliminate all alcohol intake. This increases triglycerides. In cases of emergency, please call 911. documented in this encounter Progress Notes * Jose Fox MD - 07/08/2021 3:00 PM CDT Endocrine New Patient Visit Subjective Patient is a 55 y.o. male presenting for consultation requested by Dr. Dedra Doty with chief complaint of dyslipidemia HPI: Mr. Ferro is a pleasant 55yo with a history of HTN, hypothyroidism, fatty liver, pancreatic neuroendocrine tumor and dyslipidemia who presents as a referral for evaluation of dyslipidemia. He reports being in his usual state of health until about 2 years ago when he developed sudden onset right upper quadrant abdominal pain that radiated to his right scapula and through to his back. Aleisha presented to his local ED in severe pain and was given a diagnosis of pancreatitis. However, only a CBC was recorded in his records and there is no evidence of liver enzymes, alk phos, bili, or lipase or triglycerides. During the work-up a pancreatic head mass was discovered. This was biopsiedand confirmed malignant pancreatic neuroendocrine tumor. He follows with Hepatobiliary at [facility] and they have been monitoring the tumor, which has decreased in size. He reports first being told his triglycerides were high about 5 years ago when he had cholesterol measured. He has never had any episodes of pancreatitis prior to the event in 2019 and none since then. Repeat fasting triglycerides this year were 2,821mg/dl. In addition to the pancreatic mass, abdominal imaging also demonstrated diffuse fatty infiltration of the liver, which has been present on repeat imaging. His sister has high triglycerides. His father had 4v CABG at age 68. No episodes of pancreatitis in his family to his knowledge. He has never had any eruptive xanthomas to his knowledge.He has no history of gallstones. He took fenofibrate off and on after his initial lipid panel five years ago. His dose was recently increased to 200mg daily and he has been taking this regularly for the past 2-3 months. He goes to the [facility] 3-4x per week and performs aerobic exercise for about 45 minutes. During the pandemic he wasn't exercising as much but has been trying to get back into this routine. He tries to avoid simple carbs. He does eat some fast food because he is on the road a lot. So he will eat some fried foods and starches with regularity. He drinks about 2-4 glasses of wine per week.He previously drank more frequently prior to the pancreatitis episode 2 years ago. 03/18/2021 Total cholesterol 439mg/dl HDL-c 12mg/dl Triglycerides 2,821mg/dl LDL-c not calculated Normal renal function Normal LFTs TSH 6.49 Free T4 0.95 Patient Active Problem List Diagnosis ??? Actinic keratosis ??? History of melanoma in situ ??? Allergic contact dermatitis due to plants, except food ??? Skin benign neoplasm ??? Pancreatic cyst ??? Primary pancreatic neuroendocrine tumor ??? Right wrist pain Past Medical History: Diagnosis Date ??? Asthma [...] other systems are negative Objective Vitals: Vitals: 07/08/21 1400 BP: 135/81 Pulse: 74 Temp: 36 ??C (96.8 ??F) Weight: 74.6 kg (164 lb 6.4 oz) Height: 172.7 cm (5' 8 ) Body mass index is 25 kg/m??. Physical exam: Constitutional: Alert, cooperative, no [...] Problem List Items Addressed This Visit None Visit Diagnoses NAFLD (nonalcoholic fatty liver disease) - Primary Relevant Orders Ambulatory referral to Hepatology Hyperlipidemia, unspecified hyperlipidemia type Relevant Orders Lipid panel Cholesterol, LDL, direct Hemoglobin A1c Erythrocyte sedimentation rate Assessment/Plan: Mr. Ferro is a pleasant 55yo with a history of HTN, hypothyroidism, fatty liver, pancreatic neuroendocrine tumor and dyslipidemia who presents as a referral for evaluation of dyslipidemia. Dyslipidemia: -Significantly elevated fasting triglyceride with possible clinical pancreatitis episode in 2019, although this was not confirmed with laboratory testing. -Likely multifactorial in nature related to his liver disease, metabolic syndrome and some elementsof diet (alcohol, fast food). There may be some genetic contribution as well, such as familial combined hyperlipidemia. -we discussed lifestyle changes: Severe HTG targets: <5% calories of added sugar, <=20 to 25% calories of total dietary fat, and alcohol abstinence Continue his aerobic exercise (at least 150 minutes of moderate intensity weekly) -continue fenofibrate 200mg. -will plan on repeating lipid panel and direct LDL-c, a1c and ESR in 6-8 weeks -also referring to hepatology for evaluation of his fatty liver. If NAFLD is confirmed, the use of pioglitazone could significantly help triglycerides and possibly liver disease. I would also consider adding a statin if his cardiovascular risk warrants it. documented in this encounter Plan of Treatment Upcoming Encounters Date Type Department Care Team (Late st Contact Info) Description 04/18/2024 6:04 PM HIP HOP PERFORMERS Hospital Encounter [facility] [address] [place] [address] Arrived 04/18/2024 6:05 PM HIP HOP PERFORMERS Hospital Encounter [facility] [address] [place] [address] Arrived 04/18/2024 6:07 PM HIP HOP PERFORMERS Hospital Encounter [facility]) [address] [place] [address] Arrived 04/18/2024 6:07 PM HIP HOP PERFORMERS Hospital Encounter [facility] [address] [place] [address] Arrived Scheduled Referrals Name Type Priority Associated Diagnoses Order Schedule Ambulatory referral to Hepatology Outpatient Referral Routine NAFLD (nonalcoholic fatty liver disease) Ordered: 07/08/2021 documented as of this encounter Procedures Procedure Name Priority Date/Time Associated Diagnosis Comments ERYTHROCYTE SEDIMENTATION RATE Routine 08/05/2021 8:21 AM CDT Hyperlipidemia, unspecified hyperlipidemia type CHOLESTEROL, LDL, DIRECT Routine 08/05/2021 8:21 AM CDT Hyperlipidemia, unspecified hyperlipidemia type HEMOGLOBIN A1C Routine 08/05/2021 8:21 AM CDT Hyperlipidemia, unspecified hyperlipidemia type LIPID PANEL Routine 08/05/2021 8:21 AM CDT Hyperlipidemia, unspecified hyperlipidemia type documented in this encounter Results * Erythrocyte sedimentation rate (08/05/2021 8:21 AM CDT) Erythrocyte sedimentation rate 2 0 - 30 mm/hr [facility] - 01 Blood specimen (specimen) 08/05/2021 8:21 AM CDT 08/05/2021 Narrative [facility] - 08/06/2021 7:09 AM CDT Performed at: ??01 - [facility] ??[id number] [employer] Cutter: Ney Becerra PhD, Phone: ??[phone] Result [facility] Jose Fox MD LAB BLOOD ORDERABLES Fi nal Result Performing Organization Address [facility] de Phone Number [facility] * (ABNORMAL) Hemoglobin A1c (08/05/2021 8:21 AM CDT) Hgb A1C 5.7(H) 4.8 - 5.6 % [facility] - Comment: ? Prediabetes: 5.7 - 6.4 ? Diabetes: >6.4 ? Glycemic control for adults with diabetes: <7.0 Blood specimen (specimen) 08/05/2021 8:21 AM CDT 08/05/2021 Narrative [facility] - 08/06/2021 7:09 AM CDT Performed at: ??01 - [facility] ??[id number] [employer] Cutter: Ney Becerra PhD, Phone: ??[phone] Result [facility] Jose Fox MD LAB BLOOD ORDERABLES Fi nal Result Performing Organization Address [facility] de Phone Number [facility] * Cholesterol, LDL, direct (08/05/2021 8:21 AM CDT) LDL Chol, Direct 89 0 - 99 mg/dL [facility] - 01 Blood specimen (specimen) 08/05/2021 8:21 AM CDT 08/05/2021 Narrative [facility] - 08/06/2021 7:09 AM CDT Performed at: ??01 - [facility] ??[id number] [employer] Cutter: Ney Becerra PhD, Phone: ??[phone] Jose Fox MD LAB BLOOD ORDERABLES Fi nal Result Performing Organization Address City/[facility]/ZIP Co de Phone Number [facility] - * (ABNORMAL) Lipid panel (08/05/2021 8:21 AM CDT) Cholesterol 186 100 - 199 mg/dL [facility] - 01 Triglycerides 366(H) 0 - 149 mg/dL [facility] - 01 HDL Cholesterol 27(L) >39 mg/dL [facility] - 01 VLDL 62(H) 5 - 40 mg/dL [facility] - 01 LDL, calculated 97 0 - 99 mg/dL [facility] - 01 Blood specimen (specimen) 08/05/2021 8:21 AM CDT 08/05/2021 Narrative [facility] - 08/06/2021 7:09 AM CDT Performed at: ??01 - [facility] ??[id number] [employer] Cutter: Ney Becerra PhD, Phone: ??[phone] Jose Fox MD LAB BLOOD ORDERABLES Fi nal Result Performing Organization Address [facility] Co de Phone Number [facility] documented in this encounter Visit Diagnoses Diagnosis NAFLD (nonalcoholic fatty liver disease)- Primary Hyperlipidemia, unspecified hyperlipidemia type documented in this encounter Orders Outpatient Referral Count Last Ordered Date Fir st Ordered Date AMB REFERRAL TO ENDOCRINOLOGY 07/08/2021 documented in this encounter Care Teams Hospital Admitting Clerk Relationship Specialty Start Date End Date Dedra Doty MD PCP - General 08/03/16 documented as of this encounter
--- OUTSIDE RECORDS SUMMARY | 2024-04-18 18:09 | XMS_ITS | Encounter Summary ---
Author Organization [facility] Healthcare Address [address] [place] [address] Care Team Providers Care Corrections Unit Supervisor Name Role Phone Dedra Doty MD Primary Care Provider Encounter Details Date Type Department Care Team (Late Contact Info) Description 09/28/2021 11:15 AM CDT Lab [facility] ([facility]) [address] [place] [id number] Hepatic steatosis Social History Tobacco Use Types Packs/Day Years Used Date Smoking Tobacco: Never Smokeless Tobacco: Never Sex and Gender Information Value Date Recorded Sex Assigned at Not on file Legal Sex Male 8:25 PM CARDIOVASCULAR TECH Gender Identity Not on file Sexual Orientation Not on file documented as of this encounter Miscellaneous Notes * Result Encounter Note - Reina Montenegro NP - 09/29/2021 2:04 PM CDT Workup negative except for PAMELA. FibroScan showed steatosis. Continue to monitor. May send for GI referral in regards to pain. Sent My Chart. documented in this encounter Plan of Treatment Upcoming Encounters Date Type Department Care Team (Late st Contact Info) Description 04/18/2024 6:04 PM CARDIOVASCULAR TECH Hospital Encounter [facility] ([facility]) [address] [place] [id number] Arrived 04/18/2024 6:05 PM CARDIOVASCULAR TECH Hospital Encounter [facility] ([facility]) [address] [place] [address] Arrived 04/18/2024 6:07 PM CARDIOVASCULAR TECH Hospital Encounter [facility] ([facility]) [address] [place] [address] Arrived 04/18/2024 6:07 PM CARDIOVASCULAR TECH Hospital Encounter [facility] ([facility]) [address] [place] [address] Arrived documented as of this encounter Procedures Procedure Name Priority Date/Time Associated Diagnosis Comments PAMELA QUALITATIVE WITH REFLEX TO PAMELA QUANTITATIVE Routine 09/28/2021 11:14 AM CDT Hepatic steatosis HEPATITIS A ANTIBODY,IGG Routine 09/28/2021 11:14 AM CDT Hepatic steatosis EGFR Routine 09/28/2021 11:14 AM CDT Hepatic steatosis DIFFERENTIAL AUTO Routine 09/28/2021 11: 14 AM CDT Hepatic steatosis SMOOTH MUSCLE ANTIBODY, QUALITATIVE Routine 09/28/2021 11:14 AM CDT Hepatic steatosis MITOCHONDRIAL ANTIBODIES, QUALITATIVE Routine 09/28/2021 11:14 AM CDT Hepatic steatosis IRON PROFILE W/ IBC Routine 09/28/2021 1 1:14 AM CDT Hepatic steatosis CBC WITH AUTO DIFFERENTIAL Routine 09/28/2021 11:14 AM CDT Hepatic steatosis HEPATITIS C ANTIBODY Routine 09/28/2021 11:14 AM CDT Hepatic steatosis [id number] Routine 09/28/2021 1 1:14 AM CDT Hepatic steatosis CERULOPLASMIN Routine 09/28/2021 11:14 AM CDT Hepatic steatosis HEPATITIS B CORE ANTIBODY, TOTAL Routine 09/28/2021 11:14 AM CDT Hepatic steatosis HEPATITIS B SURFACE ANTIBODY (IMMUNE STATUS) Routine 09/28/2021 11:14 AM CDT Hepatic steatosis HEPATITIS B SURFACE ANTIGEN Routine 09/28/2021 11:14 AM CDT Hepatic steatosis GAMMA GT Routine 09/28/2021 11:14 AM CDT Hepatic steatosis IGG Routine 09/28/2021 11:14 AM CDT Hepatic steatosis FERRITIN Routine 09/28/2021 11:14 AM CDT Hepatic steatosis COMPREHENSIVE METABOLIC PANEL Routine 09/28/2021 11:14 AM CDT Hepatic steatosis documented in this encounter Results * eGFR (09/28/2021 11:14 AM CDT) eGFR >90 90 - 130 mL/min/1. 73 m2 [facility] Comment: Interpretive Data Reference Interval Normal ?>/= 90 mL/min/1.73m2 Mildly decreased* ? 60 - 89 mL/min/1.73m2 Mildly to moderately decreased ?45 - 59 mL/min/1.73m2 Moderately to severely decreased ??30 - 44 mL/min/1.73m2 Severely decreased ?15 - 29 mL/min/1.73m2 Kidney Failure ?< 15 ??mL/min/1.73m2 *Relative to young adult level Estimated glomerular filtration rate is determined by the 2020 CKD-EPI equation recommended by the National Kidney Foundation (A Unifying Approach to GFR Estimation: Recommendations of the NKF-ASK Task Force on Reassessing the Inclusion of Race in Diagnosing Kidney Disease, JASN 2020). The CKD-EPI equation should not be used for patients with unstable renal function and has not been validated in children and those over 70. Current interpretive data was last reviewed 2021. Blood 09/28/2021 11:1 4 AM CDT 09/28/2021 11:39 AM CDT Reina Montenegro REHABILITATION PROGRAM COORDINATOR LAB BLOOD ORDERABLES Fin al Result [facility] [place] [address] * Differential, auto (09/28/2021 11:14 AM CDT) Neutrophil abs 3.3 1.7 - 6.5 K/cumm [facility] Imm gran abs 0.0 0.0 - 0.1 K/cumm [facility] Lymphocyte abs 1.8 0.8 - 3.3 K/cumm [facility] Monocyte abs 0.5 0.2 - 0.8 K/cumm [facility] Eosinophil abs 0.3 0.0 - 0.5 K/cumm [facility] Basophil abs 0.1 0.0 - 0.1 K/cumm [facility] Neutrophil pct 55.6 % [facility] Comment: Interpretive Data Percent cell count reference ranges are not reported, since discordance with absolute values may lead to misinterpretation of CBC data. Current Interpretive Data was last revised on 2017. Imm gran pct 0.5 % [facility] Comment: Interpretive Data Percent cell count reference ranges are not reported, since discordance with absolute values may lead to misinterpretation of CBC data. Current Interpretive Data was last revised on 2017. Lymphocyte pct 30.4 % [facility] Comment: Interpretive Data Percent cell count reference ranges are not reported, since discordance with absolute values may lead to misinterpretation of CBC data. Current Interpretive Data was last revised on 2017. Monocyte pct 7.8 % [facility] Comment: Interpretive Data Percent cell count reference ranges are not reported, since discordance with absolute values may lead to misinterpretation of CBC data. Current Interpretive Data was last revised on 2017. Eosinophil pct 4.4 % [facility] Comment: Interpretive Data Percent cell count reference ranges are not reported, since discordance with absolute values may lead to misinterpretation of CBC data. Current Interpretive Data was last revised on 2017. Basophil pct 1.3 % [facility] Comment: Interpretive Data Percent cell count reference ranges are not reported, since discordance with absolute values may lead to misinterpretation of CBC data. Current Interpretive Data was last revised on 2017. Blood 09/28/2021 11:1 4 AM CDT 09/28/2021 11:34 AM CDT Reina Montenegro NP LAB BLOOD ORDERABLES Fin al Result Performing Organization Address [facility] de Phone Number [facility] [place] [employer] [place] [address] * PAMELA qualitative with reflex to PAMELA Quantitative (09/28/2021 11:14 AM CDT) PAMELA Positive 1:160 [facility] Comment: Interpretive Data Normal range for PAMELA Qualitative Antibody = Negative. 1. PAMELA is performed using indirect immunofluorescence against HEp-2 cells 2. PAMELA titers are performed on all positive qualitative results. 3. A significantly positive PAMELA result is defined as a positive nuclear fluorescence at a titer of 1:80 or greater. 4. 15% of normal people above age 65 have significantly positive PAMELA results. ??5% or less of normal people age 65 or under have significantly positive PAMELA results. Current interpretive data was last revised on 2019. PAMELA, quant 1:160 titer [facility] PAMELA, interp Speckled [facility] Blood 09/28/2021 11:1 4 AM CDT 09/28/2021 11:34 AM CDT Reina Montenegro NP LAB BLOOD ORDERABLES Fin al Result Performing Organization Address [facility] Co de Phone Number [facility] Department [place] [employer] [place] [address] * CBC with auto differential (09/28/2021 11:14 AM CDT) WBC 5.9 3.8 - 9.9 K/cumm [facility] Hgb 14.1 13.0 - 17.5 g/dL [facility] Hct 39.6 38.9 - 50.3 % [facility] Plt 292 150 - 400 K/cumm [facility] MPV 10.0 9.1 - 12.3 fL [facility] RBC 4.47 4.30 - 5.80 M/cumm [facility] MCV 88.6 81.3 - 96.4 fL [facility] MCH 31.5 27.1 - 33.3 pg [facility] MCHC 35.6 32.3 - 35.7 g/dL [facility] RDW CV 12.3 11.1 - 14.9 % [facility] RDW SD 39.9 35.7 - 48.1 fL [facility] NRBC abs 0.00 0.00 - 0.01 K/cumm [facility] Blood 09/28/2021 11:1 4 AM CDT 09/28/2021 11:34 AM CDT Reina Montenegro REHABILITATION PROGRAM COORDINATOR LAB BLOOD ORDERABLES Fin al Result Performing Organization Address City/[facility] Co de Phone Number [facility] [place] [place] [address] * Ceruloplasmin (09/28/2021 11:14 AM CDT) Pathologist [facility] Ceruloplasmin 19.7 15.0 - 30.0 mg/dL [facility] Blood 09/28/2021 11:1 4 AM CDT 09/28/2021 11:34 AM CDT Reina Montenegro REHABILITATION PROGRAM COORDINATOR LAB BLOOD ORDERABLES Fin al Result [facility] Department [place] [address] * (ABNORMAL) Comprehensive metabolic panel (09/28/2021 11:14 AM CDT) Sodium 139 135 - 145 mmol/L [facility] Potassium, pl 4.8 3.3 - 4.9 mmol/L [facility] Chloride 101 97 - 110 mmol/L [facility] CO2 30 22 - 32 mmol/L [facility] Anion gap 8 2 - 15 mmol/L [facility] BUN 24 8 - 25 mg/dL [facility] Creatinine 0.93 0.80 - 1.30 mg/dL [facility] Glucose 116 70 - 199 mg/dL [facility] Comment: Interpretive Data Fasting glucose >/= 126 mg/dl is diagnostic for diabetes. ?? Fasting is defined as no caloric intake for at least 8 hours. Fasting glucose between 100 mg/dl to 125 mg/dl is diagnostic of prediabetes. In a patient with classic symptoms of hyperglycemia or hyperglycemic crisis, a random glucose >/= 200 mg/dl is diagnostic for diabetes. In the absence of unequivocal hyperglycemia, results should be confirmed by repeat testing. The classification and Diagnosis of Diabetes Diabetes Care 2017;40 (Suppl. 1):S11. Current interpretive data was last revised 2017. Calcium 9.9 8.5 - 10.3 mg/dL [facility] Bilirubin, total 0.4 0.1 - 1.2 mg/dL [facility] Protein, pl 7.5 6.5 - 8.5 g/dL [facility] Albumin 4.8 3.5 - 5.0 g/dL [facility] Alk phos 26(L) 40 - 130 Units/L [facility] ALT 29 7 - 55 Units/L [facility] AST 25 10 - 50 Units/L [facility] Blood 09/28/2021 11:1 4 AM CDT 09/28/2021 11:34 AM CDT us Reina Montenegro NP LAB BLOOD ORDERABLES Fin al Result [facility] Department [place] [address] * Ferritin (09/28/2021 11:14 AM CDT) Pathologist [facility] Ferritin 234 30 - 400 ng/mL [facility] Blood 09/28/2021 11:1 4 AM CDT 09/28/2021 11:34 AM CDT Reina Montenegro REHABILITATION PROGRAM COORDINATOR LAB BLOOD ORDERABLES Fin al Result Performing Organization Address [facility] Co de Phone Number [facility] [place] [address] * Gamma GT (09/28/2021 11:14 AM CDT) Pathologist [facility] GGT 22 10 - 50 Units/L [facility] Blood 09/28/2021 11:1 4 AM CDT 09/28/2021 11:34 AM CDT Reina Montenegro REHABILITATION PROGRAM COORDINATOR LAB BLOOD ORDERABLES Fin al Result Performing Organization Address [facility] de Phone Number [facility] Department [place] [place] [address] * Hepatitis A antibody, IgG (09/28/2021 11:14 AM CDT) Pathologist [facility] Hep A IgG Nonreactive Nonreactive [facility] Blood 09/28/2021 11:1 4 AM CDT 09/28/2021 11:34 AM CDT Reina Montenegro REHABILITATION PROGRAM COORDINATOR LAB BLOOD ORDERABLES Fin al Result Performing Organization Address [facility] Co de Phone Number [facility] [place] [place] [address] * Hepatitis B core antibody, total (09/28/2021 11:14 AM CDT) Pathologist [facility] Hep B core IgG/IgM Nonreactive Nonreactive [facility] Blood 09/28/2021 11:1 4 AM CDT 09/28/2021 11:34 AM CDT Reina Montenegro NP LAB MICROBIOLOGY - GENER AL ORDERABLES Edited Result - Final Performing Organization Address [facility] de Phone Number [facility] [place] [address] * Hepatitis B surface antibody (immune status) (09/28/2021 11:14 AM CDT) HBsAb (immune status) Nonreactive [facility] Comment: Interpretive Data Nonreactive: This result is consistent with a lack of immunity to Hepatitis B Virus when used in the setting of routine screening. Equivocal: The immune status of the individual should be further assessed, if appropriate, after consideration of clinical status, risk factors, and additional diagnostic information. Reactive: This result is consistent with immunity to Hepatitis B Virus when used in the setting of routine screening. Current interpretive data was last revised on 19. Blood 09/28/2021 11:1 4 AM CDT 09/28/2021 11:34 AM CDT Reina Montenegro NP LAB MICROBIOLOGY - GENER AL ORDERABLES Final Result Performing Organization Address [facility] de Phone Number [facility] [place] [address] * Hepatitis B Surface Antigen (09/28/2021 11:14 AM CDT) HepBsAg Nonreactive Nonreactive [facility] Blood 09/28/2021 11:1 4 AM CDT 09/28/2021 11:34 AM CDT Reina Montenegro NP LAB MICROBIOLOGY - GENER AL ORDERABLES Edited Result - Final Performing Organization Address [facility] de Phone Number [facility] [place] [address] * Hepatitis C antibody (09/28/2021 11:14 AM CDT) Hep C Ab Nonreactive Nonreactive [facility] Comment:Antibodies to HCV no t detected. Does NOT exclude the possibility of recent exposure to HCV. Blood 09/28/2021 11:1 4 AM CDT 09/28/2021 11:34 AM CDT Reina Montenegro NP LAB MICROBIOLOGY - GENER AL ORDERABLES Edited Result - Final Performing Organization Address City/[facility]/ZIP Co de Phone Number [facility] [place] [address] * IgG (09/28/2021 11:14 AM CDT) Pathologist [facility] Immunoglobulin G 1,022.0 700.0 - 1,600.0 mg/dL [facility] Blood 09/28/2021 11:1 4 AM CDT 09/28/2021 11:34 AM CDT Reina Montenegro NP LAB BLOOD ORDERABLES Fin al Result Performing Organization Address [facility] Co de Phone Number [facility] [place] [address] * Iron profile w/ IBC (09/28/2021 11:14 AM CDT) Pathologist [facility] Iron 131 50 - 150 mcg/dL [facility] TIBC 356 250 - 400 mcg/dL [facility] Transferrin saturation 37 20 - 50 % [facility] Blood 09/28/2021 11:1 4 AM CDT 09/28/2021 11:34 AM CDT Reina Montenegro NP LAB BLOOD ORDERABLES Fin al Result [facility] [place] [address] * Mitochondrial antibodies, qualitative (09/28/2021 11:14 AM CDT) Anti-mitochond rial Negative Negative [facility] Blood 09/28/2021 11:1 4 AM CDT 09/28/2021 11:34 AM CDT Reina Montenegro REHABILITATION PROGRAM COORDINATOR LAB BLOOD ORDERABLES Fin al Result Performing Organization Address City/[facility]/[place] [address] * Smooth muscle antibody, qualitative (09/28/2021 11:14 AM CDT) Anti-smooth muscle Negative Negative [facility] Blood 09/28/2021 11:1 4 AM CDT 09/28/2021 11:34 AM CDT Reina Montenegro NP LAB BLOOD ORDERABLES Fin al Result Performing Organization Address City/[facility]/ZIP Co de Phone Number [facility] [place] [address] * [id number] (09/28/2021 11:14 AM CDT) alpha-1 antitrypsin 131 90 - 200 mg/dL [facility] Blood 09/28/2021 11:1 4 AM CDT 09/28/2021 11:34 AM CDT Reina Montenegro REHABILITATION PROGRAM COORDINATOR LAB BLOOD ORDERABLES Fin al Result [facility] [place] [address] documented in this encounter Visit Diagnoses Diagnosis Hepatic steatosis Other chronic nonalcoholic liver disease documented in this encounter Care Teams Corrections Unit Supervisor Relationship Specialty Start Date End Date Dedra Doty MD PCP - General 08/03/16 documented as of this encounter
--- OUTSIDE RECORDS SUMMARY | 2024-04-18 18:09 | XMS_ITS | Encounter Summary ---
Author Organization [facility] Address [address] [place] [address] Phone Care Team Providers Care Cosmetician Apprentice Name Role Phone Dedra Doty MD Primary Care Provider [phone] Reason for Visit * Consultation (Routine) - Closed Specialty Diagnoses / Procedures Referred By Stephen jones Referred To Contact Gastroenterology Diagnoses NAFLD (nonalcoholic fatty liver disease) Jose Fox MD [address] [place] [address] Phone: tel: fax: [facility] (All Locations) Referral ID Status Reason Start Date Expiration Date V isits Requested Visits Authorized [id number] Closed Specialty Services Required 07/08/2021 08/07/2022 5 5 Encounter Details Date Type Department Care Team (Late st Contact Info) Description 09/27/2021 8:00 AM CDT Office Visit [facility] Gastroenterology [address] [facility] 12th [place] [address] [place] [address] Reina Montenegro NP [address] [place] [address] Hepatic steatosis (Primary Dx) Social History Tobacco Use Types Packs/Day Years Used Date Smoking Tobacco: Never Smokeless Tobacco: Never Sex and Gender Information Value Date Recorded Sex Assigned at Not on file Legal Sex Male 8:25 PM [employer] Gender Identity Not on file Sexual Orientation Not on file documented as of this encounter Last Filed Vital Signs Vital Sign Reading Time Taken Comments Blood Pressure 160/103 09/27/2021 8:02 AM CDT Pulse 57 09/27/2021 8:02 AM CDT Temperature 36.4 ??C (97.6 ??F) 09/27/2021 8:02 AM CD T Respiratory Rate - - Oxygen Saturation - - Inhaled Oxygen Concentration - - Weight 72.5 kg (159 lb 12.8 oz) 09/27/2021 8:02 AM CDT Height 172.7 cm (5' 8 ) 09/27/2021 8:02 AM CDT Body Mass Index 24.3 09/27/2021 8:02 AM CDT documented in this encounter Patient Instructions * Patient Instructions* Reina Montenegro NP - 09/27/2021 11:36 AM CDT It was nice to see you in clinic today and I appreciate you putting your trust in my care. If you had any lab tests or imaging studies today that we did not review in clinic, I will be either mailingor calling you with the results within the next two weeks. If you sign up for Find That File, I can also post notes to you on that platform. If any further questions arise, please do not hesitate to contact my office with any questions. documented in this encounter Progress Notes * Reina Montenegro NP - 09/27/2021 8:00 AM CDT HEPATOLOGY CLINIC VISIT Nikolay Ferro Age: 55 y.o. Date of : 1965 Reason for Visit: Fatty liver History of Present Illness: Nikolay Ferro is a 55 y.o. male who was referred for severe diffuse fatty liver disease on imaging and hypertriglycerdiemia with episode of pancreatisis. He has a past medical history of: HTN, hypothyroidism, and dyslipidema. About 2 years ago, he developed RUQ pain that radiated to his right scapula and back. ED diagnosed him with pancreatitis, but he had no evidence of lab abnormalities as only CBC was recorded. During the workup, a pancreatic head mass was discovered for which he follows up with hepatobiliary. He underwent EUS with biopsy x 2, diagnosed as either lymphoma vs neuroendocrine tumor. Repeat MRCP demonstrated resolution of this lesion as well as worsening hepatic steatosis. His most recent imaging from 08/24/21 showed unremarkable pancreas, lesion not seen, as well as severe diffuse hepatic steatosis. He is getting a repeat MRCP in 1 year to evaluate for interval changeof pancreatic lesion. Liver tests from 03/18/21 are normal. He reports he had a colonoscopy when he was 50 years old and was told it was normal and to repeat in 10 years. Patient denies any family history of liver disease however, his sister was diagnosed with hypercholesterolemia when she was 20 and he was diagnosed with this as well. He states that drinking alcohol and eating fatty/friend foods makes it worse (friend chicken, landeros) as well as running. He used to drink 6 beers daily on the weekends. Now, he only drinks 2-3 beers per week, if that. He did not drink any alcohol throughout the entire Spring. He denies any recreational/IV drug use. He tries to exercises 3 days a week, has lost about 15 lbs since March. He reports having diarrhea his entire life and recently, his stool looked pale but he did take some Tums prior to that occurring. I reviewed patient's active problem list, medication list, allergies, family history, social history, health maintenance Patient Active Problem List Diagnosis ??? Actinic [...] UPPER GASTROINTESTINAL ENDOSCOPY ??? WRIST SURGERY Right Social History Tobacco Use ??? Smoking status: Never Smoker ??? Smokeless tobacco: Never Used Substance Use Topics ??? Drug use: Yes Types: Marijuana Comment: gummies purchased this week Family History Problem Relation Age of Onset ??? No Known Problems Mother ??? No Known Problems Father Current Outpatient Medications Medication Sig Dispense Refill ??? albuterol HFA (PROVENTIL HFA,VENTOLIN HFA,PROAIR HFA) 90 mcg/actuation inhaler INL 1 PUFF PO Q 4 H PRF WHZ OR SOB ??? azithromycin (ZITHROMAX) 250 mg tablet TAKE 2 TABLETS BY MOUTH ON DAY 1 AND THEN TAKE 1 TABLET BY MOUTH ONCE A DAY ON DAY 2 THROUGH DAY 5 (Patient not taking: Reported on 07/08/2021) ??? cetirizine (ZyrTEC) 10 mg tablet ??? cyclobenzaprine (FLEXERIL) 10 mg tablet TK 1 T PO TID PRN (Patient not taking: Reported on 07/08/2021) ??? fenofibrate (TRICOR) 54 mg tablet TK 1 T PO QD ??? levothyroxine (SYNTHROID) 175 mcg tablet daily ??? lisinopriL (PRINIVIL,ZESTRIL) 10 mg tablet Take 10 mg by mouth daily ??? ofloxacin (FLOXIN) 0.3 % otic solution INSTILL 10 DROPS INTO EACH EAR ONCE DAILY FOR 7 DAYS (Patient not taking: Reported on 07/08/2021) ??? oxyCODONE-acetaminophen (PERCOCET) 5-325 mg per tablet TK 1 TS PO Q 4 TO 6 H PRN P (Patient nottaking: Reported on 07/08/2021) ??? pantoprazole DR (PROTONIX) 40 mg EC tablet TK 1 T PO BID FOR 14 DAYS (Patient not taking: Reported on 07/08/2021) ??? traMADoL (ULTRAM) 50 mg tablet TK 1 T PO Q 6 H PRN P (Patient not taking: Reported on 07/08/2021) No current facility-administered medications for this visit. Review of Systems: As outlined in HPI; all other systems negative. Objective: BP (!) 160/103 Pulse 57 Temp 36.4 ??C (97.6 ??F) Ht 172.7 cm (5' 8 ) Wt 72.5 kg (159 lb 12.8 oz) BMI 24.30 kg/m?? General: Well-developed male in NAD. HEENT: NC/AT. PERRL. EOMI. MMM. Neck: Supple. No tenderness, enlargement, JVD or LAD noted. Lungs: CTAB. No wheezing or crackles heard. No respiratory distress. Heart: RRR. +S1, S2. No murmurs or gallops appreciated. Abdomen: Soft. NT/ND. BS active. No organomegaly. Ext/MS: No edema, cyanosis, or erythema. Good muscle strength and tone. Neuro: A&O x3. No focal deficits noted. Psych: Appears to have normal affect, mood, judgement, and insight. Skin: No obvious rashes or lesions noted. Data Review Chem/LFT Lab History Some values may be hidden. Unless noted otherwise, only the newest values recorded on each date aredisplayed. Labs-Chem/LFT 08/24/21 CrCl- Actual Body Weight (Cockcroft-Gault) 84.7 Imaging: I reviewed patient's lab results, imaging Assessment/Plan: Hepatic steatosis Patient with severe diffuse fatty liver disease [...] disease pathologies. I will also get a FibroScanto evaluate degree of steatosis and if any fibrosis is present. We have discussed the natural history of non-acoholic fatty liver disease, the risks of progressionto cirrhosis, association with hepatocellular carcinoma and potential [...] period of a year. However, weight loss isnot applicable to him as he is of normal weight and BMI. He should exercise and eat healthy diet for overall good health. His symptoms may also be gallbladder related. RUQ pain worse with alcohol and fatty foods. However,his MRCP from 08/24/21 did not show any [...] will return to clinic in 6 months. Reina Montenegro NP 09/27/2021 11:35 AM My total encounter time on 09/27/2021 was 36 minutes which was spent in the activities documented inthe note. This includes time spent prior to the visit and after the visit in direct care of the patient. This time does not include time spent in any separately reportable services. documented in this encounter Miscellaneous Notes * Assessment & Plan Note - Reina Montenegro NP - 09/27/2021 11:27 AM CDT Associated Problem(s): Hepatic steatosis Patient with severe diffuse fatty liver disease [...] disease pathologies. I will also get a FibroScanto evaluate degree of steatosis and if any fibrosis is present. We have discussed the natural history of non-acoholic fatty liver disease, the risks of progressionto cirrhosis, association with hepatocellular carcinoma and potential [...] period of a year. However, weight loss isnot applicable to him as he is of normal weight and BMI. He should exercise and eat healthy diet for overall good health. His symptoms may also be gallbladder related. RUQ pain worse with alcohol and fatty foods. However,his MRCP from 08/24/21 did not show any [...] will return to clinic in 6 months. documented in this encounter Plan of Treatment Upcoming Encounters Date Type Department Care Team (Late st Contact Info) Description 04/18/2024 6:04 PM [facility] Hospital Encounter [facility] [address] [place] [address] Arrived 04/18/2024 6:05 PM [facility] Hospital Encounter [facility] [address] [place] [address] Arrived 04/18/2024 6:07 PM [facility] Hospital Encounter [facility] ([facility]) [address] [place] [address] Arrived 04/18/2024 6:07 PM [facility] Hospital Encounter [facility] [address] [place] [address] Arrived documented as of this encounter Results * [id number] (09/28/2021 11:14 AM CDT) alpha-1 antitrypsin 131 90 - 200 mg/dL [facility] Blood 09/28/2021 11:1 4 AM CDT 09/28/2021 11:34 AM CDT Reina Montenegro NP LAB BLOOD ORDERABLES Fin al Result Performing Organization Address [facility] Co de Phone Number [facility] Department [place] [address] * Smooth muscle antibody, qualitative (09/28/2021 11:14 AM CDT) Anti-smooth muscle Negative Negative [facility] Blood 09/28/2021 11:1 4 AM CDT 09/28/2021 11:34 AM CDT Reina Montenegro ACUTE COORDINATOR LAB BLOOD ORDERABLES Fin al Result Performing Organization Address [facility] Co de Phone Number [facility] Department [place] [address] * Mitochondrial antibodies, qualitative (09/28/2021 11:14 AM CDT) Anti-mitochond rial Negative Negative [facility] Blood 09/28/2021 11:1 4 AM CDT 09/28/2021 11:34 AM CDT Reina Montenegro ACUTE COORDINATOR LAB BLOOD ORDERABLES Fin al Result Performing Organization Address [facility] de Phone Number [facility] Department [place] [address] * Iron profile w/ IBC (09/28/2021 11:14 AM CDT) Iron 131 50 - 150 mcg/dL [facility] TIBC 356 250 - 400 mcg/dL [facility] Transferrin saturation 37 20 - 50 % [facility] Blood 09/28/2021 11:1 4 AM CDT 09/28/2021 11:34 AM CDT Reina Montenegro NP LAB BLOOD ORDERABLES Fin al Result Performing Organization Address City/[facility] Co de Phone Number [facility] [place] [address] * IgG (09/28/2021 11:14 AM CDT) Pathologist [facility] Immunoglobulin G 1,022.0 700.0 - 1,600.0 mg/dL [facility] Blood 09/28/2021 11:1 4 AM CDT 09/28/2021 11:34 AM CDT Reina Montenegro NP LAB BLOOD ORDERABLES Fin al Result Performing Organization Address [facility] [place] [address] * Hepatitis C antibody (09/28/2021 11:14 AM CDT) [facility] Hep C Ab Nonreactive Nonreactive [facility] Comment:Antibodies to HCV no t detected. Does NOT exclude the possibility of recent exposure to HCV. Blood 09/28/2021 11:1 4 AM CDT 09/28/2021 11:34 AM CDT Reina Montenegro NP LAB MICROBIOLOGY - GENER AL ORDERABLES Edited Result - Final Performing Organization Address [facility] Co de Phone Number [facility] [place] [address] * Hepatitis B Surface Antigen (09/28/2021 11:14 AM CDT) [facility] HepBsAg Nonreactive Nonreactive [facility] Blood 09/28/2021 11:1 4 AM CDT 09/28/2021 11:34 AM CDT Reina Montenegro NP LAB MICROBIOLOGY - GENER AL ORDERABLES Edited Result - Final Performing Organization Address City/[facility]/ZIP Co de Phone Number [facility] [place] [address] * Hepatitis B surface antibody (immune status) (09/28/2021 11:14 AM CDT) Pathologist [facility] HBsAb (immune status) Nonreactive [facility] Comment: Interpretive Data Nonreactive: This result [...] AL ORDERABLES Final Result Performing Organization Address City/[facility]/ZIP Co de Phone Number [facility] Department [place] [address] * Hepatitis B core antibody, total (09/28/2021 11:14 AM CDT) Pathologist [facility] Hep B core IgG/IgM Nonreactive Nonreactive [facility] Blood 09/28/2021 11:1 4 AM CDT 09/28/2021 11:34 AM CDT Reina Montenegro NP LAB MICROBIOLOGY - GENER AL ORDERABLES Edited Result - Final [facility] [place] [address] * Hepatitis A antibody, IgG (09/28/2021 11:14 AM CDT) Pathologist [facility] Hep A IgG Nonreactive Nonreactive [facility] Blood 09/28/2021 11:1 4 AM CDT 09/28/2021 11:34 AM CDT Reina Montenegro ACUTE COORDINATOR LAB BLOOD ORDERABLES Fin al Result Performing Organization Address City/[facility] Co de Phone Number [facility] [place] [address] * Gamma GT (09/28/2021 11:14 AM CDT) Pathologist [facility] GGT 22 10 - 50 Units/L [facility] Blood 09/28/2021 11:1 4 AM CDT 09/28/2021 11:34 AM CDT Reina Montenegro ACUTE COORDINATOR LAB BLOOD ORDERABLES Fin al Result Performing Organization Address [facility] de Phone Number [facility] Department [place] [address] * Ferritin (09/28/2021 11:14 AM CDT) [facility] Ferritin 234 30 - 400 ng/mL [facility] Blood 09/28/2021 11:1 4 AM CDT 09/28/2021 11:34 AM CDT Reina Montenegro ACUTE COORDINATOR LAB BLOOD ORDERABLES Fin al Result Performing Organization Address [facility] de Phone Number [facility] Department [place] [address] * (ABNORMAL) Comprehensive metabolic panel (09/28/2021 11:14 AM CDT) Pathologist [facility] Sodium 139 135 - 145 mmol/L [facility] Potassium, pl 4.8 3.3 - 4.9 mmol/L [facility] Chloride 101 97 - 110 mmol/L [facility] CO2 30 22 - 32 mmol/L [facility] Anion gap 8 2 - 15 mmol/L [facility] BUN 24 8 - 25 mg/dL [facility] Creatinine 0.93 0.80 - 1.30 mg/dL [facility] Glucose 116 70 - 199 mg/dL [facility] Comment: Interpretive Data Fasting glucose >/= [...] 2017. Calcium 9.9 8.5 - 10.3 mg/dL [facility] Bilirubin, total 0.4 0.1 - 1.2 mg/dL [facility] Protein, pl 7.5 6.5 - 8.5 g/dL [facility] Albumin 4.8 3.5 - 5.0 g/dL [facility] Alk phos 26(L) 40 - 130 Units/L [facility] ALT 29 7 - 55 Units/L [facility] AST 25 10 - 50 Units/L [facility] Blood 09/28/2021 11:1 4 AM CDT 09/28/2021 11:34 AM CDT Reina Montenegro NP LAB BLOOD ORDERABLES Fin al Result Performing Organization Address [facility] Co de Phone Number [facility] Department [place] [address] * Ceruloplasmin (09/28/2021 11:14 AM CDT) Ceruloplasmin 19.7 15.0 - 30.0 mg/dL [facility] Blood 09/28/2021 11:1 4 AM CDT 09/28/2021 11:34 AM CDT Reina Montenegro NP LAB BLOOD ORDERABLES Fin al Result Performing Organization Address [facility] Co de Phone Number [facility] [place] [address] * CBC with auto differential (09/28/2021 11:14 AM CDT) [facility] WBC 5.9 3.8 - 9.9 K/cumm [facility] Hgb 14.1 13.0 - 17.5 g/dL [facility] Hct 39.6 38.9 - 50.3 % [facility] Plt 292 150 - 400 K/cumm [facility] MPV 10.0 9.1 - 12.3 fL [facility] RBC 4.47 4.30 - 5.80 M/cumm [facility] MCV 88.6 81.3 - 96.4 fL [facility] MCH 31.5 27.1 - 33.3 pg [facility] MCHC 35.6 32.3 - 35.7 g/dL [facility] RDW CV 12.3 11.1 - 14.9 % [facility] RDW SD 39.9 35.7 - 48.1 fL [facility] NRBC abs 0.00 0.00 - 0.01 K/cumm [facility] Blood 09/28/2021 11:1 4 AM CDT 09/28/2021 11:34 AM CDT Reina Montenegro ACUTE COORDINATOR LAB BLOOD ORDERABLES Fin al Result [facility] Department [place] [address] * PAMELA qualitative with reflex to PAMELA Quantitative (09/28/2021 11:14 AM CDT) [facility] PAMELA Positive 1:160 [facility] Comment: Interpretive Data Normal range for [...] revised on 2019. PAMELA, quant 1:160 titer [facility] PAMELA, interp Speckled [facility] Blood 09/28/2021 11:1 4 AM CDT 09/28/2021 11:34 AM CDT Reina Montenegro NP LAB BLOOD ORDERABLES Fin al Result [facility] [place] [address] * Liver Elastography w/o Imaging W/I&R -[facility] (All Locations) (09/28/2021) Anatomical Region Laterality Modality Other Reina Montenegro NP GI PROCEDURE ORDERABLES Final Result documented in this encounter Visit Diagnoses Diagnosis Hepatic steatosis- Primary Other chronic nonalcoholic liver disease documented in this encounter Care Teams Cosmetician Apprentice Relationship Specialty Start Date End Date Dedra Doty MD PCP - General 08/03/16 documented as of this encounter
--- OUTSIDE RECORDS SUMMARY | 2024-04-18 18:09 | XMS_ITS | Encounter Summary ---
Author Organization [facility] Address [address] [facility] [address] [place] [address] Phone Care Team Providers Care Smelting Engineer Name Role Phone Dedra Doty MD Primary Care Provider [phone] Reason for Visit * Consultation (Routine) - Closed Specialty Diagnoses / Procedures Referred By Stephen jones Referred To Contact Hepatobiliary Surgery Diagnoses Pancreatic cyst Neuroendocrine tumor of pancreas Richard Tomas MD [address] [place] [address] Phone: tel: fax: [facility] (All Locations) Referral ID Status Reason Start Date Expiration Date V isits Requested Visits Authorized [id number] Closed Specialty Services Required 09/13/2019 03/24/2021 99 [phone] Encounter Details Date Type Department Care Team (Latest Contact Info) Description 06/22/2020 1:45 PM CDT Office Visit [facility] Surgery [address] [facility] [address] [place] [address] Jose Elias Messnia MD [address] [facility] [place] [id number] [place] [address] Primary pancreatic neuroendocrine tumor (Primary Dx) Social History Tobacco Use Types Packs/Day Years Used Date Smoking Tobacco: Never Smokeless Tobacco: Never Sex and Gender Information Value Date Recorded Sex Assigned at Not on file Legal Sex 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 Gender Identity Not on file Sexual Orientation Not on file documented as of this encounter Last Filed Vital Signs Vital Sign Reading Time Taken Comments Blood Pressure 155/98 06/22/2020 2:07 PM CDT Pulse 72 06/22/2020 2:07 PM CDT Temperature 36 ??C (96.8 ??F) 06/22/2020 2:07 PM CDT Respiratory Rate 18 06/22/2020 2:07 PM CDT Oxygen Saturation 97% 06/22/2020 2:07 PM CDT Inhaled Oxygen Concentration - - Weight 77.9 kg (171 lb 12.8 oz) 06/22/2020 2:07 PM CDT Height - - Body Mass Index 26.12 06/22/2020 12:18 PM CDT documented in this encounter Progress Notes * Lisa Salcedo MD - 06/22/2020 1:45 PM CDT ESTABLISHED PATIENT VISIT REASON FOR VISIT: Pancreas lesion, surveillance HPI: Mr. Ibrahim is a 54 year old [...] tumor or lymphoma. His case was presented to our multi-disciplinary conference in September 2019 with imaging demonstrating a single lesion arising anteriorly of the pancreatic head whichwas felt not the same lesion seen and sampled on EUS with no lymphadenopathy or splenomegaly consist ent with lymphoma. Pathology was reviewed showing a very small sample that appeared malignant with some necrosis favoring poorly differentiated neuroendocrine carcinoma. MRCP on 11/04/2019 demonstrated likely a substantial decrease in size of the known pancreatic head mass and moderated diffuse hepatic steatosis. A repeat EUS was performed on 11/07/19 revealing the pancreatic head lesion being smaller compared to the previous EUS examination (was 9 mm, now 5 mm) feltconsistent with a benign process and again evidence of hepatic steatosis. MRI performed today demonstrated no discrete pancreatic head lesion and moderate to severe diffuse hepatic steatosis. Today, he states that the RUQ pain he had at his last visit with me has significantly improved. He has decreased his alcohol intake. He currently still has a mild dull ache in the RUQ, but has no more sharp pains. He has occasional nausea and emesis, most recently in May 2020. He also has a longstanding history of diarrhea, which has remained stable. His weight has remained stable, however he did lose about 10 lbs after danae COVID-19 in February 2020, which he has since gained back.He denies recent fevers, chills, fatigue, loss of appetite, sick contacts, chest pain, shortness ofbreath, blood in stool, hematuria, dysuria. PAST MEDICAL HISTORY: 1. Hepatic steatosis 2. Dyslipidemia 3. Hypothyroidism PAST SURGICAL HISTORY: 1. Appendectomy - child 2. Right wrist surgery ALLERGIES: 1. Carrot and celery - hives 2. Pistachio - hives 3. Mangos - hives 4. Penicillin - swelling of body, except face MEDICATIONS: The patient's current medications were reviewed. 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 The patient is accompanied today by his . FAMILY HISTORY: 1. Brother - tumor of the tongue 2. Sister - breast cancer 3. Mother - alzheimer's disease REVIEW OF SYSTEMS: See HPI, otherwise negative. PHYSICAL EXAM: General: no acute distress, alert and oriented HEENT: normocephalic, atraumatic Heart: regular rate and rhythm Lung: normal work of breathing, symmetric chest rise Abd: soft, mildly tender to palpation in RUQ, non-distended, no masses or hernias, no hepatomegaly Extremities: warm, well-perfused, no edema REVIEW OF LABORATORY AND RADIOGRAPHIC STUDIES: MRI/MRCP 06/22/20: IMPRESSION: 1. Normal-appearing pancreas without discrete pancreatic head lesion. 2. Stable tiny focus of hyperenhancement in hepatic segment 7, favored to represent vascular shunting. No new focal hepatic lesions. 3. Moderate to severe diffuse hepatic steatosis. EUS 11/07/19: - The pancreatic head lesion is smaller compared to last EUS examination (was 9 mm, now 5 mm). Given decrease in size, this is consistent with a benign process. - Hepatic steatosis. EUS 09/09/19: 9.9 x 8.3 mm solid pancreas head lesion. Tissue was obtained from this exam, and results are pending. However, the endosonographic appearance is consistent with a neuroendocrine tumor. This was staged T1 N0 Mx by endosonographic criteria. The staging applies if malignancy is confirmed. Fine needle biopsy performed. Non-specific pancreatic parenchymal abnormalities consisting of lobularity were noted in the entire pancreas. There was no sign of significant pathology in the common bile duct, in the common hepatic duct and in the gallbladder. There was diffuse abnormal echotexture inthe visualized portion of the liver. This was characterized by a hyperechoic appearance. A cyst was found in the left lobe of the liver and measured 8 mm. The celiac trunk was endosonographically normal. Overall, there were no findings to explain the patient's abdominal pain: point tenderness in the lower right rib cage and right upper quadrant as well as a positive Carnett's sign are suggestive of a musculoskeletal/abdominal wall etiology. Pathology 09/09/19: A. Pancreas, head mass, fine-needle biopsy - Malignant neoplasm - Sections show a single small fragment of loosely cohesive malignant cells. These cells are negative for chromogranin. They are not present on deeper levels for CAM5.2 and synaptophysin. The differential includes a neuroendocrine neoplasm or lymphoma. EGD 09/09/19: Normal esophagus. Normal stomach. Normal examined duodenum. CT abdomen/pelvis 08/25/19: no acute intra-abdominal/pelvis process. Diffuse hepatic steatosis. 1.0 cm cystic lesion at the head of the pancreas. The differential diagnosis includes pseudocyst, intraductal papillary mucinous neoplasm (IPMN), mucinous cystic neoplasm (MCN), and the less common serous cystadenoma, and neuroendocrine tumor. Correlate for history of pancreatitis. Recommend one-year follow up contrast enhanced CT or more preferably MRI. 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 He presents today for follow-up MRCP, which demonstrates resolution of this lesion and worsened hepatic steatosis. I recommend that he return for a follow-up MRCP in 1 year to evaluate for interval change in his pancreatic lesion. He continues to have some RUQ pain that is most likely explained by his steatosis. It is possible that this RUQ pain is due to gallbladder pathology. However, given that he has no gallstones on MRI and his RUQ pain is improving, I do not believe his pain is related to his gallbladder. I have advised him to call me if his pain worsens. Additionally, I have advised him to continue to decrease alcohol consumption, start on a low-fat, low-carb diet, and to return to regular exercise in order to decrease his risks of worsening hepatic steatosis. He understands the plan and is in agreement. Providers: Richard Tomas MD (Biliary Endoscopy) Aye Doty MD (PCP) Cosigned by Jose Elias Messina MD at 06/26/2020 5:42 PM CDT Associated attestation - Jose Elias Messina MD - 06/26/2020 5:42 PM CDT I personally saw and examined this patient on 06/22/2020 at 2:00 p.m. and I agree with the resident's assessment and plan. documented in this encounter Plan of Treatment Upcoming Encounters Date Type Department Care Team (Late st Contact Info) Description 04/18/2024 6:04 PM [facility] Hospital Encounter [facility] ([facility]) [address] [place] [address] Arrived 04/18/2024 6:05 PM [facility] Hospital Encounter [facility] ([facility]) [address] [place] [address] Arrived 04/18/2024 6:07 PM [facility] Hospital Encounter [facility] ([facility]) [address] [place] [address] Arrived 04/18/2024 6:07 PM [facility] Hospital Encounter [facility] ([facility]) [address] [place] [address] Arrived documented as of this encounter Visit Diagnoses Diagnosis Primary pancreatic neuroendocrine tumor- Primary documented in this encounter Care Teams Smelting Engineer Relationship Specialty Start Date End Date Dedra Doty MD PCP - General 08/03/16 documented as of this encounter
--- OUTSIDE RECORDS SUMMARY | 2024-04-18 18:09 | XMS_ITS | Encounter Summary ---
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 Gender Identity Not on file Sexual Orientation Not on file documented as of this encounter Plan of Treatment Upcoming Encounters Date Type Department Care Team (Late st Contact Info) Description 04/18/2024 6:04 PM HALF SECTION IRONER Hospital Encounter [facility] ([facility]) [address] [place] [address] Arrived 04/18/2024 6:05 PM HALF SECTION IRONER Hospital Encounter [facility] ([facility]) [address] [place] [address] Arrived 04/18/2024 6:07 PM HALF SECTION IRONER Hospital Encounter [facility] ([facility]) [address] [place] [address] Arrived 04/18/2024 6:07 PM HALF SECTION IRONER Hospital Encounter [facility] ([facility]) [address] [place] [address] Arrived documented as of this encounter Visit Diagnoses Not on filedocumented in this encounter Additional Health Concerns Infection Onset Date Last Indicated Resolved Time COVID: Suspected 03/08/2023 03/08/2023 03/09/2023 3:05 AM HALF SECTION IRONER COVID: Suspected 03/08/2023 03/08/2023 03/09/2023 10:42 AM HALF SECTION IRONER COVID: Suspected 06/06/2023 06/06/2023 06/06/2023 5:48 PM HALF SECTION IRONER COVID19 06/06/2023 06/06/2023 06/16/2023 3:06 AM HALF SECTION IRONER documented as of this encounter Care Teams Barge Master Relationship Specialty Start Date End Date Dedra Doty MD PCP - General 08/03/16 documented as of this encounter
--- OUTSIDE RECORDS SUMMARY | 2024-04-18 18:09 | XMS_ITS | Encounter Summary ---
Author Organization [facility] Address [address] [place] [address] Phone Care Team Providers Care Manager Trading Name Role Phone Dedra Doty MD Primary Care Provider [phone] Reason for Visit * Reason Comments Procedure fibroscan Encounter Details Date Type Department Care Team (Late st Contact Info) Description 09/28/2021 1:15 PM CDT Procedure visit [facility] Gastroenterology [address] [facility] [address] [place] [address] [place] [address] Hepatic steatosis Social History Tobacco Use Types Packs/Day Years Used Date Smoking Tobacco: Never Smokeless Tobacco: Never Sex and Gender Information Value Date Recorded Sex Assigned at Not on file Legal Sex Male 8:25 PM TOWER ERECTOR HELPER Gender Identity Not on file Sexual Orientation Not on file documented as of this encounter Progress Notes * Xin Perez RMA - 09/28/2021 1:15 PM CDT Tolerated procedure well. Report printed and given to physician for review. Scanned into chart. documented in this encounter Miscellaneous Notes * Result Encounter Note - Reina Montenegro NP - 09/28/2021 12:34 PM CDT Nikolay Ferro 1965 Diagnosis: hepatic steatosis MA verification: patient not , no implanted devices and NPO for 3 hours prior Date of examination: 09/28/21 LIVER STIFFNESS: ( E, kPa) Median: 4.5 IQR ( interquartile range): 0.6 IQR/median % (ideally < 30%): 13% CAP ( controlled attenuation parameter, dB/m ): 378 Technical difficulty: none Ordering Provider: Reina Montenegro Fibroscan Interpretation: I have personally reviewed the Fibroscan report and associated tracings. The calculated liver stiffness ( E, kPa) indicates that: The probability of advanced liver fibrosis is: low The loss of ultrasound signal (controlled attenuation parameter, CAP dB/m), indicated that the probability of hepatic steatosis is: substantial Interpreting MD: Reina Montenegro The following criteria are used to indicate the probability of advanced (stage 3,4) fibrosis: < 7.0 kPa: low 7.0-8.9 kPa: low to moderate 9.0-14.9 kPa: moderate 15-20 kPa: high > 20 kPa: very high Liver stiffness > 20 kPa is also associated with high probability of complications of portal hypertension including varices and ascites. Liver stiffness > 50 kPa is associated with a high risk of variceal bleeding. Note: Liver stiffness is increased by factors other than fibrosis including passive congestion, infiltrative hepatic diseases, alcoholic hepatitis, biliary obstruction and inflammation. The interpretation of the Fibroscan result provided above may not have taken such factors into account. Disease etiology also influences Fibroscan cutoff values for fibrosis stages and the following cutoffs have been proposed: Cutoffs for stage 3 and stage 4 fibrosis respectively: Hepatitis B: > 9 and > 11.7 kPa Hepatitis C: > 9 and > 12.5 kPa HCV/HIV: > 11 kPa and > 14 kPa Cholestatic liver disease: > 10 and > 17.9 kPa NAFLD/FRENCH: > 10 kPa and > 14 kPa CAP estimates of steatosis: Normal: < 200 dB/m Moderate: 250-300 dB/m Substantial: > 300 dB/m ( Note that the Fibroscan is not a quantitative measurement of liver fat and the risk of NAFLD progression is unrelated to the degree of steatosis) These criteria are estimates and may change as additional supporting data becomes available. documented in this encounter Plan of Treatment Upcoming Encounters Date Type Department Care Team (Late st Contact Info) Description 04/18/2024 6:04 PM TOWER ERECTOR HELPER Hospital Encounter [facility] ([facility]) [address] [place] [address] Arrived 04/18/2024 6:05 PM TOWER ERECTOR HELPER Hospital Encounter [facility] ([facility]) [address] [place] [address] Arrived 04/18/2024 6:07 PM TOWER ERECTOR HELPER Hospital Encounter [facility] ([facility]) [address] [place] [address] Arrived 04/18/2024 6:07 PM TOWER ERECTOR HELPER Hospital Encounter [facility] ([facility]) [address] [place] [address] Arrived documented as of this encounter Procedures Procedure Name Priority Date/Time Associated Diagnosis Comments LIVER ELASTOGRAPHY W/O IMAGING W/I&R Routine 09/28/2021 Hepatic steatosis documented in this encounter Results * Liver Elastography w/o Imaging W/I&R -[facility] (All Locations) (09/28/2021) Anatomical Region Laterality Modality Other Reina Montenegro RN REHAB GI PROCEDURE ORDERABLES Final Result documented in this encounter Visit Diagnoses Diagnosis Hepatic steatosis Other chronic nonalcoholic liver disease documented in this encounter Care Teams Manager Trading Relationship Specialty Start Date End Date Dedra Doty MD PCP - General 08/03/16 documented as of this encounter
--- OUTSIDE RECORDS SUMMARY | 2024-04-18 18:09 | XMS_ITS | Encounter Summary ---
Author Organization [facility] Healthcare Address [address] [place] [address] Care Team Providers Care Dean Of Education Name Role Phone Dedra Doty MD Primary Care Provider [phone] Reason for Referral * Diagnostic Imaging (Routine) - Closed Specialty Diagnoses / Procedures Referred By Contac t Referred To Contact Diagnoses Right wrist pain Procedures X-ray wrist right 3+ views Mo Guillermo MD Phone: tel: fax: [facility] Referral ID Status Reason Start Date Expiration Date Visits Re quested Visits Authorized [id number] Closed 03/18/2021 04/17/2022 1 1 TRY TRIMMER Reason for Visit * Diagnostic Imaging (Routine) - Closed Specialty Diagnoses / Procedures Referred By Contac t Referred To Contact Diagnoses Right wrist pain Procedures X-ray wrist right 3+ views Mo Guillermo MD Phone: tel: fax: [facility] Referral ID Status Reason Start Date Expiration Date Visits Re quested Visits Authorized [id number] Closed 03/18/2021 04/17/2022 1 1 Encounter Details Date Type Department Care Team (Latest Contact Info) Description 03/18/2021 1:03 PM POULTRY TRIMMER - 03/18/2021 11:59 PM POULTRY TRIMMER Hospital Encounter [facility]) [address] [place] [address] [place] [address] [place] [address] Right wrist pain Discharge Disposition: Discharge to home or self care Social History Tobacco Use Types Packs/Day Years Used Date Smoking Tobacco: Never Smokeless Tobacco: Never Sex and Gender Information Value Date Recorded Sex Assigned at Not on file Legal Sex Male 8:25 PM POULTRY TRIMMER Gender Identity Not on file Sexual Orientation Not on file documented as of this encounter Medications at Time of Discharge albuterol HFA (PROVENTIL HFA,VENTOLIN HFA,PROAIR HFA) 90 mcg/actuation inhaler INL 1 PUFF PO Q 4 H PRF WHZ OR SOB 08/19/2019 cetirizine (ZyrTEC) 10 mg tablet lisinopriL (PRINIVIL,ZESTRIL ) 10 mg tablet Take 1 tablet (10 mg total) by mouth daily 02/25/2021 azithromycin (ZITHROMAX) 250 mg tablet TAKE 2 TABLETS BY MOUTH ON DAY 1 AND THEN TAKE 1 TABLET BY MOUTH ONCE A DAY ON DAY 2 THROUGH DAY 5 10/25/2019 10/21/2021 cyclobenzaprine (FLEXERIL) 10 mg tablet TK 1 T PO TID PRN 08/13/2019 10/21/2021 fenofibrate (TRICOR) 54 mg tablet TK 1 T PO QD 08/13/2019 10/21/2021 levothyroxine (SYNTHROID) 175 mcg tablet daily 03/08/2023 ofloxacin (FLOXIN) 0.3 % otic solution INSTILL 10 DROPS INTO EACH EAR ONCE DAILY FOR 7 DAYS 10/25/2019 10/21/2021 oxyCODONE-acetami nophen (PERCOCET) 5-325 mg per tablet TK 1 TS PO Q 4 TO 6 H PRN P 08/30/2019 10/21/[address] (PROTONIX) 40 mg EC tablet TK 1 T PO BID FOR 14 DAYS 08/25/2019 10/21/2021 traMADoL (ULTRAM) 50 mg tablet TK 1 T PO Q 6 H PRN P 08/19/2019 10/21/2021 documented as of this encounter Discharge Disposition Disposition Code Departure Means Destination Discharge to home or self care documented in this encounter Plan of Treatment Upcoming Encounters Date Type Department Care Team (Late st Contact Info) Description 04/18/2024 6:04 PM POULTRY TRIMMER Hospital Encounter [facility]) [address] [place] [address] Arrived 04/18/2024 6:05 PM POULTRY TRIMMER Hospital Encounter [facility]) [address] [place] [address] Arrived 04/18/2024 6:07 PM POULTRY TRIMMER Hospital Encounter [facility]) [address] [place] [address] Arrived 04/18/2024 6:07 PM POULTRY TRIMMER Hospital Encounter [facility] ([facility]) [address] [place] [address] Arrived documented as of this encounter Procedures Procedure Name Priority Date/Time Associated Diagnosis Comments XR WRIST RIGHT 3 OR MORE VIEWS Schedule Routine, Read Routine (OP Routine) 03/18/2021 1:11 PM POULTRY TRIMMER Right wrist pain documented in this encounter Results * X-ray wrist right 3+ views (03/18/2021 1:11 PM POULTRY TRIMMER) Anatomical Region Laterality Modality Upper Extremities, Wrist Right Compute d Radiography 03/18/2021 1:54 PM POULTRY TRIMMER Impressions 03/18/2021 1:54 PM POULTRY TRIMMER 1. Right scaphoidectomy and attempted, internally fixated 4 corner arthrodesis. There is instrumentation loosening with fractured plate as well as loosening and fracture of the screws, indicating pseudoarthrosis. 2. Moderate radiocarpal arthritis. Electronically signed by: David Zheng M.D. Narrative 03/18/2021 1:54 PM POULTRY TRIMMER EXAMINATION: XR WRIST RIGHT 3 OR MORE VIEWS HISTORY: Right wrist arthritis FINDINGS: 3 view examination of the right wrist is read without comparison. There has been scaphoid activity. There is an instrumented 4 corner wrist arthrodesis internally fixated with circular dorsal plate and screws. The plate is broken in 2 places and at least one of the capitate screws is broken. These findings suggest pseudoarthrosis and instrumentation loosening. There is resorption around several screws. There is bone fragmentation or loose body formation in the dorsal wrists. There is a cystic lucency in the distal radius which may be a subchondral cyst or bone graft harvest site. There is moderate radiocarpal arthritis. Procedure Note David Zheng MD - 03/18/2021 EXAMINATION: XR WRIST RIGHT 3 OR MORE VIEWS HISTORY: Right wrist arthritis FINDINGS: 3 view examination of the right wrist is read without comparison. There has been scaphoid activity. There is an instrumented 4 corner wrist arthrodesis internally fixated with circular dorsal plate and screws. The plate is broken in 2 places and at least one of the capitate screws is broken. These findings suggest pseudoarthrosis and instrumentation loosening. There is resorption around several screws. There is bone fragmentation or loose body formation in the dorsal wrists. There is a cystic lucency in the distal radius which may be a subchondral cyst or bone graft harvest site. There is moderate radiocarpal arthritis. IMPRESSION: 1. Right scaphoidectomy and attempted, internally fixated 4 corner arthrodesis. There is instrumentation loosening with fractured plate as well as loosening and fracture of the screws, indicating pseudoarthrosis. 2. Moderate radiocarpal arthritis. Electronically signed by: David Zheng M.D. Mo Guillermo MD IMG XR PROCEDURES Final R esult documented in this encounter Visit Diagnoses Diagnosis Right wrist pain Pain in joint, forearm documented in this encounter Care Teams Dean Of Education Relationship Specialty Start Date End Date Dedra Doty MD PCP - General 08/03/16 documented as of this encounter
--- OUTSIDE RECORDS SUMMARY | 2024-04-18 18:09 | XMS_ITS | Encounter Summary ---
Author Organization [facility] Address [address] [place] [address] Phone Care Team Providers Care Patient Scheduling Manager Name Role Phone Dedra Doty MD Primary Care Provider [phone] Encounter Details Date Type Department Care Team (Late st Contact Info) Description 03/18/2021 Orders Only [facility] Scanning, Provider Social History Tobacco Use Types Packs/Day Years Used Date Smoking Tobacco: Never Smokeless Tobacco: Never Sex and Gender Information Value Date Recorded Sex Assigned at Not on file Legal Sex Male 8:25 PM DUST SAMPLER Gender Identity Not on file Sexual Orientation Not on file documented as of this encounter Plan of Treatment Upcoming Encounters Date Type Department Care Team (Late st Contact Info) Description 04/18/2024 6:04 PM DUST SAMPLER Hospital Encounter [facility]) [address] [place] [address] Arrived 04/18/2024 6:05 PM DUST SAMPLER Hospital Encounter [facility]) [address] [place] [address] Arrived 04/18/2024 6:07 PM DUST SAMPLER Hospital Encounter [facility] ([facility]) [address] [place] [address] Arrived 04/18/2024 6:07 PM DUST SAMPLER Hospital Encounter [facility]) [address] [place] [address] Arrived documented as of this encounter Procedures Procedure Name Priority Date/Time Associated Diagnosis Comments SCAN - LABS 03/18/2021 documented in this encounter Results * SCAN - LABS (03/18/2021) us Provider Scanning Final Result documented in this encounter Visit Diagnoses Not on filedocumented in this encounter Care Teams Patient Scheduling Manager Relationship Specialty Start Date End Date Dedra Doty MD PCP - General 08/03/16 documented as of this encounter
--- OUTSIDE RECORDS SUMMARY | 2024-04-18 18:09 | XMS_ITS | Encounter Summary ---
Author Organization [facility] Healthcare Address [address] [place] [address] Care Team Providers Care Pug Mill Operator Name Role Phone Dedra Doty MD Primary Care Provider [phone] Reason for Referral * MRI/CAT/PET Scan (Routine) - Closed Specialty Diagnoses / Procedures Referred By Stephen jones Referred To Contact Radiology Diagnoses Primary pancreatic neuroendocrine tumor Procedures MRI Abdomen MRCP W WO Contrast Jose Elias Messina MD Phone: tel: fax: [place] [phone] [place] [phone] Referral ID Status Reason Start Date Expiration Date Visits Re quested Visits Authorized [id number] Closed 08/23/2021 10/21/2021 1 1 Reason for Visit * MRI/CAT/PET Scan (Routine) - Closed Specialty Diagnoses / Procedures Referred By Stephen jones Referred To Contact Radiology Diagnoses Primary pancreatic neuroendocrine tumor Procedures MRI Abdomen MRCP W WO Contrast Jose Elias Messina MD Phone: tel: fax: [place] [address] [place] [phone] Referral ID Status Reason Start Date Expiration Date Visits Re quested Visits Authorized [id number] Closed 08/23/2021 10/21/2021 1 1 Encounter Details Date Type Department Care Team (Latest Contact Info) Description 08/24/2021 2:09 PM CDT - 08/24/2021 11:59 PM CDT Hospital Encounter [facility] [address] [id number] Jose Elias Messina MD [address] [place] [address] Primary pancreatic neuroendocrine tumor Discharge Disposition: Discharge to home or self care Social History Tobacco Use Types Packs/Day Years Used Date Smoking Tobacco: Never Smokeless Tobacco: Never Sex and Gender Information Value Date Recorded Sex Assigned at Not on file Legal Sex Male 8:25 PM PROPOSAL EDITOR Gender Identity Not on file Sexual Orientation [...] st Contact Info) Description 04/18/2024 6:04 PM PROPOSAL EDITOR Hospital Encounter [facility]) [address] [place] [address] Arrived 04/18/2024 6:05 PM PROPOSAL EDITOR Hospital Encounter [facility]) [address] [place] [address] Arrived 04/18/2024 6:07 PM PROPOSAL EDITOR Hospital Encounter [facility]) [address] [place] [address] Arrived 04/18/2024 6:07 PM PROPOSAL EDITOR Hospital Encounter [facility]) [address] [place] [address] Arrived documented as of this encounter Procedures Procedure Name Priority Date/Time Associated Diagnosis Comments MRI ABDOMEN MRCP W WO CONTRAST Schedule Routine, Read Routine (OP Routine) 08/24/2021 3:42 PM CDT Primary pancreatic neuroendocrine tumor POC ISTAT Routine 08/24/2021 2:48 PM CDT documented in this encounter Results * MRI Abdomen MRCP [...] MD IMG MRI PROCEDURES F inal Result * POC ISTAT (08/24/2021 2:48 PM CDT) Creatinine, POC, bld 1.0 0.6 - 1.3 mg/dL MICAH NARAYANAN Comment: Interpretive data Creatinine <1.5 mg/dL and stable receive IV contrast. Creatinine 1.5-1.9 mg/dL and stable use Visipaque IV contrast. Current interpretive data last reviewed 2015. POC Device Number [id number] MICAH WELLS POC Performer [id number] MICAH NARAYANAN Blood 08/24/2021 2:48 PM CDT 08/24/2021 2:48 PM CDT Jose Elias Messina MD LAB BLOOD ORDERABLES Final Result MICAH MANNWCH [address] [facility]. [place] [address] documented in this encounter Visit Diagnoses Diagnosis Primary pancreatic neuroendocrine tumor documented in this encounter Administered Medications Inactive Administered Medications - up to 3 most recent administrations Medication Order MAR Action Action Date Dose Rate Site gadoxetate (EOVIST) 0.25 mmol/mL (181.43 mg/mL) injection 15.58 mL 15.58 mL (0.05 mmol/kg ? 77.9 kg), intravenous, Once in imaging, contrast, Starting on Mon08/24/21 at 1456, For 1 dose, Imaging Protocol Orders Contrast Given 08/24/2021 2:57 PM CDT 15 mL sodium chloride 0.9% flush 125 mL 125 mL, intravenous, As needed, line care, Starting on Mon08/24/21 at 1456 Given 08/24/2021 2:57 PM CDT 125 mL documented in this encounter Care Teams Pug Mill Operator Relationship Specialty Start Date End Date Dedra Doty MD PCP - General 08/03/16 documented as of this encounter
--- OUTSIDE RECORDS SUMMARY | 2024-04-18 18:09 | XMS_ITS | Encounter Summary ---
Author Organization [facility] Address [address] [place] [address] Phone Care Team Providers Care Hoisting Engineer Pile Driving Name Role Phone Dedra Doty MD Primary Care Provider [phone] Reason for Referral * Diagnostic Imaging (Routine) - Closed Specialty Diagnoses / Procedures Referred By Stephen jones Referred To Contact Diagnoses Right wrist pain Procedures X-ray wrist right 3+ views Mo Guillermo MD Phone: tel: fax: [facility] Referral ID Status Reason Start Date Expiration Date Visits Re quested Visits Authorized [id number] Closed 03/18/2021 04/17/2022 1 1 IDE COLLECTOR Reason for Visit * Reason Comments Pain Encounter Details Date Type Department Care Team (Late st Contact Info) Description 03/18/2021 1:00 PM OUTSIDE COLLECTOR Office Visit [facility] [address] [facility] [address]th [place] [address] [place] [address] [place] [address] [place] [address] Right wrist pain (Primary Dx) Social History Tobacco Use Types Packs/Day Years Used Date Smoking Tobacco: Never Smokeless Tobacco: Never Sex and Gender Information Value Date Recorded Sex Assigned at Not on file Legal Sex Male 8:25 PM OUTSIDE COLLECTOR Gender Identity Not on file Sexual Orientation Not on file documented as of this encounter Progress Notes * Mo Guillermo MD - 03/18/2021 1:00 PM CST NEW PATIENT CHIEF COMPLAINT: Pain of the Right Wrist HISTORY OF PRESENT ILLNESS: The patient is a 55 y.o. male presenting for evaluation of right wrist pain post scaphoid excision and 4 bone fusion in 2004. While pain was never fully resolved unfortunately he has worsened over last few months. He has worsening discomfort with lifting weights and tennis. He has trouble with heavy activities such as throwing a football. Pain is always central in the right wrist. No numbness ting ling clicking popping or catching. He also has a flexion posture of the PIP joint of the left little finger with unknown trauma and rapid presentation without thickening or other abnormalities. PAST MEDICAL HISTORY has a past medical history of Asthma (environmental allergy induced), Hyperlipidemia, and Hypothyroidism. PAST SURGICAL HISTORY He has a past surgical history that includes Wrist surgery (Right); Colonoscopy; and Upper gastrointestinal endoscopy. INITIAL REVIEW OF MEDICATIONS He has a current medication list which includes the following prescription(s): albuterol hfa, azithromycin, cetirizine, cyclobenzaprine, fenofibrate, levothyroxine, lisinopril, ofloxacin, oxycodone-acetaminophen, pantoprazole dr, and tramadol. DRUG ALLERGIES He is allergic to penicillins. SOCIAL HISTORY He reports that he has never smoked. He has never used smokeless tobacco. He reports current drug use. Drug: Marijuana. FAMILY HISTORY His family history includes No Known Problems in his father and mother. PHYSICAL EXAM: This is a well- developed, well nourished age appropriate patient in no acute distress. The patientis alert and oriented x3. On the right side, there is excellent elbow, forearm, and hand motion. DPC is zero for all digits. Wrist motion is decreased at about 10/20. Full rotation. Well-healed incision dorsally. No dramatic crepitus. Good extensor and flexor power of the fingers Median, radial, and ulnar nerves are intact to motor and sensory function. 2+ radial pulse and brisk capillary refill. No swelling noted. There is no atrophy and strength is satisfactory. On the left side, there is excellent elbow, forearm, wrist and hand motion. DPC is zero for all digits. 40 degree flexion contracture of the PIP joint. No palpable Dupuytren's disease. Median, radial, and ulnar nerves are intact to motor and sensory function. 2+ radial pulse and brisk capillary refill. No swelling noted. There is no atrophy and strength is satisfactory. Strength is 35/95 XRAY/STUDIES: I have ordered and personally reviewed the radiographs. My independent interpretation of these images is that there is an attempted four-corner fusion from years ago with a spider type plate with broken screws and likely broken plate. IMPRESSION/DIAGNOSIS/ PLAN: Patient with attempted four-corner fusion many years ago with continued wrist pain. We had a lengthy discussion about options. I do believe he is a good candidate for a complete wrist fusion. We discuss wrist arthroplasty and the pros and cons of that approach as well. He will consider this and letus know if he would like to proceed. I would recommend observation of his finger of the left littlefinger Mo Guillermo M.D. Professor Hand and Upper Extremity [facility] Orthopedics Dr. Guillermo is dictating using speech recognition software. Ironer Machine variances may occur. IDE COLLECTOR IDE COLLECTOR documented in this encounter Plan of Treatment Upcoming Encounters Date Type Department Care Team (Late st Contact Info) Description 04/18/2024 6:04 PM [facility] Hospital Encounter [facility] ([facility]) [address] [place] [address] Arrived 04/18/2024 6:05 PM OUTSIDE COLLECTOR Hospital Encounter [facility]) [address] [place] [address] Arrived 04/18/2024 6:07 PM [facility] Hospital Encounter [facility] ([facility]) [address] [place] [address] Arrived 04/18/2024 6:07 PM [facility] Hospital Encounter [facility] ([facility]) [address] [place] [address] Arrived documented as of this encounter Results * X-ray wrist right 3+ views (03/18/2021 1:11 PM OUTSIDE COLLECTOR) Anatomical Region Laterality Modality Upper Extremities, Wrist Right Compute d Radiography 03/18/2021 1:54 PM OUTSIDE COLLECTOR Impressions 03/18/2021 1:54 PM OUTSIDE COLLECTOR 1. Right scaphoidectomy and attempted, internally fixated 4 corner arthrodesis. There is instrumentation loosening with fractured plate as well as loosening and fracture of the screws, indicating pseudoarthrosis. 2. Moderate radiocarpal arthritis. Electronically signed by: David Zheng M.D. Narrative 03/18/2021 1:54 PM OUTSIDE COLLECTOR EXAMINATION: XR WRIST RIGHT 3 OR MORE [...] this encounter Visit Diagnoses Diagnosis Right wrist pain- Primary Pain in joint, forearm Right wrist pain Pain in joint, forearm documented in this encounter Historical Medications * This list may reflect changes made after this encounter. lisinopriL (PRINIVIL,ZESTRIL ) 10 mg tablet Take 1 tablet (10 mg total) by mouth daily 02/25/2021 added in this encounter Care Teams Hoisting Engineer Pile Driving Relationship Specialty Start Date End Date Dedra Doty MD PCP - General 08/03/16 documented as of this encounter
--- OUTSIDE RECORDS SUMMARY | 2024-04-18 18:09 | XMS_ITS | Encounter Summary ---
Author Organization [facility] Healthcare Address [address] [place] [address] Care Team Providers Care Waiter And Cashier Name Role Phone Dedra Doty MD Primary Care Provider [phone] Reason for Referral * Diagnostic Imaging (Routine) - Closed Specialty Diagnoses / Procedures Referred By Stephen jones Referred To Contact Radiology Diagnoses Pancreatic cyst Procedures MRI Abdomen MRCP W WO Contrast Jose Elias Messina MD Phone: tel: fax: [place] [address] [place] [phone] Referral ID Status Reason Start Date Expiration Date Visits Re quested Visits Authorized [id number] Closed 06/03/2020 07/02/2020 1 1 Reason for Visit * Diagnostic Imaging (Routine) - Closed Specialty Diagnoses / Procedures Referred By Stephen jones Referred To Contact Radiology Diagnoses Pancreatic cyst Procedures MRI Abdomen MRCP W WO Contrast Jose Elias Messina MD Phone: tel: fax: [place] [address] [address] [phone] Referral ID Status Reason Start Date Expiration Date Visits Re quested Visits Authorized [id number] Closed 06/03/2020 07/02/2020 1 1 Encounter Details Date Type Department Care Team (Latest Contact Info) Description 06/22/2020 12:15 PM CDT - 06/22/2020 11:59 PM CDT Hospital Encounter [facility] [address] [address] Jose Elias Messina MD [address] [place] [address] Pancreatic cyst Discharge Disposition: Discharge to home or self care Social History Tobacco Use Types Packs/Day Years Used Date Smoking Tobacco: Never Smokeless Tobacco: Never Sex and Gender Information Value Date Recorded Sex Assigned at Not on file Legal Sex Male 8:25 PM CANCER PROGRAM COORDINATOR Gender Identity Not on file Sexual Orientation Not on file documented as of this encounter Medications at Time of Discharge albuterol HFA (PROVENTIL HFA,VENTOLIN HFA,PROAIR HFA) 90 mcg/actuation inhaler INL 1 PUFF PO Q 4 H PRF WHZ OR SOB 08/19/2019 cetirizine (ZyrTEC) 10 mg tablet azithromycin (ZITHROMAX) 250 mg tablet TAKE 2 [...] st Contact Info) Description 04/18/2024 6:04 PM CANCER PROGRAM COORDINATOR Hospital Encounter [facility]) [address] [place] [address] Arrived 04/18/2024 6:05 PM CANCER PROGRAM COORDINATOR Hospital Encounter [facility]) [address] [place] [address] Arrived 04/18/2024 6:07 PM CANCER PROGRAM COORDINATOR Hospital Encounter [facility] [address] [place] [address] Arrived 04/18/2024 6:07 PM CANCER PROGRAM COORDINATOR Hospital Encounter [facility] [address] [place] [address] Arrived documented as of this encounter Procedures Procedure Name Priority Date/Time Associated Diagnosis Comments MRI ABDOMEN MRCP W WO CONTRAST Schedule Routine, Read Routine (OP Routine) 06/22/2020 1:52 PM CDT Pancreatic cyst POC ISTAT Routine 06/22/2020 12:45 PM CDT documented in this encounter Results * MRI Abdomen MRCP W WO Contrast (06/22/2020 1:52 PM CDT) Anatomical Region Laterality Modality Body N/A Magnetic Resonan ce 06/22/2020 3:29 PM CDT Impressions 06/22/2020 4:16 PM CDT 1. ??Normal-appearing pancreas without discrete pancreatic head lesion. 2. ??Stable tiny focus of hyperenhancement in hepatic segment 7, favored to represent vascular shunting. ??No new focal hepatic lesions. 3. ??Severe diffuse hepatic steatosis. Dictated by: William Fu M.D. The radiology attending physician has personally reviewed this study, and had reviewed and/or edited this written report and agrees with it. Electronically signed by: Richard Sands M.D. Narrative 06/22/2020 4:16 PM CDT EXAMINATION: 1. MAGNETIC RESONANCE IMAGING OF THE ABDOMEN WITH AND WITHOUT CONTRAST 2. THREE DIMENSIONAL RECONSTRUCTION OF THE BILIARY TREE AND PANCREATIC DUCT HISTORY: Follow-up indeterminate pancreatic head lesion (previous endoscopic ultrasound and biopsy suggestive of either neuroendocrine tumor or lymphoma) TECHNIQUE: Magnetic resonance imaging of the abdomen was performed prior to and following the uneventful administration of intravenous Gadolinium contrast. The raw data was processed on the scanner by the technologist for 3 dimensional reconstructions of the intrahepatic ducts, extrahepatics ducts, and pancreatic duct. Protocol: Liver MRCP Contrast: Dotarem 14 mL COMPARISON: MRCP performed 11/04/2019 FINDINGS: Liver: No liver surface nodularity is identified. ??There is moderate to severe diffuse hepatic steatosis (PDFF 32%). ??No significant iron deposition is identified. - Bile ducts: No intrahepatic or extrahepatic biliary ductal dilatation is identified. - Focal liver lesions: A tiny hypervascular lesion and hepatic segment 7 (series 35, image 33) does not have a T2 or diffusion correlate minus aorta represent vascular shunting, unchanged. Scattered tiny cysts throughout the liver are unchanged. ??A subcentimeter hemangioma is noted in hepatic segment 6 (series 9, image 36). - Vasculature: The hepatic arterial anatomy is conventional. ??The portal, superior mesenteric, and hepatic veins are patent. Gallbladder: Normal in appearance without evidence of gallstones. Pancreas: Normal in appearance without focal lesion., ??Specifically the previously identified pancreatic head lesion on the CT performed 08/24/2026 is not seen on today's examination. Spleen: Normal in size without focal lesion. Adrenals: Normal in appearance without focal lesion. Kidneys: Normal in appearance without focal lesion. ??No hydronephrosis. Other Findings: An intraosseous hemangioma is redemonstrated in the T12 vertebral body. ??No suspicious intraosseous lesions are identified. ??No abdominal lymphadenopathy or ascites is identified. The visible lung bases are clear. ??The abdominal aorta is atherosclerotic. Procedure Note Richard Sands MD - 06/22/2020 EXAMINATION: 1. MAGNETIC RESONANCE IMAGING OF THE ABDOMEN WITH AND WITHOUT CONTRAST 2. THREE DIMENSIONAL RECONSTRUCTION OF THE BILIARY TREE AND PANCREATIC DUCT HISTORY: Follow-up indeterminate pancreatic head lesion (previous endoscopic ultrasound and biopsy suggestive of either neuroendocrine tumor or lymphoma) TECHNIQUE: Magnetic resonance imaging of the abdomen was performed prior to and following the uneventful administration of intravenous Gadolinium contrast. The raw data was processed on the scanner by the technologist for 3 dimensional reconstructions of the intrahepatic ducts, extrahepatics ducts, and pancreatic duct. Protocol: Liver MRCP Contrast: Dotarem 14 mL COMPARISON: MRCP performed 11/04/2019 FINDINGS: Liver: No liver surface nodularity is identified. There is moderate to severe diffuse hepatic steatosis (PDFF 32%). No significant iron deposition is identified. - Bile ducts: No intrahepatic or extrahepatic biliary ductal dilatation is identified. - Focal liver lesions: A tiny hypervascular lesion and hepatic segment 7 (series 35, image 33) does not have a T2 or diffusion correlate minus aorta represent vascular shunting, unchanged. Scattered tiny cysts throughout the liver are unchanged. A subcentimeter hemangioma is noted in hepatic segment 6 (series 9, image 36). - Vasculature: The hepatic arterial anatomy is conventional. The portal, superior mesenteric, and hepatic veins are patent. Gallbladder: Normal in appearance without evidence of gallstones. Pancreas: Normal in appearance without focal lesion., Specifically the previously identified pancreatic head lesion on the CT performed 08/24/2026 is not seen on today's examination. Spleen: Normal in size without focal lesion. Adrenals: Normal in appearance without focal lesion. Kidneys: Normal in appearance without focal lesion. No hydronephrosis. Other Findings: An intraosseous hemangioma is redemonstrated in the T12 vertebral body. No suspicious intraosseous lesions are identified. No abdominal lymphadenopathy or ascites is identified. The visible lung bases are clear. The abdominal aorta is atherosclerotic. IMPRESSION: 1. Normal-appearing pancreas without discrete pancreatic head lesion. 2. Stable tiny focus of hyperenhancement in hepatic segment 7, favored to represent vascular shunting. No new focal hepatic lesions. 3. Severe diffuse hepatic steatosis. Dictated by: William Fu M.D. The radiology attending physician has personally reviewed this study, and had reviewed and/or edited this written report and agrees with it. Electronically signed by: Richard Sands M.D. Jose Elias Messina MD IM MRI PROCEDURES F inal Result * POC ISTAT (06/22/2020 12:45 PM CDT) Creatinine, POC, bld 0.8 0.6 - 1.3 mg/dL MICAH NARAYANAN Comment: Interpretive data Creatinine <1.5 mg/dL and stable receive IV contrast. Creatinine 1.5-1.9 mg/dL and stable use Visipaque IV contrast. Current interpretive data last reviewed 2015. POC Device Number [id number] MICAH MANNWCH POC Performer [id number] MICAH WELLSCH Blood specimen (specimen) 06/22/2020 12:45 PM CDT 06/22/2020 12:45 PM CDT Jose Elias Messina MD LAB BLOOD ORDERABLES Final Result MICAH MANNWCH [address] [facility]. [place] [address] documented in this encounter Visit Diagnoses Diagnosis Pancreatic cyst Cyst and pseudocyst of pancreas documented in this encounter Administered Medications Inactive Administered Medications - up to 3 most recent administrations Medication Order MAR Action Action Date Dose Rate Site gadoterate meglumine (DOTAREM) 0.5 mmol/mL injection 14.96 mL 14.96 mL (0.1 mmol/kg ? 74.8 kg), intravenous, Once in imaging, contrast, Starting on Mon06/22/20 at 1243, For 1 dose, Imaging Protocol Orders Given 06/22/2020 1:53 PM CDT 14 mL sodium chloride 0.9% flush 125 mL 125 mL, intravenous, Once in imaging, line care, Starting on Mon06/22/20 at 1244, For 1 dose Given 06/22/2020 1:53 PM CDT 125 mL documented in this encounter Care Teams Waiter And Cashier Relationship Specialty Start Date End Date Dedra Doty MD PCP - General 08/03/16 documented as of this encounter
--- OUTSIDE RECORDS SUMMARY | 2024-04-18 18:10 | XMS_ITS | Encounter Summary ---
Author Organization [facility] Address [address] [facility] [address] [place] [address] Phone Care Team Providers Care Metal Burnisher Name Role Phone Dedra Doty MD Primary Care Provider Encounter Details Date Type Department Care Team (Late st Contact Info) Description 03/24/2020 Orders Only [facility] Surgery [address] [facility] Floor 1 [place] [address] Jose Elias Messina MD [address] [facility] [id number] [place] [address] Neuroendocrine tumor (Primary Dx) Social History Tobacco Use Types Packs/Day Years Used Date Smoking Tobacco: Never Smokeless Tobacco: Never Sex and Gender Information Value Date Recorded Sex Assigned at Not on file Legal Sex Male 8:25 PM CONDUCTOR/ENGINEER Gender Identity Not on file Sexual Orientation Not on file documented as of this encounter Progress Notes * Say Coronel - 03/24/2020 9:28 AM CST chrom UCTOR/ENGINEER documented in this encounter Miscellaneous Notes * Addendum Note - Say Coronel - 03/24/2020 9:28 AM CSTAddended by: SAY CORONEL on: 03/24/2020 09:39 AM Modules accepted: Orders UCTOR/ENGINEER documented in this encounter Plan of Treatment Upcoming Encounters Date Type Department Care Team (Late st Contact Info) Description 04/18/2024 6:04 PM CONDUCTOR/ENGINEER Hospital Encounter [facility] ([facility]) [address] [place] [address] Arrived 04/18/2024 6:05 PM CONDUCTOR/ENGINEER Hospital Encounter [facility] ([facility]) [address] [place] [address] Arrived 04/18/2024 6:07 PM CONDUCTOR/ENGINEER Hospital Encounter [facility] ([facility]) [address] [place] [address] Arrived 04/18/2024 6:07 PM CONDUCTOR/ENGINEER Hospital Encounter [facility] ([facility]) [address] [place] [address] Arrived documented as of this encounter Visit Diagnoses Diagnosis 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
--- OUTSIDE RECORDS SUMMARY | 2024-04-18 18:10 | XMS_ITS | Encounter Summary ---
Author Organization [facility] Healthcare Address [address] [place] [address] Care Team Providers Care Theatre Professor Name Role Phone Dedra Doty MD Primary Care Provider Encounter Details Date Type Department Care Team (Late st Contact Info) Description 11/07/2019 10:00 AM CDT - 11/07/2019 11:00 AM CDT Surgery [facility] [place] [address] [facility] [address] [place] [address] Richard Tomas MD [address] [facility] [address] [place], [place] [id number] US Endoscopy [GI509] Surgery Details Date/Time Status Location OR Service Patient Class Case Class Case Type Trauma Case? 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 Gender Identity Not on file Sexual Orientation Not on file documented as of this encounter Last Filed Vital Signs Vital Sign Reading Time Taken Comments Blood Pressure 161/94 11/07/2019 9:26 AM CDT Pulse 67 11/07/2019 9:26 AM CDT Temperature 36 ??C (96.8 ??F) 11/07/2019 9:26 AM CDT Respiratory Rate 14 11/07/2019 9:26 AM CDT Oxygen Saturation 98% 11/07/2019 9:26 AM CDT Inhaled Oxygen Concentration - - Weight 73.5 kg (162 lb) 11/07/2019 9:26 AM CDT Height 172.7 cm (5' 8 ) 11/07/2019 9:26 AM CDT Body Mass Index 24.63 11/07/2019 9:26 AM CDT documented in this encounter Discharge Instructions * Discharge Instructions* Florin Nolan MD - 11/07/2019 11:05 AM CDT Please refer to your procedure report and instructions for specific guidance on management of your diet and medications. Specifically, if you are on a blood thinning medication (like coumadin, Plavix, Eliquis, Xarelto, etc) your endoscopy report will include instructions on what to do with these medications in the days after the endoscopy. If you have any questions about your medication regimen, please discuss them with your prescribing physician. documented in this encounter Medications at Time of Discharge [...] or self care documented in this encounter H&P Notes * Florin Nolan MD - 11/07/2019 10:32 AM CDT Pre Endoscopy History and Physical Nikolay Ibrahim is a 53 y.o. male who is here for Procedure(s): US Endoscopy The indication(s) for the procedure(s): Pancreatic head mass concerning for malignant etiology, requiring re sampling to confirm diagnosis. Past Medical History: Diagnosis Date ??? Asthma [...] Problems Mother ??? No Known Problems Father Allergies Allergen Reactions ??? Penicillins Prior to Admission medications Medication Sig Start Date End Date Taking? Authorizing Provider azithromycin (ZITHROMAX) 250 mg tablet TAKE 2 TABLETS BY MOUTH ON DAY 1 AND THEN TAKE 1 TABLET BY MOUTH ONCE A DAY ON DAY 2 THROUGH DAY 5 10/25/19 Yes Historical Provider, cetirizine (ZyrTEC) 10 mg tablet Yes Historical Provider, fenofibrate (TRICOR) 54 mg tablet TK 1 T PO QD 08/13/19 Yes Historical Provider, levothyroxine (SYNTHROID) 175 mcg tablet daily Yes Historical Provider, ofloxacin (FLOXIN) 0.3 % otic solution INSTILL 10 DROPS INTO EACH EAR ONCE DAILY FOR 7 DAYS 10/25/19Yes Historical Provider, oxyCODONE-acetaminophen (PERCOCET) 5-325 mg per tablet TK 1 TS PO Q 4 TO 6 H PRN P 08/30/19 Yes Historical Provider, albuterol HFA (PROVENTIL HFA,VENTOLIN HFA,PROAIR HFA) 90 mcg/actuation inhaler INL 1 PUFF PO Q 4 H PRF WHZ OR SOB 08/19/19 Historical Provider, cyclobenzaprine (FLEXERIL) 10 mg tablet TK 1 T PO TID PRN 08/13/19 Historical Provider, pantoprazole DR (PROTONIX) 40 mg EC tablet TK 1 T PO BID FOR 14 DAYS 08/25/19 Historical Provider, traMADoL (ULTRAM) 50 mg tablet TK 1 T PO Q 6 H PRN P 08/19/19 Historical Provider, Review of Systems A pertinent, focused review of systems was completed and negative, except as noted above. OBJECTIVE: Vitals: Vitals: 11/07/19 0926 BP: 161/94 Pulse: 67 Resp: 14 Temp: 36 ??C (96.8 ??F) TempSrc: Temporal SpO2: 98% Weight: 73.5 kg (162 lb) Height: 172.7 cm (5' 8 ) Physical Exam: Airway: No significant abnormality. Cardiac: No significant abnormality. Pulmonary: No significant abnormality. Neurological: No significant abnormality. Gastrointestinal: No significant abnormality. ASA Score: per Anesthesia Sedation/Anesthesia Plan: per Anesthesia The risks and complications of the procedure have been explained to the patient. Informed consent was signed. Impression and plan: Will proceed with the planned procedure for the reasons stated above. Cosigned by Richard Tomas MD at 11/07/2019 11:10 AM CDT Associated attestation - Richard Tomas MD - 11/07/2019 11:10 AM CDT /I have seen and examined the patient on 11/07/19. I agree with the findings and plan of care as documented in the resident's/fellow's note.. / documented in this encounter Procedure Notes * Richard Tomas MD - 11/07/2019 10:16 AM CDTAssociated Order(s): EUS GI ENDOSCOPY NORTH Patient Name: Nikolay Ibrahim Procedure Date: 11/07/2019 10:16 AM Date of : 1965 Admit Type: Outpatient Age: 53 Gender: Male Attending MD: Richard Tomas M.D. Room: [facility] ENDOSCOPY ROOM 1 Note Status: Finalized Procedure: Upper EUS Indications: Suspected solid pancreatic neoplasm. Patient with a small (9mm) pancreatic head lesion that was previously biopsied with EUS guidance and showed unconfirmed, possible malignant cells, however follow-up MRI pancreas showed no pancreatic head lesion. Patient now presents for follow-up EUS with possible sampling. Referring MD: Dedra Doty MD, Jose Elias Messina M.D. Providers: Richard Tomas M.D., Florin Hall M.D. Medicines: Monitored Anesthesia Care Complications: No immediate complications. Estimated Blood Loss: Estimated blood loss: none. Procedure: Pre-Anesthesia Assessment: - The risks and benefits of the procedure and the sedation options and risks were discussed with the patient. All questions were answered and informed consent was obtained. - Immediately prior to administration of medications, the patient was re-assessed for adequacy to receive sedatives. The risks, benefits and alternatives were discussed and informed consent was obtained. The Olympus curved linear array therapeutic endosonoscope [id number] was introduced through the mouth, and advanced to the second part of duodenum The upper EUS was accomplished without difficulty. The patient tolerated the procedure well. Findings: Endosonographic Finding : The stomach and duodenum were visualized endosonographically. There was a hypoechoic area in the head of the pancreas that corresponded to the previously seen lesion. The lesion now measures 5mm in largest diameter, down from 9 mm on prior study. There were no worrisome features otherwise appreciated endosonographically. Endosonographic imaging in the remaining pancreatic head showed no cyst/pseudocyst or masses. Pancreatic parenchymal abnormalities were noted in the entire pancreas. These consisted of hyperechoic strands and hyperechoic foci. There was no sign of significant endosonographic abnormality in the main pancreatic duct. The pancreatic duct measured up to 2 mm in diameter. There was no sign of significant endosonographic abnormality in the common bile duct. The maximum diameter of the duct was 3 mm. There was abnormal echogenicity in the visualized portion of the liver. This area was hyperechoic. Impression: - The pancreatic head lesion is smaller compared to last EUS examination (was 9 mm, now 5 mm). Given decrease in size, this is consistent with a benign process. - Hepatic steatosis. Recommendation: - Discharge patient to home (ambulatory). - Observe patient's clinical course. - Perform MRCP in 6 months for surveillance of pancreas. - Diet, exercise, weight loss for fatty liver which could be contributing to RUQ discomfort. - Follow-up in GI clinic should pain continue. Attending Participation: I was present and participated during the entire procedure, including non-wagner portions. Electronically Signed: Richard Tomas MD Richard Tomas M.D. 11/07/2019 11:31:22 AM . 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 Hospital Encounter [facility]) [address] [place] [address] Arrived Pending Results Name Type Priority Associated Diagnoses Date /Time US Endoscopy Endo Imaging Procedure IP Routine Pancreatic cyst 11/07/2019 11:08 AM CDT documented as of this encounter Procedures Procedure Name Priority Date/Time Associated Diagnosis Comments US ENDOSCOPIC IP Routine 11/07/2019 11:08 AM CDT Pancreatic cyst EUS 11/07/2019 10:16 AM CDT documented in this encounter Results * EUS (11/07/2019 10:16 AM CDT) Anatomical Region Laterality Modality Other Narrative Procedure Note Richard Tomas MD - 11/07/2019 10:16 AM CDT GI ENDOSCOPY [facility] Patient Name: Nikolay Ibrahim Procedure Date: 11/07/2019 10:16 AM Date of : 1965 Admit Type: Outpatient Age: 53 Gender: Male Attending MD: Richard Tomas M.D. Room: [facility] ENDOSCOPY ROOM 1 Note Status: Finalized Procedure: Upper EUS Indications: Suspected solid pancreatic neoplasm. Patient with a small (9mm) pancreatic head lesion that waspreviously biopsied with EUS guidance and showed unconfirmed, possible malignant cells, however follow-up MRI pancreas showed no pancreatic head lesion. Patientnow presents for follow-up EUS with possible sampling. Referring MD: Dedra Doty MD, Jose Elias Messina M.D. Providers: Richard Tomas M.D., Florin Hall M.D. Medicines: Monitored Anesthesia Care Complications: No immediate complications. Estimated Blood Loss: Estimated blood loss: none. Procedure: Pre-Anesthesia Assessment: - The risks and benefits of the procedure and the sedation options and risks were discussed with the patient. All questions were answered and informed consent was obtained. - Immediately prior to administration ofmedications, the patient was re-assessed for adequacy to receive sedatives. The risks, benefits and alternatives were discussedand informed consent was obtained. The Olympus curved linear array therapeutic endosonoscope [id number] was introduced through the mouth, and advanced tothe second part of duodenum The upper EUS wasaccomplished without difficulty. The patient tolerated theprocedure well. Findings: Endosonographic Finding : The stomach and duodenum were visualized endosonographically. There was a hypoechoic area in the head of the pancreas that corresponded to the previously seen lesion. The lesion now [id number] in largest diameter, down from 9 mm on prior study. There were no worrisome features otherwise appreciated endosonographically. Endosonographic imaging in the remaining pancreatic head showed no cyst/pseudocyst or masses. Pancreatic parenchymal abnormalities were noted in the entirepancreas. These consisted of hyperechoic strands and hyperechoic foci. There was no sign of significant endosonographic abnormality in themain pancreatic duct. The pancreatic duct measured up to 2 mm indiameter. There was no sign of significant endosonographic abnormality in the common bile duct. The maximum diameter of the duct was 3 mm. There was abnormal echogenicity in the visualized portion of theliver. This area was hyperechoic. Impression: - The pancreatic head lesion is smaller compared to last EUS examination (was 9 mm, now 5 mm). Given decrease in size, this is consistent with a benign process. - Hepatic steatosis. Recommendation: - Discharge patient to home (ambulatory). - Observe patient's clinical course. - Perform MRCP in 6 months for surveillance ofpancreas. - Diet, exercise, weight loss for fatty liver which could be contributing to RUQ discomfort. - Follow-up in GI clinic should pain continue. Attending Participation: I was present and participated during the entire procedure, including non-wagner portions. Electronically Signed: Richard Tomas MD Richard Tomas M.D. 11/07/2019 11:31:22 AM . Number of Addenda: 0 Note Initiated On: 11/07/2019 10:16 AM Recognized by the [employer] for promoting quality in endoscopy Richard Tomas MD ENDOSCOPY PROCEDURES Edit ed Result - Final documented in this encounter Visit Diagnoses Diagnosis Pancreatic cyst- Primary Cyst and pseudocyst of pancreas Pancreatic cyst Cyst and pseudocyst of pancreas Pancreatic cyst Cyst and pseudocyst of pancreas documented in this encounter Admitting Diagnoses Diagnosis Pancreatic cyst Cyst and pseudocyst of pancreas documented in this encounter Administered Medications Inactive Administered Medications - up to 3 most recent administrations Medication Order MAR Action Action Date Dose Rate Site sodium chloride 0.9% flush 0.5-20 mL 0.5-20 mL, intra-catheter, Every 8 hours scheduled, First dose on Loulou 11/07/19 at 1400, Pre-Procedure (GI), Flush volume based on line type and size. sodium chloride 0.9% flush 0.5-20 mL 0.5-20 mL, intra-catheter, As needed, line care, Starting on Loulou 11/07/19 at 0923, Pre-Procedure (GI), Flush volume based on line type and size. Flush before and after each use. sodium chloride 0.9% infusion 30 mL/hr, intravenous, Continuous, Starting on Loulou 11/07/19 at 1000, Pre-Procedure (GI) New Bag 11/07/2019 9:40 AM CDT 30 mL/hr 30 mL/hr documented in this encounter Historical Medications * This list may reflect changes made after this encounter. azithromycin (ZITHROMAX) 250 mg tablet TAKE 2 TABLETS BY MOUTH ON DAY 1 AND THEN TAKE 1 TABLET BY MOUTH ONCE A DAY ON DAY 2 THROUGH DAY 5 10/25/2019 10/21/2021 ofloxacin (FLOXIN) 0.3 % otic solution INSTILL 10 DROPS INTO EACH EAR ONCE DAILY FOR 7 DAYS 10/25/2019 10/21/2021 added in this encounter Active and Recently Administered Medications Times are shown in CDT. Scheduled Medication Order 11/05/2019 11/06/2019 11/07/2019 sodium chloride 0.9% flush 0.5-20 mL 0.5-20 mL, intra-catheter, Every 8 hours scheduled, First dose on Loulou 11/07/19 at 1400, Pre-Procedure (GI), Flush volume based on line type and size. Continuous Medication Order 11/05/2019 11/06/2019 11/07/2019 sodium chloride 0.9% infusion 30 mL/hr, intravenous, Continuous, Starting on Loulou 11/07/19 at 1000, Pre-Procedure (GI) 0940 (New Bag - Prov ider: Samia Dubois RN)1102 (Anesthesia Volume Adjustment - Provider: Edi Kumari CRNA)1109 (Anesthesia Volume Adjustment - Provider: Edi Kumari CRNA)1140 (Stopped - Provider: Tish Aiken RN) PRN Medication Order 11/05/2019 11/06/2019 11/07/2019 ondansetron (ZOFRAN) injection 4 mg 4 mg, intravenous, Administer over 2 Minutes, Every 30 min PRN, nausea, vomiting, Starting on Loulou 11/07/19 at 1115, For 2 doses, Recovery (GI), Indications: Nausea and Vomiting sodium chloride 0.9% flush 0.5-20 mL 0.5-20 mL, intra-catheter, As needed, line care, Starting on Loulou 11/07/19 at 0923, Pre-Procedure (GI), Flush volume based on line type and size. Flush before and after each use. documented in this encounter Orders Medications Ordered That Santiago ht Not Have Been Administered Count Last Ordered Date First Ordered Date ondansetron (ZOFRAN) injection 4 mg 1 11/06 sodium chloride 0.9% flush 0.5-20 mL 2 10/10 documented in this encounter Care Teams Theatre Professor Relationship Specialty Start Date End Date Dedra Doty MD PCP - General 08/03/16 documented as of this encounter
--- OUTSIDE RECORDS SUMMARY | 2024-04-18 18:10 | XMS_ITS | Encounter Summary ---
Author Organization [facility] Address [address] 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 Last call was placed 05/02. Left voicemail asking if MRI was ever scheduled for follow up with Dr. Messina. FITTERS SUPERVISOR documented in this encounter Plan of Treatment Upcoming Encounters Date Type Department Care Team (Late st Contact Info) Description 04/18/2024 6:04 PM SHIPFITTERS SUPERVISOR Hospital Encounter [facility] ([facility]) [address] [place] [address] Arrived 04/18/2024 6:05 PM SHIPFITTERS SUPERVISOR Hospital Encounter [facility] ([facility]) [address] [place] [address] Arrived 04/18/2024 6:07 PM SHIPFITTERS SUPERVISOR Hospital Encounter [facility] ([facility]) [address] [place] [address] Arrived 04/18/2024 6:07 PM SHIPFITTERS SUPERVISOR Hospital Encounter [facility] ([facility]) [address] [place] [address] Arrived documented as of this encounter Visit Diagnoses Not on filedocumented in this encounter Care Teams Fence Machine Operator Relationship Specialty Start Date End Date Dedra Doty MD PCP - General 08/03/16 documented as of this encounter
--- OUTSIDE RECORDS SUMMARY | 2024-04-18 18:10 | XMS_ITS | Encounter Summary ---
Author Organization [facility] Address [address] [place] [address] Phone Care Team Providers Care Web Page Designer Name Role Phone Dedra Doty MD Primary Care Provider Encounter Details Date Type Department Care Team (Late st Contact Info) Description 11/06/2019 Telephone 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 Call with changes, questions. ----- Message from Richard Tomas MD sent at 11/06/2019 8:40 AM CDT ----- Please call patient with result: previously seen lesion not well visualized, perhaps decreased in size. Proceed with EUS as planned 11/06. documented in this encounter Plan of Treatment Upcoming Encounters Date Type Department Care Team (Late st Contact Info) Description 04/18/2024 6:05 PM RETAIL PARTS PROFESSIONAL Hospital Encounter [facility] ([facility]) [address] [place] [address] Arrived documented as of this encounter Visit Diagnoses Not on filedocumented in this encounter Care Teams Web Page Designer Relationship Specialty Start Date End Date Dedra Doty MD PCP - General 08/03/16 documented as of this encounter
--- OUTSIDE RECORDS SUMMARY | 2024-04-18 18:10 | XMS_ITS | Encounter Summary ---
Author Organization [facility] Address [address] [facility] [address] [place] [address] Phone Care Team Providers Care Product Technician Name Role Phone Dedra Doty MD Primary Care Provider Encounter Details Date Type Department Care Team (Late st Contact Info) Description 11/11/2019 11:30 AM CDT Office Visit [facility] Surgery [address] 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 REASON FOR VISIT: Pancreas neuroendocrine tumor ? CHART REVIEW: Mr. Ibrahim is a 53 year old male with an incidental finding of a 1.0 cm pancreatic head lesion that was found on workup for right upper quadrant and epigastric pain. He underwent an EUS on 09/08 where endosonographically the lesion appeared to be a neuroendocrine tumor and staged at T1N0. The mass was biopsied and showed malignant neoplasm consistent with neuroendocrine tumor or lymphoma. He was last evaluated in clinic where he reportedly had abdominal pain with radiation to the back and fevers after drinking a few beers that was concerning for pancreatitis. His case was presented at the pancreas multi- disciplinary conference where his imaging was reviewed and showed a singlelesion arising anteriorly in the pancreatic head that is not consistent with the lesion visualized on EUS. There was no suspicious lymphadenopathy or splenomegaly consistent with lymphoma. Pathology was reviewed and felt this was malignant with some necrosis. It is positive for CAM 5.2 that favors poorly differentiated neuroendocrine carcinoma less likely lymphoma. It was recommended MRI and repeat EUS. MRI/MRCP from 11/03 showed poor visualization of pancreatic lesion, hepatic steatosis. EUS from 11/06 showed lesion now only 5mm, this was not biopsied ?? Today, the patient continues to complain of dull RUQ pain, but this has overall improved. He also endorses some sharp pains in that location that worsens with movement and pressure. He continues to tolerate a diet, has had no changes to BMs and urine. PAST MEDICAL HISTORY: 1. Hepatic steatosis 2. Dyslipidemia 3. Hypothyroidism ?? PAST SURGICAL HISTORY: 1. Appendectomy - child 2. Right wrist surgery ?? ALLERGIES: 1. Carrot and celery - hives 2. Pistachio - hives 3. Mangos - hives 4. Penicillin - swelling of body, except face ?? MEDICATIONS: The patient's current medications were reviewed. ?? 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 The patient is accompanied today by his . ?? FAMILY HISTORY: 1. Brother - tumor of the tongue 2. Sister - breast cancer 3. Mother - alzheimer's disease Physical Exam Constitutional: Appearance: Normal appearance. He is normal weight. HENT: Head: Normocephalic and atraumatic. Eyes: Extraocular Movements: Extraocular movements intact. Pupils: Pupils are equal, round, and reactive to light. Neck: Musculoskeletal: Normal range of motion and neck supple. Cardiovascular: Rate and Rhythm: Normal rate and regular rhythm. Pulmonary: Effort: Pulmonary effort is normal. Abdominal: General: Abdomen is flat. Palpations: Abdomen is soft. Tenderness: There is abdominal tenderness. There is no guarding. Musculoskeletal: Normal range of motion. Skin: General: Skin is warm and dry. Neurological: Mental Status: He is alert. Mental status is at baseline. REVIEW OF LABORATORY AND RADIOGRAPHIC STUDIES: EUS 11/07/19: ?? MRI/MRCP 11/04/19: ?? EUS 09/09/19:??9.9 x 8.3 mm solid pancreas head lesion. Tissue was obtained from this exam, and results are pending. However, the endosonographic appearance is consistent with a neuroendocrine tumor. This was staged T1 N0 Mx by endosonographic criteria. The staging applies if malignancy is confirmed.Fine needle biopsy performed. Non-specific pancreatic parenchymal abnormalities consisting of lobularity were noted in the entire pancreas. There was no sign of significant pathology in the common bile duct, in the common hepatic duct and in the gallbladder. There was diffuse abnormal echotexture in the visualized portion of the liver. This was [...] well as a positive Carnett's sign are suggestiveof a musculoskeletal/abdominal wall etiology. ?? Pathology 09/09/19: A. Pancreas, head mass, fine-needle biopsy ? - Malignant neoplasm - Sections show a single small fragment of loosely cohesive malignant cells. These cells are negative for chromogranin. They are not present on deeper levels for CAM5.2 and synaptophysin. The differential includes a neuroendocrine neoplasm or lymphoma. ?? EGD 09/09/19: Normal esophagus. Normal stomach. Normal examined duodenum. ?? CT abdomen/pelvis 08/25/19: no acute intra-abdominal/pelvis process. Diffuse hepatic steatosis. 1.0 cm cystic lesion at the head of the pancreas. The differential diagnosis includes pseudocyst, intraductal papillary mucinous neoplasm (IPMN), mucinous cystic neoplasm (MCN), and the less common serous cystadenoma, and neuroendocrine tumor. Correlate for history of pancreatitis. Recommend one-year follow up contrast enhanced CT or more preferably MRI. ? Assessment and Plan We reviewed results of most recent MRI and EUS with patient and his . We discussed that the pancreas lesion has now decreased in size. 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 Given that this has decreased in size, it is likely not aggressive. We recommended repeat MRCP in 6 months, with f/u in our clinic, for surveillance. We will present his case again in our multidiscplinary conference next week With regards to the patient's abdominal pain, it is unlikely that this small mass is causing his symptoms. Workup has also revealed hepatic steatosis, which can cause the pain the patient has been describing. The patient does endorse heavy ETOH use in the past. We counseled the patient to minimize ETOH intake, limit carbohydrates and saturated fats. ? Providers: Richard Tomas MD (Biliary Endoscopy) Aye Doty MD (PCP) ? Cosigned by Jose Elias Messina MD at 2019 9:38 AM CDT Associated attestation - Jose Elias Messina MD - 2019 9:38 AM CDT I personally saw and examined this patient on 11/11/2019 and I agree with the resident's assessmentand plan. documented in this encounter Plan of Treatment Upcoming Encounters Date Type Department Care Team (Late st Contact Info) Description 04/18/2024 6:05 PM QUALITY CONTROL OPERATOR Hospital Encounter [facility]) [address] [place] [address] Arrived documented as of this encounter Visit Diagnoses Diagnosis Pancreatic cyst- Primary Cyst and pseudocyst of pancreas documented in this encounter Care Teams Product Technician Relationship Specialty Start Date End Date Dedra Doty MD PCP - General 08/03/16 documented as of this encounter
--- OUTSIDE RECORDS SUMMARY | 2024-04-18 18:10 | XMS_ITS | Encounter Summary ---
Author Organization [facility] Address [address] [facility] [address] [place] [address] Phone Care Team Providers Care Passenger Agent Name Role Phone Dedra Doty MD Primary Care Provider [phone] Encounter Details Date Type Department Care Team (Late Contact Info) Description 11/04/2019 Telephone [facility] Gastroenterology Critical access hospital[facility] 8th [place] [address] [place] [phone] Jes Lockwood RN Social History Tobacco Use Types Packs/Day Years Used Date Smoking Tobacco: Never Smokeless Tobacco: Never Sex and Gender Information Value Date Recorded Sex Assigned at Not on file 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 documented in this encounter Plan of Treatment Upcoming Encounters Date Type Department Care Team (Late st Contact Info) Description 04/18/2024 6:05 PM MANAGER OF MERCHANDISING Hospital Encounter [facility] Radiology [facility] ([facility] [address] [place] [address] Arrived documented as of this encounter Visit Diagnoses Not on filedocumented in this encounter Care Teams Passenger Agent Relationship Specialty Start Date End Date Dedra Doty MD PCP - General 08/03/16 documented as of this encounter
--- OUTSIDE RECORDS SUMMARY | 2024-04-18 18:10 | XMS_ITS | Encounter Summary ---
Author Organization [facility] Address [address] [place] [address] Care Team Providers Care Sales And Merchandising Representative Name Role Phone Dedra Doty MD Primary Care Provider [phone] Encounter Details Date Type Department Care Team (Latest Contact Info) Description 11/07/2019 9:06 AM CDT - 11/07/2019 12:13 PM CDT Hospital Encounter [facility] [address] [facility] [address] [place] [address] Richard Tomas MD [address] [facility] [address] [place] [address] Pancreatic cyst Discharge Disposition: Discharge to home or self care Social History Tobacco Use Types Packs/Day Years Used Date Smoking Tobacco: Never Smokeless Tobacco: Never Sex and Gender Information Value Date Recorded Sex Assigned at Not on file Legal Sex Male 8:25 PM SEQUINS 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 Gender Identity Not on file Sexual Orientation Not on file documented as of this encounter Last Filed Vital Signs Vital Sign Reading Time Taken Comments Blood Pressure 138/87 11/07/2019 11:43 AM CDT Pulse 72 11/07/2019 11:43 AM CDT Temperature 36.3 ??C (97.3 ??F) 11/07/2019 11:13 AM C DT Respiratory Rate 13 11/07/2019 11:43 AM CDT Oxygen Saturation 100% 11/07/2019 11:43 AM CDT Inhaled Oxygen Concentration - - Weight 73.5 kg (162 lb) 11/07/2019 9:26 AM CDT Height 172.7 cm (5' 8 ) 11/07/2019 9:26 AM CDT Body Mass Index 24.63 11/07/2019 9:26 AM CDT documented in this encounter Discharge Diagnoses Diagnosis Fatty (change of) liver, not elsewhere classified - FATTY (CHANGE OF) LIVER, NOT ELSEWHERE CLASSIFIED Hypothyroidism, unspecified - HYPOTHYROIDISM, UNSPECIFIED Hyperlipidemia, unspecified - HYPERLIPIDEMIA, UNSPECIFIED Unspecified asthma, uncomplicated - UNSPECIFIED ASTHMA, UNCOMPLICATED Allergy status to penicillin - ALLERGY STATUS TO PENICILLIN Hormone replacement therapy - HORMONE REPLACEMENT THERAPY M[facility] (current) use of inhaled steroids - JAIL (CURRENT) USE OF INHALED STEROIDS documented in this encounter Discharge Instructions * [...] Male Attending MD: Richard Tomas M.D. Room: [facility] ENDOSCOPY ROOM 1 Note Status: Finalized Procedure: [...] The Olympus curved linear array therapeutic endosonoscope [id number] was introduced through the mouth, and advanced [...] On: 11/07/2019 10:16 AM Recognized by the [place] for promoting quality in endoscopy documented in this encounter Plan of Treatment Upcoming Encounters Date Type Department Care Team (Late st Contact Info) Description 04/18/2024 6:05 PM SEQUINS WINDER Hospital Encounter [facility] ([facility]) [address] [place], [place] [id number] Arrived Pending Results Name Type Priority Associated [...] Male Attending MD: Richard Tomas M.D. Room: [facility] 1 Note Status: Finalized Procedure: [...] The Olympus curved linear array therapeutic endosonoscope [id number] was introduced through the mouth, and advanced tothe second part of duodenum The upper EUS wasaccomplished without difficulty. The patient tolerated theprocedure well. Findings: Endosonographic Finding : The stomach and duodenum were visualized endosonographically. There was a hypoechoic area in the head of the pancreas that corresponded to the previously seen lesion. The lesion now [id number] in largest diameter, down from 9 mm [...] On: 11/07/2019 10:16 AM Recognized by the [place] for promoting quality [...] 10/10 documented in this encounter Care Teams Sales And Merchandising Representative Relationship Specialty Start Date End Date Dedra Doty MD PCP - General 08/03/16 documented as of this encounter
--- OUTSIDE RECORDS SUMMARY | 2024-04-18 18:10 | XMS_ITS | Encounter Summary ---
Author Organization [facility] Address [address] [place] [address] Care Team Providers Care Rn Icu Name Role Phone Dedra Doty MD Primary Care Provider Encounter Details Date Type Department Care Team (Late st Contact Info) Description 11/04/2019 10:50 PM CDT Lab [address] [address] Pre-op testing Social History Tobacco Use Types Packs/Day Years Used Date Smoking Tobacco: Never Smokeless Tobacco: Never Sex and Gender Information Value Date Recorded Sex Assigned at Not on file Legal Sex Male 8:25 PM RECOVERER Gender Identity Not on file Sexual Orientation Not on file documented as of this encounter Plan of Treatment Upcoming Encounters Date Type Department Care Team (Late st Contact Info) Description 04/18/2024 6:05 PM RECOVERER Hospital Encounter [facility]) [address] [place] [address] Arrived documented as of this encounter Procedures Procedure Name Priority Date/Time Associated Diagnosis Comments COVID-19 CORONAVIRUS RNA Routine 11/04/2019 4:33 PM CDT Pre-op testing documented in this encounter Results * COVID-19 Coronavirus RNA Nasopharyngeal (11/04/2019 4:33 PM CDT) COVID-19 RNA Not Detected [facility] Comment: Interpretive Data Testing performed at [facility] Molecular Infectious Disease Laboratory. The 2018-Novel Coronavirus Assay (COVID-19) Real Time RT-PCR assay is for in vitro diagnostic use under FDA emergency use authorization only. A negative RT-PCR result does not preclude infection with COVID-19 and should not be used as the sole basis for treatment or other patient management decisions. Additional sample types have been validated according to CLIA regulations. ?? Current Interpretive Data was last revised on 2019. Nasopharyngeal 11/04/2019 4: 33 PM CDT 11/05/2019 2:23 AM CDT Narrative [facility] - 11/05/2019 8:16 PM CDT Is the patient experiencing any symptoms consistent with COVID (eg. Fever, cough, shortness of breath)?->No What is the reason for testing?->Screening prior to scheduled (>12 hr) surgery or procedure us Richard Tomas MD LAB MICROBIOLOGY - GENERA L ORDERABLES Final Result [facility] Department [place] [address] documented in this encounter Visit Diagnoses Diagnosis Pre-op testing Unspecified pre-operative examination documented in this encounter Care Teams Rn Icu Relationship Specialty Start Date End Date Dedra Doty MD PCP - General 08/03/16 documented as of this encounter
--- OUTSIDE RECORDS SUMMARY | 2024-04-18 18:10 | XMS_ITS | Encounter Summary ---
Author Organization [facility] Address [address] [place] [address] Phone Care Team Providers Care Scrap Bunch Maker Name Role Phone Dedra Doty MD Primary Care Provider [phone] Encounter Details Date Type Department Care Team (Late st Contact Info) Description 03/24/2020 Orders Only [facility] Surgery [address] [facility] [address] [place] [address] Jose Elias Messina MD [address] [facility] [address] [place] [address] Social History Tobacco Use Types Packs/Day Years Used Date Smoking Tobacco: Never Smokeless Tobacco: Never Sex and Gender Information Value Date Recorded Sex Assigned at Not on file 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 Gender Identity Not on file Sexual Orientation Not on file documented as of this encounter Plan of Treatment Upcoming Encounters Date Type Department Care Team (Late st Contact Info) Description 04/18/2024 6:04 PM CHIN STRAP SEWER Hospital Encounter [facility]) [address] [place] [address] Arrived 04/18/2024 6:05 PM CHIN STRAP SEWER Hospital Encounter [facility] [address] [place] [address] Arrived 04/18/2024 6:07 PM CHIN STRAP SEWER Hospital Encounter [facility]) [address] [place] [address] Arrived 04/18/2024 6:07 PM CHIN STRAP SEWER Hospital Encounter [facility] [address] [place] [address] Arrived documented as of this encounter Visit Diagnoses Not on filedocumented in this encounter Care Teams Scrap Bunch Maker Relationship Specialty Start Date End Date Dedra Doty MD PCP - General 08/03/16 documented as of this encounter
--- OUTSIDE RECORDS SUMMARY | 2024-04-18 18:10 | XMS_ITS | Encounter Summary ---
Author Organization [facility] Address [address] [facility] [address] [place] [address] Phone Care Team Providers Care Deputy Director Of Finance Name Role Phone Dedra Doty MD Primary Care Provider [phone] Reason for Referral * Diagnostic Imaging (Routine) - Closed Specialty Diagnoses / Procedures Referred By Stephen jones Referred To Contact Radiology Diagnoses Pancreatic cyst Procedures MRI Abdomen MRCP W WO Contrast Jose Elias Messina MD Phone: tel: fax: [address] [place] [address] Referral ID Status Reason Start Date Expiration Date Visits Re quested Visits Authorized [id number] Closed 06/03/2020 07/02/2020 1 1 RATIVE ENGRAVER Encounter Details Date Type Department Care Team (Late st Contact Info) Description 03/11/2020 Orders Only [facility] Surgery [address] [facility] Floor 1 [place] [address] Jose Elias Messina MD [address] [facility] [address] [place] [address] Pancreatic cyst (Primary Dx) Social History Tobacco Use Types Packs/Day Years Used Date Smoking Tobacco: Never Smokeless Tobacco: Never Sex and Gender Information Value Date Recorded Sex Assigned at Not on file Legal Sex Male 8:25 PM 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 Jose Elias Messina MD IMG MRI PROCEDURES F inal Result documented in this encounter Visit Diagnoses Diagnosis Pancreatic cyst- Primary Cyst and pseudocyst of pancreas Pancreatic cyst Cyst and pseudocyst of pancreas documented in this encounter Care Teams Deputy Director Of Finance Relationship Specialty Start Date End Date Dedra Doty MD PCP - General 08/03/16 documented as of this encounter
--- OUTSIDE RECORDS SUMMARY | 2024-04-18 18:10 | XMS_ITS | Encounter Summary ---
Author Organization [facility] Healthcare Address [address] [place] [address] Care Team Providers Care Plant Inspector Name Role Phone Dedra Doty MD Primary Care Provider [phone] Encounter Details Date Type Department Care Team (Late st Contact Info) Description 11/07/2019 10:30 AM CDT Anesthesia Event [facility] Disease [place] [address] [facility] [address] [place] [address] Radha Moeller MD [address] [place] [address] Edi Kumari CRNA [address] [place] [address] Anesthesia Record Procedure Summary Procedure Name Responsible Anesthesiologist Anesthesia Start Time Anesthesia Stop Time US Endoscopy Radha Moeller MD 11/07/19 1030 1113 Events Date Time Event Comment 11/07/2019 1030 An Start 1033 In Room 1033 An Start Data 1039 Start Supplemental O2 1041 Patient Positioned Laterally 1042 Bite Block Placed 1043 An Induction The patient was reevaluated immediately before moderate or deep sedation use and before anesthesia induction. 1045 Proc Start 1048 Anesthesia Ready 1104 Proc Fin 1108 Out of Room 1109 an stop data 1111 Handoff to RN I completed my handoff to the receiving nurse during which we: 1. Patient identified 2. Responsible provider identified 3. Pertinent medical history reviewed 4. Procedure type and surgical course discussed 5. Intraoperative anesthetic management and any significant issues discussed 6. Expectations and concerns for postop period discussed 7. Questions solicited from receiving nurse 8. Patient disposition at the time of handoff: PACU 1113 An Stop 1123 Release from care Meds Name Total lidocaine 1 % PF 100 mg propofol 310 mg propofol 226.01 mg sodium chloride 0.9% infusion 600 mL * Agents Name O2% N2O O2 N2O Air Sevoflurane Inspired Sevoflurane * Blood No blood administrations on file. Lines, Drains, and Airways Type Details Placement Removal Peripheral IV Placement Date: 04/29; Placement Time: 114; Catheter Size: 22 G; Orientation: Right; Location: Hand; Site Prep: Chlorhexidine; Inserted by: Indra Aviles RN; Insertion Attempts: 1; Patient Tolerance: Tolerated well 09/09/19 1141 by Lizette Aviles RN Peripheral IV Placement Date: 10/10 ; Placement Time: 0939; Catheter Size: 20 G; Orientation: Right; Location: Hand; Site Prep: Chlorhexidine; Inserted by: Dr Morley anesthesia; Insertion Attempts: 1; Patient Tolerance: Tolerated well 11/07/19 0939 by Samia Dubois RN documented in this encounter Social History Tobacco Use Types Packs/Day Years Used Date Smoking Tobacco: Never Smokeless Tobacco: Never Sex and Gender Information Value Date Recorded Sex Assigned at Not on file Legal Sex Male 8:25 PM CAREER RESOURCE TECHNICIAN Gender Identity Not on file Sexual Orientation Not on file documented as of this encounter OR Notes * Anesthesia Postprocedure Evaluation - Diana Lugo MLT - 11/07/2019 11:23 AM CDT Patient: Nikolay Ferro Procedure Summary Date: 11/07/19 Room / Location: [facility] ENDOSCOPY ROOM 1 / [facility] ENDOSCOPY Anesthesia Start: 1030 Anesthesia Stop: 1113 Procedure: US Endoscopy (N/A ) Diagnosis: Pancreatic cyst (Pancreatic cyst [K86.2]) Provider: Richard Tomas MD Responsible Provider: Radha Wilhelm MD Anesthesia Type: MAC ASA Status: 1 Anesthesia Type: MAC Last vitals BP 116/72 (BP Location: Left arm) Pulse 75 Temp 36.3 ??C (97.3 ??F) (Temporal) Resp 14 [id number]% Anesthesia Post Evaluation Patient location during evaluation: PACU Patient participation: complete - patient participated Level of consciousness: fully awake Pain score: 0 Pain management: adequate Airway patency: adequate Evidence of recall: no Anesthetic complications: no Cardiovascular status: acceptable and hemodynamically stable Respiratory status: acceptable and room air Hydration status: acceptable Pt is: normothermic Nausea/Vomiting status: none Cosigned by Radha Moeller MD at 11/07/2019 11:30 AM CDT * Anesthesia Preprocedure Evaluation - Diana Lugo MLT - 11/07/2019 9:36 AM CDT Images from the original note were not included. Anesthesia Evaluation Nikolay Ferro is a 53 y.o. male Procedure(s): US Endoscopy Pre-Op Diagnosis Codes: * Pancreatic cyst [K86.2] Patient Active Problem List Diagnosis ??? Actinic keratosis ??? History of melanoma in situ ??? Allergic contact dermatitis due to plants, except food ??? Skin benign neoplasm ??? Pancreatic cyst Past Medical History: Diagnosis Date ??? Asthma environmental allergy induced ??? Hyperlipidemia ??? Hypothyroidism Past Surgical History: Procedure Laterality Date ??? COLONOSCOPY ??? UPPER GASTROINTESTINAL ENDOSCOPY ??? WRIST SURGERY Right Allergies Allergen Reactions ??? Penicillins Taking? Last Dose Start Date End Date Provider albuterol HFA (PROVENTIL HFA,VENTOLIN HFA,PROAIR HFA) 90 mcg/actuation inhaler More than a month 08/19/19 -- Historical Provider, azithromycin (ZITHROMAX) 250 mg tablet Past Week 10/25/19 -- Historical Provider, cetirizine (ZyrTEC) 10 mg tablet 11/06/2019 -- -- Historical Provider, cyclobenzaprine (FLEXERIL) 10 mg tablet More than a month 08/13/19 -- Historical Provider, fenofibrate (TRICOR) 54 mg tablet 11/06/2019 08/13/19 -- Historical Provider, levothyroxine (SYNTHROID) 175 mcg tablet 11/06/2019 -- -- Historical Provider, ofloxacin (FLOXIN) 0.3 % otic solution Past Week 10/25/19 -- Historical Provider, oxyCODONE-acetaminophen (PERCOCET) 5-325 mg per tablet 11/06/2019 08/30/19 -- Historical Provider, pantoprazole DR (PROTONIX) 40 mg EC tablet More than a month 08/25/19 -- Historical Provider, traMADoL (ULTRAM) 50 mg tablet More than a month 08/19/19 -- Historical Provider, Current Facility-Administered Medications: ??? sodium chloride 0.9% flush 0.5-20 mL, 0.5-20 mL, intra-catheter, Q8H GENNARO ??? sodium chloride 0.9% flush 0.5-20 mL, 0.5-20 mL, intra-catheter, PRN ??? sodium chloride 0.9% infusion, 30 mL/hr, intravenous, Continuous Social History Tobacco Use Smoking Status Never Smoker Smokeless Tobacco Never Used Substance and Sexual Activity Alcohol Use Not on file Comment: none in last three wks/ socially prior Substance and Sexual Activity Drug Use Yes ??? Types: Marijuana Comment: gummies purchased this week Family History Problem Relation Age of Onset ??? No Known Problems Mother ??? No Known Problems Father Vitals: 11/07/19 0926 BP: 161/94 Pulse: 67 Resp: 14 Temp: 36 ??C (96.8 ??F) SpO2: 98% PT: No results found for requested labs within last 720 hours. INR: No results found for requested labs within last 720 hours. APTT: No results found for requested labs within last 720 hours. Hgb A1C: No results found for requested labs within last 720 hours. CBC RBC: No results found for requested labs within last 720 hours. RDW: No results found for requested labs within last 720 hours. MCHC: No results found for requested labs within last 720 hours. MCH: No results found for requested labs within last 720 hours. MCV: No results found for requested labs within last 720 hours. Hct: No results found for requested labs within last 720 hours. Hgb: No results found for requested labs within last 720 hours. WBC: No results found for requested labs within last 720 hours. MPV: No results found for requested labs within last 720 hours. Platelets: No results found for requested labs within last 720 hours. RDW CV: No results found for requested labs within last 720 hours. RDW Sd: No results found for requested labs within last 720 hours. BMP Glucose: No results found for requested labs within last 720 hours. Calcium: No results found for requested labs within last 720 hours. Sodium: No results found for requested labs within last 720 hours. Potassium: No results found for requested labs within last 720 hours. CO2: No results found for requested labs within last 720 hours. Chloride: No results found for requested labs within last 720 hours. BUN: No results found for requested labs within last 720 hours. Creatinine: No results found for requested labs within last 720 hours. DOS Physical Exam Medical history, medications, and allergies reviewed. Attestation: With today's edits, I endorse the findings of the procedural assessment dated: 11/07/2019. Airway Exam: Mallampati: II Dental Exam: Appears intact Current state: Patient's current state is cooperative and interactive. Additional comments: See [facility] H&P Anesthesia Plan ASA 1 My patient is approved for the Anesthesia Controlled Medication protocol when under care of a CRATE LINER Planned anesthesia: MAC Induction: Induction: intravenous. Postoperative Plan: Patient's planned disposition post procedure is Outpatient. Informed Consent: Discussed plan with CRATE LINER. Anesthesia plan and risks discussed with patient. Plan and Consent Comments: NPO status confirmed Diana Calhoun am scribing for, and in the presence of Dr. Hammond. . Consent and Attending signature: I and/or my designee have discussed the anesthesia plan, benefits, possible alternatives, parental presence at time of induction (if indicated), and clinically relevant risks that may include dental injury, unintentional awareness, and/or other complications. The patient and/or parent/legal guardian understand, and agree to proceed. All questions answered. Cosigned by Radha Moeller MD at 11/07/2019 11:31 AM CDT documented in this encounter Plan of Treatment Upcoming Encounters Date Type Department Care Team (Late st Contact Info) Description 04/18/2024 6:05 PM CAREER RESOURCE TECHNICIAN Hospital Encounter [facility] [address] [place] [address] Arrived documented as of this encounter Visit Diagnoses Not on filedocumented in this encounter Administered Medications Inactive Administered Medications - up to 3 most recent administrations Medication Order MAR Action Action Date Dose Rate Site lidocaine PF (XYLOCAINE) 10 mg/mL (1 %) preservative free injection As needed, Starting on Loulou 11/07/19 at 1043, Anesthesia Intra-op Given 11/07/2019 10:43 AM CDT 100 mg propofoL (DIPRIVAN) IV intravenous, As needed, Starting on Loulou 11/07/19 at 1043, Anesthesia Intra-op Given 11/07/2019 11:02 AM CDT 30 mg Given 11/07/2019 10:57 AM CDT 30 mg Given 11/07/2019 10:47 AM CDT 50 mg propofoL (DIPRIVAN) IV intravenous, Continuous PRN, Starting on Loulou 11/07/19 at 1043, Anesthesia Intra-op Rate/Dose Change 11/07/2019 11:02 AM CDT 175 mcg/kg/min 77.18 mL/hr Rate/Dose Change 11/07/2019 10:48 AM CDT 150 mcg/kg/min 66 .15 mL/hr New Bag 11/07/2019 10:43 AM CDT 125 mcg/kg/min 55.13 mL /hr documented in this encounter Care Teams Plant Inspector Relationship Specialty Start Date End Date Dedra Doty MD PCP - General 08/03/16 documented as of this encounter
--- OUTSIDE RECORDS SUMMARY | 2024-04-18 18:10 | XMS_ITS | Encounter Summary ---
Author Organization [facility] Address [address] [facility] [address] [place] [address] Phone Care Team Providers Care Appellate Law Clerk Name Role Phone Dedra Doty MD Primary Care Provider [phone] Encounter Details Date Type Department Care Team (Late Contact Info) Description 11/05/2019 Telephone [facility] G[facility] 8th [place] [address] [place] [id number] Jes Lockwood RN Social History Tobacco Use Types Packs/Day Years Used Date Smoking Tobacco: Never Smokeless Tobacco: Never Sex and Gender Information Value Date Recorded Sex Assigned at Not on file Legal Sex Male 8:25 PM DIRECTIONAL DRILLER Gender Identity Not on file Sexual Orientation Not on file documented as of this encounter Miscellaneous Notes * Telephone Encounter - Jes Lockwood RN - 11/05/2019 1:28 PM CDT Returned pt's call regarding COVID testing. He has been tested, and all questions have been answered. Call with changes, questions, concerns. documented in this encounter Plan of Treatment Upcoming Encounters Date Type Department Care Team (Late Contact Info) Description 04/18/2024 6:05 PM DIRECTIONAL DRILLER Hospital Encounter [facility] Radiology [facility] ([facility]) [facility] [place] [address] Arrived documented as of this encounter Visit Diagnoses Not on filedocumented in this encounter Care Teams Appellate Law Clerk Relationship Specialty Start Date End Date Dedra Doty MD PCP - General 08/03/16 documented as of this encounter
--- OUTSIDE RECORDS SUMMARY | 2024-04-18 18:10 | XMS_ITS | Encounter Summary ---
Author Organization [facility] Address [address] [facility] [address] [place] [address] Phone Care Team Providers Care Skiver Heel Tap Name Role Phone Dedra Doty MD Primary Care Provider Encounter Details Date Type Department Care Team (Late st Contact Info) Description 03/24/2020 Orders Only [facility] Surgery [address] [facility] Floor 1 [place] [address] Jose Elias Messina MD [address] [place] [address] [place] [address] Neuroendocrine tumor (Primary Dx) Social History Tobacco Use Types Packs/Day Years Used Date Smoking Tobacco: Never Smokeless Tobacco: Never Sex and Gender Information Value Date Recorded Sex Assigned at Not on file Legal Sex Male 8:25 PM END STAPLER Gender Identity Not on file Sexual Orientation Not on file documented as of this encounter Miscellaneous Notes * Addendum Note - Say Coronel - 03/24/2020 9:16 AM CSTAddended by: SAY CORONEL on: 03/24/2020 09:28 AM Modules accepted: Orders STAPLER documented in this encounter Plan of Treatment Upcoming Encounters Date Type Department Care Team (Late st Contact Info) Description 04/18/2024 6:04 PM END STAPLER Hospital Encounter [facility] ([facility]) [address] [place] [address] Arrived 04/18/2024 6:05 PM END STAPLER Hospital Encounter [facility] ([facility]) [address] [place] [address] Arrived 04/18/2024 6:07 PM END STAPLER Hospital Encounter [facility] ([facility]) [address] [place] [address] Arrived 04/18/2024 6:07 PM END STAPLER Hospital Encounter [facility] ([facility]) [address] [place] [address] Arrived documented as of this encounter Visit Diagnoses Diagnosis 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
--- OUTSIDE RECORDS SUMMARY | 2024-04-18 18:11 | XMS_ITS | Encounter Summary ---
Author Organization [facility] Healthcare Address [address] [place] [address] Care Team Providers Care Gang Hemstitching Machine Operator Name Role Phone Dedra Doty MD Primary Care Provider Encounter Details Date Type Department Care Team (Late st Contact Info) Description 11/02/2019 Orders Only [facility] HealthCare/ Physicians [address] [place] [address] Richard Tomas MD [address] [facility] [address] [place] [address] Pre-op testing (Primary Dx) Social History Tobacco Use Types Packs/Day Years Used Date Smoking Tobacco: Never Smokeless Tobacco: Never Sex and Gender Information Value Date Recorded Sex Assigned at Not on file Legal Sex Male 8:25 PM PARAPROFESSIONAL EDUCATION ASSISTANT Gender Identity Not on file Sexual Orientation Not on file documented as of this encounter Progress Notes * Jv France MA - 11/02/2019 8:39 AM CDT Patient being tested for COVID, orders sent to: B documented in this encounter Miscellaneous Notes * Addendum Note - Rachel Blanco - 11/02/2019 8:39 AM CDTAddended by: RACHEL BLANCO on: 11/04/2019 10:50 PM Modules accepted: Orders documented in this encounter Plan of Treatment Upcoming Encounters Date Type Department Care Team (Late st Contact Info) Description 04/18/2024 6:05 PM PARAPROFESSIONAL EDUCATION ASSISTANT Hospital Encounter [facility] ([facility]) [address] [place] [address] Arrived documented as of this encounter Results * COVID-19 Coronavirus RNA Nasopharyngeal (11/04/2019 4:33 PM CDT) COVID-19 RNA Not Detected MICAH MANN Comment: Interpretive Data Testing performed at [facility] Molecular Infectious Disease Laboratory. The 2019-Novel Coronavirus Assay (COVID-19) Real Time RT-PCR assay [...] CDT 11/05/2019 2:23 AM CDT Narrative [facility] - 11/05/2019 8:16 PM CDT Is the patient experiencing any symptoms consistent with COVID (eg. Fever, cough, shortness of breath)?->No What is the reason for testing?->Screening prior to scheduled (>12 hr) surgery or procedure us Richard Tomas MD LAB MICROBIOLOGY - GENERA L ORDERABLES Final Result [facility] [address] [facility] [place] [address] documented in this encounter Visit Diagnoses Diagnosis Pre-op testing- Primary Unspecified pre-operative examination Pre-op testing Unspecified pre-operative examination documented in this encounter Care Teams Gang Hemstitching Machine Operator Relationship Specialty Start Date End Date Dedra Doty MD PCP - General 08/03/16 documented as of this encounter
--- OUTSIDE RECORDS SUMMARY | 2024-04-18 18:11 | XMS_ITS | Encounter Summary ---
Author Organization [facility] Address [address] [place] [address] Phone Care Team Providers Care Instrumentation And Control Technician Name Role Phone Dedra Doty MD Primary Care Provider Encounter Details Date Type Department Care Team (Late st Contact Info) Description 09/13/2019 Telephone [facility] G[facility] 8th [place] [address] [place] [phone] Jes Lockwood RN Social History Tobacco Use Types Packs/Day Years Used Date Smoking Tobacco: Never Smokeless Tobacco: Never Sex and Gender Information Value Date Recorded Sex Assigned at Not on file Legal Sex Male 8:25 PM MARKET RISK ANALYST Gender Identity Not on file Sexual Orientation Not on file documented as of this encounter Miscellaneous Notes * Telephone Encounter - Jes Lockwood RN - 09/13/2019 12:10 PM CDT Discussed pathology and results with the patient, all questions answered. Referral placed. Pt has appointment with his PCP in 3 days. Pt will call with any changes, questions or concerns. ----- Message from Richard Tomas MD sent at 09/11/2019 4:41 PM CDT ----- Please call patient with result: this is likely a neuroendocrine tumor. I do not think this is causing any of his symptoms, which I think are likely musculoskeltal. Please refer him to [facility] surgery for recs re: surveillance vs resection. Fax/mail results to all referring physicians. documented in this encounter Plan of Treatment Upcoming Encounters Date Type Department Care Team (Late st Contact Info) Description 04/18/2024 6:05 PM [facility] Hospital Encounter [facility] ([facility]) [address] [place] [address] Arrived 04/18/2024 6:10 PM [facility] Hospital Encounter [facility] ([facility]) [address] [place] [address] Arrived documented as of this encounter Visit Diagnoses Not on filedocumented in this encounter Care Teams Instrumentation And Control Technician Relationship Specialty Start Date End Date Dedra Doty MD PCP - General 08/03/16 documented as of this encounter
--- OUTSIDE RECORDS SUMMARY | 2024-04-18 18:11 | XMS_ITS | Encounter Summary ---
Author Organization [facility] Healthcare Address [address] [place] [address] Care Team Providers Care Leveler Helper Name Role Phone Dedra Doty MD Primary Care Provider Encounter Details Date Type Department Care Team (Latest Contact Info) Description 09/09/2019 12:00 PM CDT - 09/09/2019 1:00 PM CDT Surgery [facility] [place] [address] [facility] [address] [place] [address] Richard Tomas MD [address] [facility] [address] [place] [address] ESOPHAGOGASTRODUODENOSCOPY ULTRASOUND FINE NEEDLE ASPIRATION/BIOPSY [GI534] Surgery Details Date/Time Status Location OR Service Patient Class Case Class Case Type Trauma Case? 09/09/2019 12:00 PM Posted [facility] ENDOSCOPY ERCP 01 Gastroenterology Outpatient Elective Panel 1 Procedure LRB Anes Op Region Wound Class Comments ESOPHAGOGASTRODUODENOSCOPY ULTRASOUND FINE NEEDLE ASPIRATION/BIOPSY N/A Monitor Anesthesia Care N/A Surgeon Surgeon Role Service Panel Richard Tomas MD Primary Gastroenterology 1 documented in this encounter Social History Tobacco Use Types Packs/Day Years Used Date Smoking Tobacco: Never Smokeless Tobacco: Never Sex and Gender Information Value Date Recorded Sex Assigned at Not on file Legal Sex Male 8:25 PM [employer] Gender Identity Not on file Sexual Orientation Not on file documented as of this encounter Last Filed Vital Signs Vital Sign Reading Time Taken Comments Blood Pressure 160/104 09/09/2019 11:21 AM CDT Pulse 92 09/09/2019 11:21 AM CDT Temperature 36 ??C (96.8 ??F) 09/09/2019 11:21 AM CDT Respiratory Rate 11 09/09/2019 11:21 AM CDT Oxygen Saturation 98% 09/09/2019 11:21 AM CDT Inhaled Oxygen Concentration - - Weight 72.6 kg (160 lb) 09/09/2019 11:21 AM CDT Height 172.7 cm (5' 8 ) 09/09/2019 11:21 AM CDT Body Mass Index 24.33 09/09/2019 11:21 AM CDT documented in this encounter Medications at Time of Discharge albuterol HFA (PROVENTIL HFA,VENTOLIN HFA,PROAIR HFA) 90 mcg/actuation inhaler INL 1 PUFF PO Q 4 H PRF WHZ OR SOB 08/19/2019 cetirizine (ZyrTEC) 10 mg tablet cyclobenzaprine (FLEXERIL) 10 mg tablet TK 1 T PO TID PRN 08/13/2019 10/21/2021 fenofibrate (TRICOR) 54 mg tablet TK 1 T PO QD 08/13/2019 10/21/2021 levothyroxine (SYNTHROID) 175 mcg tablet daily 03/08/2023 oxyCODONE-acetami nophen (PERCOCET) 5-325 mg per tablet [...] documented in this encounter H&P Notes * Richard Tomas MD - 09/09/2019 12:51 PM CDT Pre Endoscopy History and Physical Amirah Ibrahim is a 53 y.o. male who is here for Procedure(s): US Endoscopy whatley prep The indication(s) for the procedure(s): pancreas cyst (discovered during w/u of RUQ pain) Past Medical History: Diagnosis Date ??? Asthma environmental allergy induced ??? Hypothyroidism Past Surgical History: Procedure Laterality Date ??? WRIST SURGERY Right Social History Tobacco Use ??? Smoking status: Never Smoker ??? Smokeless tobacco: Never Used Substance Use Topics ??? Alcohol use: Not on file Comment: none in last three wks/ socially prior History reviewed. No pertinent family history. Allergies Allergen Reactions ??? Penicillins Prior to Admission medications Medication Sig Start Date End Date Taking? Authorizing Provider albuterol HFA (PROVENTIL HFA,VENTOLIN HFA,PROAIR HFA) 90 mcg/actuation inhaler INL 1 PUFF PO Q 4 H PRF WHZ OR SOB 08/19/19 Yes Historical Provider, cetirizine (ZyrTEC) 10 mg tablet Yes Historical Provider, cyclobenzaprine (FLEXERIL) 10 mg tablet TK 1 T PO TID PRN 08/13/19 Yes Historical Provider, fenofibrate (TRICOR) 54 mg tablet TK 1 T PO QD 08/13/19 Yes Historical Provider, levothyroxine (SYNTHROID) 175 mcg tablet Yes Historical Provider, oxyCODONE-acetaminophen (PERCOCET) 5-325 mg per tablet TK 1 TS PO Q 4 TO 6 H PRN P 08/30/19 Yes Historical Provider, pantoprazole DR (PROTONIX) 40 mg EC tablet TK 1 T PO BID FOR 14 DAYS 08/25/19 Yes Historical Provider, Review of Systems A pertinent, focused review of systems was completed and negative, except as noted above. OBJECTIVE: Vitals: Vitals: 09/09/19 1121 BP: (!) 160/104 Pulse: 92 Resp: 11 Temp: 36 ??C (96.8 ??F) TempSrc: Temporal SpO2: 98% Weight: 72.6 kg (160 lb) Height: 172.7 cm (5' 8 ) Physical Exam: Airway: No significant abnormality. Cardiac: No significant abnormality. Pulmonary: No significant abnormality. Neurological: No significant abnormality. Gastrointestinal: R lower rib pain/RUQ pain; + TTP with point tenderness over lower rib cage and inRUQ which causes radiation to back; + Carnett's sign. ASA Score: per Anesthesia Sedation/Anesthesia Plan: per Anesthesia The risks and complications of the procedure have been explained to the patient. Informed consent was signed. Impression and plan: Will proceed with the planned procedure for the reasons stated above. documented in this encounter Procedure Notes * Richard Tomas MD - 09/09/2019 12:29 PM CDTAssociated Order(s): EUS GI ENDOSCOPY [facility] Patient Name: Amirah Ibrahim Procedure Date: 09/09/2019 12:29 PM Date of : 1965 Admit Type: Outpatient Age: 53 Gender: Male Attending MD: Richard Tomas M.D. Room: [facility] ENDOSCOPY ROOM 1 Note Status: Finalized Procedure: Upper EUS Indications: Suspected mass in pancreas on CT scan, Abdominal pain in the right upper quadrant Referring MD: Dedra Doty MD Providers: Richard Tomas M.D. Medicines: Monitored Anesthesia Care Complications: No [...] alternatives were discussed and informed consent was obtained.The GIF [id number] endoscope was introduced through the mouth, and advanced to the second part of duodenum , The Olympus curved linear array therapeutic endosonoscope [id number] was introduced through the mouth, and advanced to the second part of duodenum The upper EUS was accomplished without difficulty. The patient tolerated the procedure well. Findings: Endoscopic Finding : The examined esophagus was endoscopically normal. The entire examined stomach was endoscopically normal. The examined duodenum was endoscopically normal. Endosonographic Finding : There was no sign of significant endosonographic abnormality in the common bile duct, in the common hepatic duct and in the gallbladder. There was diffuse abnormal echotexture in the visualized portion of the liver. This was characterized by a hyperechoic appearance. A cyst was found in the left lobe of the liver and measured 8 mm in maximal cross-sectional diameter. A round lesion was identified in the pancreatic head. The mass was hypoechoic. The mass measured 9.9 x 8.3 mm in maximal cross-sectional diameter. The endosonographic borders were well-defined. Fine needle biopsy was performed. Color Doppler imaging was utilized prior to needle puncture to confirm a lack of significant vascular structures within the needle path. Three passes were made with the 22 gauge ultrasound biopsy needle using a transduodenal approach. A visible core of tissue was obtained. Pancreatic parenchymal abnormalities were noted in the entire pancreas. These consisted of lobularity. No lymphadenopathy seen. There was no sign of significant endosonographic abnormality involving the celiac trunk. Impression: EGD: - Normal esophagus. - Normal stomach. - Normal examined duodenum. EUS: - 9.9 x 8.3 mm solid pancreas head lesion. Tissue was obtained from this exam, and results are pending. However, the endosonographic appearance is consistent with a neuroendocrine tumor. This was staged T1 N0 Mx by endosonographic criteria. The staging applies if malignancy is confirmed. Fine needle biopsy performed. - Non-specific pancreatic parenchymal abnormalities consisting of lobularity were noted in the entire pancreas. - There was no sign of significant pathology in the common bile duct, in the common hepatic duct and in the gallbladder. - There was diffuse abnormal echotexture in the visualized portion of the liver. This was characterized by a hyperechoic appearance. - A cyst was found in the left lobe of the liver and measured 8 mm. - The celiac trunk was endosonographically normal. Overall, there were no findings to explain the patient's abdominal pain: point tenderness in the lower right rib cage and right upper quadrant as well as a positive Carnett's sign are suggestive of a musculoskeletal/abdominal wall etiology. Recommendation: - Await pathology results. - Further recommendations based on pathology results. - Alternate tylenol/ibuprofen and ice/heat for abd wall/rib cage pain. Attending Participation: I personally performed the entire procedure. Electronically Signed: Richard Tomas MD Richard Tomas M.D. 09/09/2019 1:50:58 PM . Number of Addenda: 0 Note Initiated On: 09/09/2019 12:29 PM Recognized by the [employer] for promoting quality in endoscopy documented in this encounter Miscellaneous Notes * Perioperative Nursing Note - Tish Aiken RN - 09/09/2019 2:17 PM CDT OK to discharge patient now per Dr. Tomas documented in this encounter Plan of Treatment Upcoming Encounters Date Type Department Care Team (Late st Contact Info) Description 04/18/2024 6:05 PM [employer] Hospital Encounter [facility] [address] [place] [address] Arrived 04/18/2024 6:10 PM [employer] Hospital Encounter [facility] [address] [place] [address] Arrived Pending Results Name Type Priority Associated Diagnoses Date /Time US Endoscopy Endo Imaging Procedure IP Routine Pancreatic cyst 09/09/2019 1:23 PM CDT documented as of this encounter Procedures Procedure Name Priority Date/Time Associated Diagnosis Comments US ENDOSCOPIC IP Routine 09/09/2019 1:23 PM CDT Pancreatic cyst SURGICAL PATHOLOGY Routine 09/09/2019 1: 07 PM CDT Pancreatic cyst EUS 09/09/2019 12:29 PM CDT documented in this encounter Results * Surgical pathology (09/09/2019 1:07 PM CDT) Tissue (Pancreas, Biopsy) 09/09/2019 1:07 PM CDT Narrative PATHOLOGY [facility] - 09/11/2019 4:09 PM CDT EPIC results best viewed via link to PDF [facility] [place] [address] SURGICAL PATHOLOGY REPORT FINAL Patient Name: ?? AMIRAH IBRAHIMAgustin Gender: ??M : ??1965 (Age: 53) Address: [address], [place] ??[address] Hospital #: ??[id number] Taken:09/09/2019 Received:09/09/2019 Reported: 09/11/2019 Patient Type: [facility] SDS ?? Service: Gastro Location: [facility] Physician(s): ??Richard Tomas M.D. Diagnosis: Pancreas, head mass, fine-needle biopsy ? - Malignant neoplasm (see comment) zxw/09/10/2019 09:30 By this signature, I attest that the above diagnosis is based upon my personal examination of the slides(and/or other material indicated in the diagnosis). Ade Chávez MD Report Electronically Reviewed and Signed Out By ??Ade Chávez MD 09/11/2019 16:09:23 Diagnosis Comment This result was flagged as significant and was sent to Richard Tomas M.D. via email on 09/11/2019. Reason(s): To the best of our knowledge, this is the first diagnosis of this type of malignancy rendered for this patient. Microscopic Description and Comment: Sections show a single small fragment of loosely cohesive malignant cells. These cells are negative for chromogranin. They are not present on deeper levels for CAM5.2 and synaptophysin. The differential includes a neuroendocrine neoplasm or lymphoma. However, other neoplasms cannot be completely excluded due to the scant amount of tissue for morphologic evaluation. Rebiopsy may be indicated to help further classify this neoplasm. Microscopic examination substantiates the above cited diagnosis. Waqar Manrique MD History: The patient is a 53-year-old man with a clinical history of pancreatic cyst. ??Operative procedure: Fine-needle biopsy of pancreas head lesion Specimen(s) Received: A: FNA biopsy of pancreatic head lesion Gross Description: Received in formalin, labeled with the patient's name and FNA biopsy of pancreatic head lesion is an aggregate of scant gupta white soft tissue measuring 0.1 x 0.1 x 0.1 cm. ??Filtered and labeled A1. ??Jar zero. axxm/09/09/2019 16:51 PA(s): Janelle Hidalgo By this signature, I attest that the above diagnosis is based upon my personal examination of the slides(and/or other material). The performance characteristics of some immunohistochemical stains, fluorescence in-situ hybridization tests and immunophenotyping by flow cytometry cited in this report (if any) were determined by the Surgical Pathology Department at [facility] as part of an ongoing quality officer program and in compliance with federally mandated regulations drawn from the Clinical Laboratory Improvement Act of 1988 (CLIA '88). ??Some of these tests rely on the use of analyte specific reagents and are subject to specific labeling requirements by the US Food and Drug Administration. ??Such diagnostic tests may only be performed in a facility that is certified by the Department of Health and Human Services as a high complexity laboratory under CLIA '88. ??The FDA has determined that such clearance or approval is not necessary. ??This test is used for clinical purposes. ??It should not be regarded as investigational or for research. ??Nevertheless, federal rules concerning the medical use of analyte specific reagents require that the following disclaimer be attached to the report: This test was developed and its performance characteristics determined by the Surgical Pathology Department of [facility]. ??It has not been cleared or approved by the U. S. Food and Drug Administration. IMAGES AND SCANNED DOCUMENTS, IF INCLUDED, ONLY VIEWABLE IN PDF VERSION OF REPORT us Richard Tomas MD LAB PATHOLOGY ORDERABLES Final Result PATHOLOGY [facility] [address] Floor [place], [place] [phone] * EUS (09/09/2019 12:29 PM CDT) Anatomical Region Laterality Modality Other Narrative Procedure Note Richard Tomas MD - 09/09/2019 12:29 PM CDT GI ENDOSCOPY [facility] Patient Name: Amirah Ibrahim Procedure Date: 09/09/2019 12:29 PM Date of : 1965 Admit Type: Outpatient Age: 53 Gender: Male Attending MD: Richard Tomas M.D. Room: [facility] ENDOSCOPY ROOM 1 Note Status: Finalized Procedure: Upper EUS Indications: Suspected mass in pancreas on CT scan, Abdominalpain in the right upper quadrant Referring MD: Dedra Doty MD Providers: Richard Tomas M.D. Medicines: Monitored Anesthesia Care Complications: No [...] and alternatives were discussedand informed consent was obtained.The GIF [id number] endoscope was introduced through the mouth, and advanced to the second part of duodenum , TheOlympus curved linear array therapeutic endosonoscope [id number] was introduced through the mouth, and advanced to the second part of duodenum The upperEUS was accomplished without difficulty. The patient tolerated the procedure well. Findings: Endoscopic Finding : The examined esophagus was endoscopically normal. The entire examined stomach was endoscopically normal. The examined duodenum was endoscopically normal. Endosonographic Finding : There was no sign of significant endosonographic abnormality in the common bile duct, in the common hepatic duct and in thegallbladder. There was diffuse abnormal echotexture in the visualized portion ofthe liver. This was characterized by a hyperechoic appearance. A cyst was found in the left lobe of the liver and measured 8 mm in maximal cross-sectional diameter. A round lesion was identified in the pancreatic head. The mass was hypoechoic. The mass measured 9.9 x 8.3 mm in maximal cross-sectional diameter. The endosonographic borders were well-defined. Fine needle biopsy was performed. Color Doppler imaging was utilized prior toneedle puncture to confirm a lack of significant vascular structures withinthe needle path. Three passes were made with the 22 gauge ultrasoundbiopsy needle using a transduodenal approach. A visible core of tissue was obtained. Pancreatic parenchymal abnormalities were noted in the entirepancreas. These consisted of lobularity. No lymphadenopathy seen. There was no sign of significant endosonographic abnormalityinvolving the celiac trunk. Impression: EGD: - Normal esophagus. - Normal stomach. - Normal examined duodenum. EUS: - 9.9 x 8.3 mm solid pancreas head lesion. Tissuewas obtained from this exam, and results are pending. However, the endosonographic appearance isconsistent with a neuroendocrine tumor. This was staged T1 N0Mx by endosonographic criteria. The staging applies if malignancy is confirmed. Fine needle biopsyperformed. - Non-specific pancreatic parenchymal abnormalities consisting of lobularity were noted in the entire pancreas. - There was no sign of significant pathology in the common bile duct, in the common hepatic duct and inthe gallbladder. - There was diffuse abnormal echotexture in the visualized portion of the liver. This wascharacterized by a hyperechoic appearance. - A cyst was found in the left lobe of the liver and measured 8 mm. - The celiac trunk was endosonographically normal. Overall, there were no findings to explain the patient's abdominal pain: point tenderness in thelower right rib cage and right upper quadrant as well as a positive Carnett's sign are suggestive of a musculoskeletal/abdominal wall etiology. Recommendation: - Await pathology results. - Further recommendations based on pathologyresults. - Alternate tylenol/ibuprofen and ice/heat for abd wall/rib cage pain. Attending Participation: I personally performed the entire procedure. Electronically Signed: Richard Tomas MD Richard Tomas M.D. 09/09/2019 1:50:58 PM . Number of Addenda: 0 Note Initiated On: 09/09/2019 12:29 PM Recognized by the [employer] for promoting quality in endoscopy Richard Tomas MD ENDOSCOPY PROCEDURES Martine l Result documented in this encounter Visit Diagnoses [...] MAR Action Action Date Dose Rate Site fentaNYL (SUBLIMAZE) preservative free injection 25 mcg 25 mcg, intravenous, Every 15 min PRN, 2nd line for pain, Starting on 09/09/19 at 1352, Recovery (GI), Administer fentaNYL if allergy to HYDROmorphone. Notify MD of pain score greater than 4., Indications: PainIndications:Pain HYDROmorphone (DILAUDID) injection 0.5 mg 0.5 mg, intravenous, Administer over 2 Minutes, Every 15 min PRN, 1st line for pain, Starting on Mon09/09/19 at 1352, Recovery (GI), Notify MD of pain score greater than 4., Indications: PainIndications:Pain sodium chloride 0.9% flush 0.5-20 mL 0.5-20 mL, intra-catheter, As needed, line care, Starting on Mon09/09/19 at 1130, Pre-Procedure (GI), Flush volume based on line type and size. Flush before and after each use. , Indications: FlushingIndications:Flushing sodium chloride 0.9% infusion 30 mL/hr, intravenous, Continuous, Starting on Mon09/09/19 at 1215, For 6 hours, Pre-Procedure (GI) Rate/Dose Verify 09/09/2019 12:34 PM CDT 30 mL/hr New Bag 09/09/2019 11:42 AM CDT 30 mL/hr 30 mL/hr documented in this encounter Historical Medications * This list may reflect changes made after this encounter. albuterol HFA (PROVENTIL HFA,VENTOLIN HFA,PROAIR HFA) 90 mcg/actuation inhaler INL 1 PUFF PO Q 4 H PRF WHZ OR SOB 08/19/2019 cetirizine (ZyrTEC) [address] (PROTONIX) 40 mg EC tablet TK 1 T PO BID FOR 14 DAYS 08/25/2019 10/21/2021 oxyCODONE-acetami nophen (PERCOCET) 5-325 mg per tablet TK 1 TS PO Q 4 TO 6 H PRN P 08/30/2019 10/21/2021 levothyroxine (SYNTHROID) 175 mcg tablet daily 03/08/2023 fenofibrate (TRICOR) 54 mg tablet TK 1 T PO QD 08/13/2019 10/21/2021 cyclobenzaprine (FLEXERIL) 10 mg tablet TK 1 T PO TID PRN 08/13/2019 10/21/2021 added in this encounter Active and Recently Administered Medications Times are shown in CDT. Continuous Medication Order 09/07/2019 09/08/2019 09/09/2019 sodium chloride 0.9% infusion 30 mL/hr, intravenous, Continuous, Starting on Mon09/09/19 at 1215, For 6 hours, Pre-Procedure (GI) 1142 (New Bag - Prov ider: Lizette Aviles RN)1234 (Rate/Dose Verify - Provider: Ingrid Conteh CRNA)1314 (Anesthesia Volume Adjustment - Provider: Ingrid Conteh CRNA)1325 (Stopped - Provider: Ingrid Cnoteh CRNA) PRN Medication Order 09/07/2019 09/08/2019 09/09/2019 fentaNYL (SUBLIMAZE) preservative free injection 25 mcg(Linked Group 1) 25 mcg, intravenous, Every 15 min PRN, 2nd line for pain, Starting on Mon09/09/19 at 1352, Recovery (GI), Administer fentaNYL if allergy to HYDROmorphone. Notify MD of pain score greater than 4., Indications: Pain HYDROmorphone (DILAUDID) injection 0.5 mg(Linked Group 1) 0.5 mg, intravenous, Administer over 2 Minutes, Every 15 min PRN, 1st line for pain, Starting on Mon09/09/19 at 1352, Recovery (GI), Notify MD of pain score greater than 4., Indications: Pain ondansetron (ZOFRAN) injection 4 mg 4 mg, intravenous, Administer over 2 Minutes, Every 30 min PRN, nausea, vomiting, Starting on Mon09/09/19 at 1352, For 2 doses, Recovery (GI), Indications: Nausea and Vomiting sodium chloride 0.9% flush 0.5-20 mL 0.5-20 mL, intra-catheter, As needed, line care, Starting on Mon09/09/19 at 1130, Pre-Procedure (GI), Flush volume based on line type and size. Flush before and after each use. , Indications: Flushing Linked Groups Order Group 1: HYDROmorphone (DILAUDID) injection 0.5 mgJump to med 0.5 mg, intravenous, Administer over 2 Minutes, Every 15 min PRN, 1st line for pain, Starting on Mon09/09/19 at 1352, Recovery (GI), Notify MD of pain score greater than 4., Indications: Pain Or fentaNYL (SUBLIMAZE) preservative free injection 25 mcgJump to med 25 mcg, intravenous, Every 15 min PRN, 2nd line for pain, Starting on Mon09/09/19 at 1352, Recovery (GI), Administer fentaNYL if allergy to HYDROmorphone. Notify MD of pain score greater than 4., Indications: Pain documented in this encounter Orders Medications Ordered That Santiago ht Not Have Been Administered Count Last Ordered Date First Ordered Date fentaNYL (SUBLIMAZE) preserv ative free injection 25 mcg 1 09/09/2019 HYDROmorphone (DILAUDID) injection 0.5 mg 1 09/09/2019 ondansetron (ZOFRAN) injection 4 mg 1 09/08 sodium chloride 0.9% flush 0.5-20 mL 1 04/2019 documented in this encounter Care Teams Leveler Helper Relationship Specialty Start Date End Date Dedra Doty MD PCP - General 08/03/16 documented as of this encounter
--- OUTSIDE RECORDS SUMMARY | 2024-04-18 18:11 | XMS_ITS | Encounter Summary ---
Author Organization [facility] Healthcare Address [address] [place] [address] Care Team Providers Care Stone Setter Name Role Phone Dedra Doty MD Primary Care Provider [phone] Encounter Details Date Type Department Care Team (Late st Contact Info) Description 09/09/2019 12:34 PM CDT Anesthesia Event [facility] [place] [address] [place] [address] Kathryn Cross MD PhD [address] [place] [address] Ingrid Conteh CRNA [address] [place] [address] Anesthesia Record Procedure Summary Procedure Name Responsible Anesthesiologist Anesthesia Start Time Anesthesia Stop Time ESOPHAGOGASTRODUODENOSCOPY ULTRASOUND FINE NEEDLE ASPIRATION/BIOPSY Kathryn Cross MD PhD 09/09/19 1234 09/09/19 1326 Events Date Time Event Comment 09/09/2019 1146 1234 An Start 1236 An Start Data 1236 In Room 1252 Start Supplemental O2 1252 An Data Art 1252 Patient Positioned Laterally 1252 An Induction The patient was reevaluated immediately before moderate or deep sedation use and before anesthesia induction. 1252 Bite Block Placed 1252 Quick Note Oxygen mask at 6 LPM of oxygen via auxiliary oxygen port. 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 Gender Identity Not on file Sexual Orientation Not on file documented as of this encounter OR Notes * Anesthesia Postprocedure Evaluation - Kathryn Cross MD PhD - 09/09/2019 2:30 PM CDT Patient: Nikolay Ferro Procedure Summary Date: 09/09/19 Room / Location: [facility] ENDOSCOPY ROOM 1 / [facility] Anesthesia Start: 1234 Anesthesia Stop: 1326 Procedure: ESOPHAGOGASTRODUODENOSCOPY ULTRASOUND FINE NEEDLE ASPIRATION/BIOPSY (N/A ) Diagnosis: Pancreatic cyst (Pancreatic cyst [K86.2]) Provider: Richard Tomas MD Responsible Provider: Kathryn Cross MD PhD Anesthesia Type: MAC ASA Status: 2 Anesthesia Type: MAC Last vitals BP 146/96 Pulse 93 Temp 36.3 ??C (97.3 ??F) Resp 13 SpO2 99% Anesthesia Post Evaluation Patient location during evaluation: PACU Patient participation: complete - patient participated Level of consciousness: fully awake Pain score: 0 Pain management: satisfactory to patient Airway patency: adequate Evidence of recall: no Anesthetic complications: no Cardiovascular status: acceptable and hemodynamically stable Respiratory status: acceptable and room air Hydration status: acceptable Pt is: normothermic Nausea/Vomiting status: none * Anesthesia Preprocedure Evaluation - Kathryn Cross MD PhD - 09/09/2019 11:46 AM CDT Images from the original note were not included. Anesthesia Evaluation Nikolay Ferro is a 53 y.o. male Procedure(s): US Endoscopy whatley prep Pre-Op Diagnosis Codes: * Pancreatic cyst [K86.2] Patient Active Problem List Diagnosis ??? Actinic keratosis ??? History of melanoma in situ ??? Allergic contact dermatitis due to plants, except food ??? Skin benign neoplasm ??? Pancreatic cyst Past Medical History: Diagnosis Date ??? Asthma environmental allergy induced ??? Hypothyroidism Past Surgical History: Procedure Laterality Date ??? WRIST SURGERY Right Allergies Allergen Reactions ??? Penicillins Taking? Last Dose Start Date End Date Provider albuterol HFA (PROVENTIL HFA,VENTOLIN HFA,PROAIR HFA) 90 mcg/actuation inhaler Past Month 08/19/19 -- Historical Provider, cetirizine (ZyrTEC) 10 mg tablet Past Month -- -- Historical Provider, cyclobenzaprine (FLEXERIL) 10 mg tablet 09/08/2019 08/13/19 -- Historical Provider, fenofibrate (TRICOR) 54 mg tablet 09/08/2019 08/13/19 -- Historical Provider, levothyroxine (SYNTHROID) 175 mcg tablet 09/08/2019 -- -- Historical Provider, oxyCODONE-acetaminophen (PERCOCET) 5-325 mg per tablet 09/08/2019 08/30/19 -- Historical Provider, pantoprazole DR (PROTONIX) 40 mg EC tablet 09/08/2019 08/25/19 -- Historical Provider, Current Facility-Administered Medications: ??? sodium chloride 0.9% flush 0.5-20 mL, 0.5-20 mL, intra-catheter, PRN ??? sodium chloride 0.9% infusion, 30 mL/hr, intravenous, Continuous, Last Rate: 30 mL/hr at 09/09/19 1142, 30 mL/hr at 09/09/19 1142 Social History Tobacco Use Smoking Status Never Smoker Smokeless Tobacco Never Used Substance and Sexual Activity Alcohol Use Not on file Comment: none in last three wks/ socially prior Substance and Sexual Activity Drug Use Yes ??? Types: Marijuana Comment: gummies purchased this week History reviewed. No pertinent family history. Vitals: 09/09/19 1121 BP: (!) 160/104 Pulse: 92 Resp: 11 Temp: 36 ??C (96.8 ??F) SpO2: 98% [...] Attestation: With today's edits, I endorse the the findings of the H&P dated: 09/09/2019. Airway Exam: Mallampati: II Cervical ROM: FROM Cardiovascular Exam: Rate: regular Rhythm: regular Negative for Murmur No extra heart sounds appreciated Pulmonary Exam: LCTA, bilat Current state: Patient's current state is cooperative. Anesthesia Plan ASA 2 My patient is approved for the Anesthesia Controlled Medication protocol when under care of a DIETARY DIRECTOR Planned anesthesia: MAC Induction: Induction: intravenous. Postoperative Plan: No postoperative mechanical ventilation intended. Informed Consent: Discussed plan with DIETARY DIRECTOR. Anesthesia plan and risks discussed with patient. Plan and Consent Comments: No problems with prior anesthetics. No significant medical changes from the documented H&P. Discussed the unlikely possibility of a life-threatening event occurring under anesthesia and the possibility of . Kathryn Cross MD PhD Consent and Attending signature: I and/or my designee have discussed the anesthesia plan, benefits, possible alternatives, parental presence at time of induction (if indicated), and clinically relevant risks that may include dental injury, unintentional awareness, and/or other complications. The patient and/or parent/legal guardian understand, and agree to proceed. All questions answered. documented in this encounter Plan of Treatment Upcoming Encounters Date Type Department Care Team (Late st Contact Info) Description 04/18/2024 6:05 PM [facility] Hospital Encounter [facility] [address] [place] [address] Arrived 04/18/2024 6:10 PM [facility] Hospital Encounter [facility] [address] [place] [address] Arrived documented as of this encounter Visit Diagnoses Not on filedocumented in this encounter Administered Medications Inactive Administered Medications - up to 3 most recent administrations Medication Order MAR Action Action Date Dose Rate Site lidocaine (XYLOCAINE) 20 mg/mL (2 %) preservative free injection As needed, Starting on 09/09/19 at 1252, Anesthesia Intra-op Given 09/09/2019 12:54 PM CDT 40 mg Given 09/09/2019 12:52 PM CDT 60 mg propofoL (DIPRIVAN) IV intravenous, As needed, Starting on Mon09/09/19 at 1253, Anesthesia Intra-op Given 09/09/2019 1:12 PM CDT 40 mg Given 09/09/2019 1:10 PM CDT 40 mg Given 09/09/2019 1:09 PM CDT 20 mg sodium chloride 0.9% infusion 30 mL/hr, intravenous, Continuous, Starting on Mon09/09/19 at 1215, For 6 hours, Pre-Procedure (GI) Rate/Dose Verify 09/09/2019 12:34 PM CDT 30 mL/h r New Bag 09/09/2019 11:42 AM CDT 30 mL/hr 30 mL/hr documented in this encounter Care Teams Stone Setter Relationship Specialty Start Date End Date Dedra Doty MD PCP - General 08/03/16 documented as of this encounter
--- OUTSIDE RECORDS SUMMARY | 2024-04-18 18:11 | XMS_ITS | Encounter Summary ---
Author Organization [facility] Address [address] [place] [address] Phone Care Team Providers Care Glue Clamp Operator Name Role Phone Dedra Doty MD Primary Care Provider Encounter Details Date Type Department Care Team (Late st Contact Info) Description 09/19/2019 Telephone [facility] Surgery [address] 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 Called [phone] and left message for patient to return my call. ----- Message from Elen Koo sent at 09/19/2019 10:16 AM CDT ----- Regarding: LATISHA HERNANDEZ I already requested images, so hopefully we have them soon. Maybe an appt next week or the following with Dom? Elen Jameson ----- Message ----- From: Jose Elias Messina MD Sent: 09/19/2019 9:59 AM CDT To: Prabha Levy CMA, # Subject: RE: Siddharth HERNANDEZ IPHV (In-Person Human Visualization) and get images. Thanks! DS ----- Message ----- From: DUSTIN Cyr Sent: 09/19/2019 8:29 AM CDT To: Prabha Levy CMA, # Subject: RE: Siddharth HERNANDEZ Dom Patient is being referred to you for an incidental finding of a 1.0 cm cystic lesion in the pancreatic head. Had EUS by Thom and appears to be a pNET. Pathology is below. He has CT from 09/02 at [facility]. I assume Thom has access to these images and they usually don't perform procedures without seeing them first.. Elen can we request those to be shared via BECKY? Dom do you want a telemed apt vs in person apt to discuss surveillance. Pancreas, head mass, fine-needle biopsy ? - Malignant neoplasm (see comment) Sections show a single small fragment of loosely cohesive malignant cells. These cells are negativefor chromogranin. They are not present on deeper levels for CAM5.2 and synaptophysin. The differential includes a neuroendocrine neoplasm or lymphoma. However, other neoplasms cannot be completely excluded due to the scant amount of tissue for morphologic evaluation. Rebiopsy may be indicated to help further classify this neoplasm. ----- Message ----- From: Elen Koo Sent: 09/18/2019 1:19 PM CDT To: Prabha Levy CMA, # Subject: Siddharth HERNANDEZ Pt being referred, by Thom, to [place] for pancreatic head cyst. I've requested imaging, but we don't have yet. All records in Media tab. Can you please review & advise of plan?Thanks,Elen documented in this encounter Plan of Treatment Upcoming Encounters Date Type Department Care Team (Late st Contact Info) Description 04/18/2024 6:05 PM PLASTIC MACHINE OPERATOR Hospital Encounter [facility]) [address] [place] [address] Arrived 04/18/2024 6:10 PM PLASTIC MACHINE OPERATOR Hospital Encounter [facility] ([facility]) [address] [place] [address] Arrived documented as of this encounter Visit Diagnoses Not on filedocumented in this encounter Care Teams Glue Clamp Operator Relationship Specialty Start Date End Date Dedra Doty MD PCP - General 08/03/16 documented as of this encounter
--- OUTSIDE RECORDS SUMMARY | 2024-04-18 18:11 | XMS_ITS | Encounter Summary ---
Author Organization [facility] Healthcare Address [address] [place] [address] Care Team Providers Care Outdoor Studies Professor Name Role Phone Dedra Doty MD Primary Care Provider [phone] Encounter Details Date Type Department Care Team (Latest Contact Info) Description 09/09/2019 10:52 AM CDT - 09/09/2019 2:35 PM CDT Hospital Encounter [facility] [address] [facility] [address] [place] [address] Richard Tomas MD [address] [facility] [address] [place], [place] [id number] Pancreatic cyst Discharge Disposition: Discharge to home or self care Social History Tobacco Use Types Packs/Day Years Used Date Smoking Tobacco: Never Smokeless Tobacco: Never Sex and Gender Information Value Date Recorded Sex Assigned at Not on file 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 Gender Identity Not on file Sexual Orientation Not on file documented as of this encounter Last Filed Vital Signs Vital Sign Reading Time Taken Comments Blood Pressure 146/96 09/09/2019 2:15 PM CDT Pulse 93 09/09/2019 2:15 PM CDT Temperature 36.3 ??C (97.3 ??F) 09/09/2019 1:25 PM CD T Respiratory Rate 13 09/09/2019 2:15 PM CDT Oxygen Saturation 99% 09/09/2019 2:15 PM CDT Inhaled Oxygen Concentration - - Weight 72.6 kg (160 lb) 09/09/2019 11:21 AM CDT Height 172.7 cm (5' 8 ) 09/09/2019 11:21 AM CDT Body Mass Index 24.33 09/09/2019 11:21 AM CDT documented in this encounter Discharge Diagnoses Diagnosis Malignant neoplasm of head of pancreas (HCC) - MALIGNANT NEOPLASM OF HEAD OF PANCREAS Malignant neoplasm of head of pancreas Other specified diseases of liver - OTHER SPECIFIED DISEASES OF LIVER Allergy status to penicillin - ALLERGY STATUS TO PENICILLIN Unspecified asthma, uncomplicated - UNSPECIFIED ASTHMA, UNCOMPLICATED Hypothyroidism, unspecified - HYPOTHYROIDISM, UNSPECIFIED Other rat exterminator (current) drug therapy - OTHER INFO ANALYST (CURRENT) DRUG THERAPY documented in this encounter Medications at Time [...] Male Attending MD: Richard Tomas M.D. Room: [facility] ENDOSCOPY ROOM 1 Note [...] and informed consent was obtained.The GIF [id number] endoscope was introduced through the mouth, and advanced to the second part of duodenum , The Olympus curved linear array therapeutic endosonoscope [id number] was introduced through the mouth, and advanced [...] On: 09/09/2019 12:29 PM Recognized by the [employer] for promoting quality in endoscopy documented in this encounter Miscellaneous Notes * Perioperative Nursing Note - Tish Aiken RN - 09/09/2019 2:17 PM CDT OK to discharge patient now per Dr. Tomas documented in this encounter Plan of Treatment Upcoming Encounters Date Type Department Care Team (Late st Contact Info) Description 04/18/2024 6:05 PM WATCH AND CLOCK REPAIR CLERK Hospital Encounter [facility]) [address] [place] [address] Arrived 04/18/2024 6:10 PM [facility] Hospital Encounter [facility] ([facility]) [address] [place] [address] Arrived Pending Results Name Type Priority Associated [...] Biopsy) 09/09/2019 1:07 PM CDT Narrative PATHOLOGY [facility] - 09/11/2019 4:09 PM CDT EPIC results best viewed via link to PDF [facility] [place] [address] SURGICAL PATHOLOGY REPORT FINAL Patient Name: ?? AMIRAH IBRAHIM Gender: ??M : ??1965 (Age: 53) Address: ??[address] [place] [address] Hospital #: ??[id number] Taken:09/09/2019 Received:09/09/2019 Reported: 09/11/2019 Patient Type: [facility] SDS ?? Service: Gastro Location: [facility] Physician(s): ??Richard Tomas M.D. Diagnosis: Pancreas, head [...] flagged as significant and was sent to Rihcard Tomas M.D. via email on 09/11/2019. Reason(s): [...] determined by the Surgical Pathology Department at [facility] as part of an ongoing advanced quality engineer program and in compliance with federally mandated [...] determined by the Surgical Pathology Department of [facility]. ??It has not been cleared or approved by the U. S. Food and Drug Administration. IMAGES AND SCANNED DOCUMENTS, IF INCLUDED, ONLY VIEWABLE IN PDF VERSION OF REPORT us Richard Tomas MD LAB PATHOLOGY ORDERABLES Final Result PATHOLOGY [facility] 3rd Floor PATEL Olivares [phone] * EUS (09/09/2019 12:29 PM CDT) Anatomical Region Laterality Modality Other Narrative Procedure Note Richard Tomas MD - 09/09/2019 12:29 PM CDT [facility] END[facility] Patient Name: Amirah Ibrahim Procedure Date: 09/09/2019 12:29 PM Date of : 1965 Admit Type: Outpatient Age: 53 Gender: Male Attending MD: Richard Tomas M.D. Room: [facility] ENDOSCOPY ROOM 1 Note [...] discussedand informed consent was obtained.The GIF [id number] endoscope was introduced through the mouth, and advanced to the second part of duodenum , TheOlympus curved linear array therapeutic endosonoscope [id number] was introduced through the mouth, and advanced [...] On: 09/09/2019 12:29 PM Recognized by the [employer] for promoting quality [...] Ingrid Conteh CRNA)1325 (Stopped - Provider: Ingrid Conteh CRNA) PRN Medication Order 09/07/2019 09/08/2019 09/09/2019 [...] 04/2019 documented in this encounter Care Teams Outdoor Studies Professor Relationship Specialty Start Date End Date Dedra Doty MD PCP - General 08/03/16 documented as of this encounter
--- OUTSIDE RECORDS SUMMARY | 2024-04-18 18:11 | XMS_ITS | Encounter Summary ---
Author Organization [facility] Address [address] [place] [address] Phone Care Team Providers Care Fountain Pen Nibs Inspector Name Role Phone Dedra Doty MD Primary Care Provider [phone] Reason for Visit * Consultation (Routine) - Closed Specialty Diagnoses / Procedures Referred By Stephen jones Referred To Contact Hepatobiliary Surgery Diagnoses Pancreatic cyst Neuroendocrine tumor of pancreas Richard Tomas MD [address] [place] [address] Phone: tel: fax: [facility] (All Locations) Referral ID Status Reason Start Date Expiration Date V isits Requested Visits Authorized [id number] Closed Specialty Services Required 09/13/2019 03/24/2021 99 99 Encounter Details Date Type Department Care Team (Late st Contact Info) Description 09/30/2019 11:30 AM CDT Office Visit [facility] Surgery [address] [facility] 8th [place] [address] [place] [address] Jose Elias Messina MD [address] [facility] [id number] [place] [address] Pancreatic cyst; Neuroendocrine tumor of pancreas Social History Tobacco Use Types Packs/Day Years Used Date Smoking Tobacco: Never Smokeless Tobacco: Never Sex and Gender Information Value Date Recorded Sex Assigned at Not on file 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 Gender Identity Not on file Sexual Orientation Not on file documented as of this encounter Last Filed Vital Signs Vital Sign Reading Time Taken Comments Blood Pressure 156/105 09/30/2019 12:04 PM CDT Pulse 78 09/30/2019 12:04 PM CDT Temperature 36.5 ??C (97.7 ??F) 09/30/2019 12:04 PM C DT Respiratory Rate - - Oxygen Saturation - - Inhaled Oxygen Concentration - - Weight 74.9 kg (165 lb 3.2 oz) 09/30/2019 12:04 PM CDT Height 172.7 cm (5' 8 ) 09/30/2019 12:04 PM CDT Body Mass Index 25.12 09/30/2019 12:04 PM CDT documented in this encounter Progress Notes * Maty Weinberg PA - 09/30/2019 11:30 AM CDT NEW PATIENT EVAUATION REQUESTING PHYSICIAN: Richard Tomas MD REASON FOR VISIT: Pancreas neuroendocrine tumor vs lymphoma ASSESSMENT/PLAN: 53 y.o. male with pancreatic head lesion. Biopsy is concerning for neuroendocrine tumor versus lymphoma. His abdominal pain with radiation to the back along with fevers could possibly have been pancreatitis, but no amylase was checked at the time, so I cannot be certain. I favor following him with a repeat CT scan in 6 months followed by yearly if the lesion is stable. I will review his case in pancreas tumor board to see if their is agreement about this plan. HISTORY OF PRESENT ILLNESS: Mr. Ibrahim is a 53 year old male with an incidental finding of a 1.0 cm pancreatic lesion that was found on workup for right upper quadrant and epigastric pain. CT imaging showed a 1.0 cm pancreatic head lesion. He underwent an EUS where endosonographically the lesion appeared to be a neuroendocrine tumor and staged at T1N0. The mass was biopsied and showed malignantneoplasm consistent with neuroendocrine tumor or lymphoma. He presents to clinic today with complaints of right upper quadrant pain that radiates to his shoulder. He first developed shoulder pain after working on his deck. One week later after drinking 3 beers he developed acute, sudden onset right upper quadrant abdominal pain that radiated to his right scapula and through to his back. He then presented to his local ED that evening in 910 pain. According to the patient his labs were normal. However, only a CBC was recorded in his records and cannot evaluate liver enzymes, alk phos, bili, or lipase to rule out pancreatitis or biliary obstruction. Since being evaluated in the ED he has RUQ tenderness that is slowly improving. He has never had an epi sode like this before. His pain is not related to types of food, volume or food, or time of day. Leading up to the ED he also had a fever of 101.1 for three days. PAST MEDICAL HISTORY: 1. Hepatic steatosis 2. [...] Mother - alzheimer's disease REVIEW OF SYSTEMS: A complete review of systems was performed and positive and pertinent negative responses are documented in the history of present illness and on the patient information worksheet. All other systems were negative. PHYSICAL EXAMINATION: VITAL SIGNS: BP (!) 156/105 Pulse 78 Temp 36.5 ??C (97.7 ??F) Ht 172.7 cm (5' 8 ) Wt 74.9 kg (165 lb 3.2 oz) BMI 25.12 kg/m?? NEURO: Alert and oriented. GENERAL: In no apparent distress. HEENT: No scleral icterus. CHEST: Clear to auscultation bilaterally. HEART: Regular rate and rhythm. ABDOMEN: Soft, Non-tender, non-distended. Bowel sound present in all four quadrants. No hernias or masses. EXTREMITIES: No edema, distal pulses palpable. SKIN: No jaundice. PSYCHIATRIC: Appropriate mood and affect. REVIEW OF LABORATORY AND RADIOGRAPHIC STUDIES: EUS 09/09/19: 9.9 x 8.3 mm solid [...] contrast enhanced CT or more preferably MRI. Maty Weinberg PA-C [facility] Hepatobiliary, Pancreatic, and Gastrointestinal Surgery [address] [place] [address], [place] [address] [place] [address] Providers: Richard Tomas MD (Biliary Endoscopy) Aye Doty MD (PCP) documented in this encounter Plan of Treatment Upcoming Encounters Date Type Department Care Team (Late st Contact Info) Description 04/18/2024 6:05 PM LAP GRINDER Hospital Encounter [facility] ([facility]) [address] [place] [address] Arrived documented as of this encounter Visit Diagnoses Diagnosis Pancreatic cyst Cyst and pseudocyst of pancreas Neuroendocrine tumor of pancreas documented in this encounter Discontinued Medications Medication Sig Discontinue Reason Start Date End Da te fenofibrate nanocrystallized (Tricor) 145 mg tablet Duplicate order 09/30/2019 documented as of this encounter Orders Outpatient Referral Count Last Ordered Date st Ordered Date AMB REFERRAL TO HEPATOBILIARY SURGERY 1 documented in this encounter Care Teams Fountain Pen Nibs Inspector Relationship Specialty Start Date End Date Dedra Doty MD PCP - General 08/03/16 documented as of this encounter
--- OUTSIDE RECORDS SUMMARY | 2024-04-18 18:11 | XMS_ITS | Encounter Summary ---
Author Organization [facility] Address [address] [place] [address] Phone Care Team Providers Care Dry Mixer Name Role Phone Dedra Doty MD Primary Care Provider [phone] Reason for Referral * Diagnostic Imaging (Routine) - Closed Specialty Diagnoses / Procedures Referred By Heideac t Referred To Contact Radiology Diagnoses Pancreatic cyst Procedures MRI/MRCP (abdomen) W WO Contrast Richard Tomas MD [address] [place] [address] Phone: tel: fax: [address] [address] Referral ID Status Reason Start Date Expiration Date Visits Re quested Visits Authorized [id number] Closed 10/14/2019 04/24/2021 1 1 Encounter Details Date Type Department Care Team (Late st Contact Info) Description 10/14/[address] [facility] Gastroenterology [address] 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 [facility] protocol MRI (with and without contrast) to evaluate pancreas head lesion. Following MR, arrange for EUS for repeat tissue sampling of panc head lesion.-DM I was unable to get these scheduled the same day. Pt has the MRI appointment 11/04/19 12:30 at the [facility]. NPO 4 hours prior, address provided. EUS scheduled 11/07/19 0800 at the [facility]. Pt is not on any blood thinners, no diabetic medications, noimplanted cardiac devices. NPO after midnight, pt will have a rental car ferry driver. All questions answered at this time. Packet mailed. Pt to call with any changes, questions, concerns. Patient was notified that they will need to undergo COVID testing no more than 4 days before the date of the procedure Patient advised that they will need to self quarantine from the time of their COVID testing up until the time of their procedure. The patient was asked about recent travel (<14 days) any contacts <14 days with known or suspected COVID patients. The patient was asked about sy mptoms, including fever (>100F), new or worsening cough, trouble breathing, new loss of taste orloss of smell, new or worsening body aches, and sore throat different than typical seasonal allergies. The patient was advised that if they were to develop symptoms prior to their procedure, they should call our office. The patient was advised of our endoscopy visitor restrictions. The patient was a dvised to bring a mask with them and wear while they are in the hospital, if they already have one. Pt will go to [facility] for COVID testing. documented in this encounter Plan of Treatment Upcoming Encounters Date Type Department Care Team (Late st Contact Info) Description 04/18/2024 6:05 PM POWER HAMMER OPERATOR Hospital Encounter [facility] [address] [place] [address] Arrived documented as of this encounter Results * MRI/MRCP (abdomen) W WO Contrast (11/04/2019 3:15 PM CDT) Anatomical Region Laterality Modality Body N/A Magnetic Resonan ce 11/04/2019 4:37 PM CDT Impressions 11/04/2019 6:39 PM CDT 1. ??Poor visualization of the known pancreatic head lesion, which likely has substantially decreased in size. ?? 2. ??Several scattered tiny foci of arterial hyperenhancement within the liver are favored represent shunting but are indeterminant. Recommend attention on follow-up imaging. 3. Moderate diffuse hepatic steatosis. Dictated by: Samantha Tafoya M.D. The radiology attending physician has personally reviewed this study, and had reviewed and/or edited this written report and agrees with it. Electronically signed by: Richard Sands M.D. Narrative 11/04/2019 6:39 PM CDT EXAMINATION: 1. MAGNETIC RESONANCE IMAGING OF THE ABDOMEN WITH AND WITHOUT CONTRAST 2. THREE DIMENSIONAL RECONSTRUCTION OF THE BILIARY TREE AND PANCREATIC DUCT HISTORY: Pancreatic head lesion, previous endoscopic ultrasound and biopsy suggestive of either neuroendocrine tumor or lymphoma. TECHNIQUE: Magnetic resonance imaging of the abdomen was performed prior to and following the uneventful administration of intravenous Gadolinium contrast. The raw data was processed on the scanner by the technologist for 3 dimensional reconstructions of the intrahepatic ducts, extrahepatics ducts, and pancreatic duct. Protocol: Liver MRCP Contrast: Dotarem 14 mL COMPARISON: CT abdomen pelvis 09/24/2019. FINDINGS: Liver: Moderate hepatic steatosis. ??Normal liver contour. - Bile ducts: No intra or extrahepatic biliary dilatation. - Focal liver lesions: 2 tiny hypervascular lesions within hepatic segment 7 (series 18 #29) are favored represent areas of shunting given the lack of a diffusion-weighted imaging correlate. ??Tiny cyst within the left hepatic lobe and right posterior section. ??No additional liver lesions. - Vasculature: Portal venous system and hepatic veins are patent. Normal hepatic arteries. Gallbladder: Normal. Pancreas: The pancreas enhances normally. ??No pancreatic duct dilatation. ??The pancreatic head mass is no longer seen either due to decreased in size or complete resolution. Spleen: Normal. Adrenals: Normal. Kidneys: Enhance symmetrically. ??No hydronephrosis. Other Findings: ??No suspicious lymphadenopathy. ??Lung bases are clear. Procedure Note Richard Sands MD - 11/04/2019 EXAMINATION: 1. MAGNETIC RESONANCE IMAGING OF THE ABDOMEN WITH AND WITHOUT CONTRAST 2. THREE DIMENSIONAL RECONSTRUCTION OF THE BILIARY TREE AND PANCREATIC DUCT HISTORY: Pancreatic head lesion, previous endoscopic ultrasound and biopsy suggestive of either neuroendocrine tumor or lymphoma. TECHNIQUE: Magnetic resonance imaging of the abdomen was performed prior to and following the uneventful administration of intravenous Gadolinium contrast. The raw data was processed on the scanner by the technologist for 3 dimensional reconstructions of the intrahepatic ducts, extrahepatics ducts, and pancreatic duct. Protocol: Liver MRCP Contrast: Dotarem 14 mL COMPARISON: CT abdomen pelvis 09/24/2019. FINDINGS: Liver: Moderate hepatic steatosis. Normal liver contour. - Bile ducts: No intra or extrahepatic biliary dilatation. - Focal liver lesions: 2 tiny hypervascular lesions within hepatic segment 7 (series 18 #29) are favored represent areas of shunting given the lack of a diffusion-weighted imaging correlate. Tiny cyst within the left hepatic lobe and right posterior section. No additional liver lesions. - Vasculature: Portal venous system and hepatic veins are patent. Normal hepatic arteries. Gallbladder: Normal. Pancreas: The pancreas enhances normally. No pancreatic duct dilatation. The pancreatic head mass is no longer seen either due to decreased in size or complete resolution. Spleen: Normal. Adrenals: Normal. Kidneys: Enhance symmetrically. No hydronephrosis. Other Findings: No suspicious lymphadenopathy. Lung bases are clear. IMPRESSION: 1. Poor visualization of the known pancreatic head lesion, which likely has substantially decreased in size. 2. Several scattered tiny foci of arterial hyperenhancement within the liver are favored represent shunting but are indeterminant. Recommend attention on follow-up imaging. 3. Moderate diffuse hepatic steatosis. Dictated by: Samantha Tafoya M.D. The radiology attending physician has personally reviewed this study, and had reviewed and/or edited this written report and agrees with it. Electronically signed by: Richard Sands M.D. Richard Tomas MD [facility] MRI PROCEDURES Final Result documented in this encounter Visit Diagnoses Diagnosis Pancreatic cyst- Primary Cyst and pseudocyst of pancreas Pre-op testing Unspecified pre-operative examination Pancreatic cyst Cyst and pseudocyst of pancreas documented in this encounter Orders Case Request Count Last Ordered Date First Orde red Date CASE REQUEST GI 1 10/14/2019 documented in this encounter Care Teams Dry Mixer Relationship Specialty Start Date End Date Dedra Doty MD PCP - General 08/03/16 documented as of this encounter
--- OUTSIDE RECORDS SUMMARY | 2024-04-18 18:11 | XMS_ITS | Encounter Summary ---
Author Organization [facility] Address [address] [place] [address] Phone Care Team Providers Care Alligator Hunter Name Role Phone Dedra Doty MD Primary Care Provider [phone] Encounter Details Date Type Department Care Team (Late st Contact Info) Description 09/19/2019 Telephone [facility] [address] 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 Messina on Monday, September 30, 2019 at 11:30 am. Patient aware of appointment time, date, and location. Currently, patient denies Covid-19 symptoms such as cough, shortness of breath, difficulty breathing, fever, chills, muscle pain, sore throat, new loss of taste or smell. Per patient, he has not beenin contact with anyone who has been exposed or isolated for Covid-19. Patient encouraged to take proper Covid-19 precautions prior/during his appointment such as washinghands, social distancing, covering mouth while coughing/sneezing, wearing an isolation mask. Patient instructed to call our office if any upper respiratory symptoms or fever occur. ----- Message ----- From: Prabha Levy CMA Sent: 09/19/2019 3:01 PM CDT To: Prabha Levy CMA, Elen Koo Subject: RE: Siddharth HERNANDEZ Called [phone] Voicemail not set up. Called [phone] and left message for patient to return my call. ----- Message ----- From: Elen Koo Sent: 09/19/2019 10:16 AM CDT To: Prabha Levy CMA Subject: FW: Siddharth HERNANDEZ I already requested images, so hopefully we have them soon. Maybe an appt next week or the following with Kd? Elen Jameson ----- Message ----- From: Jose Elias Messina MD Sent: 09/19/2019 9:59 AM CDT To: Prabha Levy CMA, # Subject: RE: Siddharth HERNANDEZ IPHV (In-Person Human Visualization) and get images. Thanks! GOSIA ----- Message ----- From: DUSTIN Cyr Sent: 09/19/2019 8:29 AM CDT To: Prabha Levy CMA, # Subject: RE: Siddharth Yi Patient is being referred to you for [...] request those to be shared via BECKY? Kd do you want a telemed apt vs [...] CDT To: Prabha Levy CMA, # Subject: [place] NEW Pt being referred, by Thom, to [place] for pancreatic head cyst. I've requested imaging, but we don't have yet. All records in Media tab. Can you please review & advise of plan?Thanks,Elen documented in this encounter Plan of Treatment Upcoming Encounters Date Type Department Care Team (Late st Contact Info) Description 04/18/2024 6:05 PM [facility] Hospital Encounter [facility] ([facility]) [address] [place] [address] Arrived 04/18/2024 6:10 PM [facility] Hospital Encounter [facility] ([facility]) [address] [place] [address] Arrived documented as of this encounter Visit Diagnoses Not on filedocumented in this encounter Care Teams Alligator Hunter Relationship Specialty Start Date End Date Dedra Doty MD PCP - General 08/03/16 documented as of this encounter
--- OUTSIDE RECORDS SUMMARY | 2024-04-18 18:11 | XMS_ITS | Encounter Summary ---
Author Organization [facility] Address [address] [place] [address] Phone Care Team Providers Care Mucker Cofferdam Name Role Phone Dedra Doty MD Primary Care Provider [phone] Reason for Referral * Consultation (Routine) - Closed Specialty Diagnoses / Procedures Referred By Stephen t Referred To Contact Hepatobiliary Surgery Diagnoses Pancreatic cyst Neuroendocrine tumor of pancreas Richard Tomas MD [address] [place] [address] Phone: tel: fax: [facility] (All Locations) Referral ID Status Reason Start Date Expiration Date V isits Requested Visits Authorized [id number] Closed Specialty Services Required 09/13/2019 03/24/2021 99 99 Question Answer Please select the performing region: [facility] (All Locations) [[id number]] # of visits: 1 Comments Please call patient with result: this is likely a neuroendocrine tumor. I do not think this is causing any of his symptoms, which I think are likely musculoskeltal. Please refer him to [facility] surgery for recs re: surveillance vs resection Encounter Details Date Type Department Care Team (Late st Contact Info) Description 09/13/2019 Orders Only [facility] Gastroenterology [address] 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 Gender Identity Not on file Sexual Orientation Not on file documented as of this encounter Plan of Treatment Upcoming Encounters Date Type Department Care Team (Late st Contact Info) Description 04/18/2024 6:05 PM SPORTS DOCTOR Hospital Encounter [facility] ([facility]) [address] [place] [address] Arrived 04/18/2024 6:10 PM SPORTS DOCTOR Hospital Encounter [facility]) [address] [place] [address] Arrived Scheduled Referrals Name Type Priority Associated Diagnoses Order Schedule Ambulatory referral to Hepatobiliary Surgery Outpatient Referral Routine Pancreatic cyst Neuroendocrine tumor of pancreas Expected: 09/27/2019 (Approximate), Expires: 09/12/2020 documented as of this encounter Visit Diagnoses Diagnosis Pancreatic cyst- Primary Cyst and pseudocyst of pancreas Neuroendocrine tumor of pancreas documented in this encounter Care Teams Mucker Cofferdam Relationship Specialty Start Date End Date Dedra Doty MD PCP - General 08/03/16 documented as of this encounter
--- OUTSIDE RECORDS SUMMARY | 2024-04-18 18:11 | XMS_ITS | Encounter Summary ---
Author Organization [facility] Address [address] [place] [address] Phone Care Team Providers Care Dietary Cook Name Role Phone Dedra Doty MD Primary Care Provider [phone] Encounter Details Date Type Department Care Team (Late st Contact Info) Description 09/04/2019 Telephone [facility] Gastroenterology [facility] 8th [place] [address] [place] [address] Jes Lockwood RN Social History Tobacco Use Types Packs/Day Years Used Date Smoking Tobacco: Never Sex and Gender Information Value Date Recorded Sex Assigned at Not on file Legal Sex Male 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 documented in this encounter Plan of Treatment Upcoming Encounters Date Type Department Care Team (Late Contact Info) Description 04/18/2024 6:05 PM INSTALLER MOLDING AND TRIM Hospital Encounter [facility] ([facility]) [address] [place] [address] Arrived 04/18/2024 6:10 PM INSTALLER MOLDING AND TRIM Hospital Encounter [facility] ([facility]) [facility] [place] [address] Arrived documented as of this encounter Visit Diagnoses Not on filedocumented in this encounter Care Teams Dietary Cook Relationship Specialty Start Date End Date Dedra Doty MD PCP - General 08/03/16 documented as of this encounter
--- OUTSIDE RECORDS SUMMARY | 2024-04-18 18:11 | XMS_ITS | Encounter Summary ---
Author Organization [facility] Address [address] [place] [address] Phone Care Team Providers Care Tank Worker Name Role Phone Dedra Doty MD Primary Care Provider Encounter Details Date Type Department Care Team (Late st Contact Info) Description 10/10/2019 Telephone [facility] Gastroenterology [facility] 8th [place] [address] [place] [address] Jes Lockwood, RN Social History Tobacco Use Types Packs/Day Years Used Date Smoking Tobacco: Never Smokeless Tobacco: Never Sex and Gender Information Value Date Recorded Sex Assigned at Not on file Legal 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 Following MR, arrange for EUS for repeat tissue sampling of panc head lesion. * Telephone Encounter - Jes Lockwood RN - 10/10/2019 1:12 PM CDT Returned pt's call. Pt has recently seen Dr. Messina, and a whipple procedure was recommended. After discussion, pt states it was offered that he could have another EUS with biopsy prior to proceeding with the surgery. I will discuss with Dr. Tomas, and the patient will be contacted with further r ecommendations. Pt to call with changes, questions, concerns. documented in this encounter Plan of Treatment Upcoming Encounters Date Type Department Care Team (Late st Contact Info) Description 04/18/2024 6:05 PM SHIP RIGGER APPRENTICE Hospital Encounter [facility]) [address] [place] [address] Arrived documented as of this encounter Visit Diagnoses Not on filedocumented in this encounter Care Teams Tank Worker Relationship Specialty Start Date End Date Dedra Doty MD PCP - General 08/03/16 documented as of this encounter
--- OUTSIDE RECORDS SUMMARY | 2024-04-18 18:11 | XMS_ITS | Encounter Summary ---
Author Organization [facility] Address [address] [facility] [address] [place] [address] Phone Care Team Providers Care Kiln Loader Name Role Phone Dedra Doty MD Primary Care Provider [phone] Encounter Details Date Type Department Care Team (Late Contact Info) Description 09/18/2019 Telephone [facility] Gastroenterology [address] [place] [address] [facility] 8th [place] [address] [place] [address] Jes Lockwood RN Social History Tobacco Use Types Packs/Day Years Used Date Smoking Tobacco: Never Smokeless Tobacco: Never Sex and Gender Information Value Date Recorded Sex Assigned at Not on file Legal Sex Male 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 It is currently pending auth. All questions answered at thistime. Call with any changes, questions, concerns. documented in this encounter Plan of Treatment Upcoming Encounters Date Type Department Care Team (Late Contact Info) Description 04/18/2024 6:05 PM INVESTMENT BANKING ANALYST Hospital Encounter [facility] ([facility]) Pending [facility] to [facility] [place] [address] Arrived 04/18/2024 6:10 PM INVESTMENT BANKING ANALYST Hospital Encounter [facility]) [address] [place] [address] Arrived documented as of this encounter Visit Diagnoses Not on filedocumented in this encounter Care Teams Kiln Loader Relationship Specialty Start Date End Date Dedra Doty MD PCP - General 08/03/16 documented as of this encounter
--- OUTSIDE RECORDS SUMMARY | 2024-04-18 18:11 | XMS_ITS | Encounter Summary ---
Author Organization [facility] Address [address] [facility] [address] [place] [address] Phone Care Team Providers Care Hair Assistant Name Role Phone Dedra Doty MD Primary Care Provider Encounter Details Date Type Department Care Team (Late st Contact Info) Description 09/27/2019 Orders Only [facility] Gastroenterology [address] [facility] 8th [place] [address] [place] [address] Xin Perez RMA Social History Tobacco Use Types Packs/Day Years Used Date Smoking Tobacco: Never Smokeless Tobacco: Never Sex and Gender Information Value Date Recorded Sex Assigned at Not on file Legal Sex Male 8:25 PM TOURIST ESCORT Gender Identity Not on file Sexual Orientation Not on file documented as of this encounter Plan of Treatment Upcoming Encounters Date Type Department Care Team (Late st Contact Info) Description 04/18/2024 6:05 PM TOURIST ESCORT Hospital Encounter [facility] [place] [facility] ([facility]) [address] [place] [address] Arrived documented as of this encounter Visit Diagnoses Not on filedocumented in this encounter Historical Medications * This list may reflect changes made after this encounter. traMADoL (ULTRAM) 50 mg tablet TK 1 T PO Q 6 H PRN P 08/19/2019 2 fenofibrate nanocrystallized (Tricor) 145 mg tablet 0 added in this encounter Care Teams Hair Assistant Relationship Specialty Start Date End Date Dedra Doty MD PCP - General 08/03/16 documented as of this encounter
--- OUTSIDE RECORDS SUMMARY | 2024-04-18 18:11 | XMS_ITS | Encounter Summary ---
Author Organization [facility] Address [address] [place] [address] Phone Care Team Providers Care Director Of Event Sales Name Role Phone Dedra Doty MD Primary Care Provider Encounter Details Date Type Department Care Team (Late st Contact Info) Description 09/05/2019 Orders Only [facility] Gastroenterology [address] 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 Doty for an EUS related to a pancreatic cyst. Appointment 09/09/19 1300 at the [facility] Dr. Tomas. Pt is not on any blood thinners, no diabetic medications, no implanted cardiac devices. NPO after midnight, pt will have a armored car driver. All questions answered at this time. Pt to call with any changes, questions, concerns. Pt will have COVID testing at [facility]. He has no ill sx. documented in this encounter Plan of Treatment Upcoming Encounters Date Type Department Care Team (Late st Contact Info) Description 04/18/2024 6:05 PM [facility] Hospital Encounter [facility] ([facility]) [address] [place] [address] Arrived 04/18/2024 6:10 PM [facility] Hospital Encounter [facility] ([facility]) [address] [place] [address] Arrived documented as of this encounter Visit Diagnoses Diagnosis Pre-op testing- Primary Unspecified pre-operative examination Pancreatic cyst Cyst and pseudocyst of pancreas documented in this encounter Orders Case Request Count Last Ordered Date First Orde red Date CASE REQUEST GI 1 09/05/2019 documented in this encounter Care Teams Director Of Event Sales Relationship Specialty Start Date End Date Dedra Doty MD PCP - General 08/03/16 documented as of this encounter
--- OUTSIDE RECORDS SUMMARY | 2024-04-18 18:11 | XMS_ITS | Encounter Summary ---
Author Organization [facility] Address [address] [place] [address] Phone Care Team Providers Care Strip Roller Name Role Phone Dedra Doty MD Primary Care Provider [phone] Encounter Details Date Type Department Care Team (Late st Contact Info) Description 09/12/2019 Telephone [facility] Gastroenterology [facility] 8th [place] [address] [place] [phone] Jes Lockwood, HANH Social History Tobacco Use Types Packs/Day Years Used Date Smoking Tobacco: Never Smokeless Tobacco: Never Sex and Gender Information Value Date Recorded Sex Assigned at Not on file Legal Sex Male 8:25 PM UNIX SYSTEM ADMINISTRATOR Gender Identity Not on file Sexual Orientation Not on file documented as of this encounter Miscellaneous Notes * Telephone Encounter - Jes Lockwood RN - 09/12/2019 2:59 PM CDT LMOM to discuss below with the patient. ----- Message from Richard Tomas MD sent [...] st Contact Info) Description 04/18/2024 6:05 PM UNIX SYSTEM ADMINISTRATOR Hospital Encounter [facility] ([facility]) [address] [place] [address] Arrived 04/18/2024 6:10 PM UNIX SYSTEM ADMINISTRATOR Hospital Encounter [facility] ([facility]) [address] [place] [address] Arrived documented as of this encounter Visit Diagnoses Not on filedocumented in this encounter Care Teams Strip Roller Relationship Specialty Start Date End Date Dedra Doty MD PCP - General 08/03/16 documented as of this encounter
--- OUTSIDE RECORDS SUMMARY | 2024-04-18 18:11 | XMS_ITS | Encounter Summary ---
Author Organization [facility] Healthcare Address [address] [place] [address] Care Team Providers Care Display Artist Name Role Phone Dedra Doty MD Primary Care Provider [phone] Encounter Details Date Type Department Care Team (Late st Contact Info) Description 09/05/2019 Orders Only [facility] HealthCare/ Physicians [address] [place] [address] Richard Tomas MD [address] [facility] [address] [place] [address] Pre-op testing (Primary Dx) Social History Tobacco Use Types Packs/Day Years Used Date Smoking Tobacco: Never Sex and Gender Information Value Date Recorded Sex Assigned at Not on file Legal Sex Male 8:25 PM CONTINUING EDUCATION INSTRUCTOR Gender Identity Not on file Sexual Orientation Not on file documented as of this encounter Progress Notes * Flora Kelly MA - 09/05/2019 4:50 PM CDT Pt screened eligible for Covid-19 testing. Order placed. Order and label printed for Location: [facility] documented in this encounter Miscellaneous Notes * Addendum Note - Clover Rubalcava - 09/05/2019 4:50 PM CDTAddended by: CLOVER RUBALCAVA on: 09/06/2019 10:21 PM Modules accepted: Orders documented in this encounter Plan of Treatment Upcoming Encounters Date Type Department Care Team (Late st Contact Info) Description 04/18/2024 6:05 PM CONTINUING EDUCATION INSTRUCTOR Hospital Encounter [facility] ([facility]) [address] [place] [address] Arrived 04/18/2024 6:10 PM CONTINUING EDUCATION INSTRUCTOR Hospital Encounter [facility] ([facility]) [address] [place] [address] Arrived documented as of this encounter Results * COVID-19 Coronavirus RNA Nasopharyngeal (09/06/2019 8:00 PM CDT) COVID-19 RNA Not Detected [facility]AH ANGELES Comment: Interpretive Data Testing performed at [facility] Molecular Infectious Disease Laboratory. The 2018-Novel Coronavirus [...] Data was last revised on 2019. Nasopharyngeal 09/06/2019 8: 00 PM CDT 09/06/2019 11:27 PM CDT Narrative MICAH ANGELES - 09/07/2019 11:23 AM CDT Is the patient experiencing any symptoms consistent with COVID (eg. Fever, cough, shortness of breath)?->No What is the reason for testing?->Screening prior to scheduled (>24 hr) surgery or procedure us Richard Tomas MD LAB MICROBIOLOGY - GENERA L ORDERABLES Final Result [facility] ANGEL[facility] Department [place] [address] documented in this encounter Visit Diagnoses Diagnosis Pre-op testing- Primary Unspecified pre-operative examination Pre-op testing Unspecified pre-operative examination documented in this encounter Care Teams Display Artist Relationship Specialty Start Date End Date Dedra Doty MD PCP - General 08/03/16 documented as of this encounter
--- OUTSIDE RECORDS SUMMARY | 2024-04-18 18:11 | XMS_ITS | Encounter Summary ---
Author Organization [facility] Healthcare Address [address] [place] [address] Care Team Providers Care Property Claims Manager Name Role Phone Dedra Doty MD Primary Care Provider Encounter Details Date Type Department Care Team (Latest Contact Info) Description 09/24/2019 7:09 AM CDT - 09/24/2019 11:59 PM CDT Hospital Encounter [facility] ([facility]) [address] [place] [address] Discharge Disposition: Discharge to home or self care Social History Tobacco Use Types Packs/Day Years Used Date Smoking Tobacco: Never Smokeless Tobacco: Never Sex and Gender Information Value Date Recorded Sex Assigned at Not on file Legal Sex Male 8:25 PM CORPORATE BUYER Gender Identity Not on file Sexual Orientation [...] st Contact Info) Description 04/18/2024 6:05 PM CORPORATE BUYER Hospital Encounter [facility] ([facility]) [address] [place] [address] Arrived documented as of this encounter Procedures Procedure Name Priority Date/Time Associated Diagnosis Comments CT BODY OUTSIDE REFERENCE Routine 09/24/2019 7:09 AM CDT Diagnosis unknown documented in this encounter Results * CT Body Outside Reference (09/24/2019 7:09 AM CDT) Impressions [facility] - 09/24/2019 7:09 AM CDT These images are for Reference purposes only and have not been reviewed by [facility] Radiology. ??There will be no report generated by a [facility] Radiologist. Narrative [facility] - 09/24/2019 7:09 AM CDT EXAMINATION: ??Images For Reference Purposes Only Jose Elias Messina MD IMG CT PROCEDURES Fi nal Result [facility] documented in this encounter Visit Diagnoses Not on filedocumented in this encounter Care Teams Property Claims Manager Relationship Specialty Start Date End Date Dedra Doty MD PCP - General 08/03/16 documented as of this encounter
--- OUTSIDE RECORDS SUMMARY | 2024-04-18 18:11 | XMS_ITS | Encounter Summary ---
Author Organization [facility] Healthcare Address [address] [place] [address] Care Team Providers Care Deputy Sheriff Building Guard Name Role Phone Dedra Doty MD Primary Care Provider Encounter Details Date Type Department Care Team (Late st Contact Info) Description 09/06/2019 10:25 PM CDT Lab [address] [id number] Pre-op testing Social History Tobacco Use Types Packs/Day Years Used Date Smoking Tobacco: Never Sex and Gender Information Value Date Recorded Sex Assigned at Not on file Legal Sex Male 8:25 PM GRILL ATTENDANT Gender Identity Not on file Sexual Orientation Not on file documented as of this encounter Plan of Treatment Upcoming Encounters Date Type Department Care Team (Late st Contact Info) Description 04/18/2024 6:05 PM GRILL ATTENDANT Hospital Encounter [facility] ([facility]) [address] [place] [address] Arrived 04/18/2024 6:10 PM GRILL ATTENDANT Hospital Encounter [facility] ([facility]) [address] [place] [address] Arrived documented as of this encounter Procedures Procedure Name Priority Date/Time Associated Diagnosis Comments COVID-19 CORONAVIRUS RNA Routine 09/06/2019 8:00 PM CDT Pre-op testing documented in this encounter Results * COVID-19 Coronavirus RNA Nasopharyngeal (09/06/2019 8:00 PM CDT) COVID-19 RNA Not Detected [facility] Comment: Interpretive Data Testing performed at [facility] Molecular Infectious Disease Laboratory. The 2019-Novel Coronavirus [...] CDT 09/06/2019 11:27 PM CDT Narrative MICAH MANN - 09/07/2019 11:23 AM CDT Is the patient experiencing any symptoms consistent with COVID (eg. Fever, cough, shortness of breath)?->No What is the reason for testing?->Screening prior to scheduled (>24 hr) surgery or procedure us Richard Tomas MD LAB MICROBIOLOGY - GENERA L ORDERABLES Final Result [facility] Department [place] [address] documented in this encounter Visit Diagnoses Diagnosis Pre-op testing Unspecified pre-operative examination documented in this encounter Care Teams Deputy Sheriff Building Guard Relationship Specialty Start Date End Date Dedra Doty MD PCP - General 08/03/16 documented as of this encounter
--- OUTSIDE RECORDS SUMMARY | 2024-04-18 18:11 | XMS_ITS | Encounter Summary ---
Author Organization [facility] Healthcare Address [address] [place] [address] Care Team Providers Care Machinist Helper Name Role Phone Dedra Doty MD Primary Care Provider [phone] Reason for Referral * Diagnostic Imaging (Routine) - Closed Specialty Diagnoses / Procedures Referred By Contac t Referred To Contact Radiology Diagnoses Pancreatic cyst Procedures MRI/MRCP (abdomen) W WO Contrast Richard Tomas MD [address] [address] Phone: tel: fax: [address] [phone] Referral ID Status Reason Start Date Expiration Date Visits Re quested Visits Authorized [id number] Closed 10/14/2019 04/24/2021 1 1 Reason for Visit * Diagnostic Imaging (Routine) - Closed Specialty Diagnoses / Procedures Referred By Contac t Referred To Contact Radiology Diagnoses Pancreatic cyst Procedures MRI/MRCP (abdomen) W WO Contrast Richard Tomas MD [address] [address] Phone: tel: fax: [address] [phone] Referral ID Status Reason Start Date Expiration Date Visits Re quested Visits Authorized [id number] Closed 10/14/2019 04/24/2021 1 1 Encounter Details Date Type Department Care Team (Latest Contact Info) Description 11/04/2019 1:37 PM CDT - 11/04/2019 11:59 PM CDT Hospital Encounter [facility] Radiology at [facility] [address] [place] [address] Richard Tomas MD [address] [place] [address] Pancreatic cyst Discharge Disposition: Discharge to home or self care Social History Tobacco Use Types Packs/Day Years Used Date Smoking Tobacco: Never Smokeless Tobacco: Never Sex and Gender Information Value Date Recorded Sex Assigned at Not on file Legal Sex Male 8:25 PM NET PROGRAMMER Gender Identity Not on file Sexual Orientation [...] st Contact Info) Description 04/18/2024 6:05 PM NET PROGRAMMER Hospital Encounter [facility] ([facility]) [address] [place] [address] Arrived documented as of this encounter Procedures Procedure Name Priority Date/Time Associated Diagnosis Comments MRI ABDOMEN MRCP W WO CONTRAST Schedule Routine, Read Routine (OP Routine) 11/04/2019 3:15 PM CDT Pancreatic cyst documented in this encounter Results * MRI/MRCP (abdomen) W [...] by: Richard Sands M.D. Richard Tomas MD IMG MRI PROCEDURES Final Result documented in this encounter Visit Diagnoses Diagnosis Pancreatic cyst Cyst and pseudocyst of pancreas documented in this encounter Administered Medications Inactive Administered Medications - up to 3 most recent administrations Medication Order MAR Action Action Date Dose Rate Site gadoterate meglumine (DOTAREM) 0.5 mmol/mL injection 14.98 mL 14.98 mL (0.1 mmol/kg ? 74.9 kg), intravenous, Once in imaging, contrast, Starting on 11/04/19 at 1410, For 1 dose, Imaging Protocol Orders Given 11/04/2019 2:26 PM CDT 14 mL sodium chloride 0.9% flush 125 mL 125 mL, intravenous, Once in imaging, line care, Starting on 11/04/19 at 1411, For 1 dose Given 11/04/2019 2:26 PM CDT 125 mL documented in this encounter Care Teams Machinist Helper Relationship Specialty Start Date End Date Dedra Doty MD PCP - General 08/03/16 documented as of this encounter
== END 2024-04-17 12:58 | disposition home or self-care (01) | DRG 438 ==
LOC: ANHED 13:55 → ANH3MEDSUR 17:07
PROVIDERS: Internal Medicine Gastroenterology; Nurse Practitioner Adult Health; Nurse Practitioner Family; Physician Assistant; Admitting Provider General Practice; Emergency Provider Student in an Organized Health Care Education/Training Program; PCP Family Medicine; Visit Provider Nurse Practitioner Acute Care
DX: K85.90 Acute pancreatitis without necrosis or infection, unspecified (principal); I81 Portal vein thrombosis; E78.00 Pure hypercholesterolemia, unspecified; I10 Essential (primary) hypertension; E03.9 Hypothyroidism, unspecified; F41.9 Anxiety disorder, unspecified; K76.0 Fatty (change of) liver, not elsewhere classified; K59.00 Constipation, unspecified; K85.91 Acute pancreatitis with uninfected necrosis, unspecified; E87.6 Hypokalemia; Z11.52 Encounter for screening for COVID-19
CPT/HCPCS: 36415; 74170; 74177; 74183; 76376; 76705; 80053; 81001; 83615; 83690; 83735; 84100; 84443; 85025; 85652; 86140; 87040; 87637; 96365; 96367; 96375; 96376; 99285; A9270; A9577; G0378; J0744; J1650; J1836; J2270; J2405; J3480; J7030; J7040; Q9967